=== PATIENT | female | born 1940 | race African-American/Black ===

== ENCOUNTER → 2016-09-24 | Outpatient (CLI) | payer MEDICARE ==
[2016-07-17 15:09] VITALS: BP 163/67
[~2016-09-24] MED LIST: AMLO10TA4 PO; ANAS1TAB3 PO; ASPI-482 PO; ATOR40TA59 PO; ATORVASTATIN CA80 MG PO; BUTA1CAP31 PO; CHLO1CAP PO; CLIN300C86 PO; DOCU100C5 PO; INSU100I13 SQ; INSU100V10 SQ; INSU100V31 SQ; INSU100V8 SQ; LISI1TAB7 PO; METO25TA2 PO; METO25TA4 PO; MULT-658 PO; NITR0.4T SL; NPH,100V4 SQ; POLY17PO5 PO; POTA20TA82 PO; PROAIR HFA8.5 GM IH; RANI150T2 PO; SENN1TAB30 PO; SULF1TAB24 PO; [UNRECOGNIZED DRUG - CODE] PO
--- NOTE | 2016-09-24 17:01 | RAD ---
APPROVED REPORT Patient Location: OUT-PATIENT Indications PAD VELOCITY AND DOPPLER WAVEFORM ANALYSIS RIGHT cm/secWaveformSeverity LEFT c m/secWaveformSeverity Ext Iliac Art. 174.0BiphasicExt Iliac Art. 160.0Biphasic dCFA 189.0BiphasicdCFA 123.0Biphasic Prof Fem Art. 190.0BiphasicProf Fem Art. 126.0 Fem Art Prox. 122.0BiphasicFem Art Prox. 138.0Biphasic Fem Art Mid. 89.0BiphasicFem Art Mid. 89.0Biphasic Fem Art Dist. 85.0BiphasicFem Art Dist. 86.0Biphasic Pop Art(AK) 193.0BiphasicPop Art(AK) 114.0Biphasic Pop Art(BK) 84.0BiphasicPop Art(BK) SENIOR TECHNICAL BUSINESS ANALYST Prox. 70.0MonophasicPTA Prox. 77.0Biphasic SENIOR TECHNICAL BUSINESS ANALYST Dist. 46.0MonophasicPTA Dist. 68.0Biphasic Per Art Mid. 57.0MonophasicPer Art Mid. 54.0Biphasic JN Prox. 24.0MonophasicATA Prox. 53.0Biphasic Image Findings Espinoza scale images of the right lower extremity arterial system reveal moderate diffuse atheroscleroti c plaque. There is a greater than 50% stenosis involving the distal popliteal vessel. Below the knee on the right side in the anterior tibial appears to be occluded in its distal segment with diminished flows. There is patency noted of the peroneal and posterior tibial vessels. On the left side there is mild atherosclerotic plaquing. No significant elevated velocities are noted . Critical Notification Critical Value: No <Conclusion> Suspicious for recurrent high-grade disease in the popliteal segment. Suspicious for occlusion of the distal right anterior tibial artery.
== END | disposition home or self-care (01) ==
LOC: US 13:31
PROVIDERS: ATTEND Internal Medicine Cardiovascular Disease
DX: I70.203 Unspecified atherosclerosis of native arteries of extremities, bilateral legs (principal)
CPT/HCPCS: 93925

== ENCOUNTER 2016-12-11 07:36 | Outpatient (CLI) | payer MEDICARE ==
[~2016-12-11] VITALS: Ht 162.6 cm; Wt 69.9 kg
[2016-12-11] VITALS (7 sets, daily range): BP systolic 105–142; BP diastolic 53–82
[~2016-12-11 07:36] MED LIST changes: +CLIN300C8 PO; -CLIN300C86 PO; +DOCU100C28 PO; -DOCU100C5 PO; -INSU100V10 SQ; +INSU100V11 SQ; -NPH,100V4 SQ; +NPH,100V5 SQ; +POLY17PO29 PO; -POLY17PO5 PO
[2016-12-11] MEDS ORDERED: IV NORMAL SALINE 1000ML BAG 1,000 ML IV SCH (07:45)
[2016-12-11] MEDS ORDERED: VITA1CAP5 PO (08:05)
[2016-12-11 08:22] LABS: HEMATOCRIT 45.1 % (36.0-47.0); HEMOGLOBIN 15.1 g/dL (12.0-15.5); RED BLOOD COUNT 5.02 x10^6/uL (3.50-5.40); RED CELL DISTRIBUTION WIDTH 14.1 % (11.5-14.5); WHITE BLOOD COUNT 10.4 x10^3/uL (4.0-11.0)
[2016-12-11 08:25] LABS: CALCIUM 10.1 mg/dL (8.5-10.1); CREATININE 0.9 mg/dL (0.6-1.0); GFR 74.1; POTASSIUM 4.1 mmol/L (3.5-5.1)
[2016-12-11 08:32] LABS: PROTHROMBIN TIME PATIENT 12.7 SEC (11.7-14.0)
[2016-12-11] MEDS ORDERED: LIDOCAINE 2% 20 ML VIAL. ONE (08:52)
[2016-12-11] MEDS ORDERED: IODIXANOL 320 MG/ML 100 ML VIAL. ONE (08:53)
[2016-12-11] MEDS ORDERED: fentaNYL PF VIAL 250 MCG/5 ML VIAL ONE (09:13)
[2016-12-11] MEDS ORDERED: MIDAZOLAM HCL/PF 5 MG/5 ML VIAL. ONE (09:13)
[2016-12-11] MEDS ORDERED: HEPARIN for IV BOLUS 10,000 UNIT/10 ML VIAL. ONE (09:13)
[2016-12-11] MEDS ORDERED: LIDOCAINE 2% 20 ML VIAL. IJ ONE (09:30)
[2016-12-11] MEDS ORDERED: IODIXANOL 320 MG/ML 100 ML VIAL. IART ONE (09:30)
[2016-12-11] MEDS ORDERED: fentaNYL PF VIAL 250 MCG/5 ML VIAL IV ONE (09:30)
[2016-12-11] MEDS ORDERED: CONTRAST GIVEN MC PRN (09:30)
[2016-12-11] MEDS ORDERED: MIDAZOLAM HCL/PF 5 MG/5 ML VIAL. IV ONE (09:30)
--- NOTE | 2016-12-11 09:58 | PDOC ---
MODERATE SEDATION ASSESSMENT RISKS/ALTERNATIVES Risks/Alternatives Risks and alternatives of this type of sedation and procedure discussed with: RISK/ALTERNATIVES: Patient H & P ON CHART H & P H & P on chart and reviewed for co-morbid conditions and appropriate labs. H&P ON CHART: Yes STATUS PREG STATUS ASSESSED: N/A MEDS/ALLERGIES REVIEWED Meds/Allergies Reviewed Medications and Allergies including time and route of recently administered narcotics and sedatives. MEDS/ALLERGIES REVIEWED: Yes ASA RATING ASA RATING: II AIRWAY ASSESSMENT Airway Assessment Airway patency, oral function limitations, presence of caps, crowns, dentures, partials, and ability to extend neck assessed. AIRWAY ASSESSMENT: Yes MALLAMPATI SCORE MALLAMPATI SCORE: II PRE-SEDATION ASSESSMENT PRE-SEDATION ASSESSMENT: Yes TAYLOR BROWN MD December 11, 2016 09:58
[2016-12-11] MEDS ORDERED: ACETAMINOPHEN 325 MG TABLET. PO PRN (10:00)
--- NOTE | 2016-12-11 10:21 | CARD ---
APPROVED REPORT Patient StatusOUT-PATIENT [facility] [employer] Supervisor: Sudeep Bhatt RT (R) Procedure(s) performed: Aortogram with bilateral lower extremity runoff INDICATION FOR PROCEDURE The indication(s) include : Peripheral vascular disease with claudication. PROCEDURE NARRATIVE After explaining the risks, benefits and alternative options, informed consent for the patient from oscar mota. Patient was brought to the cardiac Health Care Aide and her left groin was prepped and draped in the usual fashion. 20 mL of 2% lidocaine was infiltrated into the skin and subcutaneous tissues for local anesthesia. Arterial access was obtained in the left common femoral artery and a 5 [place] sheath was inserted. 5 [place] pigtail catheter was used to perform aortogram with bilateral lower extremity run off. The aortic nina was crossed using a 5 [place] crossover catheter and the tip position in the pr oximal portion of the right superficial femoral artery, selective right lower ejection and angiograph y was performed. Patient tolerated the procedure well. Hemostasis was achieved using Mynx closure dev ice. The following findings were noted. FINDINGS 1. No significant stenosis involving the distal descending aorta, bilateral common and external rj c arteries. 2. No significant stenosis involving bilateral common femoral and superficial femoral arteries. 3. 40% eccentric calcified lesion involving the proximal portion of the right popliteal artery. No s ignificant stenosis involving the left popliteal artery. 4. [id number], there is good two vessel runoff bilaterally. The left posterior tibial artery juan daniel wed severe diffuse disease in the mid to distal segment. The right peroneal artery showed moderate di ffuse disease. The right anterior tibial artery showed 60-70% proximal segment stenosis. Conclusion No significant major peripheral vascular stenosis with two vessel runoff below the knee bilaterally Recommendations Medical management and regular exercise regimen.
[2016-12-11] MEDS ORDERED: IV 1/2 NORMAL SALINE 1,000 ML IV SCH (10:30)
== END 2016-12-11 12:30 | disposition home or self-care (01) ==
LOC: CCL 07:36
PROVIDERS: ATTEND Internal Medicine Cardiovascular Disease
DX: I70.209 Unspecified atherosclerosis of native arteries of extremities, unspecified extremity (principal); Z79.01 Long term (current) use of anticoagulants; E78.00 Pure hypercholesterolemia, unspecified; I10 Essential (primary) hypertension; K21.9 Gastro-esophageal reflux disease without esophagitis; E11.9 Type 2 diabetes mellitus without complications; F41.9 Anxiety disorder, unspecified; M19.90 Unspecified osteoarthritis, unspecified site; Z90.49 Acquired absence of other specified parts of digestive tract; Z90.710 Acquired absence of both cervix and uterus; Z85.3 Personal history of malignant neoplasm of breast; Z88.0 Allergy status to penicillin; Z88.2 Allergy status to sulfonamides; Z88.8 Allergy status to other drugs, medicaments and biological substances
CPT/HCPCS: 36247; 36415; 75630; 80048; 85027; 85610; 85730; C1769; C1771; C1892; G0269; J2250; J3010; J7030; Q9967

== ENCOUNTER 2017-02-11 02:54 | Inpatient (IN) | payer MEDICARE ==
[~2017-02-11] VITALS: Ht 160 cm; Wt 73.2 kg
[~2017-02-11 02:54] MED LIST changes: +VITA1CAP5 PO
[2017-02-11] MEDS ORDERED: IV NORMAL SALINE 500ML BAG 500 ML IV ONE (03:15)
[2017-02-11 03:19] LABS: BASO % 0 % (0-3); EOS % 1 % (0-3); HEMATOCRIT 47.7 % (36.0-47.0); LYMPH # 2.5 x10^3/uL (1.0-4.8); LYMPH % 9 % (24-48); MEAN CORPUSCULAR HEMOGLOBIN 30 pg (25-35); MEAN CORPUSCULAR HGB CONC 34 g/dL (31-37); MEAN CORPUSCULAR VOLUME 89 fL (79-100); MONO % 4 % (0-9); NEUT % 86 % (31-73); PLATELET COUNT 286 x10^3/uL (140-400); RED BLOOD COUNT 5.34 x10^6/uL (3.50-5.40); WHITE BLOOD COUNT 26.4 x10^3/uL (4.0-11.0)
[2017-02-11] MEDS ORDERED: ONDANSETRON PF 4 MG/2 ML VIAL. IV ONE (03:30)
[2017-02-11] MEDS ORDERED: MORPHINE SULFATE 4 MG/ML DISP.SYRIN. IV ONE (04:00)
--- NOTE | 2017-02-11 04:14 | PHYS DOC ---
Past Medical History Past Medical History: CAD, Cancer, Diabetes-Type II, High Cholesterol, Hypertension, Other Additional Past Medical Histor: breast cancer Past Surgical History: Cholecystectomy, Coronary Bypass Surgery, Hysterectomy, Oophorectomy, Other Additional Past Surgical Histo: hemorrhoidectomy, right mastectomy,CARPAL TUNNEL RIGHT Alcohol Use: Rarely Drug Use: None Adult General Chief Complaint Chief Complaint: NAUSEA/VOMITING/DIARRHA HPI HPI Patient is a 77 year old female who presents with complaints of nausea, vomiting, abdominal distention, diarrhea. Diarrhea sling for 1 days since she took some laxatives due to constipation for 3 days. Been having abdominal distention for a few days and has tenderness throughout her belly, she has never had this symptoms before. Review of Systems Review of Systems Constitutional: has chills HENT: Denies nasal congestion or sore throat [] Respiratory: Denies cough or shortness of breath [] Cardiovascular: No aspirin GI: yes abdominal pain, nausea, vomiting, diarrhea. No bloody stools or diarrhea [] Musculoskeletal: Denies back pain or joint pain [] Integument: Denies rash or skin lesions [] Neurologic: Denies headache, focal weakness or sensory changes [] : Denies dysuria Current Medications Current Medications Current Medications Medications (Trade) Dose Ordered Sig/Shakeel Start Time Stop Time Status Last Admin Dose Admin Diphenhydramine HCl (Benadryl) 25 mg 1X ONCE 02/11/17 05:00 02/11/17 05:01 Cancel Famotidine (Pepcid) 20 mg 1X ONCE 02/11/17 05:00 02/11/17 05:01 Cancel Hydrochlorothiazide (Microzide) 25 mg 1X ONCE 02/11/17 04:30 02/11/17 04:31 UNV Info (Do NOT chart on this entry -- for MONITORING) 1 each PRN DAILY PRN 02/11/17 05:00 02/13/17 04:59 Iohexol (Omnipaque 300 Mg/ml) 75 ml 1X ONCE 02/11/17 05:00 02/11/17 05:01 DC Lisinopril (Prinivil) 20 mg 1X ONCE 02/11/17 04:30 02/11/17 04:31 UNV Methylprednisolone Sodium Succinate (SOLU-Medrol 125MG VIAL) 125 mg 1X ONCE 02/11/17 05:00 02/11/17 05:01 Cancel Metoprolol Tartrate (Lopressor) 25 mg 1X ONCE 02/11/17 04:30 02/11/17 04:31 UNV Morphine Sulfate 4 mg 1X ONCE 02/11/17 04:00 02/11/17 04:01 DC 02/11/17 04:08 4 MG Ondansetron HCl (Zofran) 4 mg 1X ONCE 02/11/17 03:30 02/11/17 03:31 DC 02/11/17 03:33 4 MG Sodium Chloride 1,000 ml @ 1,000 mls/hr 1X ONCE 02/11/17 05:00 02/11/17 05:59 Cancel Allergies Allergies Allergies Coded Allergies Type Severity Reaction Last Updated Verified Penicillins Allergy Intermediate hives 07/14/16 Yes Sulfa (Sulfonamide Antibiotics) Allergy Intermediate 07/14/16 Yes celecoxib Allergy Intermediate "makes me crazy" 07/14/16 Yes chocolate flavor Allergy Unknown 07/16/16 Yes Uncoded Allergies Type Severity Reaction Last Updated Verified crest Allergy Unknown 07/14/16 Physical Exam Physical Exam Constitutional: Well developed, well nourished, mild distress, non-toxic appearance. [] HENT: Normocephalic, atraumatic, dry oropharynx no oral exudates, nose normal. [ ] Eyes: EOMI, conjunctiva normal, no discharge. [] Neck: Normal range of motion, no tenderness, supple, no stridor. No LAD, no meningeal signs Cardiovascular:Heart rate regular rhythm, no murmur, normal perfusion, no vascular insufficiency Lungs & Thorax: Bilateral breath sounds with decreased sounds at the bases, no tachypnea Abdomen: Bowel sounds decreased, soft, diffuse tenderness with voluntary guarding, no masses, no pulsatile masses. [] Skin: Warm, dry, no erythema, no rash. [] Back: No tenderness, no CVA tenderness. [] Extremities: No tenderness, no cyanosis, no clubbing, ROM intact, no edema. The signs of DVT Neurologic: Alert and oriented X 3, normal motor function, no focal deficits noted. [] Psychologic: Affect normal, judgement normal, mood normal. [] Current Patient Data Vital Signs Vital Signs Date Time Temp Pulse Resp B/P (MAP) Pulse Ox O2 Delivery O2 Flow Rate FiO2 02/11/17 04:00 90 18 142/68 (92) 97 Room Air 02/11/17 03:00 98.3 98.3 Lab Values Laboratory Tests Test 02/11/17 02:10 02/11/17 04:10 White Blood Count 26.4 x10^3/uL (4.0-11.0) H Red Blood Count 5.34 x10^6/uL (3.50-5.40) Hemoglobin 16.0 g/dL (12.0-15.5) H Hematocrit 47.7 % (36.0-47.0) H Mean Corpuscular Volume 89 fL (79-100) Mean Corpuscular Hemoglobin 30 pg (25-35) Mean Corpuscular Hemoglobin Concent 34 g/dL (31-37) Red Cell Distribution Width 14.0 % (11.5-14.5) Platelet Count 286 x10^3/uL (140-400) Neutrophils (%) (Auto) 86 % (31-73) H Lymphocytes (%) (Auto) 9 % (24-48) L Monocytes (%) (Auto) 4 % (0-9) Eosinophils (%) (Auto) 1 % (0-3) Basophils (%) (Auto) 0 % (0-3) Neutrophils # (Auto) 22.7 x10^3uL (1.8-7.7) H Lymphocytes # (Auto) 2.5 x10^3/uL (1.0-4.8) Monocytes # (Auto) 1.0 x10^3/uL (0.0-1.1) Eosinophils # (Auto) 0.1 x10^3/uL (0.0-0.7) Basophils # (Auto) 0.0 x10^3/uL (0.0-0.2) Platelet Estimate Pending Lactic Acid Level 2.0 mmol/L (0.4-2.0) Sodium Level 139 mmol/L (136-145) Potassium Level 3.5 mmol/L (3.5-5.1) Chloride Level 102 mmol/L (98-107) Carbon Dioxide Level 26 mmol/L (21-32) Anion Gap 11 (6-14) Blood Urea Nitrogen 16 mg/dL (7-20) Creatinine 1.2 mg/dL (0.6-1.0) H Estimated GFR (Cockcroft-Gault) 53.0 BUN/Creatinine Ratio 13 (6-20) Glucose Level 246 mg/dL (70-99) H Calcium Level 10.9 mg/dL (8.5-10.1) H Total Bilirubin 0.7 mg/dL (0.2-1.0) Aspartate Amino Transferase (AST) 26 U/L (15-37) Alanine Aminotransferase (ALT) 33 U/L (14-59) Alkaline Phosphatase 132 U/L (46-116) H Total Protein 8.4 g/dL (6.4-8.2) H Albumin 4.1 g/dL (3.4-5.0) Albumin/Globulin Ratio 1.0 (1.0-1.7) Laboratory Tests 02/11/17 02:10 Laboratory Tests 02/11/17 04:10 EKG EKG [] Radiology/Procedures Radiology/Procedures [] Course & Med Decision Making Course & Med Decision Making Pertinent Labs and Imaging studies reviewed. (See chart for details) 0601 pt feels much improved. Informed of CT results. [] Dragon Disclaimer Dragon Disclaimer This electronic medical record was generated, in whole or in part, using a voice recognition dictation system. Departure Departure Impression: Primary Impression: SBO (small bowel obstruction) Disposition: ADMITTED INPATIENT Admitting Physician: Nano Castillo Condition: STABLE Referrals: NANO CASTILLO MD (PCP) Carina HENDRIX MD Feb 11, 2017 04:14
[2017-02-11] MEDS ORDERED: hydroCHLOROthiazide 12.5 MG CAPSULE PO ONE (04:30)
[2017-02-11] MEDS ORDERED: METOPROLOL TART IMMED RELEASE 25 MG TABLET. PO ONE (04:30)
[2017-02-11] MEDS ORDERED: LISINOPRIL 10 MG TABLET PO ONE (04:30)
[2017-02-11 04:38] LABS: CALCIUM 10.9 mg/dL (8.5-10.1); CREATININE 1.2 mg/dL (0.6-1.0); POTASSIUM 3.5 mmol/L (3.5-5.1)
[2017-02-11 04:44] LABS: ALBUMIN 4.1 g/dL (3.4-5.0); TOTAL BILIRUBIN 0.7 mg/dL (0.2-1.0); TOTAL PROTEIN 8.4 g/dL (6.4-8.2)
[2017-02-11] MEDS ORDERED: IV NORMAL SALINE 1000ML BAG 1,000 ML IV ONE ×2 (04:45→05:00)
[2017-02-11] MEDS ORDERED: methylPREDNISolone SOD SUCC PF 125 MG/2 ML VIAL. IV ONE (05:00)
[2017-02-11] MEDS ORDERED: FAMOTIDINE 20 MG/2 ML VIAL IVP ONE ×2 (05:00→15:30)
[2017-02-11] MEDS ORDERED: diphenhydrAMINE 50 MG/ML VIAL IVP ONE (05:00)
[2017-02-11] MEDS ORDERED: IOHEXOL 300 MG/ML 75 ML VIAL IV ONE (05:00)
[2017-02-11] MEDS ORDERED: CONTRAST GIVEN MC PRN (05:00)
--- NOTE | 2017-02-11 05:33 | RAD ---
CT abdomen and pelvis without contrast HISTORY: Abdominal pain and distention, vomiting. TECHNIQUE: Helical CT imaging of the abdomen and pelvis acquired. No contrast was given. Abdomen findings: Extensive coronary calcified plaque. Lung bases unremarkable. Lumbar disc disease and facet osteoarthritis, L5 grade 2 anterolisthesis with severe spinal canal and neural foraminal stenosis at L5-S1. Cholecystectomy. Extensive arterial vascular calcifications. No nephroureterolithiasis or hydronephrosis. Liver, spleen, adrenals, pancreas unremarkable. There is a 3 mm thin slip of hypodense fluid along the liver deep to the diaphragm. Left-sided IVC. Extensive mesenteric artery calcified plaque. Small bowel obstruction with fluid distention and air-fluid levels throughout majority of small bowel with transition point at the distal ileum with clumping of bowel loops within the pelvis could be due to either an adhesion of these loops or stricture from distal ileitis. The appendix is negative. Pelvis findings: Hysterectomy. Bladder, rectum and bones are unremarkable. Clumping of small bowel loops at the pelvis. Trace dependent pelvic fluid. IMPRESSION: 1. Small bowel obstruction with transition point at the distal ileum where there are clumped small bowel loops within the pelvis, this could be due to an adhesion tethering these bowel loops. Distal ileum stricture from enteritis there is a secondary consideration. 2. The appendix is negative. 3. Extensive arterial vascular calcifications, the morphology of which can be observed with chronic renal disease or hyperparathyroidism. Exposure: One or more of the following individualized dose reduction techniques were utilized for this examination: 1. Automated exposure control 2. Adjustment of the mA and/or kV according to patient size 3. Use of iterative reconstruction technique Electronically signed by: Caleb Cochran MD (02/11/2017 5:30 AM) [id number]
[2017-02-11] MEDS ORDERED: ONDANSETRON PF 4 MG/2 ML VIAL. IV PRN (06:15)
[2017-02-11] MEDS ORDERED: MORPHINE SULFATE 4 MG/ML DISP.SYRIN. IV PRN (06:15)
[2017-02-11 07:00] VITALS: BP 151/77
[2017-02-11] MEDS ORDERED: GARL10002 PO (07:05)
[2017-02-11] MEDS ORDERED: OMEG1CAP6 PO (07:05)
[2017-02-11 07:07] LABS: % EOS 1 % (0-5)
[2017-02-11 07:08] LABS: PLT ESTIMATE ADEQUATE (ADEQUATE)
--- NOTE | 2017-02-11 07:18 | RAD ---
Portable chest, 02/11/2017: History: Pneumonia Comparison is made to a study from 07/14/2016. There has been a previous median sternotomy. The heart size and pulmonary vascularity are normal. There is calcific plaquing of aorta. The lungs are clear. There is no evidence of pleural fluid. IMPRESSION: No acute cardiopulmonary abnormality is detected.
[2017-02-11] MEDS ORDERED: hydrALAZINE 20 MG/ML VIAL. IVP PRN (08:00)
--- NOTE | 2017-02-11 08:10 | PDOC1 ---
History and Physical Date of Admission Date of Admission DATE: 02/11/17 Identification/Chief Complaint Chief Complaint Nausea, vomiting, abdominal pain Problems: Source Source: Patient History of Present Illness History of Present Illness Pt states that she had dinner last night including BBQ ribs, turnip greens, corn on the cob, 2T of icecream, small piece of chocolate cake and a diet 7up. Woke up around 11pm and felt "funny". Went to the restroom and had both large BM and vomited. Called her daughter who then called 911. Pt vomited again. States that symptoms were sudden onset, but has noticed increased abdominal distention and constipation since the beginning of January. Having some lower abdominal pain currently. Past Medical History Cardiovascular: CAD, HTN, Hyperlipidemia, Aortic stenosis, Other Pulmonary: No pertinent hx CENTRAL NERVOUS SYSTEM: Other GI: GERD Heme/Onc: No pertinent hx Hepatobiliary: No pertinent hx Psych: No pertinent hx Musculoskeletal: Osteoarthritis Rheumatologic: No pertinent hx Infectious disease: No pertinent hx ENT: Allergic Rhinitis Renal/: No pertinent hx Endocrine: Diabetes Dermatology: No pertinent hx Past Surgical History Past Surgical History: Cholecystectomy, CABG, Mastectomy, Hysterectomy Family History Family History: Coronary Artery Disease Social History Smoke: Quit ALCOHOL: rare Drugs: None Current Problem List Problem List Problems Medical Problems: (1) SBO (small bowel obstruction) Status: Acute Problems: Current Medications Current Medications Current Medications Sodium Chloride 500 ml @ 500 mls/hr 1X ONCE IV Last administered on 03:33; Start 02/11/17 at 03:15; Stop 02/11/17 at 04:14; Status DC Ondansetron HCl (Zofran) 4 mg 1X ONCE IV Last administered on 02/11/17 03:33 ; Start 02/11/17 at 03:30; Stop 02/11/17 at 03:31; Status DC Morphine Sulfate 4 mg 1X ONCE IV Last administered on 02/11/17 04:08; Start 02/11/17 at 04:00; Stop 02/11/17 at 04:01; Status DC Iohexol (Omnipaque 300 Mg/ml) 75 ml 1X ONCE IV ; Start 02/11/17 at 05:00; Stop 02/11/17 at 05:01; Status DC Lisinopril (Prinivil) 20 mg 1X ONCE PO ; Start 02/11/17 at 04:30; Stop at 04:31; Status UNV Hydrochlorothiazide (Microzide) 25 mg 1X ONCE PO ; Start 02/11/17 at 04:30; Stop 02/11/17 at 04:31; Status UNV Metoprolol Tartrate (Lopressor) 25 mg 1X ONCE PO ; Start 02/11/17 at 04:30; Stop 02/11/17 at 04:31; Status UNV Sodium Chloride 1,000 ml @ 1,000 mls/hr 1X ONCE IV ; Start 02/11/17 at 04:45; Stop 02/11/17 at 05:44; Status DC Famotidine (Pepcid) 20 mg 1X ONCE IVP ; Start 02/11/17 at 05:00; Stop 02/11/17 at 05:01; Status Cancel Diphenhydramine HCl (Benadryl) 25 mg 1X ONCE IVP ; Start 02/11/17 at 05:00; Stop 02/11/17 at 05:01; Status Cancel Methylprednisolone Sodium Succinate (SOLU-Medrol 125MG VIAL) 125 mg 1X ONCE IV ; Start 02/11/17 at 05:00; Stop 02/11/17 at 05:01; Status Cancel Sodium Chloride 1,000 ml @ 1,000 mls/hr 1X ONCE IV ; Start 02/11/17 at 05:00; Stop 02/11/17 at 05:59; Status Cancel Info (Do NOT chart on this entry -- for MONITORING) 1 each PRN DAILY PRN MC SEE COMMENTS; Start 02/11/17 at 05:00; Stop 02/13/17 at 04:59 Ondansetron HCl (Zofran) 4 mg PRN Q8HRS PRN IV NAUSEA/VOMITING; Start 02/11/17 at 06:15; Stop 02/12/17 at 06:14 Morphine Sulfate 4 mg PRN Q2HR PRN IV PAIN; Start 02/11/17 at 06:15; Stop at 06:14 Active Scripts Active Atorvastatin Calcium 40 Mg Tablet 40 Mg PO QHS 30 Days Reported Fish Oil 1,000 Mg Capsule ([place]-3 Fatty Acids/Fish Oil) 1 Each Capsule 1 Each PO DAILY Garlic 1,000 Mg Capsule 1,000 Mg PO DAILY B Complex With Vitamin C (Vitamin B Complex & Vit C No.3) 1 Each Capsule 1 Each PO DAILY Lantus Solostar (Insulin Glargine,Hum.rec.anlog) 100 Unit/1 Ml Insuln.pen 30 Unit SQ HS Novolin R (Insulin Regular, Human) 100 Unit/1 Ml Vial 12-15 Unit SQ TIDWMEALS Toprol Xl (Metoprolol Succinate) 25 Mg Tab.er.24h 50 Mg PO HS Aspir 81 (Aspirin) 81 Mg Tablet.dr 81 Mg PO DAILYAC Norvasc (Amlodipine Besylate) 10 Mg Tablet 10 Mg PO DAILY Potassium Chloride 20 Meq Tablet.er 20 Meq PO DAILYAC Ranitidine Hcl 150 Mg Tablet 150 Mg PO BID Lisinopril-Hctz 20-25 Mg Tab (Lisinopril/Hydrochlorothiazide) 1 Each Tablet 1 Tab PO DAILY Centrum Silver Tablet (Multivits-Min/Fa/Lycopene/Lut) 1 Each Tablet 1 Each PO DAILY LAST DOSE: 12/07/15 AM NEXT DOSE: 12/08/15 AM Allergies Allergies: Coded Allergies: Penicillins (Verified Allergy, Intermediate, hives, 07/14/16) Sulfa (Sulfonamide Antibiotics) (Verified Allergy, Intermediate, 07/14/16) celecoxib (Verified Allergy, Intermediate, "makes me crazy", 07/14/16) chocolate flavor (Verified Allergy, Unknown, 07/16/16) Uncoded Allergies: crest (Allergy, Unknown, 07/14/16) ROS General: YES: Chills, No: Night Sweats PSYCHOLOGICAL ROS: No: Anxiety, Depression Eyes: No Decreased vision, No Eye Pain HEENT: No: Nasal congestion, Sore Throat ALLERGY AND IMMUNOLOGY: No: Hives, Post Nasal Drip Hematological and Lymphatic: No: Bleeding Problems, Blood Clots Respiratory: No: Cough, Shortness of breath Cardiovascular: No Chest Pain, No Palpitations, No Edema Gastrointestinal: Yes Nausea, Yes Vomiting, Yes Abdominal Pain, No Diarrhea, No Constipation Genitourinary: No Dysuria, No Urgency Musculoskeletal: No Joint Pain, No Muscle Pain Neurological: No Impaired Coord/balance, No Numbness/Tingling Skin: No Rash, No Skin Lesion Changes Physical Exam General: Alert, Oriented X3, Cooperative, No acute distress HEENT: Atraumatic, PERRLA, EOMI, Mucous membr. moist/pink Lungs: Clear to auscultation, Normal air movement Heart: RRR, other (systolic ejection murmur heard best PIOTR border) Abdomen: Other (distended, decreased bowel sounds throughout except for some high pitched sounds LLQ, minimal tenderness suprapubic) Extremities: No clubbing, No cyanosis, No edema Skin: No rashes, No breakdown, No significant lesion Neuro: Normal tone, Sensation intact, Cranial nerves 3-12 NL Psych/Mental Status: Mental status NL, Mood NL Vitals Vitals Vital Signs Date Time Temp Pulse Resp B/P (MAP) Pulse Ox O2 Delivery O2 Flow Rate FiO2 02/11/17 06:00 88 18 150/64 (92) 96 Room Air 02/11/17 03:00 98.3 98.3 Labs Labs Laboratory Tests Test 02/11/17 02:10 02/11/17 04:10 White Blood Count 26.4 x10^3/uL (4.0-11.0) Red Blood Count 5.34 x10^6/uL (3.50-5.40) Hemoglobin 16.0 g/dL (12.0-15.5) Hematocrit 47.7 % (36.0-47.0) Mean Corpuscular Volume 89 fL (79-100) Mean Corpuscular Hemoglobin 30 pg (25-35) Mean Corpuscular Hemoglobin Concent 34 g/dL (31-37) Red Cell Distribution Width 14.0 % (11.5-14.5) Platelet Count 286 x10^3/uL (140-400) Neutrophils (%) (Auto) 86 % (31-73) Lymphocytes (%) (Auto) 9 % (24-48) Monocytes (%) (Auto) 4 % (0-9) Eosinophils (%) (Auto) 1 % (0-3) Basophils (%) (Auto) 0 % (0-3) Neutrophils # (Auto) 22.7 x10^3uL (1.8-7.7) Lymphocytes # (Auto) 2.5 x10^3/uL (1.0-4.8) Monocytes # (Auto) 1.0 x10^3/uL (0.0-1.1) Eosinophils # (Auto) 0.1 x10^3/uL (0.0-0.7) Basophils # (Auto) 0.0 x10^3/uL (0.0-0.2) Segmented Neutrophils % 87 % (35-66) Lymphocytes % 11 % (24-48) Monocytes % 1 % (0-10) Eosinophils % 1 % (0-5) Platelet Estimate Adequate (ADEQUATE) Lactic Acid Level 2.0 mmol/L (0.4-2.0) Sodium Level 139 mmol/L (136-145) Potassium Level 3.5 mmol/L (3.5-5.1) Chloride Level 102 mmol/L (98-107) Carbon Dioxide Level 26 mmol/L (21-32) Anion Gap 11 (6-14) Blood Urea Nitrogen 16 mg/dL (7-20) Creatinine 1.2 mg/dL (0.6-1.0) Estimated GFR (Cockcroft-Gault) 53.0 BUN/Creatinine Ratio 13 (6-20) Glucose Level 246 mg/dL (70-99) Calcium Level 10.9 mg/dL (8.5-10.1) Total Bilirubin 0.7 mg/dL (0.2-1.0) Aspartate Amino Transf (AST/SGOT) 26 U/L (15-37) Alanine Aminotransferase (ALT/SGPT) 33 U/L (14-59) Alkaline Phosphatase 132 U/L (46-116) Total Protein 8.4 g/dL (6.4-8.2) Albumin 4.1 g/dL (3.4-5.0) Albumin/Globulin Ratio 1.0 (1.0-1.7) Laboratory Tests Test 02/11/17 02:10 02/11/17 04:10 White Blood Count 26.4 x10^3/uL (4.0-11.0) Red Blood Count 5.34 x10^6/uL (3.50-5.40) Hemoglobin 16.0 g/dL (12.0-15.5) Hematocrit 47.7 % (36.0-47.0) Mean Corpuscular Volume 89 fL (79-100) Mean Corpuscular Hemoglobin 30 pg (25-35) Mean Corpuscular Hemoglobin Concent 34 g/dL (31-37) Red Cell Distribution Width 14.0 % (11.5-14.5) Platelet Count 286 x10^3/uL (140-400) Neutrophils (%) (Auto) 86 % (31-73) Lymphocytes (%) (Auto) 9 % (24-48) Monocytes (%) (Auto) 4 % (0-9) Eosinophils (%) (Auto) 1 % (0-3) Basophils (%) (Auto) 0 % (0-3) Neutrophils # (Auto) 22.7 x10^3uL (1.8-7.7) Lymphocytes # (Auto) 2.5 x10^3/uL (1.0-4.8) Monocytes # (Auto) 1.0 x10^3/uL (0.0-1.1) Eosinophils # (Auto) 0.1 x10^3/uL (0.0-0.7) Basophils # (Auto) 0.0 x10^3/uL (0.0-0.2) Segmented Neutrophils % 87 % (35-66) Lymphocytes % 11 % (24-48) Monocytes % 1 % (0-10) Eosinophils % 1 % (0-5) Platelet Estimate Adequate (ADEQUATE) Lactic Acid Level 2.0 mmol/L (0.4-2.0) Sodium Level 139 mmol/L (136-145) Potassium Level 3.5 mmol/L (3.5-5.1) Chloride Level 102 mmol/L (98-107) Carbon Dioxide Level 26 mmol/L (21-32) Anion Gap 11 (6-14) Blood Urea Nitrogen 16 mg/dL (7-20) Creatinine 1.2 mg/dL (0.6-1.0) Estimated GFR (Cockcroft-Gault) 53.0 BUN/Creatinine Ratio 13 (6-20) Glucose Level 246 mg/dL (70-99) Calcium Level 10.9 mg/dL (8.5-10.1) Total Bilirubin 0.7 mg/dL (0.2-1.0) Aspartate Amino Transf (AST/SGOT) 26 U/L (15-37) Alanine Aminotransferase (ALT/SGPT) 33 U/L (14-59) Alkaline Phosphatase 132 U/L (46-116) Total Protein 8.4 g/dL (6.4-8.2) Albumin 4.1 g/dL (3.4-5.0) Albumin/Globulin Ratio 1.0 (1.0-1.7) VTE Prophylaxis Ordered VTE Prophylaxis Devices: Yes VTE Pharmacological Prophylaxi: Yes Assessment/Plan Assessment/Plan Pt is a 77yo AAF admitted for SBO 1)SBO- possibly 2/2 abdominal adhesions. Pt is currently NPO with IVF hydration 2)Leukocytosis- possibly reactive and also 2/2 dehydration. Pt has no other signs or symptoms of infection, CTM 3)LORE- likely 2/2 dehydration. CTM 4)DM2- uncontrolled. HbA1C 07/31 was 8.6. Pt normally takes Lantus 45-50 units SQ QHS, will decrease to 25units while NPO and have SSI available. 5)HTN- pt normally takes HCTZ/Lisinopril 25/20mg, Norvasc 10mg and Metoprolol ER 50mg. Will start IV Enalaprilat, IV Metoprolol and have IV Hydralazine available if needed 6)HLD- will hold pt's Atorvastatin 40mg for now 7)Hx of Breast Cancer 8)GERD- will do IV Famotidine 9)Hx of CAD SABINE ALLISON MD Feb 11, 2017 08:10
[2017-02-11] MEDS ORDERED: DEXTROSE 50% 25 GM / 50ML DISP.SYRIN. IV PRN (08:15)
--- NOTE | 2017-02-11 08:42 | PDOC ---
PROGRESS NOTES Subjective Subjective Consult received Pt is known to Dr. Florian Alvarenga, and she requests his consultation. Will ask Dr. Alvarenga to evaluate Thanks! Objective Objective Vital Signs Date Time Temp Pulse Resp B/P (MAP) Pulse Ox O2 Delivery O2 Flow Rate FiO2 02/11/17 07:30 Room Air 02/11/17 07:00 98.1 88 18 151/77 (101) 94 98.1 Intake and Output 02/11/17 07:00 Intake Total 500 ml Balance 500 ml Intake IV Total 500 ml Assessment Assessment Problems Medical Problems: (1) SBO (small bowel obstruction) Status: Acute Comment Review of Relevant I have reviewed the following items moriah (where applicable) has been applied. Labs Laboratory Tests Test 02/11/17 02:10 02/11/17 04:10 02/11/17 07:24 White Blood Count 26.4 x10^3/uL (4.0-11.0) Red Blood Count 5.34 x10^6/uL (3.50-5.40) Hemoglobin 16.0 g/dL (12.0-15.5) Hematocrit 47.7 % (36.0-47.0) Mean Corpuscular Volume 89 fL (79-100) Mean Corpuscular Hemoglobin 30 pg (25-35) Mean Corpuscular Hemoglobin Concent 34 g/dL (31-37) Red Cell Distribution Width 14.0 % (11.5-14.5) Platelet Count 286 x10^3/uL (140-400) Neutrophils (%) (Auto) 86 % (31-73) Lymphocytes (%) (Auto) 9 % (24-48) Monocytes (%) (Auto) 4 % (0-9) Eosinophils (%) (Auto) 1 % (0-3) Basophils (%) (Auto) 0 % (0-3) Neutrophils # (Auto) 22.7 x10^3uL (1.8-7.7) Lymphocytes # (Auto) 2.5 x10^3/uL (1.0-4.8) Monocytes # (Auto) 1.0 x10^3/uL (0.0-1.1) Eosinophils # (Auto) 0.1 x10^3/uL (0.0-0.7) Basophils # (Auto) 0.0 x10^3/uL (0.0-0.2) Segmented Neutrophils % 87 % (35-66) Lymphocytes % 11 % (24-48) Monocytes % 1 % (0-10) Eosinophils % 1 % (0-5) Platelet Estimate Adequate (ADEQUATE) Lactic Acid Level 2.0 mmol/L (0.4-2.0) Sodium Level 139 mmol/L (136-145) Potassium Level 3.5 mmol/L (3.5-5.1) Chloride Level 102 mmol/L (98-107) Carbon Dioxide Level 26 mmol/L (21-32) Anion Gap 11 (6-14) Blood Urea Nitrogen 16 mg/dL (7-20) Creatinine 1.2 mg/dL (0.6-1.0) Estimated GFR (Cockcroft-Gault) 53.0 BUN/Creatinine Ratio 13 (6-20) Glucose Level 246 mg/dL (70-99) Calcium Level 10.9 mg/dL (8.5-10.1) Total Bilirubin 0.7 mg/dL (0.2-1.0) Aspartate Amino Transf (AST/SGOT) 26 U/L (15-37) Alanine Aminotransferase (ALT/SGPT) 33 U/L (14-59) Alkaline Phosphatase 132 U/L (46-116) Total Protein 8.4 g/dL (6.4-8.2) Albumin 4.1 g/dL (3.4-5.0) Albumin/Globulin Ratio 1.0 (1.0-1.7) Glucose (Fingerstick) 263 mg/dL (70-99) Laboratory Tests Test 02/11/17 02:10 02/11/17 04:10 02/11/17 07:24 White Blood Count 26.4 x10^3/uL (4.0-11.0) Red Blood Count 5.34 x10^6/uL (3.50-5.40) Hemoglobin 16.0 g/dL (12.0-15.5) Hematocrit 47.7 % (36.0-47.0) Mean Corpuscular Volume 89 fL (79-100) Mean Corpuscular Hemoglobin 30 pg (25-35) Mean Corpuscular Hemoglobin Concent 34 g/dL (31-37) Red Cell Distribution Width 14.0 % (11.5-14.5) Platelet Count 286 x10^3/uL (140-400) Neutrophils (%) (Auto) 86 % (31-73) Lymphocytes (%) (Auto) 9 % (24-48) Monocytes (%) (Auto) 4 % (0-9) Eosinophils (%) (Auto) 1 % (0-3) Basophils (%) (Auto) 0 % (0-3) Neutrophils # (Auto) 22.7 x10^3uL (1.8-7.7) Lymphocytes # (Auto) 2.5 x10^3/uL (1.0-4.8) Monocytes # (Auto) 1.0 x10^3/uL (0.0-1.1) Eosinophils # (Auto) 0.1 x10^3/uL (0.0-0.7) Basophils # (Auto) 0.0 x10^3/uL (0.0-0.2) Segmented Neutrophils % 87 % (35-66) Lymphocytes % 11 % (24-48) Monocytes % 1 % (0-10) Eosinophils % 1 % (0-5) Platelet Estimate Adequate (ADEQUATE) Lactic Acid Level 2.0 mmol/L (0.4-2.0) Sodium Level 139 mmol/L (136-145) Potassium Level 3.5 mmol/L (3.5-5.1) Chloride Level 102 mmol/L (98-107) Carbon Dioxide Level 26 mmol/L (21-32) Anion Gap 11 (6-14) Blood Urea Nitrogen 16 mg/dL (7-20) Creatinine 1.2 mg/dL (0.6-1.0) Estimated GFR (Cockcroft-Gault) 53.0 BUN/Creatinine Ratio 13 (6-20) Glucose Level 246 mg/dL (70-99) Calcium Level 10.9 mg/dL (8.5-10.1) Total Bilirubin 0.7 mg/dL (0.2-1.0) Aspartate Amino Transf (AST/SGOT) 26 U/L (15-37) Alanine Aminotransferase (ALT/SGPT) 33 U/L (14-59) Alkaline Phosphatase 132 U/L (46-116) Total Protein 8.4 g/dL (6.4-8.2) Albumin 4.1 g/dL (3.4-5.0) Albumin/Globulin Ratio 1.0 (1.0-1.7) Glucose (Fingerstick) 263 mg/dL (70-99) Medications Current Medications Sodium Chloride 500 ml @ 500 mls/hr 1X ONCE IV Last administered on 03:33; Start 02/11/17 at 03:15; Stop 02/11/17 at 04:14; Status DC Ondansetron HCl (Zofran) 4 mg 1X ONCE IV Last administered on 02/11/17 03:33 ; Start 02/11/17 at 03:30; Stop 02/11/17 at 03:31; Status DC Morphine Sulfate 4 mg 1X ONCE IV Last administered on 02/11/17 04:08; Start 02/11/17 at 04:00; Stop 02/11/17 at 04:01; Status DC Iohexol (Omnipaque 300 Mg/ml) 75 ml 1X ONCE IV ; Start 02/11/17 at 05:00; Stop 02/11/17 at 05:01; Status DC Lisinopril (Prinivil) 20 mg 1X ONCE PO ; Start 02/11/17 at 04:30; Stop at 04:31; Status UNV Hydrochlorothiazide (Microzide) 25 mg 1X ONCE PO ; Start 02/11/17 at 04:30; Stop 02/11/17 at 04:31; Status UNV Metoprolol Tartrate (Lopressor) 25 mg 1X ONCE PO ; Start 02/11/17 at 04:30; Stop 02/11/17 at 04:31; Status UNV Sodium Chloride 1,000 ml @ 1,000 mls/hr 1X ONCE IV ; Start 02/11/17 at 04:45; Stop 02/11/17 at 05:44; Status DC Famotidine (Pepcid) 20 mg 1X ONCE IVP ; Start 02/11/17 at 05:00; Stop 02/11/17 at 05:01; Status Cancel Diphenhydramine HCl (Benadryl) 25 mg 1X ONCE IVP ; Start 02/11/17 at 05:00; Stop 02/11/17 at 05:01; Status Cancel Methylprednisolone Sodium Succinate (SOLU-Medrol 125MG VIAL) 125 mg 1X ONCE IV ; Start 02/11/17 at 05:00; Stop 02/11/17 at 05:01; Status Cancel Sodium Chloride 1,000 ml @ 1,000 mls/hr 1X ONCE IV ; Start 02/11/17 at 05:00; Stop 02/11/17 at 05:59; Status Cancel Info (Do NOT chart on this entry -- for MONITORING) 1 each PRN DAILY PRN MC SEE COMMENTS; Start 02/11/17 at 05:00; Stop 02/13/17 at 04:59 Ondansetron HCl (Zofran) 4 mg PRN Q8HRS PRN IV NAUSEA/VOMITING; Start 02/11/17 at 06:15; Stop 02/12/17 at 06:14 Morphine Sulfate 4 mg PRN Q2HR PRN IV PAIN; Start 02/11/17 at 06:15; Stop at 06:14 Enoxaparin Sodium (Lovenox 40mg Syringe) 40 mg Q24H SQ ; Start 02/11/17 at 09:00 Enalaprilat (Vasotec) 2.5 mg Q6HRS IV ; Start 02/11/17 at 08:30 Metoprolol Tartrate (Lopressor) 5 mg Q6HRS IVP ; Start 02/11/17 at 08:30 Hydralazine HCl (Apresoline) 10 mg PRN Q4HRS PRN IVP ELEVATED BP, SEE COMMENTS ; Start 02/11/17 at 08:00 Famotidine (Pepcid) 20 mg QHS IVP ; Start 02/11/17 at 21:00 Insulin Detemir (Levemir) 25 units QHS SQ ; Start 02/11/17 at 21:00 Insulin Aspart (NovoLOG) 0-7 UNITS TIDWMEALS SQ ; Start 02/11/17 at 08:30 Dextrose (Dextrose 50%-Water Syringe) 12.5 gm PRN Q15MIN PRN IV SEE COMMENTS; Start 02/11/17 at 08:15 Potassium Chloride 30 meq/ Sodium Chloride 1,015 ml @ 75 mls/hr [id number] IV ; Start 02/11/17 at 09:00 Ondansetron HCl (Zofran) 4 mg PRN Q6HRS PRN IV NAUSEA/VOMITING; Start 02/11/17 at 08:15 Active Scripts Active Atorvastatin Calcium 40 Mg Tablet 40 Mg PO QHS 30 Days Reported Fish Oil 1,000 Mg Capsule ([place]-3 Fatty Acids/Fish Oil) 1 Each Capsule 1 Each PO DAILY Garlic 1,000 Mg Capsule 1,000 Mg PO DAILY B Complex With Vitamin C (Vitamin B Complex & Vit C No.3) 1 Each Capsule 1 Each PO DAILY Lantus Solostar (Insulin Glargine,Hum.rec.anlog) 100 Unit/1 Ml Insuln.pen 30 Unit SQ HS Novolin R (Insulin Regular, Human) 100 Unit/1 Ml Vial 12-15 Unit SQ TIDWMEALS Toprol Xl (Metoprolol Succinate) 25 Mg Tab.er.24h 50 Mg PO HS Aspir 81 (Aspirin) 81 Mg Tablet.dr 81 Mg PO DAILYAC Norvasc (Amlodipine Besylate) 10 Mg Tablet 10 Mg PO DAILY Potassium Chloride 20 Meq Tablet.er 20 Meq PO DAILYAC Ranitidine Hcl 150 Mg Tablet 150 Mg PO BID Lisinopril-Hctz 20-25 Mg Tab (Lisinopril/Hydrochlorothiazide) 1 Each Tablet 1 Tab PO DAILY Centrum Silver Tablet (Multivits-Min/Fa/Lycopene/Lut) 1 Each Tablet 1 Each PO DAILY LAST DOSE: 12/07/15 AM NEXT DOSE: 12/08/15 AM Vitals/I & O Vital Sign - Last 24 Hours 02/11/17 02/11/17 02/11/17 02/11/17 03:00 03:00 03:30 04:00 Temp 98.3 98.3 Pulse 94 98 86 90 Resp 16 20 18 18 B/P (MAP) 120/58 (78) 120/58 (78) 132/67 (88) 142/68 (92) Pulse Ox 96 96 97 97 O2 Delivery Room Air Room Air Room Air Room Air 02/11/17 02/11/17 02/11/17 02/11/17 05:30 06:00 07:00 07:30 Temp 98.1 98.1 Pulse 89 88 88 Resp 18 18 18 B/P (MAP) 140/62 (88) 150/64 (92) 151/77 (101) Pulse Ox 96 96 94 O2 Delivery Room Air Room Air Room Air Room Air Intake and Output 02/10/17 02/10/17 02/11/17 15:00 23:00 07:00 Intake Total 500 ml Balance 500 ml GUSTABO MURRY MD Feb 11, 2017 08:42
[2017-02-11] MEDS ORDERED: POTASSIUM CHLORIDE 30 MEQ in IV 1/2 NORMAL SALINE 1,000 ML IV SCH (09:00)
[2017-02-11] MEDS: ENALAPRILAT 2.5 MG/2 ML VIAL. IV SCH ×4 (09:01→23:46)
[2017-02-11] MEDS: METOPROLOL TARTRATE 5 MG/5 ML VIAL. IVP SCH ×4 (09:01→23:46)
[2017-02-11] MEDS: ENOXAPARIN 40 MG/0.4 ML SYRINGE. SQ SCH (09:02)
[2017-02-11] MEDS: INSULIN ASPART 300 UNITS/3 ML INSULN.PEN SQ SCH ×3 (09:12→16:15)
[2017-02-11] MEDS ORDERED: POTASSIUM CHLORIDE 20 MEQ in IV 1/2 NORMAL SALINE 1,000 ML IV SCH (10:38)
--- NOTE | 2017-02-11 10:50 | PDOC ---
SURGICAL PROGRESS NOTE Subjective Patient with history as noted without abd pain but with N&V. Now no nausea and CT showed no real bowel obstruction. Abd wiould pain or tenderness and is " less distended"/ per the patient. Wants to eat. Will keep NPO and repeat labs including acute abd series in am. Clinically doing well without discomfort. Consult dictated. Vital Signs Vital Signs Date Time Temp Pulse Resp B/P (MAP) Pulse Ox O2 Delivery O2 Flow Rate FiO2 02/11/17 09:01 88 151/77 02/11/17 07:30 Room Air 02/11/17 07:00 98.1 18 94 98.1 I&O Intake and Output 02/11/17 07:00 Intake Total 500 ml Balance 500 ml Intake IV Total 500 ml Labs Laboratory Tests Test 02/11/17 02:10 02/11/17 04:10 02/11/17 07:24 02/11/17 08:00 White Blood Count 26.4 x10^3/uL (4.0-11.0) Red Blood Count 5.34 x10^6/uL (3.50-5.40) Hemoglobin 16.0 g/dL (12.0-15.5) Hematocrit 47.7 % (36.0-47.0) Mean Corpuscular Volume 89 fL (79-100) Mean Corpuscular Hemoglobin 30 pg (25-35) Mean Corpuscular Hemoglobin Concent 34 g/dL (31-37) Red Cell Distribution Width 14.0 % (11.5-14.5) Platelet Count 286 x10^3/uL (140-400) Neutrophils (%) (Auto) 86 % (31-73) Lymphocytes (%) (Auto) 9 % (24-48) Monocytes (%) (Auto) 4 % (0-9) Eosinophils (%) (Auto) 1 % (0-3) Basophils (%) (Auto) 0 % (0-3) Neutrophils # (Auto) 22.7 x10^3uL (1.8-7.7) Lymphocytes # (Auto) 2.5 x10^3/uL (1.0-4.8) Monocytes # (Auto) 1.0 x10^3/uL (0.0-1.1) Eosinophils # (Auto) 0.1 x10^3/uL (0.0-0.7) Basophils # (Auto) 0.0 x10^3/uL (0.0-0.2) Segmented Neutrophils % 87 % (35-66) Lymphocytes % 11 % (24-48) Monocytes % 1 % (0-10) Eosinophils % 1 % (0-5) Platelet Estimate Adequate (ADEQUATE) Lactic Acid Level 2.0 mmol/L (0.4-2.0) 1.5 mmol/L (0.4-2.0) Sodium Level 139 mmol/L (136-145) Potassium Level 3.5 mmol/L (3.5-5.1) Chloride Level 102 mmol/L (98-107) Carbon Dioxide Level 26 mmol/L (21-32) Anion Gap 11 (6-14) Blood Urea Nitrogen 16 mg/dL (7-20) Creatinine 1.2 mg/dL (0.6-1.0) Estimated GFR (Cockcroft-Gault) 53.0 BUN/Creatinine Ratio 13 (6-20) Glucose Level 246 mg/dL (70-99) Calcium Level 10.9 mg/dL (8.5-10.1) Total Bilirubin 0.7 mg/dL (0.2-1.0) Aspartate Amino Transf (AST/SGOT) 26 U/L (15-37) Alanine Aminotransferase (ALT/SGPT) 33 U/L (14-59) Alkaline Phosphatase 132 U/L (46-116) Total Protein 8.4 g/dL (6.4-8.2) Albumin 4.1 g/dL (3.4-5.0) Albumin/Globulin Ratio 1.0 (1.0-1.7) Glucose (Fingerstick) 263 mg/dL (70-99) Laboratory Tests Test 02/11/17 02:10 02/11/17 04:10 02/11/17 07:24 02/11/17 08:00 White Blood Count 26.4 x10^3/uL (4.0-11.0) Red Blood Count 5.34 x10^6/uL (3.50-5.40) Hemoglobin 16.0 g/dL (12.0-15.5) Hematocrit 47.7 % (36.0-47.0) Mean Corpuscular Volume 89 fL (79-100) Mean Corpuscular Hemoglobin 30 pg (25-35) Mean Corpuscular Hemoglobin Concent 34 g/dL (31-37) Red Cell Distribution Width 14.0 % (11.5-14.5) Platelet Count 286 x10^3/uL (140-400) Neutrophils (%) (Auto) 86 % (31-73) Lymphocytes (%) (Auto) 9 % (24-48) Monocytes (%) (Auto) 4 % (0-9) Eosinophils (%) (Auto) 1 % (0-3) Basophils (%) (Auto) 0 % (0-3) Neutrophils # (Auto) 22.7 x10^3uL (1.8-7.7) Lymphocytes # (Auto) 2.5 x10^3/uL (1.0-4.8) Monocytes # (Auto) 1.0 x10^3/uL (0.0-1.1) Eosinophils # (Auto) 0.1 x10^3/uL (0.0-0.7) Basophils # (Auto) 0.0 x10^3/uL (0.0-0.2) Segmented Neutrophils % 87 % (35-66) Lymphocytes % 11 % (24-48) Monocytes % 1 % (0-10) Eosinophils % 1 % (0-5) Platelet Estimate Adequate (ADEQUATE) Lactic Acid Level 2.0 mmol/L (0.4-2.0) 1.5 mmol/L (0.4-2.0) Sodium Level 139 mmol/L (136-145) Potassium Level 3.5 mmol/L (3.5-5.1) Chloride Level 102 mmol/L (98-107) Carbon Dioxide Level 26 mmol/L (21-32) Anion Gap 11 (6-14) Blood Urea Nitrogen 16 mg/dL (7-20) Creatinine 1.2 mg/dL (0.6-1.0) Estimated GFR (Cockcroft-Gault) 53.0 BUN/Creatinine Ratio 13 (6-20) Glucose Level 246 mg/dL (70-99) Calcium Level 10.9 mg/dL (8.5-10.1) Total Bilirubin 0.7 mg/dL (0.2-1.0) Aspartate Amino Transf (AST/SGOT) 26 U/L (15-37) Alanine Aminotransferase (ALT/SGPT) 33 U/L (14-59) Alkaline Phosphatase 132 U/L (46-116) Total Protein 8.4 g/dL (6.4-8.2) Albumin 4.1 g/dL (3.4-5.0) Albumin/Globulin Ratio 1.0 (1.0-1.7) Glucose (Fingerstick) 263 mg/dL (70-99) Problem List Problems Medical Problems: (1) SBO (small bowel obstruction) Status: Acute Problems: VIVIAN SAPP MD Feb 11, 2017 10:50
[2017-02-11 11:00] VITALS: BP 119/59
[2017-02-11] MEDS: POTASSIUM CL 20MEQ-0.45% NACL 1,000 ML IV SCH ×2 (11:00→17:55)
[2017-02-11 15:00] VITALS: BP 106/56
[2017-02-11 16:32] LABS: BILIRUBIN,URINE SMALL (NEG); GLUCOSE,URINE 250 mg/dL (NEG); NITRITE,URINE NEGATIVE (NEG); PH,URINE 5.5; PROTEIN,URINE NEGATIVE (NEG-TRACE)
[2017-02-11 16:38] LABS: BACTERIA,URINE FEW /HPF (0-FEW); RBC,URINE 0 /HPF (0-2); SQUAMOUS EPITHELIAL CELL,UR MANY /LPF
[2017-02-11 19:43] VITALS: BP 119/51
[2017-02-11] MEDS: INSULIN DETEMIR 300 UNITS/3 ML INSULN.PEN. SQ SCH (21:00)
[2017-02-11] MEDS: FAMOTIDINE 20 MG/2 ML VIAL IVP SCH (21:17)
[2017-02-11 23:03] VITALS: BP 112/52
--- NOTE | 2017-02-11 23:19 | CONS ---
DATE OF CONSULTATION: 02/11/2017 HISTORY OF PRESENT ILLNESS: The patient is known to me as she has had a right modified radical mastectomy about 7 or 8 years ago and has had about 2 years ago three bypass coronary artery surgery. She is doing well and at this point, she had a sudden onset of abdominal cramps with nausea and vomiting and came to the hospital. The CT has reviewed this morning showed no evidence of bowel obstruction and there is air in the colon. She has had flatus and also was having bowel movements yesterday also. The patient has not had flatus since she has been here. At present, she has no pain and abdomen is soft, is not distended and she states is much less distended than it was. She has not had any difficulties at this point. She wants to eat. The white count was 26,000, will repeat that and also the creatinine was 1.2. Despite pathology or physical finding, we will await, keep her n.p.o., repeat the acute abdominal series in the morning and if she has flatus and is doing well, may start clear liquids. If she is not doing well, we may then repeat the CT scan. She may have had a transient problem with some type of gastroenteritis, but we will see at this point, she does not have a surgical abdomen and will defer surgery at this point. We will follow and I do thank referring physician for allowing me to see this very pleasant patient. IMPRESSION: 1. Ileus, mild. 2. Possible partial small-bowel obstruction. 3. Status post modified radical mastectomy. 4. Status post coronary artery bypass surgery. VIVIAN SAPP MD DR: JHOANA/letitia JOB#: [id number] / [id number]
[2017-02-12] VITALS (7 sets, daily range): BP systolic 121–137; BP diastolic 47–62
--- NOTE | 2017-02-12 01:26 | ACF ---
Admission Forms Criteria INTESTINAL OBSTRUCTION Clinical Indications for Admission to Inpatient Care (Place 'X' for any and all applicable criteria): Admission is indicated for ANY ONE of the following (1)(2)(3)(4)(5): [X]I. Partial bowel obstruction [ ]II. Complete bowel obstruction Extended stay beyond goal length of stay may be needed for(1)(4)(12(: [ ]a) Identified etiology (eg, hernia, volvulus, cancer with obstruction) requiring intervention [ ]b) Gallstone ileus [ ]c) Surgical intervention [ ]d) Acute comorbid illness (eg, electrolyte imbalance, hypovolemia, renal failure) The original [employer] content created by [employer] has been revised. The portions of the content which have been revised are identified through the use of italic text or in bold, and [facility] has neither reviewed nor approved the modified material. All other unmodified content is copyright [employer]. Please see references footnoted in the original [employer] edition 2016 Admission Criteria Met?: Yes JACKSON BALLARD Feb 12, 2017 01:26
[2017-02-12] MEDS: ONDANSETRON PF 4 MG/2 ML VIAL. IV PRN ×2 (03:42→14:26)
[2017-02-12] MEDS: POTASSIUM CL 20MEQ-0.45% NACL 1,000 ML IV SCH ×2 (03:50→17:00)
[2017-02-12] MEDS: ENALAPRILAT 2.5 MG/2 ML VIAL. IV SCH ×3 (06:10→18:31)
[2017-02-12] MEDS: METOPROLOL TARTRATE 5 MG/5 ML VIAL. IVP SCH ×3 (06:11→18:30)
[2017-02-12] MEDS: INSULIN ASPART 300 UNITS/3 ML INSULN.PEN SQ SCH ×3 (08:00→17:00)
--- NOTE | 2017-02-12 08:12 | PDOC ---
SUBJECTIVE Subjective Pt having diarrhea this morning and lower abdominal pain. Denies any current nausea or vomiting. Waiting to get labs later this morning as she was unhappy with the 1st person who came to draw her labs. OBJECTIVE Vital Signs Vital Signs Date Time Temp Pulse Resp B/P (MAP) Pulse Ox O2 Delivery O2 Flow Rate FiO2 02/12/17 06:11 89 132/59 02/12/17 06:10 89 132/59 02/12/17 03:52 98.3 89 18 132/59 (83) 97 Room Air 98.3 02/11/17 23:46 87 112/52 02/11/17 23:46 87 112/52 02/11/17 23:03 97.9 87 18 112/52 (72) 95 Room Air 97.9 02/11/17 19:50 Room Air 02/11/17 19:43 98.1 81 18 119/51 (73) 95 Room Air 98.1 02/11/17 15:00 98.5 76 18 106/56 (73) 94 Room Air 98.5 02/11/17 13:01 83 119/59 02/11/17 12:55 83 119/59 02/11/17 11:00 98.1 83 18 119/59 (79) 94 Room Air 98.1 02/11/17 09:01 88 151/77 02/11/17 09:01 88 151/77 I & O Intake and Output 02/12/17 07:00 Intake Total 1700 ml Output Total 200 ml Balance 1500 ml Intake IV Total 1700 ml Output Urine Total 200 ml # Bowel Movements 3 PHYSICAL EXAM Physical Exam General: Alert, Oriented X3, Cooperative, No acute distress HEENT: Atraumatic, PERRLA, EOMI, Mucous membr. moist/pink Lungs: Clear to auscultation, Normal air movement Heart: RRR, other (systolic ejection murmur heard best PIOTR border) Abdomen: Other (distended, decreased bowel sounds throughout except for some high pitched sounds LLQ, minimal tenderness suprapubic) Extremities: No clubbing, No cyanosis, No edema Skin: No rashes, No breakdown, No significant lesion Neuro: Normal tone, Sensation intact, Cranial nerves 3-12 NL Psych/Mental Status: Mental status NL, Mood NL ASSESSMENT/PLAN Assessment/Plan Pt is a 77yo AAF admitted for SBO 1)SBO- possibly 2/2 abdominal adhesions. Pt is currently NPO with IVF hydration. Surgery following; repeat imaging pending this morning. 2)Leukocytosis- possibly reactive and also 2/2 dehydration. Pt has no other signs or symptoms of infection, repeat labs pending 3)LORE- likely 2/2 dehydration. Repeat labs pending 4)DM2- uncontrolled. HbA1C 07/31 was 8.6, repeat this admission was 7.5. Pt normally takes Lantus 45-50 units SQ QHS, will decrease to 25units while NPO and have SSI available. 5)HTN- pt normally takes HCTZ/Lisinopril 25/20mg, Norvasc 10mg and Metoprolol ER 50mg. Will start IV Enalaprilat, IV Metoprolol and have IV Hydralazine available if needed 6)HLD- will hold pt's Atorvastatin 40mg for now 7)Hx of Breast Cancer 8)GERD- will do IV Famotidine 9)Hx of CAD Problems: COMMENT Lab Laboratory Tests Test 02/11/17 11:00 02/11/17 16:03 02/11/17 16:20 02/11/17 20:44 Glucose (Fingerstick) 204 mg/dL (70-99) 146 mg/dL (70-99) 130 mg/dL (70-99) Urine Collection Type Unknown Urine Color Radha Urine Clarity Cloudy Urine pH 5.5 Urine Specific [place] 1.025 Urine Protein Negative mg/dL (NEG-TRACE) Urine Glucose (UA) 250 mg/dL (NEG) Urine Ketones (Stick) Trace mg/dL (NEG) Urine Blood Negative (NEG) Urine Nitrite Negative (NEG) Urine Bilirubin Small (NEG) Urine Urobilinogen Dipstick 1.0 mg/dL (0.2 mg/dL) Urine Leukocyte Esterase Small (NEG) Urine RBC 0 /HPF (0-2) Urine WBC 5-10 /HPF (0-4) Urine Squamous Epithelial Cells Many /LPF Urine Bacteria Few /HPF (0-FEW) Urine Hyaline Casts Many /HPF Urine Mucus Marked /LPF SABINE ALLISON MD Feb 12, 2017 08:12
[2017-02-12] MEDS: ENOXAPARIN 40 MG/0.4 ML SYRINGE. SQ SCH ×2 (09:00→11:31)
[2017-02-12 10:05] LABS: BASO # 0.1 x10^3/uL (0.0-0.2); BASO % 0 % (0-3); EOS % 3 % (0-3); HEMATOCRIT 42.1 % (36.0-47.0); HEMOGLOBIN 14.2 g/dL (12.0-15.5); LYMPH # 2.3 x10^3/uL (1.0-4.8); LYMPH % 18 % (24-48); MEAN CORPUSCULAR HEMOGLOBIN 30 pg (25-35); MEAN CORPUSCULAR HGB CONC 34 g/dL (31-37); MEAN CORPUSCULAR VOLUME 89 fL (79-100); MONO % 6 % (0-9); NEUT % 72 % (31-73); PLATELET COUNT 239 x10^3/uL (140-400); RED BLOOD COUNT 4.71 x10^6/uL (3.50-5.40); RED CELL DISTRIBUTION WIDTH 14.2 % (11.5-14.5); WHITE BLOOD COUNT 12.7 x10^3/uL (4.0-11.0)
[2017-02-12 10:15] LABS: CALCIUM 8.5 mg/dL (8.5-10.1); GFR 65.4; POTASSIUM 4.9 mmol/L (3.5-5.1)
--- NOTE | 2017-02-12 10:26 | PDOC ---
SURGICAL PROGRESS NOTE Subjective dfoing well with flatus and no abd pain. Remain hungry and will start clear liquids and advance as tolerated. Repeat wbc not back yet. Abd neg on physical examination. Surgically likely home 02/13/2017 if she tolerates po and medical team agrees. Vital Signs Vital Signs Date Time Temp Pulse Resp B/P (MAP) Pulse Ox O2 Delivery O2 Flow Rate FiO2 02/12/17 07:00 97.9 86 18 121/53 (75) 95 Room Air 97.9 I&O Intake and Output 02/12/17 07:00 Intake Total 1700 ml Output Total 200 ml Balance 1500 ml Intake IV Total 1700 ml Output Urine Total 200 ml # Bowel Movements 3 Labs Laboratory Tests Test 02/11/17 02:10 02/11/17 04:10 02/11/17 07:24 02/11/17 08:00 White Blood Count 26.4 x10^3/uL (4.0-11.0) Red Blood Count 5.34 x10^6/uL (3.50-5.40) Hemoglobin 16.0 g/dL (12.0-15.5) Hematocrit 47.7 % (36.0-47.0) Mean Corpuscular Volume 89 fL (79-100) Mean Corpuscular Hemoglobin 30 pg (25-35) Mean Corpuscular Hemoglobin Concent 34 g/dL (31-37) Red Cell Distribution Width 14.0 % (11.5-14.5) Platelet Count 286 x10^3/uL (140-400) Neutrophils (%) (Auto) 86 % (31-73) Lymphocytes (%) (Auto) 9 % (24-48) Monocytes (%) (Auto) 4 % (0-9) Eosinophils (%) (Auto) 1 % (0-3) Basophils (%) (Auto) 0 % (0-3) Neutrophils # (Auto) 22.7 x10^3uL (1.8-7.7) Lymphocytes # (Auto) 2.5 x10^3/uL (1.0-4.8) Monocytes # (Auto) 1.0 x10^3/uL (0.0-1.1) Eosinophils # (Auto) 0.1 x10^3/uL (0.0-0.7) Basophils # (Auto) 0.0 x10^3/uL (0.0-0.2) Segmented Neutrophils % 87 % (35-66) Lymphocytes % 11 % (24-48) Monocytes % 1 % (0-10) Eosinophils % 1 % (0-5) Platelet Estimate Adequate (ADEQUATE) Hemoglobin A1c 7.5 % (4.8-5.6) Lactic Acid Level 2.0 mmol/L (0.4-2.0) 1.5 mmol/L (0.4-2.0) Sodium Level 139 mmol/L (136-145) Potassium Level 3.5 mmol/L (3.5-5.1) Chloride Level 102 mmol/L (98-107) Carbon Dioxide Level 26 mmol/L (21-32) Anion Gap 11 (6-14) Blood Urea Nitrogen 16 mg/dL (7-20) Creatinine 1.2 mg/dL (0.6-1.0) Estimated GFR (Cockcroft-Gault) 53.0 BUN/Creatinine Ratio 13 (6-20) Glucose Level 246 mg/dL (70-99) Calcium Level 10.9 mg/dL (8.5-10.1) Total Bilirubin 0.7 mg/dL (0.2-1.0) Aspartate Amino Transf (AST/SGOT) 26 U/L (15-37) Alanine Aminotransferase (ALT/SGPT) 33 U/L (14-59) Alkaline Phosphatase 132 U/L (46-116) Total Protein 8.4 g/dL (6.4-8.2) Albumin 4.1 g/dL (3.4-5.0) Albumin/Globulin Ratio 1.0 (1.0-1.7) Glucose (Fingerstick) 263 mg/dL (70-99) Test 02/11/17 11:00 02/11/17 16:03 02/11/17 16:20 02/11/17 20:44 Glucose (Fingerstick) 204 mg/dL (70-99) 146 mg/dL (70-99) 130 mg/dL (70-99) Urine Collection Type Unknown Urine Color Radha Urine Clarity Cloudy Urine pH 5.5 Urine Specific [place] 1.025 Urine Protein Negative mg/dL (NEG-TRACE) Urine Glucose (UA) 250 mg/dL (NEG) Urine Ketones (Stick) Trace mg/dL (NEG) Urine Blood Negative (NEG) Urine Nitrite Negative (NEG) Urine Bilirubin Small (NEG) Urine Urobilinogen Dipstick 1.0 mg/dL (0.2 mg/dL) Urine Leukocyte Esterase Small (NEG) Urine RBC 0 /HPF (0-2) Urine WBC 5-10 /HPF (0-4) Urine Squamous Epithelial Cells Many /LPF Urine Bacteria Few /HPF (0-FEW) Urine Hyaline Casts Many /HPF Urine Mucus Marked /LPF Test 02/12/17 09:45 White Blood Count 12.7 x10^3/uL (4.0-11.0) Red Blood Count 4.71 x10^6/uL (3.50-5.40) Hemoglobin 14.2 g/dL (12.0-15.5) Hematocrit 42.1 % (36.0-47.0) Mean Corpuscular Volume 89 fL (79-100) Mean Corpuscular Hemoglobin 30 pg (25-35) Mean Corpuscular Hemoglobin Concent 34 g/dL (31-37) Red Cell Distribution Width 14.2 % (11.5-14.5) Platelet Count 239 x10^3/uL (140-400) Neutrophils (%) (Auto) 72 % (31-73) Lymphocytes (%) (Auto) 18 % (24-48) Monocytes (%) (Auto) 6 % (0-9) Eosinophils (%) (Auto) 3 % (0-3) Basophils (%) (Auto) 0 % (0-3) Neutrophils # (Auto) 9.2 x10^3uL (1.8-7.7) Lymphocytes # (Auto) 2.3 x10^3/uL (1.0-4.8) Monocytes # (Auto) 0.7 x10^3/uL (0.0-1.1) Eosinophils # (Auto) 0.4 x10^3/uL (0.0-0.7) Basophils # (Auto) 0.1 x10^3/uL (0.0-0.2) Sodium Level 140 mmol/L (136-145) Potassium Level 4.9 mmol/L (3.5-5.1) Chloride Level 107 mmol/L (98-107) Carbon Dioxide Level 24 mmol/L (21-32) Anion Gap 9 (6-14) Blood Urea Nitrogen 17 mg/dL (7-20) Creatinine 1.0 mg/dL (0.6-1.0) Estimated GFR (Cockcroft-Gault) 65.4 Glucose Level 199 mg/dL (70-99) Calcium Level 8.5 mg/dL (8.5-10.1) Laboratory Tests Test 02/11/17 11:00 02/11/17 16:03 02/11/17 16:20 02/11/17 20:44 Glucose (Fingerstick) 204 mg/dL (70-99) 146 mg/dL (70-99) 130 mg/dL (70-99) Urine Collection Type Unknown Urine Color Radha Urine Clarity Cloudy Urine pH 5.5 Urine Specific [place] 1.025 Urine Protein Negative mg/dL (NEG-TRACE) Urine Glucose (UA) 250 mg/dL (NEG) Urine Ketones (Stick) Trace mg/dL (NEG) Urine Blood Negative (NEG) Urine Nitrite Negative (NEG) Urine Bilirubin Small (NEG) Urine Urobilinogen Dipstick 1.0 mg/dL (0.2 mg/dL) Urine Leukocyte Esterase Small (NEG) Urine RBC 0 /HPF (0-2) Urine WBC 5-10 /HPF (0-4) Urine Squamous Epithelial Cells Many /LPF Urine Bacteria Few /HPF (0-FEW) Urine Hyaline Casts Many /HPF Urine Mucus Marked /LPF Test 02/12/17 09:45 White Blood Count 12.7 x10^3/uL (4.0-11.0) Red Blood Count 4.71 x10^6/uL (3.50-5.40) Hemoglobin 14.2 g/dL (12.0-15.5) Hematocrit 42.1 % (36.0-47.0) Mean Corpuscular Volume 89 fL (79-100) Mean Corpuscular Hemoglobin 30 pg (25-35) Mean Corpuscular Hemoglobin Concent 34 g/dL (31-37) Red Cell Distribution Width 14.2 % (11.5-14.5) Platelet Count 239 x10^3/uL (140-400) Neutrophils (%) (Auto) 72 % (31-73) Lymphocytes (%) (Auto) 18 % (24-48) Monocytes (%) (Auto) 6 % (0-9) Eosinophils (%) (Auto) 3 % (0-3) Basophils (%) (Auto) 0 % (0-3) Neutrophils # (Auto) 9.2 x10^3uL (1.8-7.7) Lymphocytes # (Auto) 2.3 x10^3/uL (1.0-4.8) Monocytes # (Auto) 0.7 x10^3/uL (0.0-1.1) Eosinophils # (Auto) 0.4 x10^3/uL (0.0-0.7) Basophils # (Auto) 0.1 x10^3/uL (0.0-0.2) Sodium Level 140 mmol/L (136-145) Potassium Level 4.9 mmol/L (3.5-5.1) Chloride Level 107 mmol/L (98-107) Carbon Dioxide Level 24 mmol/L (21-32) Anion Gap 9 (6-14) Blood Urea Nitrogen 17 mg/dL (7-20) Creatinine 1.0 mg/dL (0.6-1.0) Estimated GFR (Cockcroft-Gault) 65.4 Glucose Level 199 mg/dL (70-99) Calcium Level 8.5 mg/dL (8.5-10.1) Problem List Problems Medical Problems: (1) SBO (small bowel obstruction) Status: Acute Problems: VIVIAN SAPP MD Feb 12, 2017 10:26
--- NOTE | 2017-02-12 10:53 | RAD ---
Single view chest and upright and supine views of the abdomen 02/12/2017 Clinical indication: Bowel obstruction. Comparison: CT abdomen and pelvis 02/11/2017. Findings: Chest: Prior median sternotomy and CABG. Cardiac and mediastinal silhouettes are within normal limits. No pleural effusion, pneumothorax or focal consolidation. Abdomen: Right upper quadrant cholecystectomy clips. Improvement in gaseous distended loops of small bowel in the central mid abdomen. There is gas noted in the rectum. No pneumoperitoneum or portal venous gas. Impression: Chest: No acute cardiopulmonary abnormality. Abdomen: Improvement in gaseous distended loops of small bowel with no radiographic evidence of bowel structure.
[2017-02-12] MEDS: CALCIUM CARBONATE 500 MG TAB.CHEW PO PRN (18:31)
[2017-02-12] MEDS: FAMOTIDINE 20 MG/2 ML VIAL IVP SCH (21:04)
[2017-02-12] MEDS: INSULIN DETEMIR 300 UNITS/3 ML INSULN.PEN. SQ SCH (21:19)
[2017-02-13] VITALS (7 sets, daily range): BP systolic 125–156; BP diastolic 54–88
[2017-02-13] MEDS: ENALAPRILAT 2.5 MG/2 ML VIAL. IV SCH ×2 (06:00)
[2017-02-13] MEDS: METOPROLOL TARTRATE 5 MG/5 ML VIAL. IVP SCH ×2 (06:00)
[2017-02-13] MEDS: POTASSIUM CL 20MEQ-0.45% NACL 1,000 ML IV SCH (06:00)
[2017-02-13 07:34] LABS: BASO # 0.1 x10^3/uL (0.0-0.2); BASO % 1 % (0-3); EOS % 4 % (0-3); HEMATOCRIT 42.5 % (36.0-47.0); HEMOGLOBIN 14.1 g/dL (12.0-15.5); LYMPH # 1.9 x10^3/uL (1.0-4.8); LYMPH % 20 % (24-48); MEAN CORPUSCULAR HEMOGLOBIN 30 pg (25-35); MEAN CORPUSCULAR HGB CONC 33 g/dL (31-37); MEAN CORPUSCULAR VOLUME 90 fL (79-100); MONO % 6 % (0-9); NEUT % 70 % (31-73); PLATELET COUNT 227 x10^3/uL (140-400); RED BLOOD COUNT 4.71 x10^6/uL (3.50-5.40); RED CELL DISTRIBUTION WIDTH 13.8 % (11.5-14.5); WHITE BLOOD COUNT 9.9 x10^3/uL (4.0-11.0)
[2017-02-13 07:54] LABS: ALBUMIN 3.4 g/dL (3.4-5.0); ALBUMIN/GLOBULIN RATIO 0.9 (1.0-1.7); CALCIUM 8.9 mg/dL (8.5-10.1); CREATININE 0.8 mg/dL (0.6-1.0); GFR 84.6; POTASSIUM 3.9 mmol/L (3.5-5.1); TOTAL BILIRUBIN 0.7 mg/dL (0.2-1.0); TOTAL PROTEIN 7.1 g/dL (6.4-8.2)
[2017-02-13] MEDS ORDERED: LOPERAMIDE 2 MG CAPSULE PO PRN (08:00)
[2017-02-13] MEDS: INSULIN ASPART 300 UNITS/3 ML INSULN.PEN SQ SCH ×3 (08:00→17:09)
--- NOTE | 2017-02-13 08:00 | PDOC ---
SUBJECTIVE Subjective Pt feeling better. Still having diarrhea. No vomiting. Does not feel that she is quite ready to go home. Discussed increasing diet throughout the day and hoping to discharge tomorrow morning OBJECTIVE Vital Signs Vital Signs Date Time Temp Pulse Resp B/P (MAP) Pulse Ox O2 Delivery O2 Flow Rate FiO2 02/13/17 06:37 90 18 130/61 (84) Room Air 02/13/17 03:00 97.5 103 22 148/88 (108) 98 Room Air 97.5 02/12/17 22:47 97.9 89 21 126/47 (73) 95 Room Air 97.9 02/12/17 20:20 Room Air 02/12/17 19:00 98.1 87 20 127/59 (81) 97 Room Air 98.1 02/12/17 18:31 84 133/61 02/12/17 18:30 84 133/61 02/12/17 18:18 84 18 133/61 (85) Room Air 02/12/17 15:00 98.1 77 20 133/59 (83) 96 Room Air 98.1 02/12/17 11:18 82 137/62 02/12/17 11:18 82 137/62 02/12/17 11:00 98.6 80 18 137/62 (87) 95 Room Air 98.6 02/12/17 08:15 Room Air I & O Intake and Output 02/13/17 07:00 Intake Total 1040 ml Balance 1040 ml Intake Oral 1040 ml # Voids 2 # Bowel Movements 6 PHYSICAL EXAM Physical Exam General: Alert, Oriented X3, Cooperative, No acute distress HEENT: Atraumatic, PERRLA, EOMI, Mucous membr. moist/pink Lungs: Clear to auscultation, Normal air movement Heart: RRR, other (systolic ejection murmur heard best PIOTR border) Abdomen: Other (distended, decreased bowel sounds throughout except for some high pitched sounds LLQ, minimal tenderness suprapubic) Extremities: No clubbing, No cyanosis, No edema Skin: No rashes, No breakdown, No significant lesion Neuro: Normal tone, Sensation intact, Cranial nerves 3-12 NL Psych/Mental Status: Mental status NL, Mood NL ASSESSMENT/PLAN Assessment/Plan Pt is a 77yo AAF admitted for SBO 1)SBO- possibly 2/2 abdominal adhesions. Resolved. Pt's symptoms may have also been related to gastroenteritis. Still having diarrhea but no more vomiting. Will D/C IVF hydration. Surgery has been following 2)Leukocytosis- possibly reactive and also 2/2 dehydration. Pt has no other signs or symptoms of infection, resolved. 3)LORE- likely 2/2 dehydration, resolved 4)DM2- uncontrolled. HbA1C 07/31 was 8.6, repeat this admission was 7.5. Pt normally takes Lantus 45-50 units SQ QHS, will decrease to 25units and have SSI available. 5)HTN- pt has been getting IV medications. Will D/C and restart pt's Metoprolol ER 50mg and Norvasc 10mg. Will continue to hold HCTZ/Lisinopril 25/ 20mg 6)HLD- will restart pt's Atorvastatin 40mg for now 7)Hx of Breast Cancer 8)GERD- was getting IV Famotidine, will transition to po today 9)Hx of CAD Problems: COMMENT Lab Laboratory Tests Test 02/12/17 09:45 02/12/17 11:13 02/12/17 16:44 02/12/17 20:54 White Blood Count 12.7 x10^3/uL (4.0-11.0) Red Blood Count 4.71 x10^6/uL (3.50-5.40) Hemoglobin 14.2 g/dL (12.0-15.5) Hematocrit 42.1 % (36.0-47.0) Mean Corpuscular Volume 89 fL (79-100) Mean Corpuscular Hemoglobin 30 pg (25-35) Mean Corpuscular Hemoglobin Concent 34 g/dL (31-37) Red Cell Distribution Width 14.2 % (11.5-14.5) Platelet Count 239 x10^3/uL (140-400) Neutrophils (%) (Auto) 72 % (31-73) Lymphocytes (%) (Auto) 18 % (24-48) Monocytes (%) (Auto) 6 % (0-9) Eosinophils (%) (Auto) 3 % (0-3) Basophils (%) (Auto) 0 % (0-3) Neutrophils # (Auto) 9.2 x10^3uL (1.8-7.7) Lymphocytes # (Auto) 2.3 x10^3/uL (1.0-4.8) Monocytes # (Auto) 0.7 x10^3/uL (0.0-1.1) Eosinophils # (Auto) 0.4 x10^3/uL (0.0-0.7) Basophils # (Auto) 0.1 x10^3/uL (0.0-0.2) Sodium Level 140 mmol/L (136-145) Potassium Level 4.9 mmol/L (3.5-5.1) Chloride Level 107 mmol/L (98-107) Carbon Dioxide Level 24 mmol/L (21-32) Anion Gap 9 (6-14) Blood Urea Nitrogen 17 mg/dL (7-20) Creatinine 1.0 mg/dL (0.6-1.0) Estimated GFR (Cockcroft-Gault) 65.4 Glucose Level 199 mg/dL (70-99) Lactic Acid Level 2.0 mmol/L (0.4-2.0) Calcium Level 8.5 mg/dL (8.5-10.1) Glucose (Fingerstick) 183 mg/dL (70-99) 132 mg/dL (70-99) 155 mg/dL (70-99) Test 02/13/17 07:19 02/13/17 07:38 White Blood Count 9.9 x10^3/uL (4.0-11.0) Red Blood Count 4.71 x10^6/uL (3.50-5.40) Hemoglobin 14.1 g/dL (12.0-15.5) Hematocrit 42.5 % (36.0-47.0) Mean Corpuscular Volume 90 fL (79-100) Mean Corpuscular Hemoglobin 30 pg (25-35) Mean Corpuscular Hemoglobin Concent 33 g/dL (31-37) Red Cell Distribution Width 13.8 % (11.5-14.5) Platelet Count 227 x10^3/uL (140-400) Neutrophils (%) (Auto) 70 % (31-73) Lymphocytes (%) (Auto) 20 % (24-48) Monocytes (%) (Auto) 6 % (0-9) Eosinophils (%) (Auto) 4 % (0-3) Basophils (%) (Auto) 1 % (0-3) Neutrophils # (Auto) 6.9 x10^3uL (1.8-7.7) Lymphocytes # (Auto) 1.9 x10^3/uL (1.0-4.8) Monocytes # (Auto) 0.6 x10^3/uL (0.0-1.1) Eosinophils # (Auto) 0.4 x10^3/uL (0.0-0.7) Basophils # (Auto) 0.1 x10^3/uL (0.0-0.2) Sodium Level 141 mmol/L (136-145) Potassium Level 3.9 mmol/L (3.5-5.1) Chloride Level 106 mmol/L (98-107) Carbon Dioxide Level 22 mmol/L (21-32) Anion Gap 13 (6-14) Blood Urea Nitrogen 7 mg/dL (7-20) Creatinine 0.8 mg/dL (0.6-1.0) Estimated GFR (Cockcroft-Gault) 84.6 BUN/Creatinine Ratio 9 (6-20) Glucose Level 123 mg/dL (70-99) Calcium Level 8.9 mg/dL (8.5-10.1) Total Bilirubin 0.7 mg/dL (0.2-1.0) Aspartate Amino Transf (AST/SGOT) 21 U/L (15-37) Alanine Aminotransferase (ALT/SGPT) 26 U/L (14-59) Alkaline Phosphatase 95 U/L (46-116) Total Protein 7.1 g/dL (6.4-8.2) Albumin 3.4 g/dL (3.4-5.0) Albumin/Globulin Ratio 0.9 (1.0-1.7) Glucose (Fingerstick) 137 mg/dL (70-99) SABINE ALLISON MD Feb 13, 2017 08:00
[2017-02-13] MEDS: FAMOTIDINE 20 MG TABLET. PO SCH ×2 (09:01→21:28)
[2017-02-13] MEDS: CALCIUM CARBONATE 500 MG TAB.CHEW PO PRN ×2 (09:01→14:58)
[2017-02-13] MEDS: amLODIPine BESYLATE 10 MG TABLET PO SCH (09:02)
[2017-02-13] MEDS: ASPIRIN ENTERIC COATED 81 MG TABLET.DR. PO SCH (09:02)
--- NOTE | 2017-02-13 09:55 | PDOC ---
SURGICAL PROGRESS NOTE Subjective Patient doing well, but states she feels extremely tired. Abdomen is soft, no rigidity, guarding, or rebound tenderness. Patient has flatus. She states her last BM was some what loose.. She states her main complaint is that she is so tired and does not feel like she is capable of caring for herself at home. Exam revealed skin tenting on dorsal aspect of hands and may be dehydrated. Patient was not wearing SCDs ordered 02/12/17. Surgically doing well and does not have surgical abdomen. May well have gastroenteritis from causes unknwon Will follow. Vital Signs Vital Signs Date Time Temp Pulse Resp B/P (MAP) Pulse Ox O2 Delivery O2 Flow Rate FiO2 02/13/17 09:02 100 156/72 02/13/17 07:20 98.1 18 97 Room Air 98.1 I&O Intake and Output 02/13/17 07:00 Intake Total 1040 ml Balance 1040 ml Intake Oral 1040 ml # Voids 2 # Bowel Movements 6 Labs Laboratory Tests Test 02/11/17 11:00 02/11/17 16:03 02/11/17 16:20 02/11/17 20:44 Glucose (Fingerstick) 204 mg/dL (70-99) 146 mg/dL (70-99) 130 mg/dL (70-99) Urine Collection Type Unknown Urine Color Radha Urine Clarity Cloudy Urine pH 5.5 Urine Specific [place] 1.025 Urine Protein Negative mg/dL (NEG-TRACE) Urine Glucose (UA) 250 mg/dL (NEG) Urine Ketones (Stick) Trace mg/dL (NEG) Urine Blood Negative (NEG) Urine Nitrite Negative (NEG) Urine Bilirubin Small (NEG) Urine Urobilinogen Dipstick 1.0 mg/dL (0.2 mg/dL) Urine Leukocyte Esterase Small (NEG) Urine RBC 0 /HPF (0-2) Urine WBC 5-10 /HPF (0-4) Urine Squamous Epithelial Cells Many /LPF Urine Bacteria Few /HPF (0-FEW) Urine Hyaline Casts Many /HPF Urine Mucus Marked /LPF Test 02/12/17 07:37 02/12/17 09:45 02/12/17 11:13 02/12/17 16:44 Glucose (Fingerstick) 198 mg/dL (70-99) 183 mg/dL (70-99) 132 mg/dL (70-99) White Blood Count 12.7 x10^3/uL (4.0-11.0) Red Blood Count 4.71 x10^6/uL (3.50-5.40) Hemoglobin 14.2 g/dL (12.0-15.5) Hematocrit 42.1 % (36.0-47.0) Mean Corpuscular Volume 89 fL (79-100) Mean Corpuscular Hemoglobin 30 pg (25-35) Mean Corpuscular Hemoglobin Concent 34 g/dL (31-37) Red Cell Distribution Width 14.2 % (11.5-14.5) Platelet Count 239 x10^3/uL (140-400) Neutrophils (%) (Auto) 72 % (31-73) Lymphocytes (%) (Auto) 18 % (24-48) Monocytes (%) (Auto) 6 % (0-9) Eosinophils (%) (Auto) 3 % (0-3) Basophils (%) (Auto) 0 % (0-3) Neutrophils # (Auto) 9.2 x10^3uL (1.8-7.7) Lymphocytes # (Auto) 2.3 x10^3/uL (1.0-4.8) Monocytes # (Auto) 0.7 x10^3/uL (0.0-1.1) Eosinophils # (Auto) 0.4 x10^3/uL (0.0-0.7) Basophils # (Auto) 0.1 x10^3/uL (0.0-0.2) Sodium Level 140 mmol/L (136-145) Potassium Level 4.9 mmol/L (3.5-5.1) Chloride Level 107 mmol/L (98-107) Carbon Dioxide Level 24 mmol/L (21-32) Anion Gap 9 (6-14) Blood Urea Nitrogen 17 mg/dL (7-20) Creatinine 1.0 mg/dL (0.6-1.0) Estimated GFR (Cockcroft-Gault) 65.4 Glucose Level 199 mg/dL (70-99) Lactic Acid Level 2.0 mmol/L (0.4-2.0) Calcium Level 8.5 mg/dL (8.5-10.1) Test 02/12/17 20:54 02/13/17 07:19 02/13/17 07:38 Glucose (Fingerstick) 155 mg/dL (70-99) 137 mg/dL (70-99) White Blood Count 9.9 x10^3/uL (4.0-11.0) Red Blood Count 4.71 x10^6/uL (3.50-5.40) Hemoglobin 14.1 g/dL (12.0-15.5) Hematocrit 42.5 % (36.0-47.0) Mean Corpuscular Volume 90 fL (79-100) Mean Corpuscular Hemoglobin 30 pg (25-35) Mean Corpuscular Hemoglobin Concent 33 g/dL (31-37) Red Cell Distribution Width 13.8 % (11.5-14.5) Platelet Count 227 x10^3/uL (140-400) Neutrophils (%) (Auto) 70 % (31-73) Lymphocytes (%) (Auto) 20 % (24-48) Monocytes (%) (Auto) 6 % (0-9) Eosinophils (%) (Auto) 4 % (0-3) Basophils (%) (Auto) 1 % (0-3) Neutrophils # (Auto) 6.9 x10^3uL (1.8-7.7) Lymphocytes # (Auto) 1.9 x10^3/uL (1.0-4.8) Monocytes # (Auto) 0.6 x10^3/uL (0.0-1.1) Eosinophils # (Auto) 0.4 x10^3/uL (0.0-0.7) Basophils # (Auto) 0.1 x10^3/uL (0.0-0.2) Sodium Level 141 mmol/L (136-145) Potassium Level 3.9 mmol/L (3.5-5.1) Chloride Level 106 mmol/L (98-107) Carbon Dioxide Level 22 mmol/L (21-32) Anion Gap 13 (6-14) Blood Urea Nitrogen 7 mg/dL (7-20) Creatinine 0.8 mg/dL (0.6-1.0) Estimated GFR (Cockcroft-Gault) 84.6 BUN/Creatinine Ratio 9 (6-20) Glucose Level 123 mg/dL (70-99) Calcium Level 8.9 mg/dL (8.5-10.1) Total Bilirubin 0.7 mg/dL (0.2-1.0) Aspartate Amino Transf (AST/SGOT) 21 U/L (15-37) Alanine Aminotransferase (ALT/SGPT) 26 U/L (14-59) Alkaline Phosphatase 95 U/L (46-116) Total Protein 7.1 g/dL (6.4-8.2) Albumin 3.4 g/dL (3.4-5.0) Albumin/Globulin Ratio 0.9 (1.0-1.7) Laboratory Tests Test 02/12/17 11:13 02/12/17 16:44 02/12/17 20:54 02/13/17 07:19 Glucose (Fingerstick) 183 mg/dL (70-99) 132 mg/dL (70-99) 155 mg/dL (70-99) White Blood Count 9.9 x10^3/uL (4.0-11.0) Red Blood Count 4.71 x10^6/uL (3.50-5.40) Hemoglobin 14.1 g/dL (12.0-15.5) Hematocrit 42.5 % (36.0-47.0) Mean Corpuscular Volume 90 fL (79-100) Mean Corpuscular Hemoglobin 30 pg (25-35) Mean Corpuscular Hemoglobin Concent 33 g/dL (31-37) Red Cell Distribution Width 13.8 % (11.5-14.5) Platelet Count 227 x10^3/uL (140-400) Neutrophils (%) (Auto) 70 % (31-73) Lymphocytes (%) (Auto) 20 % (24-48) Monocytes (%) (Auto) 6 % (0-9) Eosinophils (%) (Auto) 4 % (0-3) Basophils (%) (Auto) 1 % (0-3) Neutrophils # (Auto) 6.9 x10^3uL (1.8-7.7) Lymphocytes # (Auto) 1.9 x10^3/uL (1.0-4.8) Monocytes # (Auto) 0.6 x10^3/uL (0.0-1.1) Eosinophils # (Auto) 0.4 x10^3/uL (0.0-0.7) Basophils # (Auto) 0.1 x10^3/uL (0.0-0.2) Sodium Level 141 mmol/L (136-145) Potassium Level 3.9 mmol/L (3.5-5.1) Chloride Level 106 mmol/L (98-107) Carbon Dioxide Level 22 mmol/L (21-32) Anion Gap 13 (6-14) Blood Urea Nitrogen 7 mg/dL (7-20) Creatinine 0.8 mg/dL (0.6-1.0) Estimated GFR (Cockcroft-Gault) 84.6 BUN/Creatinine Ratio 9 (6-20) Glucose Level 123 mg/dL (70-99) Calcium Level 8.9 mg/dL (8.5-10.1) Total Bilirubin 0.7 mg/dL (0.2-1.0) Aspartate Amino Transf (AST/SGOT) 21 U/L (15-37) Alanine Aminotransferase (ALT/SGPT) 26 U/L (14-59) Alkaline Phosphatase 95 U/L (46-116) Total Protein 7.1 g/dL (6.4-8.2) Albumin 3.4 g/dL (3.4-5.0) Albumin/Globulin Ratio 0.9 (1.0-1.7) Test 02/13/17 07:38 Glucose (Fingerstick) 137 mg/dL (70-99) Problem List Problems Medical Problems: (1) SBO (small bowel obstruction) Status: Acute Problems: VIVIAN SAPP MD Feb 13, 2017 09:55
[2017-02-13] MEDS: ENOXAPARIN 40 MG/0.4 ML SYRINGE. SQ SCH (12:55)
--- NOTE | 2017-02-13 15:54 | EKG ---
[facility] [address] [place] [address] Test Date: 2017-02-13 Test Time: 15:02:51 Pat Name: PAVAN SHARP Department: Room: 432 1 Gender: F Circular [employer] Stone: JUAN JOSE : 1940 Requested By: ROSEMARY LENZ Order Number: [id number] Reading MD: Keon Gilbert Measurements Intervals [place] Rate: 125 P: 27 NC: 106 QRS: -27 QRSD: 84 T: 60 QT: 304 QTc: 441 Interpretive Statements SINUS TACHYCARDIA LEFT ATRIAL ABNORMALITY LEFTWARD AXIS S1,S2,S3 PATTERN QRS(T) CONTOUR ABNORMALITY CONSIDER ANTEROLATERAL MYOCARDIAL DAMAGE ABNORMAL ECG RI6.01 Compared to ECG 07/14/2016 14:11:36 Atrial abnormality now present Left-axis deviation now present Right bundle-branch block no longer present Electronically Signed On 02-14-2017 15:49:04 CDT by Keon Gilbert
[2017-02-13] MEDS ORDERED: ZOLPIDEM 5 MG TABLET. PO PRN (16:00)
[2017-02-13] MEDS ORDERED: ATORVASTATIN CALCIUM 40 MG TABLET. PO SCH (21:00)
[2017-02-13] MEDS ORDERED: METOPROLOL SUCC 24HR ER 25 MG TAB.ER.24H. PO SCH (21:00)
[2017-02-13] MEDS: INSULIN DETEMIR 300 UNITS/3 ML INSULN.PEN. SQ SCH (21:36)
[2017-02-14 03:00] VITALS: BP 124/65
[2017-02-14 04:36] LABS: BASO % 1 % (0-3); EOS % 3 % (0-3); HEMATOCRIT 41.6 % (36.0-47.0); HEMOGLOBIN 14.1 g/dL (12.0-15.5); LYMPH % 22 % (24-48); MEAN CORPUSCULAR HEMOGLOBIN 30 pg (25-35); MEAN CORPUSCULAR HGB CONC 34 g/dL (31-37); MEAN CORPUSCULAR VOLUME 90 fL (79-100); MONO % 8 % (0-9); NEUT % 67 % (31-73); PLATELET COUNT 239 x10^3/uL (140-400); RED BLOOD COUNT 4.65 x10^6/uL (3.50-5.40)
[2017-02-14 04:52] LABS: CALCIUM 8.9 mg/dL (8.5-10.1); CREATININE 0.8 mg/dL (0.6-1.0); GFR 84.6; POTASSIUM 3.8 mmol/L (3.5-5.1)
[2017-02-14 07:00] VITALS: BP 126/60
[2017-02-14] MEDS ORDERED: INSU100I13 SQ (08:02)
--- NOTE | 2017-02-14 08:11 | PDOC3 ---
Discharge Summary* Date of Admission: Feb 11, 2017 Date of Discharge: Feb 14, 2017 Admitting Diagnosis Problems Medical Problems: (1) SBO (small bowel obstruction) Status: Acute Problems: Final Diagnosis SBO- possibly 2/2 abdominal adhesions, Diarrhea likely to previous and possible gastroenteritis- improving, Leukocytosis- likely reactive, no source of infection found and resolved prior to discharge, LORE- 2/2 dehydration, resolved , DM2 uncontrolled, HTN, HLD, Hx Breast Cancer, GERD, Hx of CAD CONSULTS Surgery Procedures CXR- WNL CT Abdomen- SBO transition point at distal ileum where there are clumped small bowel loops within the pelvis, this could be due to adhesion tethering. Distal ileum stricture from enteritis is a secondary consideration. Extensive arterial vascular calcifications AXR- improvement in gaseous distended loops of small bowel without evidence of obstruction Brief Hospital Course DISCHARGE PHYSICAL EXAM General: Alert, Oriented X3, Cooperative, No acute distress HEENT: Atraumatic, PERRLA, EOMI, Mucous membr. moist/pink Lungs: Clear to auscultation, Normal air movement Heart: RRR, other (systolic ejection murmur heard best PIOTR border) Abdomen: soft, non distended, NTTP Extremities: No clubbing, No cyanosis, No edema Skin: No rashes, No breakdown, No significant lesion Neuro: Normal tone, Sensation intact, Cranial nerves 3-12 NL Psych/Mental Status: Mental status NL, Mood NL Pt is a 77yo AAF admitted for SBO 1)SBO- possibly 2/2 abdominal adhesions. Resolved. Pt's symptoms may have also been related to gastroenteritis. Was having diarrhea which has improved prior to discharge. Cdiff testing negative. Surgery was following 2)Leukocytosis- possibly reactive and also 2/2 dehydration. Pt has no other signs or symptoms of infection, resolved. 3)LORE- likely 2/2 dehydration, resolved 4)DM2- uncontrolled. HbA1C 07/31 was 8.6, repeat this admission was 7.5. Pt normally takes Lantus 45-50 units SQ QHS. Decreased to 25units with SSI during hospitalization but will resume normal doses on discharge 5)HTN- pt was getting IV medications and then transitioned to Metoprolol ER 50mg and Norvasc 10mg. Will continue to hold HCTZ/Lisinopril 25/20mg until pt follows up with her PCP 6)HLD- will D/C pt on her Atorvastatin 40mg 7)Hx of Breast Cancer 8)GERD- will D/C on home medication of Ranitidine 9)Hx of CAD Disposition/Orders: D/C to Home CONDITION AT DISCHARGE: Improved, Stable Diet: 2 gr sodium, Consistent Carbohydrate Scheduled Amlodipine Besylate (Norvasc), 10 MG PO DAILY, (Reported) Aspirin (Aspir 81), 81 MG PO DAILYAC, (Reported) Atorvastatin Calcium (Atorvastatin Calcium), 40 MG PO QHS Garlic (Garlic), 1,000 MG PO DAILY, (Reported) Insulin Glargine,Hum.rec.anlog (Lantus Solostar), 30 UNIT SQ HS, (Reported) Insulin Regular, Human (Novolin R), 12-15 UNIT SQ TIDWMEALS, (Reported) Lisinopril/Hydrochlorothiazide (Lisinopril-Hctz 20-25 Mg Tab), 1 TAB PO DAILY, ( Reported) Metoprolol Succinate (Toprol Xl), 50 MG PO HS, (Reported) Multivits-Min/Fa/Lycopene/Lut (Centrum Silver Tablet), 1 EACH PO DAILY, ( Reported) [place]-3 Fatty Acids/Fish Oil (Fish Oil 1,000 Mg Capsule), 1 EACH PO DAILY, ( Reported) Potassium Chloride (Potassium Chloride), 20 MEQ PO DAILYAC, (Reported) Ranitidine Hcl (Ranitidine Hcl), 150 MG PO BID, (Reported) Vitamin B Complex & Vit C No.3 (B Complex With Vitamin C), 1 EACH PO DAILY, ( Reported) PCP Keep f/u apt with Dr. Castillo on the 8th Time Spent Total time spent with patient [] minutes for coordination of care, counseling, and education. SABINE ALLISON MD Feb 14, 2017 08:11
--- NOTE | 2017-02-14 08:39 | PDOC ---
SURGICAL PROGRESS NOTE Subjective Patient doing well. Surgically, abdominal exam negative. Patient had bowel movements and is able to eat. Patient states she is ready to go home today. Ok from my standpoint for her to be discharged. Will follow in office in 2-3 weeks .Labs OK and Bun snd creatinine normal. Vital Signs Vital Signs Date Time Temp Pulse Resp B/P (MAP) Pulse Ox O2 Delivery O2 Flow Rate FiO2 02/14/17 07:00 98.1 78 18 126/60 (82) 96 Room Air 98.1 Labs Laboratory Tests Test 02/12/17 09:45 02/12/17 11:13 02/12/17 16:44 02/12/17 20:45 White Blood Count 12.7 x10^3/uL (4.0-11.0) Red Blood Count 4.71 x10^6/uL (3.50-5.40) Hemoglobin 14.2 g/dL (12.0-15.5) Hematocrit 42.1 % (36.0-47.0) Mean Corpuscular Volume 89 fL (79-100) Mean Corpuscular Hemoglobin 30 pg (25-35) Mean Corpuscular Hemoglobin Concent 34 g/dL (31-37) Red Cell Distribution Width 14.2 % (11.5-14.5) Platelet Count 239 x10^3/uL (140-400) Neutrophils (%) (Auto) 72 % (31-73) Lymphocytes (%) (Auto) 18 % (24-48) Monocytes (%) (Auto) 6 % (0-9) Eosinophils (%) (Auto) 3 % (0-3) Basophils (%) (Auto) 0 % (0-3) Neutrophils # (Auto) 9.2 x10^3uL (1.8-7.7) Lymphocytes # (Auto) 2.3 x10^3/uL (1.0-4.8) Monocytes # (Auto) 0.7 x10^3/uL (0.0-1.1) Eosinophils # (Auto) 0.4 x10^3/uL (0.0-0.7) Basophils # (Auto) 0.1 x10^3/uL (0.0-0.2) Sodium Level 140 mmol/L (136-145) Potassium Level 4.9 mmol/L (3.5-5.1) Chloride Level 107 mmol/L (98-107) Carbon Dioxide Level 24 mmol/L (21-32) Anion Gap 9 (6-14) Blood Urea Nitrogen 17 mg/dL (7-20) Creatinine 1.0 mg/dL (0.6-1.0) Estimated GFR (Cockcroft-Gault) 65.4 Glucose Level 199 mg/dL (70-99) Lactic Acid Level 2.0 mmol/L (0.4-2.0) Calcium Level 8.5 mg/dL (8.5-10.1) Glucose (Fingerstick) 183 mg/dL (70-99) 132 mg/dL (70-99) Clostridium difficile Toxin (PCR) Negative (Negative) Test 02/12/17 20:54 02/13/17 07:19 02/13/17 07:38 02/13/17 11:22 Glucose (Fingerstick) 155 mg/dL (70-99) 137 mg/dL (70-99) 221 mg/dL (70-99) White Blood Count 9.9 x10^3/uL (4.0-11.0) Red Blood Count 4.71 x10^6/uL (3.50-5.40) Hemoglobin 14.1 g/dL (12.0-15.5) Hematocrit 42.5 % (36.0-47.0) Mean Corpuscular Volume 90 fL (79-100) Mean Corpuscular Hemoglobin 30 pg (25-35) Mean Corpuscular Hemoglobin Concent 33 g/dL (31-37) Red Cell Distribution Width 13.8 % (11.5-14.5) Platelet Count 227 x10^3/uL (140-400) Neutrophils (%) (Auto) 70 % (31-73) Lymphocytes (%) (Auto) 20 % (24-48) Monocytes (%) (Auto) 6 % (0-9) Eosinophils (%) (Auto) 4 % (0-3) Basophils (%) (Auto) 1 % (0-3) Neutrophils # (Auto) 6.9 x10^3uL (1.8-7.7) Lymphocytes # (Auto) 1.9 x10^3/uL (1.0-4.8) Monocytes # (Auto) 0.6 x10^3/uL (0.0-1.1) Eosinophils # (Auto) 0.4 x10^3/uL (0.0-0.7) Basophils # (Auto) 0.1 x10^3/uL (0.0-0.2) Sodium Level 141 mmol/L (136-145) Potassium Level 3.9 mmol/L (3.5-5.1) Chloride Level 106 mmol/L (98-107) Carbon Dioxide Level 22 mmol/L (21-32) Anion Gap 13 (6-14) Blood Urea Nitrogen 7 mg/dL (7-20) Creatinine 0.8 mg/dL (0.6-1.0) Estimated GFR (Cockcroft-Gault) 84.6 BUN/Creatinine Ratio 9 (6-20) Glucose Level 123 mg/dL (70-99) Calcium Level 8.9 mg/dL (8.5-10.1) Total Bilirubin 0.7 mg/dL (0.2-1.0) Aspartate Amino Transf (AST/SGOT) 21 U/L (15-37) Alanine Aminotransferase (ALT/SGPT) 26 U/L (14-59) Alkaline Phosphatase 95 U/L (46-116) Troponin I Quantitative < 0.017 ng/mL (0.000-0.055) Total Protein 7.1 g/dL (6.4-8.2) Albumin 3.4 g/dL (3.4-5.0) Albumin/Globulin Ratio 0.9 (1.0-1.7) Test 02/13/17 14:51 02/13/17 17:03 02/13/17 20:17 02/14/17 03:25 Glucose (Fingerstick) 183 mg/dL (70-99) 238 mg/dL (70-99) 284 mg/dL (70-99) White Blood Count 9.0 x10^3/uL (4.0-11.0) Red Blood Count 4.65 x10^6/uL (3.50-5.40) Hemoglobin 14.1 g/dL (12.0-15.5) Hematocrit 41.6 % (36.0-47.0) Mean Corpuscular Volume 90 fL (79-100) Mean Corpuscular Hemoglobin 30 pg (25-35) Mean Corpuscular Hemoglobin Concent 34 g/dL (31-37) Red Cell Distribution Width 14.0 % (11.5-14.5) Platelet Count 239 x10^3/uL (140-400) Neutrophils (%) (Auto) 67 % (31-73) Lymphocytes (%) (Auto) 22 % (24-48) Monocytes (%) (Auto) 8 % (0-9) Eosinophils (%) (Auto) 3 % (0-3) Basophils (%) (Auto) 1 % (0-3) Neutrophils # (Auto) 6.0 x10^3uL (1.8-7.7) Lymphocytes # (Auto) 2.0 x10^3/uL (1.0-4.8) Monocytes # (Auto) 0.7 x10^3/uL (0.0-1.1) Eosinophils # (Auto) 0.3 x10^3/uL (0.0-0.7) Basophils # (Auto) 0.0 x10^3/uL (0.0-0.2) Sodium Level 140 mmol/L (136-145) Potassium Level 3.8 mmol/L (3.5-5.1) Chloride Level 105 mmol/L (98-107) Carbon Dioxide Level 25 mmol/L (21-32) Anion Gap 10 (6-14) Blood Urea Nitrogen 8 mg/dL (7-20) Creatinine 0.8 mg/dL (0.6-1.0) Estimated GFR (Cockcroft-Gault) 84.6 Glucose Level 238 mg/dL (70-99) Calcium Level 8.9 mg/dL (8.5-10.1) Test 02/14/17 07:19 Glucose (Fingerstick) 215 mg/dL (70-99) Laboratory Tests Test 02/13/17 11:22 02/13/17 14:51 02/13/17 17:03 02/13/17 20:17 Glucose (Fingerstick) 221 mg/dL (70-99) 183 mg/dL (70-99) 238 mg/dL (70-99) 284 mg/dL (70-99) Test 02/14/17 03:25 02/14/17 07:19 White Blood Count 9.0 x10^3/uL (4.0-11.0) Red Blood Count 4.65 x10^6/uL (3.50-5.40) Hemoglobin 14.1 g/dL (12.0-15.5) Hematocrit 41.6 % (36.0-47.0) Mean Corpuscular Volume 90 fL (79-100) Mean Corpuscular Hemoglobin 30 pg (25-35) Mean Corpuscular Hemoglobin Concent 34 g/dL (31-37) Red Cell Distribution Width 14.0 % (11.5-14.5) Platelet Count 239 x10^3/uL (140-400) Neutrophils (%) (Auto) 67 % (31-73) Lymphocytes (%) (Auto) 22 % (24-48) Monocytes (%) (Auto) 8 % (0-9) Eosinophils (%) (Auto) 3 % (0-3) Basophils (%) (Auto) 1 % (0-3) Neutrophils # (Auto) 6.0 x10^3uL (1.8-7.7) Lymphocytes # (Auto) 2.0 x10^3/uL (1.0-4.8) Monocytes # (Auto) 0.7 x10^3/uL (0.0-1.1) Eosinophils # (Auto) 0.3 x10^3/uL (0.0-0.7) Basophils # (Auto) 0.0 x10^3/uL (0.0-0.2) Sodium Level 140 mmol/L (136-145) Potassium Level 3.8 mmol/L (3.5-5.1) Chloride Level 105 mmol/L (98-107) Carbon Dioxide Level 25 mmol/L (21-32) Anion Gap 10 (6-14) Blood Urea Nitrogen 8 mg/dL (7-20) Creatinine 0.8 mg/dL (0.6-1.0) Estimated GFR (Cockcroft-Gault) 84.6 Glucose Level 238 mg/dL (70-99) Calcium Level 8.9 mg/dL (8.5-10.1) Glucose (Fingerstick) 215 mg/dL (70-99) Problem List Problems Medical Problems: (1) SBO (small bowel obstruction) Status: Acute Problems: VIVIAN SAPP MD Feb 14, 2017 08:39
[2017-02-14] MEDS: ENOXAPARIN 40 MG/0.4 ML SYRINGE. SQ SCH (08:42)
[2017-02-14] MEDS: FAMOTIDINE 20 MG TABLET. PO SCH (08:42)
[2017-02-14] MEDS: amLODIPine BESYLATE 10 MG TABLET PO SCH (08:42)
[2017-02-14] MEDS: ASPIRIN ENTERIC COATED 81 MG TABLET.DR. PO SCH (08:43)
[2017-02-14] MEDS: INSULIN ASPART 300 UNITS/3 ML INSULN.PEN SQ SCH ×2 (08:48→12:26)
[2017-02-14 11:00] VITALS: BP 131/70
== END 2017-02-14 12:30 | disposition home or self-care (01) | DRG 394 ==
LOC: ER 02:54 → 4 NORTH 06:00
PROVIDERS: ADMIT Family Medicine; ATTEND Family Medicine
DX: K66.0 Peritoneal adhesions (postprocedural) (postinfection) (principal); N17.9 Acute kidney failure, unspecified; K56.69 Other intestinal obstruction; K56.7 Ileus, unspecified; E78.5 Hyperlipidemia, unspecified; I10 Essential (primary) hypertension; E86.0 Dehydration; K52.9 Noninfective gastroenteritis and colitis, unspecified; E11.9 Type 2 diabetes mellitus without complications; I35.0 Nonrheumatic aortic (valve) stenosis; K21.9 Gastro-esophageal reflux disease without esophagitis; I25.10 Atherosclerotic heart disease of native coronary artery without angina pectoris; E78.00 Pure hypercholesterolemia, unspecified; Z95.1 Presence of aortocoronary bypass graft; Z85.3 Personal history of malignant neoplasm of breast; Z82.49 Family history of ischemic heart disease and other diseases of the circulatory system; Z90.710 Acquired absence of both cervix and uterus; Z90.721 Acquired absence of ovaries, unilateral; Z90.11 Acquired absence of right breast and nipple; Z88.8 Allergy status to other drugs, medicaments and biological substances; Z88.2 Allergy status to sulfonamides; Z88.0 Allergy status to penicillin; Z91.018 Allergy to other foods; Z91.048 Other nonmedicinal substance allergy status
CPT/HCPCS: 36415; 71010; 74022; 74176; 80048; 80053; 81001; 82962; 83036; 83605; 84484; 85007; 85027; 87040; 87086; 87324; 93005; 96361; 96374; 96375; J1650; J1815; J2270; J2405; J3490; J7040; S0028; 99285-25

== ENCOUNTER → 2017-06-26 | Outpatient (CLI) | payer MEDICARE ==
[~2017-06-26] MED LIST changes: +GARL10002 PO; +OMEG1CAP6 PO
--- NOTE | 2017-06-26 14:17 | RAD ---
DATE: June 26, 2017 EXAM: DIGITAL SCREEN LT W/CAD HISTORY: Right breast cancer. Routine screening left breast. COMPARISON: Studies back to May 12, 2014. TECHNIQUE: CC and MLO view of the left breast are provided. There is a repeat left MLO view. There is a repeat left CC view. This study was interpreted with the benefit of Computerized Aided Detection (CAD). FINDINGS: The breast parenchyma is heterogeneously dense, category C, which may obscure small masses. There is no worrisome mass or area of architectural distortion. Stable lymph node in the outer left breast is noted. There are vascular and other benign-appearing calcifications. IMPRESSION: Benign findings. BI-RADS CATEGORY: 2 BENIGN FINDING RECOMMENDED FOLLOW-UP: 12M 12 MONTH FOLLOW-UP PQRS compliance statement: Patient information was entered into a reminder system with a target due date for the next mammogram. Mammography is a sensitive method for finding small breast cancers, but it does not detect them all and is not a substitute for careful clinical examination. A negative mammogram does not negate a clinically suspicious finding and should not result in delay in biopsying a clinically suspicious abnormality. "Our facility is accredited by the [employer] Mammography Program."
== END | disposition home or self-care (01) ==
LOC: MAMMO 13:23
PROVIDERS: ATTEND Family Medicine
DX: Z12.31 Encounter for screening mammogram for malignant neoplasm of breast (principal); Z85.3 Personal history of malignant neoplasm of breast
CPT/HCPCS: G0202; 77067

== ENCOUNTER → 2017-07-10 | Day surgery (SDC) | payer MEDICARE ==
[~2017-07-10] MED LIST changes: -AMLO10TA4 PO; -ANAS1TAB3 PO; -ASPI-482 PO; -ATOR40TA59 PO; -ATORVASTATIN CA80 MG PO; -BUTA1CAP31 PO; -CHLO1CAP PO; -CLIN300C8 PO; -DOCU100C28 PO; -GARL10002 PO; +HYDROmorphone 2 MG/ML VIAL IV; -INSU100I13 SQ; -INSU100V11 SQ; -INSU100V31 SQ; -INSU100V8 SQ; +LIDOCAINE 1% PF 2 ML VIAL. ID; +LIDOCAINE 2% PF Vial for OR 5 ML VIAL.; -LISI1TAB7 PO; -METO25TA2 PO; -METO25TA4 PO; +MORPHINE SULFATE 2 MG/ML DISP.SYRIN. IV; -MULT-658 PO; -NITR0.4T SL; -NPH,100V5 SQ; -OMEG1CAP6 PO; +ONDANSETRON PF 4 MG/2 ML VIAL. IV; -POLY17PO29 PO; -POTA20TA82 PO; -PROAIR HFA8.5 GM IH; +PROCHLORPERAZINE 10 MG/2 ML VIAL. IV; +PROPOFOL 20 ML IV; -RANI150T2 PO; -SENN1TAB30 PO; -SULF1TAB24 PO; -VITA1CAP5 PO; -[UNRECOGNIZED DRUG - CODE] PO; +fentaNYL PF VIAL 100 MCG/2 ML VIAL IV
[2017-07-10 06:47] LABS: POC GLUCOSE 236 mg/dL (70-99)
[2017-07-10] MEDS: IV RINGERS,LACTATED 1000ML 1,000 ML IV (06:47)
== END | disposition home or self-care (01) ==
LOC: ENDOS 06:02
DX: K29.50 Unspecified chronic gastritis without bleeding (principal); I10 Essential (primary) hypertension; E11.9 Type 2 diabetes mellitus without complications; E78.00 Pure hypercholesterolemia, unspecified; Z85.3 Personal history of malignant neoplasm of breast; M19.90 Unspecified osteoarthritis, unspecified site; Z83.3 Family history of diabetes mellitus; Z82.49 Family history of ischemic heart disease and other diseases of the circulatory system; Z72.89 Other problems related to lifestyle; Z90.11 Acquired absence of right breast and nipple; Z79.82 Long term (current) use of aspirin; Z79.4 Long term (current) use of insulin; Z98.41 Cataract extraction status, right eye; Z98.42 Cataract extraction status, left eye; Z90.49 Acquired absence of other specified parts of digestive tract; Z90.710 Acquired absence of both cervix and uterus; Z88.0 Allergy status to penicillin; Z88.2 Allergy status to sulfonamides; Z88.8 Allergy status to other drugs, medicaments and biological substances
CPT/HCPCS: 43235; 82962; J2704

== ENCOUNTER → 2017-07-31 | Outpatient (CLI) | payer MEDICARE | END | disposition home or self-care (01) | LOC: ECHO 08:58 | DX: I25.10 Atherosclerotic heart disease of native coronary artery without angina pectoris (principal); I35.0 Nonrheumatic aortic (valve) stenosis | CPT/HCPCS: 93306 ==

== ENCOUNTER → 2018-03-20 | Outpatient (CLI) | payer MEDICARE ==
[2018-01-22 09:46] VITALS: BP 131/62
[~2018-03-20] MED LIST changes: +AMLO10TA4 PO; +ANAS1TAB47 PO; +ASPI-482 PO; +ATOR40TA59 PO; +ATORVASTATIN CA80 MG PO; +BUTA1CAP31 PO; +CHLO1CAP PO; +CLIN300C8 PO; +DOCU100C28 PO; +GARL10002 PO; -HYDROmorphone 2 MG/ML VIAL IV; +IBUP-985 PO; +INSU100I13 SQ; +INSU100V SQ; +INSU100V11 SQ; +INSU100V31 SQ; +INSU100V8 SQ; -LIDOCAINE 1% PF 2 ML VIAL. ID; -LIDOCAINE 2% PF Vial for OR 5 ML VIAL.; +LISI1TAB7 PO; +METO25TA2 PO; +METO25TA4 PO; -MORPHINE SULFATE 2 MG/ML DISP.SYRIN. IV; +MULT-658 PO; +NITR0.4T SL; +NPH,100V5 SQ; +OMEG1CAP6 PO; -ONDANSETRON PF 4 MG/2 ML VIAL. IV; +POLY17PO29 PO; +POTA20TA4 PO; +POTA20TA82 PO; +PROAIR HFA8.5 GM IH; -PROCHLORPERAZINE 10 MG/2 ML VIAL. IV; -PROPOFOL 20 ML IV; +RANI150T2 PO; +REGADENOSON 0.4 MG/5 ML DISP.SYRIN. IV ONE; +SENN1TAB30 PO; +SULF1TAB24 PO; +VITA1CAP5 PO; +[UNRECOGNIZED DRUG - CODE] PO; -fentaNYL PF VIAL 100 MCG/2 ML VIAL IV
--- NOTE | 2018-03-20 12:32 | RAD ---
MR#: [id number] Date of Study: 03/20/2018 Ordering Physician: TAYLOR BROWN, Referring Physician: ALISON CORNEJO Tech: MATT Jones APPROVED REPORT Test Type: Pharmacological Stress Nurse/Tech: María Kohler RN Test Indications: Chest Pain and CAD Cardiac History: Family history,CABG 2 yrs. ago, Hypertension, Diabetes Medications: See Electronic Medical Record Medical History: See Electronic Medical Record Resting ECG: SR Resting Heart Rate: 76 bpm Resting Blood Pressure: 142/72mmHg Pretest Chest Pain: No chest pain Nurse/Tech Notes S1,S2 and lungs slightly diminished in the bases. Consent: The procedure was explained to the patient in lay terms. Informed consent was witnessed. Brian eout was entered into [employer]. History and Stress Test performed by MATT Jones Pharm. Details Pharmacologic stress testing was performed using 0.4mg per 5ml of regadenoson given intravenously ove r 7-10 seconds. Stress Symptoms Pain over her left breast/chest area,Dyspnea POST EXERCISE Reason for Termination: Infusion complete Target HR: No Max HR: 111 bpm Max Blood Pressure: 151/59mmHg Blood Pressure response to exercise: Normal blood pressure response during stress. Heart Rate response to exercise: WNL Chest Pain: Yes. see above note. Arrhythmia: No. INTERPRETATION Stress EKG Conclusion: The resting EKG shows a sinus rhythm and nonspecific ST-T wave changes. The stress EKG shows flat ST segment depression in the inferior and lateral leads that is suggestive but not diagnostic of ischemia. EKG changes with exertion that are suggestive but not diagnostic of ischemia. Imaging Protocol IMAGE PROTOCOL: Rest Tc-99m/stress Tc-99m 1 day Rest: Stress: Viability: Radiopharm.Tc99m [id number] Sestamibi Dose11.6mCi 32mCi Duration 15min. 13min. Img Date 03/20/2018 03/20/2018 Inj-Img [id number]. 90min. Rest Admin Site:IV - Left HandAdministrator:MATT Jones Stress Admin Site: IV - Left HandAdministrator: [place] Peña, ARRT (R)(N) STRESS DATA End Diast. Vol.39.0mlLVEDV index BSA22.0ml End Syst. Vol.11.0mlLVESV index BSA6.0ml Myocardial Mass74.0gEject. Ydiuosmj68.0% Stress Scores Regional WT1.00Summed WT8.00 Regional WM0.00Summed WM13.00 LV Perfusion The stress scans show a lateral wall defect. The rest scans show a smaller lateral wall defect. 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 Wall Motion Left ventricular systolic function is intact with ejection fraction of greater than 70%. LV Perf. Quant 17 Seg. SSS13.00 17 Seg. SRS7.00 17 Seg. SDS7.00 Stress Defect Extent (% LAD)0.60Rest Defect Extent (% LAD)0.00Rev. Defect Extent (% LAD)0.60 Stress Defect Extent (% LCX) 98.80Rest Defect Extent (% LCX)71.30Rev. Defect Extent (% LCX)63.80 Stress Defect Extent (% RCA)1.10Rest Defect Extent (% RCA)2.20Rev. Defect Extent (% RCA)0.00 Stress Defect Extent (% KYREE)25.00Rest Defect Extent (% KYREE)15.40Rev. Defect Extent (% KYREE)15.40 Conclusion 1. The stress EKG shows changes suggestive of ischemia. 2. 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 3. Left ventricular systolic function is normal with no regional wall motion abnormalities and an eje ction fraction of greater than 70%. 4. Moderate to moderately high risk Lexiscan nuclear stress test. Signed by : Mj Hart MD Electronically Approved : 03/20/2018 12:31:18
== END | disposition home or self-care (01) ==
LOC: NM 08:08
PROVIDERS: ATTEND Internal Medicine Cardiovascular Disease
DX: I25.10 Atherosclerotic heart disease of native coronary artery without angina pectoris (principal); E11.9 Type 2 diabetes mellitus without complications; E78.00 Pure hypercholesterolemia, unspecified; I11.0 Hypertensive heart disease with heart failure; I50.9 Heart failure, unspecified; K21.9 Gastro-esophageal reflux disease without esophagitis; Z90.49 Acquired absence of other specified parts of digestive tract; Z90.722 Acquired absence of ovaries, bilateral; Z90.710 Acquired absence of both cervix and uterus; Z85.3 Personal history of malignant neoplasm of breast; Z86.2 Personal history of diseases of the blood and blood-forming organs and certain disorders involving the immune mechanism; Z88.0 Allergy status to penicillin; Z88.1 Allergy status to other antibiotic agents; Z88.2 Allergy status to sulfonamides; Z88.8 Allergy status to other drugs, medicaments and biological substances; Z83.3 Family history of diabetes mellitus; Z82.49 Family history of ischemic heart disease and other diseases of the circulatory system
CPT/HCPCS: 78452; 93017; 96374; 96375; 96376; A9500; J2785

== ENCOUNTER 2018-04-11 06:20 | Outpatient (CLI) | payer MEDICARE ==
[~2018-04-11] VITALS: Ht 162.6 cm; Wt 68.9 kg
[2018-04-11] VITALS (13 sets, daily range): BP systolic 80–140; BP diastolic 41–78
[~2018-04-11 06:20] MED LIST changes: -REGADENOSON 0.4 MG/5 ML DISP.SYRIN. IV ONE
[2018-04-11] MEDS ORDERED: IODIXANOL 320 MG/ML 100 ML VIAL. ONE ×2 (07:26→09:12)
[2018-04-11] MEDS ORDERED: LIDOCAINE 1% PF 2 ML VIAL. ONE (07:26)
[2018-04-11 07:48] LABS: HEMATOCRIT 43.6 % (36.0-47.0); HEMOGLOBIN 15.2 g/dL (12.0-15.5); RED BLOOD COUNT 4.87 x10^6/uL (3.50-5.40); RED CELL DISTRIBUTION WIDTH 13.4 % (11.5-14.5); WHITE BLOOD COUNT 13.7 x10^3/uL (4.0-11.0)
[2018-04-11 08:02] LABS: PROTHROMBIN TIME PATIENT 12.3 SEC (11.7-14.0)
[2018-04-11] MEDS ORDERED: MIDAZOLAM HCL/PF 2 MG/2 ML VIAL. ONE ×3 (08:12→09:16)
[2018-04-11] MEDS ORDERED: fentaNYL PF VIAL 100 MCG/2 ML VIAL ONE ×3 (08:12→09:15)
[2018-04-11] MEDS ORDERED: HEPARIN for IV BOLUS 10,000 UNIT/10 ML VIAL. ONE (08:12)
[2018-04-11] MEDS ORDERED: NITROGLYCERIN 200 MCG/2 ML SYRINGE FOR CATH/VASC LAB. ONE (08:13)
[2018-04-11] MEDS ORDERED: VERAPAMIL 5 MG/2 ML VIAL. ONE (08:13)
[2018-04-11 08:34] LABS: CALCIUM 10.7 mg/dL (8.5-10.1); CREATININE 0.9 mg/dL (0.6-1.0); GFR 73.7; POTASSIUM 3.9 mmol/L (3.5-5.1)
[2018-04-11] MEDS ORDERED: fentaNYL PF VIAL 100 MCG/2 ML VIAL IV ONE (08:45)
[2018-04-11] MEDS ORDERED: VERAPAMIL 5 MG/2 ML VIAL. IART ONE (08:45)
[2018-04-11] MEDS ORDERED: IODIXANOL 320 MG/ML 100 ML VIAL. IART ONE (08:45)
[2018-04-11] MEDS ORDERED: HEPARIN for IV BOLUS 10,000 UNIT/10 ML VIAL. IART ONE (08:45)
[2018-04-11] MEDS ORDERED: LIDOCAINE 1% PF 2 ML VIAL. INJ ONE (08:45)
[2018-04-11] MEDS ORDERED: MIDAZOLAM HCL/PF 2 MG/2 ML VIAL. IV ONE (08:45)
[2018-04-11] MEDS ORDERED: NITROGLYCERIN 200 MCG/2 ML SYRINGE FOR CATH/VASC LAB. IART ONE (08:45)
[2018-04-11] MEDS ORDERED: LIDOCAINE 2%/EPI 1:100,000 20 ML VIAL. ONE (09:17)
--- NOTE | 2018-04-11 10:23 | CARD ---
MR#: [id number] Date of Study: 04/11/2018 Ordering Physician: TAYLOR RAWLS, Referring Physician: TAYLOR RAWLS Tech: RT Daryl (R) APPROVED REPORT Technologist: RT Daryl (R) Nurse: María Kohler RN Procedure(s) performed: Left heart catheterization, selective coronary angiography, selective angiogr aphy of the bypass grafts and left ventriculography Moderate sedatopm: 74 mins INDICATION The indication(s) include : Chest pain and positive stress test. PROCEDURE NARRATIVE After explaining the risks, benefits and alternative options, informed consent was obtained from nasrin ent. Patient was brought to the cardiac Industrial Safety Engineer and her left wrist was prepped and draped in the usu al fashion after confirming a positive modified Gianfranco's test. Arterial access was obtained in the lef t radial artery and 6 Irish sheath was inserted. 6 Irish JR4 catheter was used to perform selective angiography of the left internal mammary artery graft to the left anterior descending artery, [place] right coronary artery and saphenous vein graft to the diagonal branch. Attempts to engage left main coronary artery and the remaining saphenous vein grafts were unsuccessful due to severe radial artery spasm and hence a decision was made to switch access site the right groin. Her right groin was prepp ed and draped in the usual fashion, 10 mL of 2% lidocaine infiltrated into the skin and subcutaneous tissues for local anesthesia, arterial access obtained in the right common femoral artery and 6 Frenc h sheath was inserted. 6 Irish JL4 catheter was used to perform selective angiography of the left co ronary artery. 6 Irish multipurpose catheter was used to perform selective angiography of the saphen ous vein graft to the right coronary arteries. 6 Irish LCB catheter was used to perform angiography of the saphenous vein graft to the obtuse marginal branch. Finally, 6 Irish pigtail catheter was use d to perform left ventriculography and also arch aortogram. Patient tolerated the procedure well. Hem ostasis in the left wrist was achieved using TR band and right groin using mynx closure device. There were no immediate complications. The following findings were noted. FINDINGS 1. Hemodynamics: Left ventricular end-diastolic pressure 18 mmHg. No pullback gradient across the a ortic valve. 2. Left ventriculography: Normal left ventricle systolic function with ejection fraction estimated at 70-75%. No significant mitral regurgitation seen. 3. Coronary and bypass graft angiography: a. The left main coronary artery arose from the left sinus of Valsalva, gave rise to the left anterio r descending and left circumflex arteries and did not show any significant stenosis. b. The left anterior descending artery showed 90% in-stent restenosis in the midsegment. The second diagonal branch that was grafted showed chronic total occlusion the proximal segment. The very apical segment of the left anterior descending artery showed 90% stenosis. c. The left circumflex artery showed chronic total occlusion in the ostial and proximal segments. d. The right coronary artery showed 90% stenosis in the proximal segment, 90% stenosis in the mid se gment immediately followed by high percent chronic total occlusion. e. The left internal mammary artery graft to the left anterior descending artery was widely patent. However, this is a small to medium caliber vessel. f. The saphenous vein graft to the diagonal branch was widely patent. g. The saphenous vein graft to the obtuse marginal branch was chronically and totally occluded. This was confirmed on arch aortogram. h. The sequential saphenous vein graft to the posterior descending and posterolateral branches of ri ght coronary artery was widely patent. 4. Incidental finding of 70% stenosis involving the proximal segment of the right superficial femora l artery noted on the right CORPORATE PARALEGAL angiography prior to arteriotomy site closure. Conclusion 1. Severe [place] vessel coronary artery disease as described above with patent LOTT to LAD, patent S VG to RCA, patent SVG to diagonal and chronically occluded SVG to obtuse marginal branch. 2. Normal left ventricle systolic function with ejection fraction estimated at 70-75%. Recommendations Optimization of medical therapy Signed by : Taylor Rawls, Electronically Approved : 04/11/2018 10:22:00
[2018-04-11] MEDS ORDERED: IV 1/2 NORMAL SALINE 1,000 ML IV SCH (10:28)
--- NOTE | 2018-04-11 10:28 | PDOC ---
MODERATE SEDATION ASSESSMENT RISKS/ALTERNATIVES Risks/Alternatives Risks and alternatives of this type of sedation and procedure discussed with: RISK/ALTERNATIVES: Patient H & P ON CHART H & P H & P on chart and reviewed for co-morbid conditions and appropriate labs. H&P ON CHART: Yes STATUS PREG STATUS ASSESSED: N/A MEDS/ALLERGIES REVIEWED Meds/Allergies Reviewed Medications and Allergies including time and route of recently administered narcotics and sedatives. MEDS/ALLERGIES REVIEWED: Yes ASA RATING ASA RATING: II AIRWAY ASSESSMENT Airway Assessment Airway patency, oral function limitations, presence of caps, crowns, dentures, partials, and ability to extend neck assessed. AIRWAY ASSESSMENT: Yes MALLAMPATI SCORE MALLAMPATI SCORE: II PRE-SEDATION ASSESSMENT PRE-SEDATION ASSESSMENT: Yes TAYLOR BROWN MD Apr 11, 2018 10:28
== END 2018-04-11 14:25 | disposition home or self-care (01) ==
LOC: CCL 06:20
PROVIDERS: ATTEND Internal Medicine Cardiovascular Disease
DX: I25.110 Atherosclerotic heart disease of native coronary artery with unstable angina pectoris (principal); I25.82 Chronic total occlusion of coronary artery; I10 Essential (primary) hypertension; E78.5 Hyperlipidemia, unspecified; E11.9 Type 2 diabetes mellitus without complications; Z85.3 Personal history of malignant neoplasm of breast; Z98.62 Peripheral vascular angioplasty status; Z90.11 Acquired absence of right breast and nipple; Z90.49 Acquired absence of other specified parts of digestive tract; Z90.710 Acquired absence of both cervix and uterus; Z95.1 Presence of aortocoronary bypass graft; Z82.49 Family history of ischemic heart disease and other diseases of the circulatory system; Z79.01 Long term (current) use of anticoagulants; Z79.899 Other long term (current) drug therapy; Z79.4 Long term (current) use of insulin; Z88.0 Allergy status to penicillin; Z88.2 Allergy status to sulfonamides; Z88.8 Allergy status to other drugs, medicaments and biological substances; Z91.018 Allergy to other foods
CPT/HCPCS: 36415; 80048; 85027; 85610; 85730; 93459; 93567; 99152; 99153; C1769; C1892; J1644; J2250; J3010; J3490; Q9967; C1771; G0269

== ENCOUNTER 2018-05-16 10:36 | Inpatient (IN) | payer MEDICARE ==
[~2018-05-16] VITALS: Ht 157.5 cm; Wt 70.8 kg
[2018-05-16] MEDS ORDERED: IV NORMAL SALINE 1000ML BAG 1,000 ML IV ONE ×2 (11:15→14:30)
[2018-05-16] MEDS ORDERED: PROCHLORPERAZINE 10 MG/2 ML VIAL. IV ONE (11:15)
[2018-05-16] MEDS ORDERED: FAMOTIDINE 20 MG/2 ML VIAL IVP ONE (11:15)
[2018-05-16] MEDS ORDERED: CONTRAST GIVEN. MC PRN (11:30)
[2018-05-16] MEDS ORDERED: IOHEXOL 300 MG/ML 100ML VIAL. IV ONE (11:30)
[2018-05-16 11:34] LABS: CREATININE 1.1 mg/dL (0.6-1.0); GFR 58.4; POTASSIUM 3.6 mmol/L (3.5-5.1)
[2018-05-16 11:39] LABS: ALBUMIN 3.8 g/dL (3.4-5.0); TOTAL BILIRUBIN 0.7 mg/dL (0.2-1.0); TOTAL PROTEIN 7.7 g/dL (6.4-8.2)
[2018-05-16 11:47] LABS: C-REACTIVE PROTEIN 22.4 mg/L (0-3.3)
--- NOTE | 2018-05-16 12:12 | RAD ---
CT ABD PELV W/ IV CONTRST ONLY Indication: Nausea, vomiting and diarrhea. Cholecystectomy and hysterectomy. Exposure: One or more of the following individualized dose reduction techniques were utilized for this examination: 1. Automated exposure control 2. Adjustment of the mA and/or kV according to patient size 3. Use of iterative reconstruction technique. Comparison: February 11, 2017 Contrast: Intravenous contrast was given. No oral contrast per request. FINDINGS: Lower thorax: Coronary artery calcifications. Heart size is enlarged. Liver: Unremarkable Spleen: Unremarkable Pancreas: Unremarkable Adrenals: Unremarkable Kidneys: Hypodense lesion, right kidney, measures 13 mm diameter and 12 Hounsfield units, compatible with a cyst. Symmetric enhancement. Renal vascular calcifications are again identified. Urinary tracts: No hydronephrosis. There is a prominent left extrarenal pelvis. Gallbladder: Surgically absent Lymph nodes: No significant enlargement Vessels: Calcification of the aorta and the major aortic branches. No evidence of aneurysm. GI tract: Small hiatal hernia. Gastric wall thickening likely due to nondistention. No evidence of acute colitis. There is mild distention of small bowel loops with fluid and gas, and mild small bowel wall thickening. The transition point appears to be at the distal aspect of the ileum. The appendix is visualized and appears within normal limits. There is some density within the upper appendix, could represent small appendicoliths or contrast from a previous study. Reproductive organs:No evidence of mass. Urinary bladder: Unremarkable. Peritoneum: No evidence of pneumoperitoneum. No free fluid. Abdominal wall:Unremarkable Spine: Degenerative spondylosis, particularly at the lumbosacral junction, where there is mild spondylolisthesis, appears similar to prior study. Bones: No destructive process identified. IMPRESSION: Mild distention of small bowel, with small bowel wall thickening, through the distal ileum. Nonspecific, but considerations include obstruction or acute enteritis. Electronically signed by: Cb Alcazar MD (05/16/2018 12:09 PM) [id number]
[2018-05-16 12:16] LABS: BASO # 0.1 x10^3/uL (0.0-0.2); BASO % 0 % (0-3); EOS # 0.4 x10^3/uL (0.0-0.7); EOS % 3 % (0-3); HEMATOCRIT 42.8 % (36.0-47.0); HEMOGLOBIN 14.7 g/dL (12.0-15.5); LYMPH # 2.1 x10^3/uL (1.0-4.8); LYMPH % 14 % (24-48); MEAN CORPUSCULAR HEMOGLOBIN 30 pg (25-35); MEAN CORPUSCULAR HGB CONC 34 g/dL (31-37); MEAN CORPUSCULAR VOLUME 88 fL (79-100); MONO % 7 % (0-9); NEUT # 11.2 x10^3uL (1.8-7.7); NEUT % 76 % (31-73); PLATELET COUNT 282 x10^3/uL (140-400); RED BLOOD COUNT 4.87 x10^6/uL (3.50-5.40); RED CELL DISTRIBUTION WIDTH 13.3 % (11.5-14.5); WHITE BLOOD COUNT 14.8 x10^3/uL (4.0-11.0)
--- NOTE | 2018-05-16 12:20 | PHYS DOC ---
Past Medical History Past Medical History: CAD, Cancer, Diabetes-Type II, High Cholesterol, Hypertension, Other Additional Past Medical Histor: breast cancer Past Surgical History: Cholecystectomy, Coronary Bypass Surgery, Hysterectomy, Oophorectomy, Other Additional Past Surgical Histo: hemorrhoidectomy, right mastectomy,CARPAL TUNNEL RIGHT Alcohol Use: Rarely Drug Use: None Adult General Chief Complaint Chief Complaint: NAUSEA/VOMITING/DIARRHA HPI HPI Patient is a 78 year old female with history of obesity septic, hypertension high cholesterol CAD with triple bypass, who presents today complaining of nausea, vomiting and diarrhea that has been going on for 5 days. Patient states she was seen by the PCP on Saturday this week, she states she was given Zofran, patient states symptoms have not improved. She is also complaining of generalized abdominal pain. Review of Systems Review of Systems Constitutional: Denies fever or chills [] Eyes: Denies change in visual acuity, redness, or eye pain [] HENT: Denies nasal congestion or sore throat [] Respiratory: Denies cough or shortness of breath [] Cardiovascular: No additional information not addressed in HPI [] GI: Reports generalized abdominal pain with nausea and vomiting, denies bloody stools or diarrhea [] : Denies dysuria or hematuria [] Musculoskeletal: Denies back pain or joint pain [] Integument: Denies rash or skin lesions [] Neurologic: Denies headache, focal weakness or sensory changes [] All other systems were reviewed and found to be within normal limits, except as documented in this note. Current Medications Current Medications Current Medications Medications (Trade) Dose Ordered Sig/Shakeel Start Time Stop Time Status Last Admin Dose Admin Ciprofloxacin/ Dextrose 200 ml @ 200 mls/hr Q12H 05/16/18 14:00 05/17/18 13:55 200 MLS/HR Famotidine (Pepcid Vial) 20 mg 1X ONCE 05/16/18 11:15 05/16/18 11:16 DC 05/16/18 11:24 20 MG Info (CONTRAST GIVEN -- Rx MONITORING) 1 each PRN DAILY PRN 05/16/18 11:30 05/18/18 11:29 Iohexol (Omnipaque 300 Mg/ml) 75 ml 1X ONCE 05/16/18 11:30 05/16/18 11:31 DC 05/16/18 11:41 60 ML Metronidazole 100 ml @ 100 mls/hr Q8HRS 05/16/18 14:00 05/17/18 13:55 100 MLS/HR Prochlorperazine Edisylate (Compazine) 10 mg 1X ONCE 05/16/18 11:15 05/16/18 11:16 DC 05/16/18 11:24 10 MG Sodium Chloride 1,000 ml @ 1,000 mls/hr 1X ONCE 05/16/18 11:15 05/16/18 12:14 DC 05/16/18 11:15 1,000 MLS/HR Allergies Allergies Allergies Coded Allergies Type Severity Reaction Last Updated Verified Penicillins Allergy Intermediate hives 07/10/17 Yes Sulfa (Sulfonamide Antibiotics) Allergy Intermediate 07/10/17 Yes chocolate flavor Allergy Intermediate 07/10/17 Yes celecoxib Adverse Reaction Intermediate "makes me crazy" 07/10/17 Yes Physical Exam Physical Exam Constitutional: Well developed, well nourished, no acute distress, non-toxic appearance. [] HENT: Normocephalic, atraumatic, bilateral external ears normal, oropharynx moist, no oral exudates, nose normal. [] Eyes: PERRLA, EOMI, conjunctiva normal, no discharge. [] Neck: Normal range of motion, no tenderness, supple, no stridor. [] Cardiovascular:Heart rate regular rhythm, no murmur [] Lungs & Thorax: Bilateral breath sounds clear to auscultation [] Abdomen: Bowel sounds normal, soft, diffuse abdominal tenderness worse on the left lower quadrant, negative psoas sign, negative obturator sign, no masses, no pulsatile masses. [] Skin: Warm, dry, no erythema, no rash. [] Back: No tenderness, no CVA tenderness. [] Extremities: No tenderness, no cyanosis, no clubbing, ROM intact, no edema. [] Neurologic: Alert and oriented X 3, normal motor function, normal sensory function, no focal deficits noted. [] Psychologic: Affect normal, judgement normal, mood normal. [] Current Patient Data Vital Signs Vital Signs Date Time Temp Pulse Resp B/P (MAP) Pulse Ox O2 Delivery O2 Flow Rate FiO2 05/16/18 14:00 96 16 140/66 (90) 97 Room Air 05/16/18 10:57 99.2 99.2 Lab Values Laboratory Tests Test 05/16/18 10:50 05/16/18 12:17 White Blood Count 14.8 x10^3/uL (4.0-11.0) H Red Blood Count 4.87 x10^6/uL (3.50-5.40) Hemoglobin 14.7 g/dL (12.0-15.5) Hematocrit 42.8 % (36.0-47.0) Mean Corpuscular Volume 88 fL (79-100) Mean Corpuscular Hemoglobin 30 pg (25-35) Mean Corpuscular Hemoglobin Concent 34 g/dL (31-37) Red Cell Distribution Width 13.3 % (11.5-14.5) Platelet Count 282 x10^3/uL (140-400) Neutrophils (%) (Auto) 76 % (31-73) H Lymphocytes (%) (Auto) 14 % (24-48) L Monocytes (%) (Auto) 7 % (0-9) Eosinophils (%) (Auto) 3 % (0-3) Basophils (%) (Auto) 0 % (0-3) Neutrophils # (Auto) 11.2 x10^3uL (1.8-7.7) H Lymphocytes # (Auto) 2.1 x10^3/uL (1.0-4.8) Monocytes # (Auto) 1.0 x10^3/uL (0.0-1.1) Eosinophils # (Auto) 0.4 x10^3/uL (0.0-0.7) Basophils # (Auto) 0.1 x10^3/uL (0.0-0.2) Sodium Level 140 mmol/L (136-145) Potassium Level 3.6 mmol/L (3.5-5.1) Chloride Level 100 mmol/L (98-107) Carbon Dioxide Level 27 mmol/L (21-32) Anion Gap 13 (6-14) Blood Urea Nitrogen 25 mg/dL (7-20) H Creatinine 1.1 mg/dL (0.6-1.0) H Estimated GFR (Cockcroft-Gault) 58.4 BUN/Creatinine Ratio 23 (6-20) H Glucose Level 180 mg/dL (70-99) H Calcium Level 10.0 mg/dL (8.5-10.1) Total Bilirubin 0.7 mg/dL (0.2-1.0) Aspartate Amino Transferase (AST) 22 U/L (15-37) Alanine Aminotransferase (ALT) 22 U/L (14-59) Alkaline Phosphatase 96 U/L (46-116) C-Reactive Protein, Quantitative 22.4 mg/L (0-3.3) H Total Protein 7.7 g/dL (6.4-8.2) Albumin 3.8 g/dL (3.4-5.0) Albumin/Globulin Ratio 1.0 (1.0-1.7) Lipase 79 U/L (73-393) Urine Collection Type Unknown Urine Color Yellow Urine Clarity Clear Urine pH 6.5 Urine Specific [place] >=1.030 Urine Protein Negative mg/dL (NEG-TRACE) Urine Glucose (UA) Negative mg/dL (NEG) Urine Ketones (Stick) Negative mg/dL (NEG) Urine Blood Negative (NEG) Urine Nitrite Negative (NEG) Urine Bilirubin Negative (NEG) Urine Urobilinogen Dipstick 1.0 mg/dL (0.2 mg/dL) Urine Leukocyte Esterase Large (NEG) Urine RBC 1-2 /HPF (0-2) Urine WBC 20-40 /HPF (0-4) Urine Squamous Epithelial Cells Few /LPF Urine Bacteria Moderate /HPF (0-FEW) Laboratory Tests 05/16/18 10:50 Laboratory Tests 05/16/18 10:50 EKG EKG [] Radiology/Procedures Radiology/Procedures []PROCEDURE: CT ABD PELV W/ IV CONTRST ONLY CT ABD PELV W/ IV CONTRST ONLY Indication: Nausea, vomiting and diarrhea. Cholecystectomy and hysterectomy. Exposure: One or more of the following individualized dose reduction techniques were utilized for this examination: 1. Automated exposure control 2. Adjustment of the mA and/or kV according to patient size 3. Use of iterative reconstruction technique. Comparison: February 11, 2017 Contrast: Intravenous contrast was given. No oral contrast per request. FINDINGS: Lower thorax: Coronary artery calcifications. Heart size is enlarged. Liver: Unremarkable Spleen: Unremarkable Pancreas: Unremarkable Adrenals: Unremarkable Kidneys: Hypodense lesion, right kidney, measures 13 mm diameter and 12 Hounsfield units, compatible with a cyst. Symmetric enhancement. Renal vascular calcifications are again identified. Urinary tracts: No hydronephrosis. There is a prominent left extrarenal pelvis. Gallbladder: Surgically absent Lymph nodes: No significant enlargement Vessels: Calcification of the aorta and the major aortic branches. No evidence of aneurysm. GI tract: Small hiatal hernia. Gastric wall thickening likely due to nondistention. No evidence of acute colitis. There is mild distention of small bowel loops with fluid and gas, and mild small bowel wall thickening. The transition point appears to be at the distal aspect of the ileum. The appendix is visualized and appears within normal limits. There is some density within the upper appendix, could represent small appendicoliths or contrast from a previous study. Reproductive organs:No evidence of mass. Urinary bladder: Unremarkable. Peritoneum: No evidence of pneumoperitoneum. No free fluid. Abdominal wall:Unremarkable Spine: Degenerative spondylosis, particularly at the lumbosacral junction, where there is mild spondylolisthesis, appears similar to prior study. Bones: No destructive process identified. IMPRESSION: Mild distention of small bowel, with small bowel wall thickening, through the distal ileum. Nonspecific, but considerations include obstruction or acute enteritis. Electronically signed by: Cb Alcazar MD (05/16/2018 12:09 PM) [facility] DICTATED and SIGNED BY: CB ALCAZAR MD DATE: 05/16/18 1156 Course & Med Decision Making Course & Med Decision Making Pertinent Labs and Imaging studies reviewed. (See chart for details) This is a 78-year-old female patient presenting to the ED today with nausea vomiting diarrhea and abdominal pain for 5 days. CBC with a WBC of 14.8, CMP would not acute findings. Urine analysis is noted for large amount of leukocytes and bacteria. CT of the abdomen and pelvic was noted for Mild distention of small bowel, with small bowel wall thickening, through the distal ileum. Nonspecific, but considerations include obstruction or acute enteritis. Patient was started on IV fluids in the ED, Francisca and Migel Consulted with Dr. Cam, who accepted patient for admission. She stated she will do conservative management of patient's condition and we do not need to consult general surgery right now. Staff Physician Addendum: I was working in the ER during the course of this patient's visit. I was available for consultation as needed, but I was not directly involved in the care of this patient. Dragon Disclaimer Dragon Disclaimer This electronic medical record was generated, in whole or in part, using a voice recognition dictation system. Departure Departure Impression: Primary Impression: Nausea & vomiting Additional Impressions: Enteritis Small bowel obstruction UTI (urinary tract infection) Disposition: 09 ADMITTED INPATIENT Condition: STABLE Referrals: ROSEMARY LENZ MD (PCP) Problem Qualifiers Primary Impression: Nausea & vomiting Vomiting type: unspecified Vomiting Intractability: non-intractable Qualified Codes: R11.2 - Nausea with vomiting, unspecified Additional Impressions: UTI (urinary tract infection) Urinary tract infection type: site unspecified Hematuria presence: without hematuria Qualified Codes: N39.0 - Urinary tract infection, site not specified DAVI WASHBURN APRN May 16, 2018 12:20 TERRY BLANCA MD May 17, 2018 18:11
[2018-05-16 12:49] LABS: BILIRUBIN,URINE NEGATIVE (NEG); CLARITY,URINE CLEAR; COLOR,URINE YELLOW; NITRITE,URINE NEGATIVE (NEG); PH,URINE 6.5; PROTEIN,URINE NEGATIVE (NEG-TRACE)
[2018-05-16 12:57] LABS: SQUAMOUS EPITHELIAL CELL,UR FEW /LPF; WBC,URINE 20-40 /HPF (0-4)
[2018-05-16 12:58] LABS: BACTERIA,URINE MODERATE /HPF (0-FEW)
[2018-05-16] MEDS ORDERED: ONDANSETRON PF 4 MG/2 ML VIAL. IV PRN (14:30)
[2018-05-16] MEDS ORDERED: MORPHINE SULFATE 4 MG/ML VIAL. IV PRN (14:30)
[2018-05-16] MEDS: CIPROFLOXACIN 400MG PREMIX 200 ML IV SCH (14:51)
[2018-05-16] MEDS ORDERED: DEXTROSE 50% 25 GM / 50ML DISP.SYRIN. IV PRN (15:00)
[2018-05-16 15:30] VITALS: BP 129/74
[2018-05-16] MEDS: IV NORMAL SALINE 1000ML BAG 1,000 ML IV SCH (16:34)
[2018-05-16] MEDS: INSULIN LISPRO 300 UNITS/3 ML INSULN.PEN. SQ SCH (17:00)
--- NOTE | 2018-05-16 18:01 | PDOC ---
Provider Note Provider Note H&P dictated # [id number] Bhupendra ROSA MD May 16, 2018 18:01
[2018-05-16 19:00] VITALS: BP 115/56
--- NOTE | 2018-05-16 19:40 | HP ---
ADMIT DATE: 05/16/2018 ADMISSION DIAGNOSES: Partial small-bowel obstruction, probable urinary tract infection. HISTORY OF PRESENT ILLNESS: This is a 78-year-old -Citizen Of [place] female who sees Dr. Castillo in the office, but presented to the Emergency Room complaining of nausea, vomiting and diarrhea that has been going on for 5 days. She had previously seen Dr. Castillo in the office on Saturday, 3 days prior and was prescribed Zofran for nausea, but the other symptoms have since occurred. She has also developed some generalized abdominal pain. She has not had any fever or chills, but does feel weaker. PAST MEDICAL HISTORY: Significant for coronary artery disease, type 2 diabetes, hyperlipidemia, hypertension, breast cancer, carpal tunnel, hemorrhoids. PAST SURGICAL HISTORY: Include cholecystectomy, CABG, hysterectomy, oophorectomy, hemorrhoidectomy, right mastectomy and right carpal tunnel. FAMILY HISTORY: Cancer of the ovary and lung cancer. SOCIAL HISTORY: Lives independently. Rare alcohol use, no tobacco use. ALLERGIES: PENICILLIN, SULFA, CELECOXIB CHOCOLATE FLAVOR and ROSUVASTATIN. HOME MEDICATIONS: Include atorvastatin 40 mg at bedtime, metoprolol 50 mg daily extended release, Norvasc 10 mg daily, lisinopril HCT 20/25 one daily, ibuprofen 600 mg q.8 hours p.r.n. pain, potassium chloride 20 mEq daily, ranitidine 150 mg b.i.d., Lantus 35 units subQ daily, Humalog 10-20 units t.i.d. with meals, B complex with C daily, Centrum Silver daily, garlic 1000 mg daily. REVIEW OF SYSTEMS: HEENT: Positive for previous cataracts and extraction. She has some underlying retinopathy. CARDIAC: Positive for coronary artery disease, but no recent chest pain. PULMONARY: Negative for cough or lung symptoms. She does have sleep apnea, but no longer uses CPAP. GASTROINTESTINAL: As above. GENITOURINARY: She has had some suprapubic discomfort and frequency. MUSCULOSKELETAL: Positive for arthritis and history of carpal tunnel with release. PSYCHIATRIC: Positive for anxiety. ENDOCRINE: Positive for diabetes. PHYSICAL EXAMINATION: VITAL SIGNS: Temperature 99.2 orally with a pulse of 107, respiratory rate 15. Room air oximetry 97%. GENERAL: She is in no acute distress. She seems a little bit confused, but that is apparently her baseline. SKIN: Somewhat pale appearing. HEENT: Conjunctivae are clear. Mucous membranes are little bit dry. NECK: Supple. HEART: Borderline tachycardic, but regular. LUNGS: Clear to auscultation. ABDOMEN: Soft. There is some suprapubic area tenderness, particularly on the right. No peritoneal signs are present. Bowel sounds are present. No organomegaly is noted. EXTREMITIES: Without clubbing, cyanosis or edema. Skin turgor is normal. She is not showing any focal weakness . LABORATORY DATA: Her white count is elevated at 14.8, hemoglobin is 14.7, hematocrit is 42.8, platelets 282. She has a left shift. Chemistries: Creatinine is 1.1, BUN is 25, glucose is 180. C-reactive protein is elevated at 22. Albumin and liver enzymes are normal. Urinalysis shows large amount of leukocyte esterase, 20-40 wbc's, moderate bacteria with few squamous epithelial cells present. IMAGING STUDIES: CT abdomen and pelvis shows mild distention of small bowel with small bowel wall thickening through the distal ileum is nonspecific, but suggest a partial obstruction or enteritis. Her symptoms have been consistent with recent enteritis. There is a small hiatal hernia present. There is calcification of the aorta and major aortic branches without aneurysm. Adrenals are unremarkable. Kidneys show a hypodense lesion in the right kidney. Liver, spleen and pancreas are unremarkable. Heart size is enlarged. Coronary artery calcifications are present. Degenerative spondylosis is present, particularly in the lumbosacral junction. There is mild spondylolisthesis similar to previous. ASSESSMENT: 1. Abdominal pain. This appears to be secondary to partial small-bowel obstruction from gastroenteritis. 2. Probable cystitis. 3. Coronary artery disease, status post coronary artery bypass graft. 4. Hypertension. 5. Hyperlipidemia. 6. Gastroesophageal reflux disease with small hiatal hernia present. 7. Insulin-dependent diabetes. PLAN: She is admitted. We will continue her on bowel rest, IV hydration, monitor her bowel function with imaging, treat her with antibiotics, await urine culture and provide sliding scale insulin. W Dhaval ROSA MD DR: EVANGELIST/letitia JOB#: [id number] / [id number]
[2018-05-16 22:54] VITALS: BP 127/60
[2018-05-17] MEDS: IV NORMAL SALINE 1000ML BAG 1,000 ML IV SCH ×2 (00:05→11:00)
[2018-05-17] MEDS: CIPROFLOXACIN 400MG PREMIX 200 ML IV SCH ×2 (01:17→13:55)
[2018-05-17 03:08] VITALS: BP 120/59
[2018-05-17 06:35] LABS: BASO # 0.1 x10^3/uL (0.0-0.2); BASO % 1 % (0-3); EOS # 0.3 x10^3/uL (0.0-0.7); EOS % 3 % (0-3); HEMATOCRIT 37.8 % (36.0-47.0); HEMOGLOBIN 13.3 g/dL (12.0-15.5); LYMPH # 1.7 x10^3/uL (1.0-4.8); LYMPH % 16 % (24-48); MEAN CORPUSCULAR HEMOGLOBIN 31 pg (25-35); MEAN CORPUSCULAR HGB CONC 35 g/dL (31-37); MEAN CORPUSCULAR VOLUME 88 fL (79-100); MONO # 0.7 x10^3/uL (0.0-1.1); MONO % 7 % (0-9); NEUT # 7.8 x10^3uL (1.8-7.7); NEUT % 74 % (31-73); PLATELET COUNT 242 x10^3/uL (140-400); RED BLOOD COUNT 4.29 x10^6/uL (3.50-5.40); RED CELL DISTRIBUTION WIDTH 13.2 % (11.5-14.5); WHITE BLOOD COUNT 10.5 x10^3/uL (4.0-11.0)
[2018-05-17 06:55] LABS: ALBUMIN/GLOBULIN RATIO 0.8 (1.0-1.7); CALCIUM 8.7 mg/dL (8.5-10.1); CREATININE 0.8 mg/dL (0.6-1.0); GFR 84.4; POTASSIUM 3.4 mmol/L (3.5-5.1); TOTAL BILIRUBIN 0.5 mg/dL (0.2-1.0); TOTAL PROTEIN 6.6 g/dL (6.4-8.2)
[2018-05-17 07:00] VITALS: BP 139/64
[2018-05-17] MEDS: INSULIN LISPRO 300 UNITS/3 ML INSULN.PEN. SQ SCH ×3 (08:00→17:00)
--- NOTE | 2018-05-17 09:55 | RAD ---
Examination: Single frontal view the abdomen History status post follow-up small bowel obstruction COMPARISON: CT from 05/16/2018 FINDINGS: Cholecystectomy changes identified in the right upper quadrant. Air distended/mildly dilated small bowel loops identified in the right midabdomen . IMPRESSION: 1. Distended/mildly dilated small bowel loops identified in the right mid abdomen could be ileus or obstruction. Electronically signed by: Kishor De Los Santos MD (05/17/2018 9:52 AM) [facility]
[2018-05-17 11:00] VITALS: BP 128/59
[2018-05-17] MEDS ORDERED: LORazepam 0.5 MG TABLET PO PRN (13:15)
[2018-05-17] MEDS: AMINO AC 3%/ELECTROLYTE/GLYCER 1,000 ML IV SCH (13:54)
--- NOTE | 2018-05-17 14:20 | PDOC ---
PROGRESS NOTES Subjective Increased abdominal pain and bloating today despite having a BM. No diarrhea, not able to send stool for cx as it was solid and mixed with urine. She is upset about care and wants to eat and wonders why she is not on her insulin. Her blood sugars are controlled and her IV is infusing fluids well. When I answer her questions she just repeats them and when I talk louder she asks why I am yelling at her. She alternates between near crying spells and being belligerent Objective Afebrile General: emotional Heart: RRR Lungs: Clear, good respiratory effort Abd: more distended and more bloated than last anil Ext: no C/C/E WBC: now normal Hgb: stable K+: 3.4 Creat: normal Vital Signs Vital Signs Date Time Temp Pulse Resp B/P (MAP) Pulse Ox O2 Delivery O2 Flow Rate FiO2 05/17/18 11:00 98.6 86 16 128/59 (82) 94 Room Air 98.6 I & O Intake and Output 05/17/18 07:00 Intake Total 400 ml Output Total 250 ml Balance 150 ml Intake Oral 0 ml IV Total 400 ml Output Urine Total 250 ml # Voids 1 Assessment and Plan 1. Abdominal pain. This appears to be secondary to partial small-bowel obstruction which is still evident on f/u KUB. She is not vomiting but her distension is worse today. She did have a solid BM. Will consult GI and Gen Surgery as her picture is mixed, change IVF to ProcalAmine 2. Probable cystitis - awaiting culture. 3. Coronary artery disease, status post coronary artery bypass graft. 4. Hypertension - holding home meds, crrently controlled. 5. Hyperlipidemia. 6. Gastroesophageal reflux disease with small hiatal hernia present. 7. Insulin-dependent diabetes - continue SSI. 8. Anxiety/emotional lability - add prn IV Bhupendra Carrasquillo MD May 17, 2018 14:20
[2018-05-17 15:00] VITALS: BP 131/57
--- NOTE | 2018-05-17 17:59 | PDOC2 ---
CONSULT Date of Consult Date of Consult DATE: 05/17/18 TIME: 17:48 Reason for Consult Reason for Consult: possible SBO Referring Physician Referring Physician: Dr Ingram Identification/Chief Complaint Chief Complaint "bottom is sore" Source Source: Caregiver, Chart review, Patient History of Present Illness Reason for Visit: MS Mederos is a pleasant elderly female who was admitted with diagnosis of ileus vs pSBO. Seen a year ago with similar issues. Her daughter is at the bedside and is helpful filling in the story as Ms Mederos is not a good historian. Pt denies pain other than some irritation of her "bottom". Past Medical History Cardiovascular: CAD, HTN, Hyperlipidemia, Aortic stenosis, Other Pulmonary: No pertinent hx CENTRAL NERVOUS SYSTEM: Other GI: GERD Heme/Onc: No pertinent hx Hepatobiliary: No pertinent hx Psych: No pertinent hx Musculoskeletal: Osteoarthritis Rheumatologic: No pertinent hx Infectious disease: No pertinent hx Renal/: No pertinent hx Endocrine: Diabetes Past Surgical History Past Surgical History: Cholecystectomy, CABG, Mastectomy, Hysterectomy Family History Family History: Coronary Artery Disease Social History ALCOHOL: rare Drugs: None Lives: Alone Current Problem List Problem List Problems Medical Problems: (1) Enteritis Status: Acute (2) Small bowel obstruction Status: Acute (3) UTI (urinary tract infection) Status: Acute Current Medications Current Medications Current Medications Prochlorperazine Edisylate (Compazine) 10 mg 1X ONCE IV Last administered on 05/16/18at 11:24; Start 05/16/18 at 11:15; Stop 05/16/18 at 11:16; Status DC Sodium Chloride 1,000 ml @ 1,000 mls/hr 1X ONCE IV Last administered on at 11:15; Start 05/16/18 at 11:15; Stop 05/16/18 at 12:14; Status DC Famotidine (Pepcid Vial) 20 mg 1X ONCE IVP Last administered on 05/16/18at 11: 24; Start 05/16/18 at 11:15; Stop 05/16/18 at 11:16; Status DC Iohexol (Omnipaque 300 Mg/ml) 75 ml 1X ONCE IV Last administered on 05/16/18at 11:41; Start 05/16/18 at 11:30; Stop 05/16/18 at 11:31; Status DC Info (CONTRAST GIVEN -- Rx MONITORING) 1 each PRN DAILY PRN MC SEE COMMENTS; Start 05/16/18 at 11:30; Stop 05/18/18 at 11:29 Ciprofloxacin/ Dextrose 200 ml @ 200 mls/hr Q12H IV Last administered on at 13:55; Start 05/16/18 at 14:00 Metronidazole 100 ml @ 100 mls/hr Q8HRS IV Last administered on 05/17/18at 13: 55; Start 05/16/18 at 14:00 Ondansetron HCl (Zofran) 4 mg PRN Q8HRS PRN IV NAUSEA/VOMITING; Start 05/16/18 at 14:30; Stop 05/17/18 at 14:29; Status DC Morphine Sulfate (Morphine Sulfate) 4 mg PRN Q2HR PRN IV PAIN; Start 05/16/18 at 14:30; Stop 05/17/18 at 14:29; Status DC Sodium Chloride 1,000 ml @ 100 mls/hr 1X ONCE IV ; Start 05/16/18 at 14:30; Stop 05/17/18 at 00:29; Status DC Sodium Chloride 1,000 ml @ 100 mls/hr Q10H IV Last administered on 05/17/18at 11:00; Start 05/16/18 at 15:00; Stop 05/17/18 at 13:13; Status DC Insulin Human Lispro (HumaLOG) 0-9 UNITS TIDWMEALS SQ ; Start 05/16/18 at 17:00 Dextrose (Dextrose 50%-Water Syringe) 12.5 gm PRN Q15MIN PRN IV SEE COMMENTS; Start 05/16/18 at 15:00 Lorazepam (Ativan) 0.5 mg PRN Q6HRS PRN PO ANXIETY / AGITATION; Start 05/17/18 at 13:15; Status Cancel Amino Acids/ Glycerin/ Electrolytes 1,000 ml @ 80 mls/hr [id number] IV Last administered on 05/17/18at 13:54; Start 05/17/18 at 13:15 Lorazepam (Ativan) 0.5 mg PRN Q6HRS PRN IV ANXIETY / AGITATION; Start 05/17/18 at 13:30 Active Scripts Active Lantus Solostar (Insulin Glargine,Hum.rec.anlog) 100 Unit/1 Ml Insuln.pen 35 Unit SQ QHS 30 Days Atorvastatin Calcium 40 Mg Tablet 40 Mg PO QHS 30 Days Reported Humalog (Insulin Lispro) 100 Unit/1 Ml Vial 10-20 Units SQ TIDAC Klor-Con M20 (Potassium Chloride) 20 Meq Tab.er.prt 1 Tab PO DAILY Ibuprofen 600 Mg Tablet 1 Tab PO PRN Q8HRS PRN Lisinopril-Hctz 20-25 Mg Tab (Lisinopril/Hydrochlorothiazide) 1 Each Tablet 1 Tab PO DAILY Garlic 1,000 Mg Capsule 1,000 Mg PO DAILY B Complex With Vitamin C (Vitamin B Complex & Vit C No.3) 1 Each Capsule 1 Each PO DAILY Toprol Xl (Metoprolol Succinate) 25 Mg Tab.er.24h 50 Mg PO DAILY Norvasc (Amlodipine Besylate) 10 Mg Tablet 10 Mg PO DAILY Ranitidine Hcl 150 Mg Tablet 150 Mg PO BID Centrum Silver Tablet (Multivits-Min/Fa/Lycopene/Lut) 1 Each Tablet 1 Each PO DAILY Allergies Allergies: Coded Allergies: Penicillins (Verified Allergy, Intermediate, hives, 07/10/17) Sulfa (Sulfonamide Antibiotics) (Verified Allergy, Intermediate, 07/10/17) chocolate flavor (Verified Allergy, Intermediate, 07/10/17) rosuvastatin (Verified Allergy, Intermediate, 05/17/18) celecoxib (Verified Adverse Reaction, Intermediate, "makes me crazy", ) ROS Review of System from daughter as patient is poor historian Physical Exam General: Alert, No acute distress Lungs: Normal air movement Heart: Regular rate Abdomen: Soft, No tenderness Extremities: No clubbing Psych/Mental Status: Other (pleasantly confused) Vitals VITALS Vital Signs Date Time Temp Pulse Resp B/P (MAP) Pulse Ox O2 Delivery O2 Flow Rate FiO2 05/17/18 15:00 98.4 90 18 131/57 (81) 93 Room Air 98.4 Labs Labs Laboratory Tests Test 05/16/18 10:50 05/16/18 12:17 05/16/18 15:57 05/16/18 20:56 White Blood Count 14.8 x10^3/uL (4.0-11.0) Red Blood Count 4.87 x10^6/uL (3.50-5.40) Hemoglobin 14.7 g/dL (12.0-15.5) Hematocrit 42.8 % (36.0-47.0) Mean Corpuscular Volume 88 fL (79-100) Mean Corpuscular Hemoglobin 30 pg (25-35) Mean Corpuscular Hemoglobin Concent 34 g/dL (31-37) Red Cell Distribution Width 13.3 % (11.5-14.5) Platelet Count 282 x10^3/uL (140-400) Neutrophils (%) (Auto) 76 % (31-73) Lymphocytes (%) (Auto) 14 % (24-48) Monocytes (%) (Auto) 7 % (0-9) Eosinophils (%) (Auto) 3 % (0-3) Basophils (%) (Auto) 0 % (0-3) Neutrophils # (Auto) 11.2 x10^3uL (1.8-7.7) Lymphocytes # (Auto) 2.1 x10^3/uL (1.0-4.8) Monocytes # (Auto) 1.0 x10^3/uL (0.0-1.1) Eosinophils # (Auto) 0.4 x10^3/uL (0.0-0.7) Basophils # (Auto) 0.1 x10^3/uL (0.0-0.2) Sodium Level 140 mmol/L (136-145) Potassium Level 3.6 mmol/L (3.5-5.1) Chloride Level 100 mmol/L (98-107) Carbon Dioxide Level 27 mmol/L (21-32) Anion Gap 13 (6-14) Blood Urea Nitrogen 25 mg/dL (7-20) Creatinine 1.1 mg/dL (0.6-1.0) Estimated GFR (Cockcroft-Gault) 58.4 BUN/Creatinine Ratio 23 (6-20) Glucose Level 180 mg/dL (70-99) Calcium Level 10.0 mg/dL (8.5-10.1) Total Bilirubin 0.7 mg/dL (0.2-1.0) Aspartate Amino Transf (AST/SGOT) 22 U/L (15-37) Alanine Aminotransferase (ALT/SGPT) 22 U/L (14-59) Alkaline Phosphatase 96 U/L (46-116) C-Reactive Protein, Quantitative 22.4 mg/L (0-3.3) Total Protein 7.7 g/dL (6.4-8.2) Albumin 3.8 g/dL (3.4-5.0) Albumin/Globulin Ratio 1.0 (1.0-1.7) Lipase 79 U/L (73-393) Urine Collection Type Unknown Urine Color Yellow Urine Clarity Clear Urine pH 6.5 Urine Specific [place] >=1.030 Urine Protein Negative mg/dL (NEG-TRACE) Urine Glucose (UA) Negative mg/dL (NEG) Urine Ketones (Stick) Negative mg/dL (NEG) Urine Blood Negative (NEG) Urine Nitrite Negative (NEG) Urine Bilirubin Negative (NEG) Urine Urobilinogen Dipstick 1.0 mg/dL (0.2 mg/dL) Urine Leukocyte Esterase Large (NEG) Urine RBC 1-2 /HPF (0-2) Urine WBC 20-40 /HPF (0-4) Urine Squamous Epithelial Cells Few /LPF Urine Bacteria Moderate /HPF (0-FEW) Glucose (Fingerstick) 159 mg/dL (70-99) 114 mg/dL (70-99) Test 05/17/18 06:00 05/17/18 07:24 05/17/18 10:55 05/17/18 16:28 White Blood Count 10.5 x10^3/uL (4.0-11.0) Red Blood Count 4.29 x10^6/uL (3.50-5.40) Hemoglobin 13.3 g/dL (12.0-15.5) Hematocrit 37.8 % (36.0-47.0) Mean Corpuscular Volume 88 fL (79-100) Mean Corpuscular Hemoglobin 31 pg (25-35) Mean Corpuscular Hemoglobin Concent 35 g/dL (31-37) Red Cell Distribution Width 13.2 % (11.5-14.5) Platelet Count 242 x10^3/uL (140-400) Neutrophils (%) (Auto) 74 % (31-73) Lymphocytes (%) (Auto) 16 % (24-48) Monocytes (%) (Auto) 7 % (0-9) Eosinophils (%) (Auto) 3 % (0-3) Basophils (%) (Auto) 1 % (0-3) Neutrophils # (Auto) 7.8 x10^3uL (1.8-7.7) Lymphocytes # (Auto) 1.7 x10^3/uL (1.0-4.8) Monocytes # (Auto) 0.7 x10^3/uL (0.0-1.1) Eosinophils # (Auto) 0.3 x10^3/uL (0.0-0.7) Basophils # (Auto) 0.1 x10^3/uL (0.0-0.2) Sodium Level 141 mmol/L (136-145) Potassium Level 3.4 mmol/L (3.5-5.1) Chloride Level 106 mmol/L (98-107) Carbon Dioxide Level 23 mmol/L (21-32) Anion Gap 12 (6-14) Blood Urea Nitrogen 13 mg/dL (7-20) Creatinine 0.8 mg/dL (0.6-1.0) Estimated GFR (Cockcroft-Gault) 84.4 BUN/Creatinine Ratio 16 (6-20) Glucose Level 168 mg/dL (70-99) Calcium Level 8.7 mg/dL (8.5-10.1) Total Bilirubin 0.5 mg/dL (0.2-1.0) Aspartate Amino Transf (AST/SGOT) 16 U/L (15-37) Alanine Aminotransferase (ALT/SGPT) 15 U/L (14-59) Alkaline Phosphatase 76 U/L (46-116) Total Protein 6.6 g/dL (6.4-8.2) Albumin 3.0 g/dL (3.4-5.0) Albumin/Globulin Ratio 0.8 (1.0-1.7) Glucose (Fingerstick) 159 mg/dL (70-99) 150 mg/dL (70-99) 175 mg/dL (70-99) Laboratory Tests Test 05/16/18 20:56 05/17/18 06:00 05/17/18 07:24 05/17/18 10:55 Glucose (Fingerstick) 114 mg/dL (70-99) 159 mg/dL (70-99) 150 mg/dL (70-99) White Blood Count 10.5 x10^3/uL (4.0-11.0) Red Blood Count 4.29 x10^6/uL (3.50-5.40) Hemoglobin 13.3 g/dL (12.0-15.5) Hematocrit 37.8 % (36.0-47.0) Mean Corpuscular Volume 88 fL (79-100) Mean Corpuscular Hemoglobin 31 pg (25-35) Mean Corpuscular Hemoglobin Concent 35 g/dL (31-37) Red Cell Distribution Width 13.2 % (11.5-14.5) Platelet Count 242 x10^3/uL (140-400) Neutrophils (%) (Auto) 74 % (31-73) Lymphocytes (%) (Auto) 16 % (24-48) Monocytes (%) (Auto) 7 % (0-9) Eosinophils (%) (Auto) 3 % (0-3) Basophils (%) (Auto) 1 % (0-3) Neutrophils # (Auto) 7.8 x10^3uL (1.8-7.7) Lymphocytes # (Auto) 1.7 x10^3/uL (1.0-4.8) Monocytes # (Auto) 0.7 x10^3/uL (0.0-1.1) Eosinophils # (Auto) 0.3 x10^3/uL (0.0-0.7) Basophils # (Auto) 0.1 x10^3/uL (0.0-0.2) Sodium Level 141 mmol/L (136-145) Potassium Level 3.4 mmol/L (3.5-5.1) Chloride Level 106 mmol/L (98-107) Carbon Dioxide Level 23 mmol/L (21-32) Anion Gap 12 (6-14) Blood Urea Nitrogen 13 mg/dL (7-20) Creatinine 0.8 mg/dL (0.6-1.0) Estimated GFR (Cockcroft-Gault) 84.4 BUN/Creatinine Ratio 16 (6-20) Glucose Level 168 mg/dL (70-99) Calcium Level 8.7 mg/dL (8.5-10.1) Total Bilirubin 0.5 mg/dL (0.2-1.0) Aspartate Amino Transf (AST/SGOT) 16 U/L (15-37) Alanine Aminotransferase (ALT/SGPT) 15 U/L (14-59) Alkaline Phosphatase 76 U/L (46-116) Total Protein 6.6 g/dL (6.4-8.2) Albumin 3.0 g/dL (3.4-5.0) Albumin/Globulin Ratio 0.8 (1.0-1.7) Test 05/17/18 16:28 Glucose (Fingerstick) 175 mg/dL (70-99) Images Images CT scan done on admission and plain films from this AM are reviewed Assessment/Plan Assessment/Plan ileus/pSBO benign exam start clears no acute surgical recs will follow Thanks for consult PEARL MARIEE MD May 17, 2018 17:59
[2018-05-17] MEDS: ONDANSETRON PF 4 MG/2 ML VIAL. IV PRN (18:06)
[2018-05-17 19:00] VITALS: BP 162/91
[2018-05-17 22:37] VITALS: BP 151/77
[2018-05-18] MEDS: CIPROFLOXACIN 400MG PREMIX 200 ML IV SCH ×2 (02:06→13:43)
[2018-05-18] MEDS: AMINO AC 3%/ELECTROLYTE/GLYCER 1,000 ML IV SCH ×2 (02:13→11:10)
[2018-05-18 03:12] VITALS: BP 136/74
[2018-05-18 07:00] VITALS: BP 138/77
[2018-05-18 07:33] LABS: BASO # 0.1 x10^3/uL (0.0-0.2); BASO % 1 % (0-3); EOS # 0.2 x10^3/uL (0.0-0.7); EOS % 2 % (0-3); HEMATOCRIT 40.6 % (36.0-47.0); HEMOGLOBIN 13.9 g/dL (12.0-15.5); LYMPH # 1.7 x10^3/uL (1.0-4.8); LYMPH % 16 % (24-48); MEAN CORPUSCULAR HEMOGLOBIN 30 pg (25-35); MEAN CORPUSCULAR HGB CONC 34 g/dL (31-37); MEAN CORPUSCULAR VOLUME 88 fL (79-100); MONO # 0.9 x10^3/uL (0.0-1.1); MONO % 8 % (0-9); NEUT # 7.9 x10^3uL (1.8-7.7); NEUT % 73 % (31-73); PLATELET COUNT 241 x10^3/uL (140-400); RED BLOOD COUNT 4.61 x10^6/uL (3.50-5.40); RED CELL DISTRIBUTION WIDTH 13.1 % (11.5-14.5); WHITE BLOOD COUNT 10.8 x10^3/uL (4.0-11.0)
[2018-05-18 07:46] LABS: ALBUMIN 3.3 g/dL (3.4-5.0); ALBUMIN/GLOBULIN RATIO 0.8 (1.0-1.7); CALCIUM 9.2 mg/dL (8.5-10.1); CREATININE 0.8 mg/dL (0.6-1.0); GFR 84.4; POTASSIUM 3.3 mmol/L (3.5-5.1); TOTAL BILIRUBIN 0.5 mg/dL (0.2-1.0); TOTAL PROTEIN 7.4 g/dL (6.4-8.2)
[2018-05-18] MEDS: INSULIN LISPRO 300 UNITS/3 ML INSULN.PEN. SQ SCH ×3 (08:08→17:20)
--- NOTE | 2018-05-18 09:01 | RAD ---
Supine abdomen. HISTORY: Small bowel obstruction Supine view the abdomen was compared with recent studies. There is mild small bowel distention with a mild improvement compared to recent studies. Patient's had a cholecystectomy. There is mild degenerative change in the lower lumbar spine. IMPRESSION: 1. Mild small bowel distention with a mild improvement. Electronically signed by: Peter Morales MD (05/18/2018 8:57 AM) [facility]
--- NOTE | 2018-05-18 10:38 | PDOC ---
SURGICAL PROGRESS NOTE Subjective up to bedside chair sister in room starting to "feel a little better" still no BM Vital Signs Vital Signs Date Time Temp Pulse Resp B/P (MAP) Pulse Ox O2 Delivery O2 Flow Rate FiO2 05/18/18 08:10 Room Air 05/18/18 07:00 98.2 100 16 138/77 (97) 96 98.2 I&O Intake and Output 05/18/18 07:00 Intake Total 2610 ml Output Total 550 ml Balance 2060 ml Intake Oral 60 ml IV Total 2550 ml Output Urine Total 550 ml # Voids 5 PATIENT HAS A VALERIO: No General: Alert, No acute distress Abdomen: Soft Labs Laboratory Tests Test 05/16/18 10:50 05/16/18 12:17 05/16/18 15:57 05/16/18 20:56 White Blood Count 14.8 x10^3/uL (4.0-11.0) Red Blood Count 4.87 x10^6/uL (3.50-5.40) Hemoglobin 14.7 g/dL (12.0-15.5) Hematocrit 42.8 % (36.0-47.0) Mean Corpuscular Volume 88 fL (79-100) Mean Corpuscular Hemoglobin 30 pg (25-35) Mean Corpuscular Hemoglobin Concent 34 g/dL (31-37) Red Cell Distribution Width 13.3 % (11.5-14.5) Platelet Count 282 x10^3/uL (140-400) Neutrophils (%) (Auto) 76 % (31-73) Lymphocytes (%) (Auto) 14 % (24-48) Monocytes (%) (Auto) 7 % (0-9) Eosinophils (%) (Auto) 3 % (0-3) Basophils (%) (Auto) 0 % (0-3) Neutrophils # (Auto) 11.2 x10^3uL (1.8-7.7) Lymphocytes # (Auto) 2.1 x10^3/uL (1.0-4.8) Monocytes # (Auto) 1.0 x10^3/uL (0.0-1.1) Eosinophils # (Auto) 0.4 x10^3/uL (0.0-0.7) Basophils # (Auto) 0.1 x10^3/uL (0.0-0.2) Sodium Level 140 mmol/L (136-145) Potassium Level 3.6 mmol/L (3.5-5.1) Chloride Level 100 mmol/L (98-107) Carbon Dioxide Level 27 mmol/L (21-32) Anion Gap 13 (6-14) Blood Urea Nitrogen 25 mg/dL (7-20) Creatinine 1.1 mg/dL (0.6-1.0) Estimated GFR (Cockcroft-Gault) 58.4 BUN/Creatinine Ratio 23 (6-20) Glucose Level 180 mg/dL (70-99) Calcium Level 10.0 mg/dL (8.5-10.1) Total Bilirubin 0.7 mg/dL (0.2-1.0) Aspartate Amino Transf (AST/SGOT) 22 U/L (15-37) Alanine Aminotransferase (ALT/SGPT) 22 U/L (14-59) Alkaline Phosphatase 96 U/L (46-116) C-Reactive Protein, Quantitative 22.4 mg/L (0-3.3) Total Protein 7.7 g/dL (6.4-8.2) Albumin 3.8 g/dL (3.4-5.0) Albumin/Globulin Ratio 1.0 (1.0-1.7) Lipase 79 U/L (73-393) Urine Collection Type Unknown Urine Color Yellow Urine Clarity Clear Urine pH 6.5 Urine Specific [place] >=1.030 Urine Protein Negative mg/dL (NEG-TRACE) Urine Glucose (UA) Negative mg/dL (NEG) Urine Ketones (Stick) Negative mg/dL (NEG) Urine Blood Negative (NEG) Urine Nitrite Negative (NEG) Urine Bilirubin Negative (NEG) Urine Urobilinogen Dipstick 1.0 mg/dL (0.2 mg/dL) Urine Leukocyte Esterase Large (NEG) Urine RBC 1-2 /HPF (0-2) Urine WBC 20-40 /HPF (0-4) Urine Squamous Epithelial Cells Few /LPF Urine Bacteria Moderate /HPF (0-FEW) Glucose (Fingerstick) 159 mg/dL (70-99) 114 mg/dL (70-99) Test 05/17/18 06:00 05/17/18 07:24 05/17/18 10:55 05/17/18 16:28 White Blood Count 10.5 x10^3/uL (4.0-11.0) Red Blood Count 4.29 x10^6/uL (3.50-5.40) Hemoglobin 13.3 g/dL (12.0-15.5) Hematocrit 37.8 % (36.0-47.0) Mean Corpuscular Volume 88 fL (79-100) Mean Corpuscular Hemoglobin 31 pg (25-35) Mean Corpuscular Hemoglobin Concent 35 g/dL (31-37) Red Cell Distribution Width 13.2 % (11.5-14.5) Platelet Count 242 x10^3/uL (140-400) Neutrophils (%) (Auto) 74 % (31-73) Lymphocytes (%) (Auto) 16 % (24-48) Monocytes (%) (Auto) 7 % (0-9) Eosinophils (%) (Auto) 3 % (0-3) Basophils (%) (Auto) 1 % (0-3) Neutrophils # (Auto) 7.8 x10^3uL (1.8-7.7) Lymphocytes # (Auto) 1.7 x10^3/uL (1.0-4.8) Monocytes # (Auto) 0.7 x10^3/uL (0.0-1.1) Eosinophils # (Auto) 0.3 x10^3/uL (0.0-0.7) Basophils # (Auto) 0.1 x10^3/uL (0.0-0.2) Sodium Level 141 mmol/L (136-145) Potassium Level 3.4 mmol/L (3.5-5.1) Chloride Level 106 mmol/L (98-107) Carbon Dioxide Level 23 mmol/L (21-32) Anion Gap 12 (6-14) Blood Urea Nitrogen 13 mg/dL (7-20) Creatinine 0.8 mg/dL (0.6-1.0) Estimated GFR (Cockcroft-Gault) 84.4 BUN/Creatinine Ratio 16 (6-20) Glucose Level 168 mg/dL (70-99) Calcium Level 8.7 mg/dL (8.5-10.1) Total Bilirubin 0.5 mg/dL (0.2-1.0) Aspartate Amino Transf (AST/SGOT) 16 U/L (15-37) Alanine Aminotransferase (ALT/SGPT) 15 U/L (14-59) Alkaline Phosphatase 76 U/L (46-116) Total Protein 6.6 g/dL (6.4-8.2) Albumin 3.0 g/dL (3.4-5.0) Albumin/Globulin Ratio 0.8 (1.0-1.7) Glucose (Fingerstick) 159 mg/dL (70-99) 150 mg/dL (70-99) 175 mg/dL (70-99) Test 05/17/18 20:52 05/18/18 07:25 05/18/18 07:54 Glucose (Fingerstick) 211 mg/dL (70-99) 236 mg/dL (70-99) White Blood Count 10.8 x10^3/uL (4.0-11.0) Red Blood Count 4.61 x10^6/uL (3.50-5.40) Hemoglobin 13.9 g/dL (12.0-15.5) Hematocrit 40.6 % (36.0-47.0) Mean Corpuscular Volume 88 fL (79-100) Mean Corpuscular Hemoglobin 30 pg (25-35) Mean Corpuscular Hemoglobin Concent 34 g/dL (31-37) Red Cell Distribution Width 13.1 % (11.5-14.5) Platelet Count 241 x10^3/uL (140-400) Neutrophils (%) (Auto) 73 % (31-73) Lymphocytes (%) (Auto) 16 % (24-48) Monocytes (%) (Auto) 8 % (0-9) Eosinophils (%) (Auto) 2 % (0-3) Basophils (%) (Auto) 1 % (0-3) Neutrophils # (Auto) 7.9 x10^3uL (1.8-7.7) Lymphocytes # (Auto) 1.7 x10^3/uL (1.0-4.8) Monocytes # (Auto) 0.9 x10^3/uL (0.0-1.1) Eosinophils # (Auto) 0.2 x10^3/uL (0.0-0.7) Basophils # (Auto) 0.1 x10^3/uL (0.0-0.2) Sodium Level 137 mmol/L (136-145) Potassium Level 3.3 mmol/L (3.5-5.1) Chloride Level 104 mmol/L (98-107) Carbon Dioxide Level 21 mmol/L (21-32) Anion Gap 12 (6-14) Blood Urea Nitrogen 7 mg/dL (7-20) Creatinine 0.8 mg/dL (0.6-1.0) Estimated GFR (Cockcroft-Gault) 84.4 BUN/Creatinine Ratio 9 (6-20) Glucose Level 228 mg/dL (70-99) Calcium Level 9.2 mg/dL (8.5-10.1) Total Bilirubin 0.5 mg/dL (0.2-1.0) Aspartate Amino Transf (AST/SGOT) 14 U/L (15-37) Alanine Aminotransferase (ALT/SGPT) 14 U/L (14-59) Alkaline Phosphatase 87 U/L (46-116) Total Protein 7.4 g/dL (6.4-8.2) Albumin 3.3 g/dL (3.4-5.0) Albumin/Globulin Ratio 0.8 (1.0-1.7) Laboratory Tests Test 05/17/18 10:55 05/17/18 16:28 05/17/18 20:52 05/18/18 07:25 Glucose (Fingerstick) 150 mg/dL (70-99) 175 mg/dL (70-99) 211 mg/dL (70-99) White Blood Count 10.8 x10^3/uL (4.0-11.0) Red Blood Count 4.61 x10^6/uL (3.50-5.40) Hemoglobin 13.9 g/dL (12.0-15.5) Hematocrit 40.6 % (36.0-47.0) Mean Corpuscular Volume 88 fL (79-100) Mean Corpuscular Hemoglobin 30 pg (25-35) Mean Corpuscular Hemoglobin Concent 34 g/dL (31-37) Red Cell Distribution Width 13.1 % (11.5-14.5) Platelet Count 241 x10^3/uL (140-400) Neutrophils (%) (Auto) 73 % (31-73) Lymphocytes (%) (Auto) 16 % (24-48) Monocytes (%) (Auto) 8 % (0-9) Eosinophils (%) (Auto) 2 % (0-3) Basophils (%) (Auto) 1 % (0-3) Neutrophils # (Auto) 7.9 x10^3uL (1.8-7.7) Lymphocytes # (Auto) 1.7 x10^3/uL (1.0-4.8) Monocytes # (Auto) 0.9 x10^3/uL (0.0-1.1) Eosinophils # (Auto) 0.2 x10^3/uL (0.0-0.7) Basophils # (Auto) 0.1 x10^3/uL (0.0-0.2) Sodium Level 137 mmol/L (136-145) Potassium Level 3.3 mmol/L (3.5-5.1) Chloride Level 104 mmol/L (98-107) Carbon Dioxide Level 21 mmol/L (21-32) Anion Gap 12 (6-14) Blood Urea Nitrogen 7 mg/dL (7-20) Creatinine 0.8 mg/dL (0.6-1.0) Estimated GFR (Cockcroft-Gault) 84.4 BUN/Creatinine Ratio 9 (6-20) Glucose Level 228 mg/dL (70-99) Calcium Level 9.2 mg/dL (8.5-10.1) Total Bilirubin 0.5 mg/dL (0.2-1.0) Aspartate Amino Transf (AST/SGOT) 14 U/L (15-37) Alanine Aminotransferase (ALT/SGPT) 14 U/L (14-59) Alkaline Phosphatase 87 U/L (46-116) Total Protein 7.4 g/dL (6.4-8.2) Albumin 3.3 g/dL (3.4-5.0) Albumin/Globulin Ratio 0.8 (1.0-1.7) Test 05/18/18 07:54 Glucose (Fingerstick) 236 mg/dL (70-99) Problem List Problems Medical Problems: (1) Enteritis Status: Acute (2) Small bowel obstruction Status: Acute (3) UTI (urinary tract infection) Status: Acute Assessment/Plan ileus, pSBO UTI fleet enema PEARL MARIEE MD May 18, 2018 10:38
[2018-05-18 11:00] VITALS: BP 145/76
[2018-05-18] MEDS: ONDANSETRON PF 4 MG/2 ML VIAL. IV PRN ×2 (11:08→17:21)
[2018-05-18] MEDS ORDERED: MINERAL OIL 133 ML ENEMA. PR ONE (11:30)
--- NOTE | 2018-05-18 13:22 | PDOC ---
PROGRESS NOTES Subjective She is feeling better and tolerating clear liquids, is apologetic for her outburst yesterday and blames it on not feeling well, her daughter is present which is helpful Objective Afebrile General: comfortable Heart: RRR Lungs: CTA Abd: mildly distended but bowel sounds active Ext: no edema KUB show some improvement Vital Signs Vital Signs Date Time Temp Pulse Resp B/P (MAP) Pulse Ox O2 Delivery O2 Flow Rate FiO2 05/18/18 11:00 98.2 104 18 145/76 (99) 93 Room Air 98.2 I & O Intake and Output 05/18/18 07:00 Intake Total 2610 ml Output Total 550 ml Balance 2060 ml Intake Oral 60 ml IV Total 2550 ml Output Urine Total 550 ml # Voids 5 Assessment and Plan 1. Abdominal pain, improved partial small-bowel obstruction vs ileus ( enteritis) which is still better on f/u KUB. She is tolerating clear liquids. She did have a suppository recently. GI and Gen Surgery following, continue ProcalAmine for now but discontinue if advances diet 2. Probable cystitis - awaiting culture, continue antibiotics. 3. Coronary artery disease, status post coronary artery bypass graft. 4. Hypertension - holding home meds, currently controlled. 5. Hyperlipidemia. 6. Gastroesophageal reflux disease with small hiatal hernia present. 7. Insulin-dependent diabetes - continue SSI. 8. Anxiety/emotional lability - add prn IV Ativan 9. hypokalemia - replace Bhupendra ROSA MD May 18, 2018 13:22
[2018-05-18] MEDS ORDERED: POTASSIUM CHLORIDE 20 MEQ TABLET.ER. PO ONE (14:00)
--- NOTE | 2018-05-18 14:06 | PDOC2 ---
CONSULT Date of Consult Date of Consult DATE: 05/18/18 TIME: 14:03 Reason for Consult Reason for Consult: Abd pain/partial SBO Past Medical History Cardiovascular: CAD, HTN, Hyperlipidemia, Aortic stenosis, Other Pulmonary: No pertinent hx CENTRAL NERVOUS SYSTEM: Other GI: GERD Heme/Onc: No pertinent hx Hepatobiliary: No pertinent hx Psych: No pertinent hx Musculoskeletal: Osteoarthritis Rheumatologic: No pertinent hx Infectious disease: No pertinent hx Renal/: No pertinent hx Endocrine: Diabetes Past Surgical History Past Surgical History: Cholecystectomy, CABG, Mastectomy, Hysterectomy Family History Family History: Coronary Artery Disease Social History ALCOHOL: rare Drugs: None Lives: Alone Current Problem List Problem List Problems Medical Problems: (1) Enteritis Status: Acute (2) Small bowel obstruction Status: Acute (3) UTI (urinary tract infection) Status: Acute Current Medications Current Medications Current Medications Prochlorperazine Edisylate (Compazine) 10 mg 1X ONCE IV Last administered on 05/16/18at 11:24; Start 05/16/18 at 11:15; Stop 05/16/18 at 11:16; Status DC Sodium Chloride 1,000 ml @ 1,000 mls/hr 1X ONCE IV Last administered on at 11:15; Start 05/16/18 at 11:15; Stop 05/16/18 at 12:14; Status DC Famotidine (Pepcid Vial) 20 mg 1X ONCE IVP Last administered on 05/16/18at 11: 24; Start 05/16/18 at 11:15; Stop 05/16/18 at 11:16; Status DC Iohexol (Omnipaque 300 Mg/ml) 75 ml 1X ONCE IV Last administered on 05/16/18at 11:41; Start 05/16/18 at 11:30; Stop 05/16/18 at 11:31; Status DC Info (CONTRAST GIVEN -- Rx MONITORING) 1 each PRN DAILY PRN MC SEE COMMENTS; Start 05/16/18 at 11:30; Stop 05/18/18 at 11:29; Status DC Ciprofloxacin/ Dextrose 200 ml @ 200 mls/hr Q12H IV Last administered on at 13:43; Start 05/16/18 at 14:00 Metronidazole 100 ml @ 100 mls/hr Q8HRS IV Last administered on 05/18/18at 12: 27; Start 05/16/18 at 14:00 Ondansetron HCl (Zofran) 4 mg PRN Q8HRS PRN IV NAUSEA/VOMITING; Start 05/16/18 at 14:30; Stop 05/17/18 at 14:29; Status DC Morphine Sulfate (Morphine Sulfate) 4 mg PRN Q2HR PRN IV PAIN; Start 05/16/18 at 14:30; Stop 05/17/18 at 14:29; Status DC Sodium Chloride 1,000 ml @ 100 mls/hr 1X ONCE IV ; Start 05/16/18 at 14:30; Stop 05/17/18 at 00:29; Status DC Sodium Chloride 1,000 ml @ 100 mls/hr Q10H IV Last administered on 05/17/18at 11:00; Start 05/16/18 at 15:00; Stop 05/17/18 at 13:13; Status DC Insulin Human Lispro (HumaLOG) 0-9 UNITS TIDWMEALS SQ Last administered on 05/18at 12:36; Start 05/16/18 at 17:00 Dextrose (Dextrose 50%-Water Syringe) 12.5 gm PRN Q15MIN PRN IV SEE COMMENTS; Start 05/16/18 at 15:00 Lorazepam (Ativan) 0.5 mg PRN Q6HRS PRN PO ANXIETY / AGITATION; Start 05/17/18 at 13:15; Status Cancel Amino Acids/ Glycerin/ Electrolytes 1,000 ml @ 80 mls/hr [id number] IV Last administered on 05/18/18at 11:10; Start 05/17/18 at 13:15 Lorazepam (Ativan) 0.5 mg PRN Q6HRS PRN IV ANXIETY / AGITATION Last administered on 05/17/18at 18:06; Start 05/17/18 at 13:30 Ondansetron HCl (Zofran) 4 mg PRN Q6HRS PRN IV NAUSEA/VOMITING Last administered on 05/18/18at 11:08; Start 05/17/18 at 18:00 Lactobacillus Rhamnosus (Culturelle) 1 cap BID PO ; Start 05/18/18 at 21:00 Mineral Oil (Fleet Mineral Oil) 133 ml 1X ONCE LA Last administered on at 11:08; Start 05/18/18 at 11:30; Stop 05/18/18 at 11:31; Status DC Potassium Chloride (Klor-Con) 40 meq 1X ONCE PO Last administered on at 13:43; Start 05/18/18 at 14:00; Stop 05/18/18 at 14:01; Status DC Active Scripts Active Lantus Solostar (Insulin Glargine,Hum.rec.anlog) 100 Unit/1 Ml Insuln.pen 35 Unit SQ QHS 30 Days Atorvastatin Calcium 40 Mg Tablet 40 Mg PO QHS 30 Days Reported Humalog (Insulin Lispro) 100 Unit/1 Ml Vial 10-20 Units SQ TIDAC Klor-Con M20 (Potassium Chloride) 20 Meq Tab.er.prt 1 Tab PO DAILY Ibuprofen 600 Mg Tablet 1 Tab PO PRN Q8HRS PRN Lisinopril-Hctz 20-25 Mg Tab (Lisinopril/Hydrochlorothiazide) 1 Each Tablet 1 Tab PO DAILY Garlic 1,000 Mg Capsule 1,000 Mg PO DAILY B Complex With Vitamin C (Vitamin B Complex & Vit C No.3) 1 Each Capsule 1 Each PO DAILY Toprol Xl (Metoprolol Succinate) 25 Mg Tab.er.24h 50 Mg PO DAILY Norvasc (Amlodipine Besylate) 10 Mg Tablet 10 Mg PO DAILY Ranitidine Hcl 150 Mg Tablet 150 Mg PO BID Centrum Silver Tablet (Multivits-Min/Fa/Lycopene/Lut) 1 Each Tablet 1 Each PO DAILY Allergies Allergies: Coded Allergies: Penicillins (Verified Allergy, Intermediate, hives, 07/10/17) Sulfa (Sulfonamide Antibiotics) (Verified Allergy, Intermediate, 07/10/17) chocolate flavor (Verified Allergy, Intermediate, 07/10/17) rosuvastatin (Verified Allergy, Intermediate, 05/17/18) celecoxib (Verified Adverse Reaction, Intermediate, "makes me crazy", ) Vitals VITALS Vital Signs Date Time Temp Pulse Resp B/P (MAP) Pulse Ox O2 Delivery O2 Flow Rate FiO2 05/18/18 11:00 98.2 104 18 145/76 (99) 93 Room Air 98.2 Labs Labs Laboratory Tests Test 05/16/18 15:57 05/16/18 20:56 05/17/18 06:00 05/17/18 07:24 Glucose (Fingerstick) 159 mg/dL (70-99) 114 mg/dL (70-99) 159 mg/dL (70-99) White Blood Count 10.5 x10^3/uL (4.0-11.0) Red Blood Count 4.29 x10^6/uL (3.50-5.40) Hemoglobin 13.3 g/dL (12.0-15.5) Hematocrit 37.8 % (36.0-47.0) Mean Corpuscular Volume 88 fL (79-100) Mean Corpuscular Hemoglobin 31 pg (25-35) Mean Corpuscular Hemoglobin Concent 35 g/dL (31-37) Red Cell Distribution Width 13.2 % (11.5-14.5) Platelet Count 242 x10^3/uL (140-400) Neutrophils (%) (Auto) 74 % (31-73) Lymphocytes (%) (Auto) 16 % (24-48) Monocytes (%) (Auto) 7 % (0-9) Eosinophils (%) (Auto) 3 % (0-3) Basophils (%) (Auto) 1 % (0-3) Neutrophils # (Auto) 7.8 x10^3uL (1.8-7.7) Lymphocytes # (Auto) 1.7 x10^3/uL (1.0-4.8) Monocytes # (Auto) 0.7 x10^3/uL (0.0-1.1) Eosinophils # (Auto) 0.3 x10^3/uL (0.0-0.7) Basophils # (Auto) 0.1 x10^3/uL (0.0-0.2) Sodium Level 141 mmol/L (136-145) Potassium Level 3.4 mmol/L (3.5-5.1) Chloride Level 106 mmol/L (98-107) Carbon Dioxide Level 23 mmol/L (21-32) Anion Gap 12 (6-14) Blood Urea Nitrogen 13 mg/dL (7-20) Creatinine 0.8 mg/dL (0.6-1.0) Estimated GFR (Cockcroft-Gault) 84.4 BUN/Creatinine Ratio 16 (6-20) Glucose Level 168 mg/dL (70-99) Calcium Level 8.7 mg/dL (8.5-10.1) Total Bilirubin 0.5 mg/dL (0.2-1.0) Aspartate Amino Transf (AST/SGOT) 16 U/L (15-37) Alanine Aminotransferase (ALT/SGPT) 15 U/L (14-59) Alkaline Phosphatase 76 U/L (46-116) Total Protein 6.6 g/dL (6.4-8.2) Albumin 3.0 g/dL (3.4-5.0) Albumin/Globulin Ratio 0.8 (1.0-1.7) Test 05/17/18 10:55 05/17/18 16:28 05/17/18 20:52 05/18/18 07:25 Glucose (Fingerstick) 150 mg/dL (70-99) 175 mg/dL (70-99) 211 mg/dL (70-99) White Blood Count 10.8 x10^3/uL (4.0-11.0) Red Blood Count 4.61 x10^6/uL (3.50-5.40) Hemoglobin 13.9 g/dL (12.0-15.5) Hematocrit 40.6 % (36.0-47.0) Mean Corpuscular Volume 88 fL (79-100) Mean Corpuscular Hemoglobin 30 pg (25-35) Mean Corpuscular Hemoglobin Concent 34 g/dL (31-37) Red Cell Distribution Width 13.1 % (11.5-14.5) Platelet Count 241 x10^3/uL (140-400) Neutrophils (%) (Auto) 73 % (31-73) Lymphocytes (%) (Auto) 16 % (24-48) Monocytes (%) (Auto) 8 % (0-9) Eosinophils (%) (Auto) 2 % (0-3) Basophils (%) (Auto) 1 % (0-3) Neutrophils # (Auto) 7.9 x10^3uL (1.8-7.7) Lymphocytes # (Auto) 1.7 x10^3/uL (1.0-4.8) Monocytes # (Auto) 0.9 x10^3/uL (0.0-1.1) Eosinophils # (Auto) 0.2 x10^3/uL (0.0-0.7) Basophils # (Auto) 0.1 x10^3/uL (0.0-0.2) Sodium Level 137 mmol/L (136-145) Potassium Level 3.3 mmol/L (3.5-5.1) Chloride Level 104 mmol/L (98-107) Carbon Dioxide Level 21 mmol/L (21-32) Anion Gap 12 (6-14) Blood Urea Nitrogen 7 mg/dL (7-20) Creatinine 0.8 mg/dL (0.6-1.0) Estimated GFR (Cockcroft-Gault) 84.4 BUN/Creatinine Ratio 9 (6-20) Glucose Level 228 mg/dL (70-99) Calcium Level 9.2 mg/dL (8.5-10.1) Total Bilirubin 0.5 mg/dL (0.2-1.0) Aspartate Amino Transf (AST/SGOT) 14 U/L (15-37) Alanine Aminotransferase (ALT/SGPT) 14 U/L (14-59) Alkaline Phosphatase 87 U/L (46-116) Total Protein 7.4 g/dL (6.4-8.2) Albumin 3.3 g/dL (3.4-5.0) Albumin/Globulin Ratio 0.8 (1.0-1.7) Test 05/18/18 07:54 05/18/18 11:00 Glucose (Fingerstick) 236 mg/dL (70-99) 256 mg/dL (70-99) Laboratory Tests Test 05/17/18 16:28 05/17/18 20:52 05/18/18 07:25 05/18/18 07:54 Glucose (Fingerstick) 175 mg/dL (70-99) 211 mg/dL (70-99) 236 mg/dL (70-99) White Blood Count 10.8 x10^3/uL (4.0-11.0) Red Blood Count 4.61 x10^6/uL (3.50-5.40) Hemoglobin 13.9 g/dL (12.0-15.5) Hematocrit 40.6 % (36.0-47.0) Mean Corpuscular Volume 88 fL (79-100) Mean Corpuscular Hemoglobin 30 pg (25-35) Mean Corpuscular Hemoglobin Concent 34 g/dL (31-37) Red Cell Distribution Width 13.1 % (11.5-14.5) Platelet Count 241 x10^3/uL (140-400) Neutrophils (%) (Auto) 73 % (31-73) Lymphocytes (%) (Auto) 16 % (24-48) Monocytes (%) (Auto) 8 % (0-9) Eosinophils (%) (Auto) 2 % (0-3) Basophils (%) (Auto) 1 % (0-3) Neutrophils # (Auto) 7.9 x10^3uL (1.8-7.7) Lymphocytes # (Auto) 1.7 x10^3/uL (1.0-4.8) Monocytes # (Auto) 0.9 x10^3/uL (0.0-1.1) Eosinophils # (Auto) 0.2 x10^3/uL (0.0-0.7) Basophils # (Auto) 0.1 x10^3/uL (0.0-0.2) Sodium Level 137 mmol/L (136-145) Potassium Level 3.3 mmol/L (3.5-5.1) Chloride Level 104 mmol/L (98-107) Carbon Dioxide Level 21 mmol/L (21-32) Anion Gap 12 (6-14) Blood Urea Nitrogen 7 mg/dL (7-20) Creatinine 0.8 mg/dL (0.6-1.0) Estimated GFR (Cockcroft-Gault) 84.4 BUN/Creatinine Ratio 9 (6-20) Glucose Level 228 mg/dL (70-99) Calcium Level 9.2 mg/dL (8.5-10.1) Total Bilirubin 0.5 mg/dL (0.2-1.0) Aspartate Amino Transf (AST/SGOT) 14 U/L (15-37) Alanine Aminotransferase (ALT/SGPT) 14 U/L (14-59) Alkaline Phosphatase 87 U/L (46-116) Total Protein 7.4 g/dL (6.4-8.2) Albumin 3.3 g/dL (3.4-5.0) Albumin/Globulin Ratio 0.8 (1.0-1.7) Test 05/18/18 11:00 Glucose (Fingerstick) 256 mg/dL (70-99) Assessment/Plan Assessment/Plan Abd pain- with partial SBO, adhesions lead differential. malignancy. IBD, internal hernia, diverticular stricture, and/or ischemic colitis in differential Plan serisl kubs trial of liquids sb series and/or colonoscopy if symptoms refractory to medical therapy Full note dictated SANTIAGO DELGADO MD May 18, 2018 14:06
[2018-05-18 15:00] VITALS: BP 149/72
[2018-05-18] MEDS ORDERED: ZOLPIDEM 5 MG TABLET. PO PRN (18:15)
[2018-05-18 19:00] VITALS: BP 144/74
[2018-05-18] MEDS: LACTOBACILLUS RHAMNOSUS GG 1 CAPSULE. PO SCH (21:15)
[2018-05-18 23:00] VITALS: BP 142/71
--- NOTE | 2018-05-18 23:28 | CONS ---
DATE OF CONSULTATION: 05/18/2018 REASON FOR CONSULTATION: Partial small-bowel obstruction. HISTORY OF PRESENT ILLNESS: A 78-year-old female with past medical history significant for organic heart disease, hypertension, hyperlipidemia, history of breast cancer, diabetes, carpal tunnel, status post cholecystectomy, CABG, hysterectomy, hemorrhoidectomy, right mastectomy, right carpal tunnel surgeries, admitted to [facility] with nausea, vomiting, and diarrhea. Subsequent evaluation including imaging studies has revealed partial obstruction. CT scan with distention of the small bowel to the distal ileum. The patient denies any senior living history of diarrhea. Denies any change in weight. Otherwise, been without additional complaints until the recent attack. PAST MEDICAL HISTORY: Organic heart disease, hypertension, hyperlipidemia, status post bypass surgery, breast cancer status post mastectomy, status post cholecystectomy and hysterectomy. FAMILY HISTORY: Significant for ovarian lung cancer. SOCIAL HISTORY: She is a social drinker, nonsmoker. ALLERGIES: PENICILLIN, SULFA, CELECOXIB. MEDICATIONS: Presently, include potassium, lorazepam, insulin, metronidazole, Cipro. REVIEW OF SYSTEMS: Per records. PHYSICAL EXAMINATION: GENERAL: A well-nourished, well-developed female, alert, cooperative, no acute distress. VITAL SIGNS: Temperature 98.2, pulse 104, respirations 18, blood pressure 145/76. HEENT: Normocephalic and atraumatic. Pupils and extraocular muscles are not tested. Sclerae anicteric. NECK: Supple. LUNGS: Clear. CARDIOVASCULAR: Reveals S1, S2 without S3, S4 or appreciable murmur. A well-healed midline sternal incision is noted. ABDOMEN: Reveals soft, distended abdomen with hypoactive bowel sounds. Multiple surgical incisions. EXTREMITIES: Reveals no cyanosis, clubbing or edema. LABORATORY STUDIES: CT scan reveals the thickened small bowel at the level of the ileum, but no obvious transition point. No free air. Hemoglobin 13.0, hematocrit 40.6, white count 10.8, platelet count is 241,000. Sodium 137, potassium 3.3, chloride 104, BUN 7, creatinine 0.8, glucose is 228, total bilirubin 0.5, AST of 14, ALT of 14, alkaline phosphatase is 87, total protein 7.4, albumin 3.3. IMPRESSION: Abdominal pain, partial small-bowel obstruction, most likely secondary to adhesions, malignancy, inflammatory bowel disease, diverticular disease less likely. Therefore, recommend medical therapy, fluids, antibiotics, serial KUBs. If there is no improvement in the small bowel series and/or possible colonoscopy would be pursued. SANTIAGO DELGADO MD DR: DON/letitia JOB#: [id number] / [id number]
[2018-05-19] MEDS: ONDANSETRON PF 4 MG/2 ML VIAL. IV PRN ×2 (00:58→08:29)
[2018-05-19] MEDS: CIPROFLOXACIN 400MG PREMIX 200 ML IV SCH ×2 (00:58→14:00)
[2018-05-19] MEDS: AMINO AC 3%/ELECTROLYTE/GLYCER 1,000 ML IV SCH ×2 (04:50→17:59)
[2018-05-19 05:46] LABS: BASO # 0.1 x10^3/uL (0.0-0.2); BASO % 0 % (0-3); EOS % 0 % (0-3); HEMOGLOBIN 13.8 g/dL (12.0-15.5); LYMPH # 1.3 x10^3/uL (1.0-4.8); LYMPH % 8 % (24-48); MEAN CORPUSCULAR HEMOGLOBIN 30 pg (25-35); MEAN CORPUSCULAR HGB CONC 34 g/dL (31-37); MEAN CORPUSCULAR VOLUME 88 fL (79-100); MONO # 0.9 x10^3/uL (0.0-1.1); MONO % 6 % (0-9); NEUT # 13.2 x10^3uL (1.8-7.7); NEUT % 86 % (31-73); PLATELET COUNT 249 x10^3/uL (140-400); RED BLOOD COUNT 4.68 x10^6/uL (3.50-5.40); RED CELL DISTRIBUTION WIDTH 12.8 % (11.5-14.5); WHITE BLOOD COUNT 15.4 x10^3/uL (4.0-11.0)
[2018-05-19 06:01] LABS: CALCIUM 9.2 mg/dL (8.5-10.1); CREATININE 0.8 mg/dL (0.6-1.0); GFR 84.4; POTASSIUM 3.6 mmol/L (3.5-5.1)
[2018-05-19 07:00] VITALS: BP 148/86
--- NOTE | 2018-05-19 07:58 | RAD ---
Single view abdomen dated 05/19/2018. Comparison made to 05/18/2018. CLINICAL INDICATION: Follow-up small bowel obstruction. Pain. FINDINGS: 2 supine images submitted. There are mildly dilated loops of small bowel that appears somewhat more prominent from prior exam. There is now gas present throughout the colon. No abnormal calcification. Clips in the right upper quadrant compatible prior cholecystectomy. No apparent pneumoperitoneum on this supine view. IMPRESSION: Mildly dilated loops of small bowel, somewhat increased from prior study. Electronically signed by: Cb Spears MD (05/19/2018 7:55 AM) [id number]
--- NOTE | 2018-05-19 08:19 | PDOC ---
PROGRESS NOTES Subjective Subjective Patient denies abdominal pain or nausea. Objective Objective Vital Signs Date Time Temp Pulse Resp B/P (MAP) Pulse Ox O2 Delivery O2 Flow Rate FiO2 05/19/18 03:00 Room Air 05/18/18 23:00 98.4 102 19 142/71 (94) 93 98.4 Intake and Output 05/19/18 07:00 Intake Total 580 ml Output Total 275 ml Balance 305 ml Intake Oral 480 ml IV Total 100 ml Output Urine Total 275 ml # Voids 9 Physical Exam Abdomen: Normal bowel sounds, Soft, No tenderness Heart: Regular rate Extremities: No edema General: Alert (oriented to person only), No acute distress Lungs: Clear to auscultation Assessment Assessment Problems Medical Problems: (1) Enteritis Status: Acute (2) Small bowel obstruction Status: Acute (3) UTI (urinary tract infection) Status: Acute Plan Plan of Care 1. Partial SBO/enteritis - exam and symptoms much improved. Tolerating clears, will try full liquids today. Continue PPN for now. On Cipro and Flagyl. 2. UTI - preliminary report positive. Continue Cipro for now and await final culture report. 3. DM2 - glucose elevated, resume Lantur (at lower dose than at home) and continue SS. 4. HTN - BP increasing, resume Amlodipine. 5. metabolic encephalopathy - patient not at baseline mental status. Did receive Ambien last night. Will d/c that and the IV Ativan, continue supportive care. Comment Review of Relevant I have reviewed the following items moriah (where applicable) has been applied. Labs Laboratory Tests Test 05/17/18 10:55 05/17/18 16:28 05/17/18 20:52 05/18/18 07:25 Glucose (Fingerstick) 150 mg/dL (70-99) 175 mg/dL (70-99) 211 mg/dL (70-99) White Blood Count 10.8 x10^3/uL (4.0-11.0) Red Blood Count 4.61 x10^6/uL (3.50-5.40) Hemoglobin 13.9 g/dL (12.0-15.5) Hematocrit 40.6 % (36.0-47.0) Mean Corpuscular Volume 88 fL (79-100) Mean Corpuscular Hemoglobin 30 pg (25-35) Mean Corpuscular Hemoglobin Concent 34 g/dL (31-37) Red Cell Distribution Width 13.1 % (11.5-14.5) Platelet Count 241 x10^3/uL (140-400) Neutrophils (%) (Auto) 73 % (31-73) Lymphocytes (%) (Auto) 16 % (24-48) Monocytes (%) (Auto) 8 % (0-9) Eosinophils (%) (Auto) 2 % (0-3) Basophils (%) (Auto) 1 % (0-3) Neutrophils # (Auto) 7.9 x10^3uL (1.8-7.7) Lymphocytes # (Auto) 1.7 x10^3/uL (1.0-4.8) Monocytes # (Auto) 0.9 x10^3/uL (0.0-1.1) Eosinophils # (Auto) 0.2 x10^3/uL (0.0-0.7) Basophils # (Auto) 0.1 x10^3/uL (0.0-0.2) Sodium Level 137 mmol/L (136-145) Potassium Level 3.3 mmol/L (3.5-5.1) Chloride Level 104 mmol/L (98-107) Carbon Dioxide Level 21 mmol/L (21-32) Anion Gap 12 (6-14) Blood Urea Nitrogen 7 mg/dL (7-20) Creatinine 0.8 mg/dL (0.6-1.0) Estimated GFR (Cockcroft-Gault) 84.4 BUN/Creatinine Ratio 9 (6-20) Glucose Level 228 mg/dL (70-99) Calcium Level 9.2 mg/dL (8.5-10.1) Total Bilirubin 0.5 mg/dL (0.2-1.0) Aspartate Amino Transf (AST/SGOT) 14 U/L (15-37) Alanine Aminotransferase (ALT/SGPT) 14 U/L (14-59) Alkaline Phosphatase 87 U/L (46-116) Total Protein 7.4 g/dL (6.4-8.2) Albumin 3.3 g/dL (3.4-5.0) Albumin/Globulin Ratio 0.8 (1.0-1.7) Test 05/18/18 07:54 11/4/18 11:00 05/18/18 16:37 05/18/18 20:13 Glucose (Fingerstick) 236 mg/dL (70-99) 256 mg/dL (70-99) 240 mg/dL (70-99) 216 mg/dL (70-99) Test 05/19/18 05:00 05/19/18 07:36 White Blood Count 15.4 x10^3/uL (4.0-11.0) Red Blood Count 4.68 x10^6/uL (3.50-5.40) Hemoglobin 13.8 g/dL (12.0-15.5) Hematocrit 41.0 % (36.0-47.0) Mean Corpuscular Volume 88 fL (79-100) Mean Corpuscular Hemoglobin 30 pg (25-35) Mean Corpuscular Hemoglobin Concent 34 g/dL (31-37) Red Cell Distribution Width 12.8 % (11.5-14.5) Platelet Count 249 x10^3/uL (140-400) Neutrophils (%) (Auto) 86 % (31-73) Lymphocytes (%) (Auto) 8 % (24-48) Monocytes (%) (Auto) 6 % (0-9) Eosinophils (%) (Auto) 0 % (0-3) Basophils (%) (Auto) 0 % (0-3) Neutrophils # (Auto) 13.2 x10^3uL (1.8-7.7) Lymphocytes # (Auto) 1.3 x10^3/uL (1.0-4.8) Monocytes # (Auto) 0.9 x10^3/uL (0.0-1.1) Eosinophils # (Auto) 0.0 x10^3/uL (0.0-0.7) Basophils # (Auto) 0.1 x10^3/uL (0.0-0.2) Sodium Level 137 mmol/L (136-145) Potassium Level 3.6 mmol/L (3.5-5.1) Chloride Level 103 mmol/L (98-107) Carbon Dioxide Level 21 mmol/L (21-32) Anion Gap 13 (6-14) Blood Urea Nitrogen 8 mg/dL (7-20) Creatinine 0.8 mg/dL (0.6-1.0) Estimated GFR (Cockcroft-Gault) 84.4 Glucose Level 295 mg/dL (70-99) Calcium Level 9.2 mg/dL (8.5-10.1) Glucose (Fingerstick) 288 mg/dL (70-99) Laboratory Tests Test 05/18/18 11:00 05/18/18 16:37 05/18/18 20:13 05/19/18 05:00 Glucose (Fingerstick) 256 mg/dL (70-99) 240 mg/dL (70-99) 216 mg/dL (70-99) White Blood Count 15.4 x10^3/uL (4.0-11.0) Red Blood Count 4.68 x10^6/uL (3.50-5.40) Hemoglobin 13.8 g/dL (12.0-15.5) Hematocrit 41.0 % (36.0-47.0) Mean Corpuscular Volume 88 fL (79-100) Mean Corpuscular Hemoglobin 30 pg (25-35) Mean Corpuscular Hemoglobin Concent 34 g/dL (31-37) Red Cell Distribution Width 12.8 % (11.5-14.5) Platelet Count 249 x10^3/uL (140-400) Neutrophils (%) (Auto) 86 % (31-73) Lymphocytes (%) (Auto) 8 % (24-48) Monocytes (%) (Auto) 6 % (0-9) Eosinophils (%) (Auto) 0 % (0-3) Basophils (%) (Auto) 0 % (0-3) Neutrophils # (Auto) 13.2 x10^3uL (1.8-7.7) Lymphocytes # (Auto) 1.3 x10^3/uL (1.0-4.8) Monocytes # (Auto) 0.9 x10^3/uL (0.0-1.1) Eosinophils # (Auto) 0.0 x10^3/uL (0.0-0.7) Basophils # (Auto) 0.1 x10^3/uL (0.0-0.2) Sodium Level 137 mmol/L (136-145) Potassium Level 3.6 mmol/L (3.5-5.1) Chloride Level 103 mmol/L (98-107) Carbon Dioxide Level 21 mmol/L (21-32) Anion Gap 13 (6-14) Blood Urea Nitrogen 8 mg/dL (7-20) Creatinine 0.8 mg/dL (0.6-1.0) Estimated GFR (Cockcroft-Gault) 84.4 Glucose Level 295 mg/dL (70-99) Calcium Level 9.2 mg/dL (8.5-10.1) Test 05/19/18 07:36 Glucose (Fingerstick) 288 mg/dL (70-99) Microbiology 05/16/18 Urine Culture - Preliminary, Resulted 05/16/18 Urine Culture Result 1 (KATIA) - Preliminary, Resulted Medications Current Medications Prochlorperazine Edisylate (Compazine) 10 mg 1X ONCE IV Last administered on 05/16/18at 11:24; Start 05/16/18 at 11:15; Stop 05/16/18 at 11:16; Status DC Sodium Chloride 1,000 ml @ 1,000 mls/hr 1X ONCE IV Last administered on at 11:15; Start 05/16/18 at 11:15; Stop 05/16/18 at 12:14; Status DC Famotidine (Pepcid Vial) 20 mg 1X ONCE IVP Last administered on 05/16/18at 11: 24; Start 05/16/18 at 11:15; Stop 05/16/18 at 11:16; Status DC Iohexol (Omnipaque 300 Mg/ml) 75 ml 1X ONCE IV Last administered on 05/16/18at 11:41; Start 05/16/18 at 11:30; Stop 05/16/18 at 11:31; Status DC Info (CONTRAST GIVEN -- Rx MONITORING) 1 each PRN DAILY PRN MC SEE COMMENTS; Start 05/16/18 at 11:30; Stop 05/18/18 at 11:29; Status DC Ciprofloxacin/ Dextrose 200 ml @ 200 mls/hr Q12H IV Last administered on at 00:58; Start 05/16/18 at 14:00 Metronidazole 100 ml @ 100 mls/hr Q8HRS IV Last administered on 05/19/18at 04: 50; Start 05/16/18 at 14:00 Ondansetron HCl (Zofran) 4 mg PRN Q8HRS PRN IV NAUSEA/VOMITING; Start 05/16/18 at 14:30; Stop 05/17/18 at 14:29; Status DC Morphine Sulfate (Morphine Sulfate) 4 mg PRN Q2HR PRN IV PAIN; Start 05/16/18 at 14:30; Stop 05/17/18 at 14:29; Status DC Sodium Chloride 1,000 ml @ 100 mls/hr 1X ONCE IV ; Start 05/16/18 at 14:30; Stop 05/17/18 at 00:29; Status DC Sodium Chloride 1,000 ml @ 100 mls/hr Q10H IV Last administered on 05/17/18at 11:00; Start 05/16/18 at 15:00; Stop 05/17/18 at 13:13; Status DC Insulin Human Lispro (HumaLOG) 0-9 UNITS TIDWMEALS SQ Last administered on 05/18 17:20; Start 05/16/18 at 17:00 Dextrose (Dextrose 50%-Water Syringe) 12.5 gm PRN Q15MIN PRN IV SEE COMMENTS; Start 05/16/18 at 15:00 Lorazepam (Ativan) 0.5 mg PRN Q6HRS PRN PO ANXIETY / AGITATION; Start 05/17/18 at 13:15; Status Cancel Amino Acids/ Glycerin/ Electrolytes 1,000 ml @ 80 mls/hr [id number] IV Last administered on 05/19/18 04:50; Start 05/17/18 at 13:15 Lorazepam (Ativan) 0.5 mg PRN Q6HRS PRN IV ANXIETY / AGITATION Last administered on 05/17/18 18:06; Start 05/17/18 at 13:30 Ondansetron HCl (Zofran) 4 mg PRN Q6HRS PRN IV NAUSEA/VOMITING Last administered on 05/19/18 00:58; Start 05/17/18 at 18:00 Lactobacillus Rhamnosus (Culturelle) 1 cap BID PO Last administered on 21:15; Start 05/18/18 at 21:00 Mineral Oil (Fleet Mineral Oil) 133 ml 1X ONCE OR Last administered on 11:08; Start 05/18/18 at 11:30; Stop 05/18/18 at 11:31; Status DC Potassium Chloride (Klor-Con) 40 meq 1X ONCE PO Last administered on 11/4/ 18at 13:43; Start 05/18/18 at 14:00; Stop 05/18/18 at 14:01; Status DC Zolpidem Tartrate (Ambien) 10 mg PRN QHS PRN PO INSOMNIA Last administered on 05/18/18at 21:16; Start 05/18/18 at 18:15 Active Scripts Active Lantus Solostar (Insulin Glargine,Hum.rec.anlog) 100 Unit/1 Ml Insuln.pen 35 Unit SQ QHS 30 Days Atorvastatin Calcium 40 Mg Tablet 40 Mg PO QHS 30 Days Reported Humalog (Insulin Lispro) 100 Unit/1 Ml Vial 10-20 Units SQ TIDAC Klor-Con M20 (Potassium Chloride) 20 Meq Tab.er.prt 1 Tab PO DAILY Ibuprofen 600 Mg Tablet 1 Tab PO PRN Q8HRS PRN Lisinopril-Hctz 20-25 Mg Tab (Lisinopril/Hydrochlorothiazide) 1 Each Tablet 1 Tab PO DAILY Garlic 1,000 Mg Capsule 1,000 Mg PO DAILY B Complex With Vitamin C (Vitamin B Complex & Vit C No.3) 1 Each Capsule 1 Each PO DAILY Toprol Xl (Metoprolol Succinate) 25 Mg Tab.er.24h 50 Mg PO DAILY Norvasc (Amlodipine Besylate) 10 Mg Tablet 10 Mg PO DAILY Ranitidine Hcl 150 Mg Tablet 150 Mg PO BID Centrum Silver Tablet (Multivits-Min/Fa/Lycopene/Lut) 1 Each Tablet 1 Each PO DAILY Vitals/I & O Vital Sign - Last 24 Hours 05/18/18 05/18/18 05/18/18 05/18/18 11:00 15:00 19:00 20:00 Temp 98.2 98.9 98.2 98.2 98.9 98.2 Pulse 104 106 103 Resp 18 16 20 B/P (MAP) 145/76 (99) 149/72 (97) 144/74 (97) Pulse Ox 93 93 94 O2 Delivery Room Air Room Air Room Air Room Air 05/18/18 05/19/18 23:00 03:00 Temp 98.4 98.4 Pulse 102 Resp 19 B/P (MAP) 142/71 (94) Pulse Ox 93 O2 Delivery Room Air Room Air Intake and Output 05/18/18 05/18/18 05/19/18 15:00 23:00 07:00 Intake Total 360 ml 220 ml Output Total 275 ml Balance 360 ml -55 ml ROSEMARY LENZ MD May 19, 2018 08:19
[2018-05-19] MEDS: LACTOBACILLUS RHAMNOSUS GG 1 CAPSULE. PO SCH ×2 (08:30→21:01)
[2018-05-19] MEDS: INSULIN LISPRO 300 UNITS/3 ML INSULN.PEN. SQ SCH ×3 (08:39→18:09)
--- NOTE | 2018-05-19 08:47 | PDOC ---
ERI PAGE [employer] SUPERINTENDENT 05/19/18 0847: SURGICAL PROGRESS NOTE Subjective hiccups are bad some flatus no emesis Vital Signs Vital Signs Date Time Temp Pulse Resp B/P (MAP) Pulse Ox O2 Delivery O2 Flow Rate FiO2 05/19/18 07:00 98.7 116 20 148/86 (106) 92 Room Air 98.7 I&O Intake and Output 05/19/18 07:00 Intake Total 580 ml Output Total 275 ml Balance 305 ml Intake Oral 480 ml IV Total 100 ml Output Urine Total 275 ml # Voids 9 General: Alert, Oriented X3, Cooperative, No acute distress Abdomen: Soft, Other (pain with hiccups) Labs Laboratory Tests Test 05/17/18 10:55 05/17/18 16:28 05/17/18 20:52 05/18/18 07:25 Glucose (Fingerstick) 150 mg/dL (70-99) 175 mg/dL (70-99) 211 mg/dL (70-99) White Blood Count 10.8 x10^3/uL (4.0-11.0) Red Blood Count 4.61 x10^6/uL (3.50-5.40) Hemoglobin 13.9 g/dL (12.0-15.5) Hematocrit 40.6 % (36.0-47.0) Mean Corpuscular Volume 88 fL (79-100) Mean Corpuscular Hemoglobin 30 pg (25-35) Mean Corpuscular Hemoglobin Concent 34 g/dL (31-37) Red Cell Distribution Width 13.1 % (11.5-14.5) Platelet Count 241 x10^3/uL (140-400) Neutrophils (%) (Auto) 73 % (31-73) Lymphocytes (%) (Auto) 16 % (24-48) Monocytes (%) (Auto) 8 % (0-9) Eosinophils (%) (Auto) 2 % (0-3) Basophils (%) (Auto) 1 % (0-3) Neutrophils # (Auto) 7.9 x10^3uL (1.8-7.7) Lymphocytes # (Auto) 1.7 x10^3/uL (1.0-4.8) Monocytes # (Auto) 0.9 x10^3/uL (0.0-1.1) Eosinophils # (Auto) 0.2 x10^3/uL (0.0-0.7) Basophils # (Auto) 0.1 x10^3/uL (0.0-0.2) Sodium Level 137 mmol/L (136-145) Potassium Level 3.3 mmol/L (3.5-5.1) Chloride Level 104 mmol/L (98-107) Carbon Dioxide Level 21 mmol/L (21-32) Anion Gap 12 (6-14) Blood Urea Nitrogen 7 mg/dL (7-20) Creatinine 0.8 mg/dL (0.6-1.0) Estimated GFR (Cockcroft-Gault) 84.4 BUN/Creatinine Ratio 9 (6-20) Glucose Level 228 mg/dL (70-99) Calcium Level 9.2 mg/dL (8.5-10.1) Total Bilirubin 0.5 mg/dL (0.2-1.0) Aspartate Amino Transf (AST/SGOT) 14 U/L (15-37) Alanine Aminotransferase (ALT/SGPT) 14 U/L (14-59) Alkaline Phosphatase 87 U/L (46-116) Total Protein 7.4 g/dL (6.4-8.2) Albumin 3.3 g/dL (3.4-5.0) Albumin/Globulin Ratio 0.8 (1.0-1.7) Test 05/18/18 07:54 05/18/18 11:00 05/18/18 16:37 05/18/18 20:13 Glucose (Fingerstick) 236 mg/dL (70-99) 256 mg/dL (70-99) 240 mg/dL (70-99) 216 mg/dL (70-99) Test 05/19/18 05:00 05/19/18 07:36 White Blood Count 15.4 x10^3/uL (4.0-11.0) Red Blood Count 4.68 x10^6/uL (3.50-5.40) Hemoglobin 13.8 g/dL (12.0-15.5) Hematocrit 41.0 % (36.0-47.0) Mean Corpuscular Volume 88 fL (79-100) Mean Corpuscular Hemoglobin 30 pg (25-35) Mean Corpuscular Hemoglobin Concent 34 g/dL (31-37) Red Cell Distribution Width 12.8 % (11.5-14.5) Platelet Count 249 x10^3/uL (140-400) Neutrophils (%) (Auto) 86 % (31-73) Lymphocytes (%) (Auto) 8 % (24-48) Monocytes (%) (Auto) 6 % (0-9) Eosinophils (%) (Auto) 0 % (0-3) Basophils (%) (Auto) 0 % (0-3) Neutrophils # (Auto) 13.2 x10^3uL (1.8-7.7) Lymphocytes # (Auto) 1.3 x10^3/uL (1.0-4.8) Monocytes # (Auto) 0.9 x10^3/uL (0.0-1.1) Eosinophils # (Auto) 0.0 x10^3/uL (0.0-0.7) Basophils # (Auto) 0.1 x10^3/uL (0.0-0.2) Sodium Level 137 mmol/L (136-145) Potassium Level 3.6 mmol/L (3.5-5.1) Chloride Level 103 mmol/L (98-107) Carbon Dioxide Level 21 mmol/L (21-32) Anion Gap 13 (6-14) Blood Urea Nitrogen 8 mg/dL (7-20) Creatinine 0.8 mg/dL (0.6-1.0) Estimated GFR (Cockcroft-Gault) 84.4 Glucose Level 295 mg/dL (70-99) Calcium Level 9.2 mg/dL (8.5-10.1) Glucose (Fingerstick) 288 mg/dL (70-99) Laboratory Tests Test 05/18/18 11:00 05/18/18 16:37 05/18/18 20:13 05/19/18 05:00 Glucose (Fingerstick) 256 mg/dL (70-99) 240 mg/dL (70-99) 216 mg/dL (70-99) White Blood Count 15.4 x10^3/uL (4.0-11.0) Red Blood Count 4.68 x10^6/uL (3.50-5.40) Hemoglobin 13.8 g/dL (12.0-15.5) Hematocrit 41.0 % (36.0-47.0) Mean Corpuscular Volume 88 fL (79-100) Mean Corpuscular Hemoglobin 30 pg (25-35) Mean Corpuscular Hemoglobin Concent 34 g/dL (31-37) Red Cell Distribution Width 12.8 % (11.5-14.5) Platelet Count 249 x10^3/uL (140-400) Neutrophils (%) (Auto) 86 % (31-73) Lymphocytes (%) (Auto) 8 % (24-48) Monocytes (%) (Auto) 6 % (0-9) Eosinophils (%) (Auto) 0 % (0-3) Basophils (%) (Auto) 0 % (0-3) Neutrophils # (Auto) 13.2 x10^3uL (1.8-7.7) Lymphocytes # (Auto) 1.3 x10^3/uL (1.0-4.8) Monocytes # (Auto) 0.9 x10^3/uL (0.0-1.1) Eosinophils # (Auto) 0.0 x10^3/uL (0.0-0.7) Basophils # (Auto) 0.1 x10^3/uL (0.0-0.2) Sodium Level 137 mmol/L (136-145) Potassium Level 3.6 mmol/L (3.5-5.1) Chloride Level 103 mmol/L (98-107) Carbon Dioxide Level 21 mmol/L (21-32) Anion Gap 13 (6-14) Blood Urea Nitrogen 8 mg/dL (7-20) Creatinine 0.8 mg/dL (0.6-1.0) Estimated GFR (Cockcroft-Gault) 84.4 Glucose Level 295 mg/dL (70-99) Calcium Level 9.2 mg/dL (8.5-10.1) Test 05/19/18 07:36 Glucose (Fingerstick) 288 mg/dL (70-99) Problem List Problems Medical Problems: (1) Enteritis Status: Acute (2) Small bowel obstruction Status: Acute (3) UTI (urinary tract infection) Status: Acute Assessment/Plan sbo vs ileus will check SBFT PEARL MARIEE MD 05/19/18 1629: SURGICAL PROGRESS NOTE Assessment/Plan pt seen daughter at bedside still has hiccups SBFT still in progress await those results ERI [employer] SUPERINTENDENT May 19, 2018 08:47 PEARL MARIEE MD May 19, 2018 16:29
[2018-05-19] MEDS: amLODIPine BESYLATE 10 MG TABLET PO SCH (09:00)
[2018-05-19 09:38] LABS: % ATYL 1 % (0-0); % BASOS 1 % (0-3); % LYMPHS 9 % (24-48); % MONOS 4 % (0-10); % SEGS 85 % (35-66); ANISOCYTOSIS SLIGHT; HYPERSEGS PRESENT
[2018-05-19 09:42] LABS: PLT ESTIMATE ADEQUATE (ADEQUATE)
[2018-05-19] MEDS ORDERED: IOHEXOL 300 MG/ML 100ML VIAL. PO ONE (10:30)
--- NOTE | 2018-05-19 13:11 | PDOC ---
Objective: Objective: Reviewed other notes. Vital Signs: Vital Signs Date Time Temp Pulse Resp B/P (MAP) Pulse Ox O2 Delivery O2 Flow Rate FiO2 05/19/18 07:00 98.7 116 20 148/86 (106) 92 Room Air 98.7 Labs: Laboratory Tests Test 05/18/18 16:37 05/18/18 20:13 05/19/18 05:00 05/19/18 07:36 Glucose (Fingerstick) 240 mg/dL 216 mg/dL 288 mg/dL White Blood Count 15.4 x10^3/uL Red Blood Count 4.68 x10^6/uL Hemoglobin 13.8 g/dL Hematocrit 41.0 % Mean Corpuscular Volume 88 fL Mean Corpuscular Hemoglobin 30 pg Mean Corpuscular Hemoglobin Concent 34 g/dL Red Cell Distribution Width 12.8 % Platelet Count 249 x10^3/uL Neutrophils (%) (Auto) 86 % Lymphocytes (%) (Auto) 8 % Monocytes (%) (Auto) 6 % Eosinophils (%) (Auto) 0 % Basophils (%) (Auto) 0 % Neutrophils # (Auto) 13.2 x10^3uL Lymphocytes # (Auto) 1.3 x10^3/uL Monocytes # (Auto) 0.9 x10^3/uL Eosinophils # (Auto) 0.0 x10^3/uL Basophils # (Auto) 0.1 x10^3/uL Segmented Neutrophils % 85 % Lymphocytes % 9 % Atypical Lymphocytes % (Manual) 1 % Monocytes % 4 % Basophils % 1 % Hypersegmented Neutrophils Present Platelet Estimate Adequate Anisocytosis Slight Sodium Level 137 mmol/L Potassium Level 3.6 mmol/L Chloride Level 103 mmol/L Carbon Dioxide Level 21 mmol/L Anion Gap 13 Blood Urea Nitrogen 8 mg/dL Creatinine 0.8 mg/dL Estimated GFR (Cockcroft-Gault) 84.4 Glucose Level 295 mg/dL Calcium Level 9.2 mg/dL Imaging: KUB 05/19 IMPRESSION: Mildly dilated loops of small bowel, somewhat increased from prior study. SBS 05/19 (pending) PE: no exam, out of room A/P: Abd pain, n/v -on imaging: small bowel distention Leukocytosis -- Out of room, await SBFT. KRISHNA ISAAC May 19, 2018 13:11
[2018-05-19] MEDS: PROMETHAZINE 12.5 MG TABLET. PO PRN (17:13)
[2018-05-19 19:00] VITALS: BP 140/80
[2018-05-19] MEDS: INSULIN GLARGINE 300 UNITS/3 ML INSULN.PEN. SQ SCH (21:06)
[2018-05-19 23:00] VITALS: BP 145/84
[2018-05-20] MEDS: CIPROFLOXACIN 400MG PREMIX 200 ML IV SCH ×2 (01:26→11:57)
[2018-05-20 03:00] VITALS: BP 134/83
[2018-05-20] MEDS: AMINO AC 3%/ELECTROLYTE/GLYCER 1,000 ML IV SCH ×2 (03:45→09:15)
[2018-05-20 04:06] LABS: FECAL OB PT NEGATIVE (NEG)
[2018-05-20] MEDS: PROMETHAZINE 12.5 MG TABLET. PO PRN (04:54)
[2018-05-20 07:00] VITALS: BP 154/85
--- NOTE | 2018-05-20 07:59 | RAD ---
Small bowel series, 05/19/2018: History: Small bowel obstruction A KUB from earlier in the day demonstrated mild gaseous distention of small bowel loops in the central abdomen. Serial digital images were obtained following oral ingestion of nonionic contrast. No fluoroscopy was utilized due to the delay in passage of the contrast through the small bowel. The proximal small bowel loops are of normal caliber with no evidence of thickening of their folds. There is mild dilatation of mid small bowel loops, again with no significant fold thickening. At 4 hours and 15 minutes contrast has not reached the distal ileum. At 6 hours and 20 minutes, loops of nondilated terminal ileum are opacified and contrast has extended into the colon. A focal point of obstruction is not evident on these radiographs. There is reflux of contrast into the appendix. At 11 hours there is moderate contrast extension into the colon, although there is also persistent contrast in mildly prominent mid small bowel loops. IMPRESSION: Partial distal small bowel obstruction as described above.
--- NOTE | 2018-05-20 08:44 | PDOC ---
ERI PAGE [employer] REPAIRER 05/20/18 0844: SURGICAL PROGRESS NOTE Subjective reports emesis around 2am 1 loose stool this AM eating FL--increasing epigastric pain Vital Signs Vital Signs Date Time Temp Pulse Resp B/P (MAP) Pulse Ox O2 Delivery O2 Flow Rate FiO2 05/20/18 03:00 98.9 108 20 134/83 (100) 95 Room Air 98.9 I&O Intake and Output 05/20/18 07:00 Intake Total 1600 ml Balance 1600 ml Intake Oral 300 ml IV Total 1300 ml # Voids 3 General: Alert, Oriented X3, Cooperative, No acute distress Abdomen: Soft, Other (mild distention, epigastric TTP) Labs Laboratory Tests Test 05/18/18 11:00 05/18/18 16:37 05/18/18 20:13 05/19/18 05:00 Glucose (Fingerstick) 256 mg/dL (70-99) 240 mg/dL (70-99) 216 mg/dL (70-99) White Blood Count 15.4 x10^3/uL (4.0-11.0) Red Blood Count 4.68 x10^6/uL (3.50-5.40) Hemoglobin 13.8 g/dL (12.0-15.5) Hematocrit 41.0 % (36.0-47.0) Mean Corpuscular Volume 88 fL (79-100) Mean Corpuscular Hemoglobin 30 pg (25-35) Mean Corpuscular Hemoglobin Concent 34 g/dL (31-37) Red Cell Distribution Width 12.8 % (11.5-14.5) Platelet Count 249 x10^3/uL (140-400) Neutrophils (%) (Auto) 86 % (31-73) Lymphocytes (%) (Auto) 8 % (24-48) Monocytes (%) (Auto) 6 % (0-9) Eosinophils (%) (Auto) 0 % (0-3) Basophils (%) (Auto) 0 % (0-3) Neutrophils # (Auto) 13.2 x10^3uL (1.8-7.7) Lymphocytes # (Auto) 1.3 x10^3/uL (1.0-4.8) Monocytes # (Auto) 0.9 x10^3/uL (0.0-1.1) Eosinophils # (Auto) 0.0 x10^3/uL (0.0-0.7) Basophils # (Auto) 0.1 x10^3/uL (0.0-0.2) Segmented Neutrophils % 85 % (35-66) Lymphocytes % 9 % (24-48) Atypical Lymphocytes % (Manual) 1 % (0-0) Monocytes % 4 % (0-10) Basophils % 1 % (0-3) Hypersegmented Neutrophils Present Platelet Estimate Adequate (ADEQUATE) Anisocytosis Slight Sodium Level 137 mmol/L (136-145) Potassium Level 3.6 mmol/L (3.5-5.1) Chloride Level 103 mmol/L (98-107) Carbon Dioxide Level 21 mmol/L (21-32) Anion Gap 13 (6-14) Blood Urea Nitrogen 8 mg/dL (7-20) Creatinine 0.8 mg/dL (0.6-1.0) Estimated GFR (Cockcroft-Gault) 84.4 Glucose Level 295 mg/dL (70-99) Calcium Level 9.2 mg/dL (8.5-10.1) Test 05/19/18 07:36 05/19/18 16:28 05/19/18 20:37 05/20/18 02:45 Glucose (Fingerstick) 288 mg/dL (70-99) 335 mg/dL (70-99) 255 mg/dL (70-99) Stool Occult Blood Negative (NEG) Laboratory Tests Test 05/19/18 16:28 05/19/18 20:37 05/20/18 02:45 Glucose (Fingerstick) 335 mg/dL (70-99) 255 mg/dL (70-99) Stool Occult Blood Negative (NEG) Problem List Problems Medical Problems: (1) Enteritis Status: Acute (2) Small bowel obstruction Status: Acute (3) UTI (urinary tract infection) Status: Acute Assessment/Plan sbft concerning for partial distal SBO NPO will review with PEARL Aguilera MD 05/20/18 1848: SURGICAL PROGRESS NOTE Assessment/Plan 17:15 pt seen and examined family at bedside hiccups have stopped having loose stools suggest starting liquids in the AM to see if tolerated supine and upright plain films in the morning d/w patient and family KAYLEEERI Yoly ENAMORADO May 20, 2018 08:44 PEARL MARIEE MD May 20, 2018 17:14
--- NOTE | 2018-05-20 08:53 | PDOC ---
PROGRESS NOTES Subjective Subjective Patient states she had a large BM last night but nursing did not receive this information in report so unclear if this is true. Denies abdominal pain at this time. Objective Objective Vital Signs Date Time Temp Pulse Resp B/P (MAP) Pulse Ox O2 Delivery O2 Flow Rate FiO2 05/20/18 03:00 98.9 108 20 134/83 (100) 95 Room Air 98.9 Intake and Output 05/20/18 07:00 Intake Total 1600 ml Balance 1600 ml Intake Oral 300 ml IV Total 1300 ml # Voids 3 Physical Exam Abdomen: Normal bowel sounds, Soft, No tenderness Heart: Regular rate Extremities: No edema General: Alert (oriented to person and place), No acute distress Lungs: Clear to auscultation Assessment Assessment Problems Medical Problems: (1) Enteritis Status: Acute (2) Small bowel obstruction Status: Acute (3) UTI (urinary tract infection) Status: Acute Plan Plan of Care 1. Partial SBO/enteritis - SB series yesterday showed delayed transit and partial distal obstruction. Continue conservative care and IV abx. Tolerating full liquid diet and po fluids, will d/c PPN. 2. UTI - culture shows light growth of Klebsiella sensitive to Cipro, continue. 3. metabolic encephalopathy - not at baseline yet. Continue supportive care. 4. DM2 - glucose remains elevated due to PPN. Have stopped this, continue Lantus and SS. 5. HTN - fairly well controlled but having some mild tachycardia. Will resume her usual Toprol XL. Comment Review of Relevant I have reviewed the following items moriah (where applicable) has been applied. Labs Laboratory Tests Test 05/18/18 11:00 05/18/18 16:37 05/18/18 20:13 05/19/18 05:00 Glucose (Fingerstick) 256 mg/dL (70-99) 240 mg/dL (70-99) 216 mg/dL (70-99) White Blood Count 15.4 x10^3/uL (4.0-11.0) Red Blood Count 4.68 x10^6/uL (3.50-5.40) Hemoglobin 13.8 g/dL (12.0-15.5) Hematocrit 41.0 % (36.0-47.0) Mean Corpuscular Volume 88 fL (79-100) Mean Corpuscular Hemoglobin 30 pg (25-35) Mean Corpuscular Hemoglobin Concent 34 g/dL (31-37) Red Cell Distribution Width 12.8 % (11.5-14.5) Platelet Count 249 x10^3/uL (140-400) Neutrophils (%) (Auto) 86 % (31-73) Lymphocytes (%) (Auto) 8 % (24-48) Monocytes (%) (Auto) 6 % (0-9) Eosinophils (%) (Auto) 0 % (0-3) Basophils (%) (Auto) 0 % (0-3) Neutrophils # (Auto) 13.2 x10^3uL (1.8-7.7) Lymphocytes # (Auto) 1.3 x10^3/uL (1.0-4.8) Monocytes # (Auto) 0.9 x10^3/uL (0.0-1.1) Eosinophils # (Auto) 0.0 x10^3/uL (0.0-0.7) Basophils # (Auto) 0.1 x10^3/uL (0.0-0.2) Segmented Neutrophils % 85 % (35-66) Lymphocytes % 9 % (24-48) Atypical Lymphocytes % (Manual) 1 % (0-0) Monocytes % 4 % (0-10) Basophils % 1 % (0-3) Hypersegmented Neutrophils Present Platelet Estimate Adequate (ADEQUATE) Anisocytosis Slight Sodium Level 137 mmol/L (136-145) Potassium Level 3.6 mmol/L (3.5-5.1) Chloride Level 103 mmol/L (98-107) Carbon Dioxide Level 21 mmol/L (21-32) Anion Gap 13 (6-14) Blood Urea Nitrogen 8 mg/dL (7-20) Creatinine 0.8 mg/dL (0.6-1.0) Estimated GFR (Cockcroft-Gault) 84.4 Glucose Level 295 mg/dL (70-99) Calcium Level 9.2 mg/dL (8.5-10.1) Test 05/19/18 07:36 05/19/18 16:28 05/19/18 20:37 05/20/18 02:45 Glucose (Fingerstick) 288 mg/dL (70-99) 335 mg/dL (70-99) 255 mg/dL (70-99) Stool Occult Blood Negative (NEG) Laboratory Tests Test 05/19/18 16:28 05/19/18 20:37 05/20/18 02:45 Glucose (Fingerstick) 335 mg/dL (70-99) 255 mg/dL (70-99) Stool Occult Blood Negative (NEG) Microbiology 05/16/18 Urine Culture - Final, Complete 05/16/18 Urine Culture Result 1 (KATIA) - Final, Complete 05/16/18 Antimicrobic Susceptibility - Final, Complete Medications Current Medications Prochlorperazine Edisylate (Compazine) 10 mg 1X ONCE IV Last administered on 05/16/18at 11:24; Start 05/16/18 at 11:15; Stop 05/16/18 at 11:16; Status DC Sodium Chloride 1,000 ml @ 1,000 mls/hr 1X ONCE IV Last administered on at 11:15; Start 05/16/18 at 11:15; Stop 05/16/18 at 12:14; Status DC Famotidine (Pepcid Vial) 20 mg 1X ONCE IVP Last administered on 05/16/18at 11: 24; Start 05/16/18 at 11:15; Stop 05/16/18 at 11:16; Status DC Iohexol (Omnipaque 300 Mg/ml) 75 ml 1X ONCE IV Last administered on 05/16/18at 11:41; Start 05/16/18 at 11:30; Stop 05/16/18 at 11:31; Status DC Info (CONTRAST GIVEN -- Rx MONITORING) 1 each PRN DAILY PRN MC SEE COMMENTS; Start 05/16/18 at 11:30; Stop 05/18/18 at 11:29; Status DC Ciprofloxacin/ Dextrose 200 ml @ 200 mls/hr Q12H IV Last administered on at 01:26; Start 05/16/18 at 14:00 Metronidazole 100 ml @ 100 mls/hr Q8HRS IV Last administered on 05/20/18at 04: 55; Start 05/16/18 at 14:00 Ondansetron HCl (Zofran) 4 mg PRN Q8HRS PRN IV NAUSEA/VOMITING; Start 05/16/18 at 14:30; Stop 05/17/18 at 14:29; Status DC Morphine Sulfate (Morphine Sulfate) 4 mg PRN Q2HR PRN IV PAIN; Start 05/16/18 at 14:30; Stop 05/17/18 at 14:29; Status DC Sodium Chloride 1,000 ml @ 100 mls/hr 1X ONCE IV ; Start 05/16/18 at 14:30; Stop 05/17/18 at 00:29; Status DC Sodium Chloride 1,000 ml @ 100 mls/hr Q10H IV Last administered on 05/17/18at 11:00; Start 05/16/18 at 15:00; Stop 05/17/18 at 13:13; Status DC Insulin Human Lispro (HumaLOG) 0-9 UNITS TIDWMEALS SQ Last administered on 05/19at 18:09; Start 05/16/18 at 17:00 Dextrose (Dextrose 50%-Water Syringe) 12.5 gm PRN Q15MIN PRN IV SEE COMMENTS; Start 05/16/18 at 15:00 Lorazepam (Ativan) 0.5 mg PRN Q6HRS PRN PO ANXIETY / AGITATION; Start 05/17/18 at 13:15; Status Cancel Amino Acids/ Glycerin/ Electrolytes 1,000 ml @ 80 mls/hr [id number] IV Last administered on 05/19/18at 17:59; Start 05/17/18 at 13:15 Lorazepam (Ativan) 0.5 mg PRN Q6HRS PRN IV ANXIETY / AGITATION Last administered on 05/17/18at 18:06; Start 05/17/18 at 13:30; Stop 05/19/18 at 08:16 ; Status DC Ondansetron HCl (Zofran) 4 mg PRN Q6HRS PRN IV NAUSEA/VOMITING Last administered on 05/19/18at 08:29; Start 05/17/18 at 18:00 Lactobacillus Rhamnosus (Culturelle) 1 cap BID PO Last administered on at 21:01; Start 05/18/18 at 21:00 Mineral Oil (Fleet Mineral Oil) 133 ml 1X ONCE DC Last administered on at 11:08; Start 05/18/18 at 11:30; Stop 05/18/18 at 11:31; Status DC Potassium Chloride (Klor-Con) 40 meq 1X ONCE PO Last administered on at 13:43; Start 05/18/18 at 14:00; Stop 05/18/18 at 14:01; Status DC Zolpidem Tartrate (Ambien) 10 mg PRN QHS PRN PO INSOMNIA Last administered on 05/18/18at 21:16; Start 05/18/18 at 18:15; Stop 05/19/18 at 08:16; Status DC Insulin Glargine (Lantus) 20 units QHS SQ Last administered on 05/19/18at 21:06 ; Start 05/19/18 at 21:00 Amlodipine Besylate (Norvasc) 10 mg DAILY PO ; Start 05/19/18 at 09:00 Iohexol (Omnipaque 300 Mg/ml) 300 ml 1X ONCE PO Last administered on at 10:30; Start 05/19/18 at 10:30; Stop 05/19/18 at 10:31; Status DC Promethazine HCl (Phenergan) 12.5 mg PRN Q6HRS PRN PO NAUSEA/VOMITING Last administered on 05/20/18at 04:54; Start 05/19/18 at 17:15 Active Scripts Active Lantus Solostar (Insulin Glargine,Hum.rec.anlog) 100 Unit/1 Ml Insuln.pen 35 Unit SQ QHS 30 Days Atorvastatin Calcium 40 Mg Tablet 40 Mg PO QHS 30 Days Reported Humalog (Insulin Lispro) 100 Unit/1 Ml Vial 10-20 Units SQ TIDAC Klor-Con M20 (Potassium Chloride) 20 Meq Tab.er.prt 1 Tab PO DAILY Ibuprofen 600 Mg Tablet 1 Tab PO PRN Q8HRS PRN Lisinopril-Hctz 20-25 Mg Tab (Lisinopril/Hydrochlorothiazide) 1 Each Tablet 1 Tab PO DAILY Garlic 1,000 Mg Capsule 1,000 Mg PO DAILY B Complex With Vitamin C (Vitamin B Complex & Vit C No.3) 1 Each Capsule 1 Each PO DAILY Toprol Xl (Metoprolol Succinate) 25 Mg Tab.er.24h 50 Mg PO DAILY Norvasc (Amlodipine Besylate) 10 Mg Tablet 10 Mg PO DAILY Ranitidine Hcl 150 Mg Tablet 150 Mg PO BID Centrum Silver Tablet (Multivits-Min/Fa/Lycopene/Lut) 1 Each Tablet 1 Each PO DAILY Vitals/I & O Vital Sign - Last 24 Hours 05/19/18 05/19/18 05/19/18 05/20/18 19:00 20:00 23:00 03:00 Temp 98.2 99.3 98.9 98.2 99.3 98.9 Pulse 109 111 108 Resp 20 20 B/P (MAP) 140/80 (100) 145/84 (104) 134/83 (100) Pulse Ox 94 93 95 O2 Delivery Room Air Room Air Room Air Room Air Intake and Output 05/19/18 05/19/18 05/20/18 15:00 23:00 07:00 Intake Total 300 ml 1100 ml 200 ml Balance 300 ml 1100 ml 200 ml ROSEMARY LENZ MD May 20, 2018 08:53
[2018-05-20] MEDS: LACTOBACILLUS RHAMNOSUS GG 1 CAPSULE. PO SCH ×2 (09:00→21:22)
[2018-05-20] MEDS: METOPROLOL SUCC 24HR ER 50 MG TAB.ER.24H. PO SCH (09:00)
[2018-05-20] MEDS: amLODIPine BESYLATE 10 MG TABLET PO SCH (09:00)
[2018-05-20] MEDS: INSULIN LISPRO 300 UNITS/3 ML INSULN.PEN. SQ SCH ×3 (09:07→17:02)
[2018-05-20] MEDS: ONDANSETRON PF 4 MG/2 ML VIAL. IV PRN ×2 (10:36→16:50)
[2018-05-20 11:00] VITALS: BP 129/83
--- NOTE | 2018-05-20 13:45 | PDOC ---
Subjective: Subjective: Feels better. Handed me the phone to talk to her daughter. Objective: Objective: Per RN - probably not the most trustworthy historian. Had some nausea and belching, passed liquid stool. Per aide - she just asked for cake after having a conversation about being NPO. Vital Signs: Vital Signs Date Time Temp Pulse Resp B/P (MAP) Pulse Ox O2 Delivery O2 Flow Rate FiO2 05/20/18 11:00 98.7 99 20 129/83 (98) 98 Room Air 98.7 Labs: Laboratory Tests Test 05/19/18 16:28 05/19/18 20:37 05/20/18 08:46 05/20/18 11:31 Glucose (Fingerstick) 335 mg/dL (70-99) 255 mg/dL (70-99) 276 mg/dL (70-99) 286 mg/dL (70-99) Imaging: SBS 05/19 IMPRESSION: Partial distal small bowel obstruction. PE: GEN: NAD LUNGS: CTAB HEART: tachycardic ABD: distended, quiet, doesn't seem tender NEURO/PSYCH: forgetful A/P: Partial SBO UTI Encephalopathy -- NPO on PPN, follow surgical recs. KRISHNA ISAAC May 20, 2018 13:45
[2018-05-20 15:58] VITALS: BP 120/75
[2018-05-20 19:00] VITALS: BP 144/80
[2018-05-20] MEDS: INSULIN GLARGINE 300 UNITS/3 ML INSULN.PEN. SQ SCH (21:27)
[2018-05-20 23:00] VITALS: BP 129/74
[2018-05-21] MEDS: CIPROFLOXACIN 400MG PREMIX 200 ML IV SCH ×2 (02:29→13:34)
[2018-05-21] MEDS: AMINO AC 3%/ELECTROLYTE/GLYCER 1,000 ML IV SCH ×2 (02:29→09:34)
[2018-05-21 03:00] VITALS: BP 144/73
[2018-05-21 07:00] VITALS: BP 148/87
--- NOTE | 2018-05-21 08:02 | RAD ---
Upright supine AP views abdomen 05/21/2018 Clinical indication: Partial small bowel obstruction. COMPARISON: CT abdomen pelvis 05/16/2018 FINDINGS: Mild gaseous dilated small bowel loops measuring up to 3.1 cm and the midabdomen. There is oral contrast in the sigmoid colon. No evidence of pneumoperitoneum. IMPRESSION: Mild gaseous dilated small bowel loops with distal colonic intraluminal contrast, either representing resolving bowel obstruction versus ileus. Electronically signed by: Lee Kurtz MD (05/21/2018 7:59 AM) [id number]
--- NOTE | 2018-05-21 08:37 | PDOC ---
PROGRESS NOTES Subjective Subjective Patient denies abdominal pain. States she is having liquid stools. Objective Objective Vital Signs Date Time Temp Pulse Resp B/P (MAP) Pulse Ox O2 Delivery O2 Flow Rate FiO2 05/21/18 03:00 98.8 87 20 144/73 (96) 96 Room Air 98.8 Intake and Output 05/21/18 07:00 Intake Total 1500 ml Balance 1500 ml Intake Oral 300 ml IV Total 1200 ml # Voids 5 # Bowel Movements 2 Physical Exam Abdomen: Normal bowel sounds, Soft, No tenderness Heart: Regular rate Extremities: No edema General: Alert, No acute distress Lungs: Clear to auscultation Assessment Assessment Problems Medical Problems: (1) Enteritis Status: Acute (2) Small bowel obstruction Status: Acute (3) UTI (urinary tract infection) Status: Acute Plan Plan of Care 1. Partial SBO/enteritis - KUB and exam improving. Clears today per Surgery. Continue PPN for now. 2. DM2 - glucose elevated due to PPN, increase insulins. 3. HTN - BP elevated as po meds were held yesterday. Resume today and follow. 4. metabolic encephalopathy - improving, closer to baseline today. 5. UTI - continue Cipro. 6. debility - PT recommending some time on nursing home and patient agreeable , has been there previously. Consult SW to help with discharge planning. Comment Review of Relevant I have reviewed the following items moriah (where applicable) has been applied. Labs Laboratory Tests Test 05/19/18 16:28 05/19/18 20:37 05/20/18 02:45 05/20/18 08:46 Glucose (Fingerstick) 335 mg/dL (70-99) 255 mg/dL (70-99) 276 mg/dL (70-99) Stool Occult Blood Negative (NEG) Test 05/20/18 11:31 05/20/18 16:29 05/20/18 20:55 Glucose (Fingerstick) 286 mg/dL (70-99) 229 mg/dL (70-99) 197 mg/dL (70-99) Laboratory Tests Test 05/20/18 08:46 05/20/18 11:31 05/20/18 16:29 05/20/18 20:55 Glucose (Fingerstick) 276 mg/dL (70-99) 286 mg/dL (70-99) 229 mg/dL (70-99) 197 mg/dL (70-99) Microbiology 05/16/18 Urine Culture - Final, Complete 05/16/18 Urine Culture Result 1 (KATIA) - Final, Complete 05/16/18 Antimicrobic Susceptibility - Final, Complete Medications Current Medications Prochlorperazine Edisylate (Compazine) 10 mg 1X ONCE IV Last administered on 05/16/18at 11:24; Start 05/16/18 at 11:15; Stop 05/16/18 at 11:16; Status DC Sodium Chloride 1,000 ml @ 1,000 mls/hr 1X ONCE IV Last administered on at 11:15; Start 05/16/18 at 11:15; Stop 05/16/18 at 12:14; Status DC Famotidine (Pepcid Vial) 20 mg 1X ONCE IVP Last administered on 05/16/18at 11: 24; Start 05/16/18 at 11:15; Stop 05/16/18 at 11:16; Status DC Iohexol (Omnipaque 300 Mg/ml) 75 ml 1X ONCE IV Last administered on 05/16/18at 11:41; Start 05/16/18 at 11:30; Stop 05/16/18 at 11:31; Status DC Info (CONTRAST GIVEN -- Rx MONITORING) 1 each PRN DAILY PRN MC SEE COMMENTS; Start 05/16/18 at 11:30; Stop 05/18/18 at 11:29; Status DC Ciprofloxacin/ Dextrose 200 ml @ 200 mls/hr Q12H IV Last administered on at 02:29; Start 05/16/18 at 14:00 Metronidazole 100 ml @ 100 mls/hr Q8HRS IV Last administered on 05/20/18at 22: 20; Start 05/16/18 at 14:00 Ondansetron HCl (Zofran) 4 mg PRN Q8HRS PRN IV NAUSEA/VOMITING; Start 05/16/18 at 14:30; Stop 05/17/18 at 14:29; Status DC Morphine Sulfate (Morphine Sulfate) 4 mg PRN Q2HR PRN IV PAIN; Start 05/16/18 at 14:30; Stop 05/17/18 at 14:29; Status DC Sodium Chloride 1,000 ml @ 100 mls/hr 1X ONCE IV ; Start 05/16/18 at 14:30; Stop 05/17/18 at 00:29; Status DC Sodium Chloride 1,000 ml @ 100 mls/hr Q10H IV Last administered on 05/17/18at 11:00; Start 05/16/18 at 15:00; Stop 05/17/18 at 13:13; Status DC Insulin Human Lispro (HumaLOG) 0-9 UNITS TIDWMEALS SQ Last administered on 05/20at 17:02; Start 05/16/18 at 17:00 Dextrose (Dextrose 50%-Water Syringe) 12.5 gm PRN Q15MIN PRN IV SEE COMMENTS; Start 05/16/18 at 15:00 Lorazepam (Ativan) 0.5 mg PRN Q6HRS PRN PO ANXIETY / AGITATION; Start 05/17/18 at 13:15; Status Cancel Amino Acids/ Glycerin/ Electrolytes 1,000 ml @ 80 mls/hr [id number] IV Last administered on 05/19/18at 17:59; Start 05/17/18 at 13:15; Stop 05/20/18 at 08:49 ; Status DC Lorazepam (Ativan) 0.5 mg PRN Q6HRS PRN IV ANXIETY / AGITATION Last administered on 05/17/18at 18:06; Start 05/17/18 at 13:30; Stop 05/19/18 at 08:16 ; Status DC Ondansetron HCl (Zofran) 4 mg PRN Q6HRS PRN IV NAUSEA/VOMITING Last administered on 05/20/18at 16:50; Start 05/17/18 at 18:00 Lactobacillus Rhamnosus (Culturelle) 1 cap BID PO Last administered on at 21:22; Start 05/18/18 at 21:00 Mineral Oil (Fleet Mineral Oil) 133 ml 1X ONCE WA Last administered on at 11:08; Start 05/18/18 at 11:30; Stop 05/18/18 at 11:31; Status DC Potassium Chloride (Klor-Con) 40 meq 1X ONCE PO Last administered on at 13:43; Start 05/18/18 at 14:00; Stop 05/18/18 at 14:01; Status DC Zolpidem Tartrate (Ambien) 10 mg PRN QHS PRN PO INSOMNIA Last administered on 05/18/18at 21:16; Start 05/18/18 at 18:15; Stop 05/19/18 at 08:16; Status DC Insulin Glargine (Lantus) 20 units QHS SQ Last administered on 05/20/18at 21:27 ; Start 05/19/18 at 21:00 Amlodipine Besylate (Norvasc) 10 mg DAILY PO ; Start 05/19/18 at 09:00 Iohexol (Omnipaque 300 Mg/ml) 300 ml 1X ONCE PO Last administered on at 10:30; Start 05/19/18 at 10:30; Stop 05/19/18 at 10:31; Status DC Promethazine HCl (Phenergan) 12.5 mg PRN Q6HRS PRN PO NAUSEA/VOMITING Last administered on 05/20/18at 04:54; Start 05/19/18 at 17:15 Metoprolol Succinate (Toprol Xl) 50 mg DAILY PO ; Start 05/20/18 at 09:00 Amino Acids/ Glycerin/ Electrolytes 1,000 ml @ 80 mls/hr [id number] IV Last administered on 05/21/18at 02:29; Start 05/20/18 at 09:15 Active Scripts Active Lantus Solostar (Insulin Glargine,Hum.rec.anlog) 100 Unit/1 Ml Insuln.pen 35 Unit SQ QHS 30 Days Atorvastatin Calcium 40 Mg Tablet 40 Mg PO QHS 30 Days Reported Humalog (Insulin Lispro) 100 Unit/1 Ml Vial 10-20 Units SQ TIDAC Klor-Con M20 (Potassium Chloride) 20 Meq Tab.er.prt 1 Tab PO DAILY Ibuprofen 600 Mg Tablet 1 Tab PO PRN Q8HRS PRN Lisinopril-Hctz 20-25 Mg Tab (Lisinopril/Hydrochlorothiazide) 1 Each Tablet 1 Tab PO DAILY Garlic 1,000 Mg Capsule 1,000 Mg PO DAILY B Complex With Vitamin C (Vitamin B Complex & Vit C No.3) 1 Each Capsule 1 Each PO DAILY Toprol Xl (Metoprolol Succinate) 25 Mg Tab.er.24h 50 Mg PO DAILY Norvasc (Amlodipine Besylate) 10 Mg Tablet 10 Mg PO DAILY Ranitidine Hcl 150 Mg Tablet 150 Mg PO BID Centrum Silver Tablet (Multivits-Min/Fa/Lycopene/Lut) 1 Each Tablet 1 Each PO DAILY Vitals/I & O Vital Sign - Last 24 Hours 05/20/18 05/20/18 05/20/18 05/20/18 09:00 11:00 15:58 19:00 Temp 98.7 98.8 99.0 98.7 98.8 99.0 Pulse 115 99 97 96 Resp 20 20 20 B/P (MAP) 154/85 129/83 (98) 120/75 (90) 144/80 (101) Pulse Ox 98 98 96 O2 Delivery Room Air Room Air Room Air 05/20/18 05/20/18 05/21/18 19:50 23:00 03:00 Temp 98.9 98.8 98.9 98.8 Pulse 100 87 Resp 20 20 B/P (MAP) 129/74 (92) 144/73 (96) Pulse Ox 95 96 O2 Delivery Room Air Room Air Room Air Intake and Output 05/20/18 05/20/18 05/21/18 15:00 23:00 07:00 Intake Total 50 ml 1450 ml Balance 50 ml 1450 ml ROSEMARY LENZ MD May 21, 2018 08:37
[2018-05-21] MEDS: LACTOBACILLUS RHAMNOSUS GG 1 CAPSULE. PO SCH ×2 (09:32→21:26)
[2018-05-21] MEDS: amLODIPine BESYLATE 10 MG TABLET PO SCH (09:33)
[2018-05-21] MEDS: METOPROLOL SUCC 24HR ER 50 MG TAB.ER.24H. PO SCH (09:33)
[2018-05-21] MEDS: INSULIN LISPRO 300 UNITS/3 ML INSULN.PEN. SQ SCH ×3 (09:52→17:18)
[2018-05-21 11:00] VITALS: BP 130/80
--- NOTE | 2018-05-21 12:02 | PDOC ---
SURGICAL PROGRESS NOTE Subjective tolerating clear liquids Vital Signs Vital Signs Date Time Temp Pulse Resp B/P (MAP) Pulse Ox O2 Delivery O2 Flow Rate FiO2 05/21/18 09:33 93 148/87 05/21/18 07:00 99.2 20 98 Room Air 99.2 I&O Intake and Output 05/21/18 07:00 Intake Total 1500 ml Balance 1500 ml Intake Oral 300 ml IV Total 1200 ml # Voids 5 # Bowel Movements 2 PATIENT HAS A VALERIO: No Labs Laboratory Tests Test 05/19/18 16:28 05/19/18 20:37 05/20/18 02:45 05/20/18 08:46 Glucose (Fingerstick) 335 mg/dL (70-99) 255 mg/dL (70-99) 276 mg/dL (70-99) Stool Occult Blood Negative (NEG) Test 05/20/18 11:31 05/20/18 16:29 05/20/18 20:55 05/21/18 08:44 Glucose (Fingerstick) 286 mg/dL (70-99) 229 mg/dL (70-99) 197 mg/dL (70-99) 241 mg/dL (70-99) Test 05/21/18 11:52 Glucose (Fingerstick) 205 mg/dL (70-99) Laboratory Tests Test 05/20/18 16:29 05/20/18 20:55 05/21/18 08:44 05/21/18 11:52 Glucose (Fingerstick) 229 mg/dL (70-99) 197 mg/dL (70-99) 241 mg/dL (70-99) 205 mg/dL (70-99) Problem List Problems Medical Problems: (1) Enteritis Status: Acute (2) Small bowel obstruction Status: Acute (3) UTI (urinary tract infection) Status: Acute Assessment/Plan ileus/pSBO, slowly improving gradually increase diet ambulate no surg res at present PEARL MARIEE MD May 21, 2018 12:02
--- NOTE | 2018-05-21 12:26 | PDOC ---
Subjective: Subjective: On the phone, says she feels fine. Objective: Objective: Reviewed w/ RN - stools overnight, tolerating clears. Vital Signs: Vital Signs Date Time Temp Pulse Resp B/P (MAP) Pulse Ox O2 Delivery O2 Flow Rate FiO2 05/21/18 11:00 98.8 85 20 130/80 (97) 97 Room Air 98.8 Labs: Laboratory Tests Test 05/20/18 16:29 05/20/18 20:55 05/21/18 08:44 05/21/18 11:52 Glucose (Fingerstick) 229 mg/dL 197 mg/dL 241 mg/dL 205 mg/dL PE: GEN: NAD LUNGS: CTAB HEART: RRR ABD: quiet, non-tender NEURO/PSYCH: not a good historian A/P: Partial SBO/ileus -- Now on clears, follow surgical recs. KRISHNA ISAAC May 21, 2018 12:26
[2018-05-21 15:00] VITALS: BP 135/79
[2018-05-21 19:00] VITALS: BP 132/72
[2018-05-21] MEDS: LORazepam 0.5 MG TABLET PO PRN (21:26)
[2018-05-21] MEDS: INSULIN GLARGINE 300 UNITS/3 ML INSULN.PEN. SQ SCH (21:28)
[2018-05-21] MEDS: ONDANSETRON PF 4 MG/2 ML VIAL. IV PRN (21:41)
[2018-05-21 22:40] VITALS: BP 129/77
[2018-05-22] MEDS: CIPROFLOXACIN 400MG PREMIX 200 ML IV SCH ×2 (02:46→17:42)
[2018-05-22 03:00] VITALS: BP 136/81
[2018-05-22] MEDS: AMINO AC 3%/ELECTROLYTE/GLYCER 1,000 ML IV SCH (06:37)
[2018-05-22 07:00] VITALS: BP 126/61
[2018-05-22] MEDS: LACTOBACILLUS RHAMNOSUS GG 1 CAPSULE. PO SCH ×2 (08:32→21:31)
[2018-05-22] MEDS: METOPROLOL SUCC 24HR ER 50 MG TAB.ER.24H. PO SCH (08:33)
[2018-05-22] MEDS: amLODIPine BESYLATE 10 MG TABLET PO SCH (08:33)
[2018-05-22] MEDS: INSULIN LISPRO 300 UNITS/3 ML INSULN.PEN. SQ SCH ×3 (08:48→17:48)
--- NOTE | 2018-05-22 09:42 | PDOC ---
PROGRESS NOTES Subjective Subjective Patient without complaint, wants to eat regular food. Objective Objective Vital Signs Date Time Temp Pulse Resp B/P (MAP) Pulse Ox O2 Delivery O2 Flow Rate FiO2 05/22/18 08:33 83 126/61 05/22/18 07:00 98.9 16 98 Room Air 98.9 Intake and Output 05/22/18 07:00 Intake Total 1200 ml Output Total 50 ml Balance 1150 ml Intake Oral 900 ml IV Total 300 ml Stool Total 50 ml # Voids 6 # Bowel Movements 1 Physical Exam Abdomen: Normal bowel sounds, Soft, No tenderness Heart: Regular rate Extremities: No edema General: Alert, No acute distress Lungs: Clear to auscultation Assessment Assessment Problems Medical Problems: (1) Enteritis Status: Acute (2) Small bowel obstruction Status: Acute (3) UTI (urinary tract infection) Status: Acute Plan Plan of Care 1. Partial SBO with enteritis - improving, tolerating full liquids. Continue IV abx. Will d/c PPN. 2. UTI - continue Cipro. 3. DM2 - glucose elevated, continue insulins, Anticipate improvement off PPN. 4. HTN - well controlled, continue home meds. 5. metabolic encephalopathy - improving although patient did have episode of confusion and agitation last night. Continue supportive care. 6. debility - continue therapies, hope to discharge to [facility] tomorrow. Comment Review of Relevant I have reviewed the following items moriah (where applicable) has been applied. Labs Laboratory Tests Test 05/20/18 11:31 05/20/18 16:29 05/20/18 20:55 05/21/18 08:44 Glucose (Fingerstick) 286 mg/dL (70-99) 229 mg/dL (70-99) 197 mg/dL (70-99) 241 mg/dL (70-99) Test 05/21/18 11:52 05/21/18 16:51 05/21/18 21:23 05/22/18 07:35 Glucose (Fingerstick) 205 mg/dL (70-99) 232 mg/dL (70-99) 237 mg/dL (70-99) 266 mg/dL (70-99) Laboratory Tests Test 05/21/18 11:52 05/21/18 16:51 05/21/18 21:23 05/22/18 07:35 Glucose (Fingerstick) 205 mg/dL (70-99) 232 mg/dL (70-99) 237 mg/dL (70-99) 266 mg/dL (70-99) Microbiology 05/16/18 Urine Culture - Final, Complete 05/16/18 Urine Culture Result 1 (KATIA) - Final, Complete 05/16/18 Antimicrobic Susceptibility - Final, Complete Medications Current Medications Prochlorperazine Edisylate (Compazine) 10 mg 1X ONCE IV Last administered on 05/16/18at 11:24; Start 05/16/18 at 11:15; Stop 05/16/18 at 11:16; Status DC Sodium Chloride 1,000 ml @ 1,000 mls/hr 1X ONCE IV Last administered on at 11:15; Start 05/16/18 at 11:15; Stop 05/16/18 at 12:14; Status DC Famotidine (Pepcid Vial) 20 mg 1X ONCE IVP Last administered on 05/16/18at 11: 24; Start 05/16/18 at 11:15; Stop 05/16/18 at 11:16; Status DC Iohexol (Omnipaque 300 Mg/ml) 75 ml 1X ONCE IV Last administered on 05/16/18at 11:41; Start 05/16/18 at 11:30; Stop 05/16/18 at 11:31; Status DC Info (CONTRAST GIVEN -- Rx MONITORING) 1 each PRN DAILY PRN MC SEE COMMENTS; Start 05/16/18 at 11:30; Stop 05/18/18 at 11:29; Status DC Ciprofloxacin/ Dextrose 200 ml @ 200 mls/hr Q12H IV Last administered on at 02:46; Start 05/16/18 at 14:00 Metronidazole 100 ml @ 100 mls/hr Q8HRS IV Last administered on 05/22/18at 06: 33; Start 05/16/18 at 14:00 Ondansetron HCl (Zofran) 4 mg PRN Q8HRS PRN IV NAUSEA/VOMITING; Start 05/16/18 at 14:30; Stop 05/17/18 at 14:29; Status DC Morphine Sulfate (Morphine Sulfate) 4 mg PRN Q2HR PRN IV PAIN; Start 05/16/18 at 14:30; Stop 05/17/18 at 14:29; Status DC Sodium Chloride 1,000 ml @ 100 mls/hr 1X ONCE IV ; Start 05/16/18 at 14:30; Stop 05/17/18 at 00:29; Status DC Sodium Chloride 1,000 ml @ 100 mls/hr Q10H IV Last administered on 05/17/18at 11:00; Start 05/16/18 at 15:00; Stop 05/17/18 at 13:13; Status DC Insulin Human Lispro (HumaLOG) 0-9 UNITS TIDWMEALS SQ Last administered on 05/22at 08:48; Start 05/16/18 at 17:00 Dextrose (Dextrose 50%-Water Syringe) 12.5 gm PRN Q15MIN PRN IV SEE COMMENTS; Start 05/16/18 at 15:00 Lorazepam (Ativan) 0.5 mg PRN Q6HRS PRN PO ANXIETY / AGITATION; Start 05/17/18 at 13:15; Status Cancel Amino Acids/ Glycerin/ Electrolytes 1,000 ml @ 80 mls/hr [id number] IV Last administered on 05/19/18at 17:59; Start 05/17/18 at 13:15; Stop 05/20/18 at 08:49 ; Status DC Lorazepam (Ativan) 0.5 mg PRN Q6HRS PRN IV ANXIETY / AGITATION Last administered on 05/17/18at 18:06; Start 05/17/18 at 13:30; Stop 05/19/18 at 08:16 ; Status DC Ondansetron HCl (Zofran) 4 mg PRN Q6HRS PRN IV NAUSEA/VOMITING Last administered on 05/21/18at 21:41; Start 05/17/18 at 18:00 Lactobacillus Rhamnosus (Culturelle) 1 cap BID PO Last administered on at 08:32; Start 05/18/18 at 21:00 Mineral Oil (Fleet Mineral Oil) 133 ml 1X ONCE CA Last administered on at 11:08; Start 05/18/18 at 11:30; Stop 05/18/18 at 11:31; Status DC Potassium Chloride (Klor-Con) 40 meq 1X ONCE PO Last administered on at 13:43; Start 05/18/18 at 14:00; Stop 05/18/18 at 14:01; Status DC Zolpidem Tartrate (Ambien) 10 mg PRN QHS PRN PO INSOMNIA Last administered on 05/18/18 21:16; Start 05/18/18 at 18:15; Stop 05/19/18 at 08:16; Status DC Insulin Glargine (Lantus) 20 units QHS SQ Last administered on 05/20/18at 21:27 ; Start 05/19/18 at 21:00; Stop 05/21/18 at 08:39; Status DC Amlodipine Besylate (Norvasc) 10 mg DAILY PO Last administered on 05/22/18 08: 33; Start 05/19/18 at 09:00 Iohexol (Omnipaque 300 Mg/ml) 300 ml 1X ONCE PO Last administered on at 10:30; Start 05/19/18 at 10:30; Stop 05/19/18 at 10:31; Status DC Promethazine HCl (Phenergan) 12.5 mg PRN Q6HRS PRN PO NAUSEA/VOMITING Last administered on 05/20/18at 04:54; Start 05/19/18 at 17:15 Metoprolol Succinate (Toprol Xl) 50 mg DAILY PO Last administered on 05/22/18 08:33; Start 05/20/18 at 09:00 Amino Acids/ Glycerin/ Electrolytes 1,000 ml @ 80 mls/hr [id number] IV Last administered on 05/22/18 06:37; Start 05/20/18 at 09:15 Insulin Glargine (Lantus) 30 units QHS SQ Last administered on 05/21/18at 21:28 ; Start 05/21/18 at 21:00 Lorazepam (Ativan) 0.25 mg PRN QHS PRN PO ANXIETY / AGITATION Last administered on 05/21/18 21:26; Start 05/21/18 at 20:15 Active Scripts Active Lantus Solostar (Insulin Glargine,Hum.rec.anlog) 100 Unit/1 Ml Insuln.pen 35 Unit SQ QHS 30 Days Atorvastatin Calcium 40 Mg Tablet 40 Mg PO QHS 30 Days Reported Humalog (Insulin Lispro) 100 Unit/1 Ml Vial 10-20 Units SQ TIDAC Klor-Con M20 (Potassium Chloride) 20 Meq Tab.er.prt 1 Tab PO DAILY Ibuprofen 600 Mg Tablet 1 Tab PO PRN Q8HRS PRN Lisinopril-Hctz 20-25 Mg Tab (Lisinopril/Hydrochlorothiazide) 1 Each Tablet 1 Tab PO DAILY Garlic 1,000 Mg Capsule 1,000 Mg PO DAILY B Complex With Vitamin C (Vitamin B Complex & Vit C No.3) 1 Each Capsule 1 Each PO DAILY Toprol Xl (Metoprolol Succinate) 25 Mg Tab.er.24h 50 Mg PO DAILY Norvasc (Amlodipine Besylate) 10 Mg Tablet 10 Mg PO DAILY Ranitidine Hcl 150 Mg Tablet 150 Mg PO BID Centrum Silver Tablet (Multivits-Min/Fa/Lycopene/Lut) 1 Each Tablet 1 Each PO DAILY Vitals/I & O Vital Sign - Last 24 Hours 05/21/18 05/21/18 05/21/18 05/21/18 11:00 15:00 19:00 22:40 Temp 98.8 98.8 98.5 98.3 98.8 98.8 98.5 98.3 Pulse 85 85 91 99 Resp 20 20 19 18 B/P (MAP) 130/80 (97) 135/79 (97) 132/72 (92) 129/77 (94) Pulse Ox 97 97 95 97 O2 Delivery Room Air Room Air Room Air 05/22/18 05/22/18 05/22/18 05/22/18 03:00 07:00 08:33 08:33 Temp 98.5 98.9 98.5 98.9 Pulse 87 83 83 83 Resp 18 16 B/P (MAP) 136/81 (99) 126/61 (82) 126/61 126/61 Pulse Ox 96 98 O2 Delivery Room Air Room Air Intake and Output 05/21/18 05/21/18 05/22/18 15:00 23:00 07:00 Intake Total 600 ml 400 ml 200 ml Output Total 50 ml Balance 550 ml 400 ml 200 ml ROSEMARY LENZ MD May 22, 2018 09:42
--- NOTE | 2018-05-22 09:44 | PDOC ---
ERI PAGE APRN 05/22/18 0944: SURGICAL PROGRESS NOTE Subjective thinks the liquids are upsetting her stomach likes the ensure does not think shes getting enough to eat + flatus Vital Signs Vital Signs Date Time Temp Pulse Resp B/P (MAP) Pulse Ox O2 Delivery O2 Flow Rate FiO2 05/22/18 08:33 83 126/61 05/22/18 07:00 98.9 16 98 Room Air 98.9 I&O Intake and Output 05/22/18 07:00 Intake Total 1200 ml Output Total 50 ml Balance 1150 ml Intake Oral 900 ml IV Total 300 ml Stool Total 50 ml # Voids 6 # Bowel Movements 1 General: Alert, Cooperative, No acute distress Abdomen: Soft, Other (ttp mid abd, mild) Labs Laboratory Tests Test 05/20/18 11:31 05/20/18 16:29 05/20/18 20:55 05/21/18 08:44 Glucose (Fingerstick) 286 mg/dL (70-99) 229 mg/dL (70-99) 197 mg/dL (70-99) 241 mg/dL (70-99) Test 05/21/18 11:52 05/21/18 16:51 05/21/18 21:23 05/22/18 07:35 Glucose (Fingerstick) 205 mg/dL (70-99) 232 mg/dL (70-99) 237 mg/dL (70-99) 266 mg/dL (70-99) Laboratory Tests Test 05/21/18 11:52 05/21/18 16:51 05/21/18 21:23 05/22/18 07:35 Glucose (Fingerstick) 205 mg/dL (70-99) 232 mg/dL (70-99) 237 mg/dL (70-99) 266 mg/dL (70-99) Problem List Problems Medical Problems: (1) Enteritis Status: Acute (2) Small bowel obstruction Status: Acute (3) UTI (urinary tract infection) Status: Acute Assessment/Plan observe, some bowel function, work toward advancing diet if tolerating PEARL MARIEE MD 05/22/18 1131: SURGICAL PROGRESS NOTE Assessment/Plan agree with above advance diet SLOWLY Dr Cintron available over the weekend if needed ERI PAGE APRN May 22, 2018 09:44 PEARL MARIEE MD May 22, 2018 11:31
--- NOTE | 2018-05-22 09:45 | PDOC ---
Subjective: Subjective: Overnight events noted. She's drinking Ensure, doesn't want to eat anything else on full liquid tray, denies abd pain. Still upset about beeping machine, tells me a story about throwing malt-o-meal when she was a child and her mother fixed it for the family , wants me to know she's a Y[employer] and a nice person but the devil it out today and "I know you're all sick of me." Objective: Objective: 1 stool charted today. Vital Signs: Vital Signs Date Time Temp Pulse Resp B/P (MAP) Pulse Ox O2 Delivery O2 Flow Rate FiO2 05/22/18 08:33 83 126/61 05/22/18 07:00 98.9 16 98 Room Air 98.9 Labs: Laboratory Tests Test 05/21/18 11:52 05/21/18 16:51 05/21/18 21:23 05/22/18 07:35 Glucose (Fingerstick) 205 mg/dL 232 mg/dL 237 mg/dL 266 mg/dL PE: GEN: NAD LUNGS: CTAB HEART: RRR ABD: less distended? soft, non-tender, a few bowel sounds NEURO/PSYCH: anxious/agitated, probably a bit confused A/P: Partial SBO/ileus -- Seems resolving - trying full liquids this morning. KRISHNA ISAAC May 22, 2018 09:45
[2018-05-22 11:00] VITALS: BP 129/60
[2018-05-22] MEDS: ONDANSETRON PF 4 MG/2 ML VIAL. IV PRN (12:10)
[2018-05-22 15:00] VITALS: BP 141/65
[2018-05-22 19:00] VITALS: BP 115/71
[2018-05-22] MEDS: INSULIN GLARGINE 300 UNITS/3 ML INSULN.PEN. SQ SCH (21:43)
[2018-05-23] MEDS: CIPROFLOXACIN 400MG PREMIX 200 ML IV SCH (02:11)
[2018-05-23] MEDS: LORazepam 0.5 MG TABLET PO PRN (04:02)
[2018-05-23 07:00] VITALS: BP 165/59
[2018-05-23] MEDS: METOPROLOL SUCC 24HR ER 50 MG TAB.ER.24H. PO SCH (08:14)
[2018-05-23] MEDS: amLODIPine BESYLATE 10 MG TABLET PO SCH (08:14)
[2018-05-23] MEDS: PROMETHAZINE 12.5 MG TABLET. PO PRN (08:14)
--- NOTE | 2018-05-23 08:19 | PDOC ---
PROGRESS NOTES Subjective Subjective Patient without complaint, eating regular breakfast, agreeable to jail transfer today. Objective Objective Vital Signs Date Time Temp Pulse Resp B/P (MAP) Pulse Ox O2 Delivery O2 Flow Rate FiO2 05/23/18 03:00 Room Air 05/22/18 19:00 98.4 84 18 115/71 (86) 98 98.4 Intake and Output 05/23/18 07:00 Intake Total 780 ml Balance 780 ml Intake Oral 780 ml # Voids 6 # Bowel Movements 3 Physical Exam Abdomen: Normal bowel sounds, Soft, No tenderness Heart: Regular rate Extremities: No edema General: Alert, Oriented X3, No acute distress Lungs: Clear to auscultation Assessment Assessment Problems Medical Problems: (1) Enteritis Status: Acute (2) Small bowel obstruction Status: Acute (3) UTI (urinary tract infection) Status: Acute Plan Plan of Care 1. Partial SBO with enteritis - much improved. Tolerating regular diet. Will d/ c antibiotics. 2. UTI - treated. 3. DM2 - fairly well controlled, resume her usual insulins. 4. HTN - well controlled with home meds. 5. metabolic encephalopathy with mild memory loss - back to baseline. 6. debility - to jail for short stay before returning home. Comment Review of Relevant I have reviewed the following items moriah (where applicable) has been applied. Labs Laboratory Tests Test 05/21/18 08:44 05/21/18 11:52 05/21/18 16:51 05/21/18 21:23 Glucose (Fingerstick) 241 mg/dL (70-99) 205 mg/dL (70-99) 232 mg/dL (70-99) 237 mg/dL (70-99) Test 05/22/18 07:35 05/22/18 11:27 05/22/18 16:30 05/22/18 19:52 Glucose (Fingerstick) 266 mg/dL (70-99) 314 mg/dL (70-99) 237 mg/dL (70-99) 275 mg/dL (70-99) Test 05/23/18 07:27 Glucose (Fingerstick) 228 mg/dL (70-99) Laboratory Tests Test 05/22/18 11:27 05/22/18 16:30 05/22/18 19:52 05/23/18 07:27 Glucose (Fingerstick) 314 mg/dL (70-99) 237 mg/dL (70-99) 275 mg/dL (70-99) 228 mg/dL (70-99) Microbiology 05/19/18 Stool Culture - Final, Resulted 05/19/18 Stool Culture Result 1 (KATIA) - Final, Resulted 05/19/18 Campylobacter Antigen Assay - Preliminary, Resulted 05/19/18 Campylobactor Result 1 - Preliminary, Resulted 05/19/18 Shiga Toxin Test - Final, Resulted 05/16/18 Urine Culture - Final, Complete 05/16/18 Urine Culture Result 1 (KATIA) - Final, Complete 05/16/18 Antimicrobic Susceptibility - Final, Complete Medications Current Medications Prochlorperazine Edisylate (Compazine) 10 mg 1X ONCE IV Last administered on 05/16/18at 11:24; Start 05/16/18 at 11:15; Stop 05/16/18 at 11:16; Status DC Sodium Chloride 1,000 ml @ 1,000 mls/hr 1X ONCE IV Last administered on at 11:15; Start 05/16/18 at 11:15; Stop 05/16/18 at 12:14; Status DC Famotidine (Pepcid Vial) 20 mg 1X ONCE IVP Last administered on 05/16/18at 11: 24; Start 05/16/18 at 11:15; Stop 05/16/18 at 11:16; Status DC Iohexol (Omnipaque 300 Mg/ml) 75 ml 1X ONCE IV Last administered on 05/16/18at 11:41; Start 05/16/18 at 11:30; Stop 05/16/18 at 11:31; Status DC Info (CONTRAST GIVEN -- Rx MONITORING) 1 each PRN DAILY PRN MC SEE COMMENTS; Start 05/16/18 at 11:30; Stop 05/18/18 at 11:29; Status DC Ciprofloxacin/ Dextrose 200 ml @ 200 mls/hr Q12H IV Last administered on at 02:11; Start 05/16/18 at 14:00 Metronidazole 100 ml @ 100 mls/hr Q8HRS IV Last administered on 05/23/18at 06: 06; Start 05/16/18 at 14:00 Ondansetron HCl (Zofran) 4 mg PRN Q8HRS PRN IV NAUSEA/VOMITING; Start 05/16/18 at 14:30; Stop 05/17/18 at 14:29; Status DC Morphine Sulfate (Morphine Sulfate) 4 mg PRN Q2HR PRN IV PAIN; Start 05/16/18 at 14:30; Stop 05/17/18 at 14:29; Status DC Sodium Chloride 1,000 ml @ 100 mls/hr 1X ONCE IV ; Start 05/16/18 at 14:30; Stop 05/17/18 at 00:29; Status DC Sodium Chloride 1,000 ml @ 100 mls/hr Q10H IV Last administered on 05/17/18at 11:00; Start 05/16/18 at 15:00; Stop 05/17/18 at 13:13; Status DC Insulin Human Lispro (HumaLOG) 0-9 UNITS TIDWMEALS SQ Last administered on 05/22at 17:48; Start 05/16/18 at 17:00 Dextrose (Dextrose 50%-Water Syringe) 12.5 gm PRN Q15MIN PRN IV SEE COMMENTS; Start 05/16/18 at 15:00 Lorazepam (Ativan) 0.5 mg PRN Q6HRS PRN PO ANXIETY / AGITATION; Start 05/17/18 at 13:15; Status Cancel Amino Acids/ Glycerin/ Electrolytes 1,000 ml @ 80 mls/hr [id number] IV Last administered on 05/19/18at 17:59; Start 05/17/18 at 13:15; Stop 05/20/18 at 08:49 ; Status DC Lorazepam (Ativan) 0.5 mg PRN Q6HRS PRN IV ANXIETY / AGITATION Last administered on 05/17/18at 18:06; Start 05/17/18 at 13:30; Stop 05/19/18 at 08:16 ; Status DC Ondansetron HCl (Zofran) 4 mg PRN Q6HRS PRN IV NAUSEA/VOMITING Last administered on 05/22/18at 12:10; Start 05/17/18 at 18:00 Lactobacillus Rhamnosus (Culturelle) 1 cap BID PO Last administered on at 21:31; Start 05/18/18 at 21:00 Mineral Oil (Fleet Mineral Oil) 133 ml 1X ONCE MS Last administered on at 11:08; Start 05/18/18 at 11:30; Stop 05/18/18 at 11:31; Status DC Potassium Chloride (Klor-Con) 40 meq 1X ONCE PO Last administered on 13:43; Start 05/18/18 at 14:00; Stop 05/18/18 at 14:01; Status DC Zolpidem Tartrate (Ambien) 10 mg PRN QHS PRN PO INSOMNIA Last administered on 05/18/18 21:16; Start 05/18/18 at 18:15; Stop 05/19/18 at 08:16; Status DC Insulin Glargine (Lantus) 20 units QHS SQ Last administered on 05/20/18 21:27 ; Start 05/19/18 at 21:00; Stop 05/21/18 at 08:39; Status DC Amlodipine Besylate (Norvasc) 10 mg DAILY PO Last administered on 05/22/18 08: 33; Start 05/19/18 at 09:00 Iohexol (Omnipaque 300 Mg/ml) 300 ml 1X ONCE PO Last administered on at 10:30; Start 05/19/18 at 10:30; Stop 05/19/18 at 10:31; Status DC Promethazine HCl (Phenergan) 12.5 mg PRN Q6HRS PRN PO NAUSEA/VOMITING Last administered on 05/20/18 04:54; Start 05/19/18 at 17:15 Metoprolol Succinate (Toprol Xl) 50 mg DAILY PO Last administered on 05/22/18 08:33; Start 05/20/18 at 09:00 Amino Acids/ Glycerin/ Electrolytes 1,000 ml @ 80 mls/hr [id number] IV Last administered on 05/22/18 06:37; Start 05/20/18 at 09:15; Stop 05/22/18 at 09:36 ; Status DC Insulin Glargine (Lantus) 30 units QHS SQ Last administered on 05/22/18 21:43 ; Start 05/21/18 at 21:00 Lorazepam (Ativan) 0.25 mg PRN QHS PRN PO ANXIETY / AGITATION Last administered on 05/23/18 04:02; Start 05/21/18 at 20:15 Active Scripts Active Lantus Solostar (Insulin Glargine,Hum.rec.anlog) 100 Unit/1 Ml Insuln.pen 35 Unit SQ QHS 30 Days Atorvastatin Calcium 40 Mg Tablet 40 Mg PO QHS 30 Days Reported Humalog (Insulin Lispro) 100 Unit/1 Ml Vial 10-20 Units SQ TIDAC Klor-Con M20 (Potassium Chloride) 20 Meq Tab.er.prt 1 Tab PO DAILY Ibuprofen 600 Mg Tablet 1 Tab PO PRN Q8HRS PRN Lisinopril-Hctz 20-25 Mg Tab (Lisinopril/Hydrochlorothiazide) 1 Each Tablet 1 Tab PO DAILY Garlic 1,000 Mg Capsule 1,000 Mg PO DAILY B Complex With Vitamin C (Vitamin B Complex & Vit C No.3) 1 Each Capsule 1 Each PO DAILY Toprol Xl (Metoprolol Succinate) 25 Mg Tab.er.24h 50 Mg PO DAILY Norvasc (Amlodipine Besylate) 10 Mg Tablet 10 Mg PO DAILY Ranitidine Hcl 150 Mg Tablet 150 Mg PO BID Centrum Silver Tablet (Multivits-Min/Fa/Lycopene/Lut) 1 Each Tablet 1 Each PO DAILY Vitals/I & O Vital Sign - Last 24 Hours 05/22/18 05/22/18 05/22/18 05/22/18 08:33 08:33 11:00 15:00 Temp 99.2 99.2 99.2 99.2 Pulse 83 83 83 86 Resp 12 16 B/P (MAP) 126/61 126/61 129/60 (83) 141/65 (90) Pulse Ox 97 97 O2 Delivery Room Air Room Air 05/22/18 05/22/18 05/22/18 05/23/18 19:00 20:00 23:00 03:00 Temp 98.4 98.4 Pulse 84 Resp 18 B/P (MAP) 115/71 (86) Pulse Ox 98 O2 Delivery Room Air Room Air Room Air Room Air Intake and Output 05/22/18 05/22/18 05/23/18 15:00 23:00 07:00 Intake Total 540 ml 240 ml Balance 540 ml 240 ml ROSEMARY LENZ MD May 23, 2018 08:19
--- NOTE | 2018-05-23 08:21 | DISCH ---
DISCHARGE DISCHARGE INFORMATION: FINAL DIAGNOSIS Problems Medical Problems: (1) Enteritis Status: Acute (2) Small bowel obstruction Status: Acute (3) UTI (urinary tract infection) Status: Acute CONDITION ON DISCHARGE: Stable CODE STATUS: Code Status: Full SENIOR LIVING: SNF STAY <30 DAYS: Yes HOSPICE: HOSPICE: No HOSPICE EVAL & TREAT: No LTAC: ADMIT TO LTAC: No POST DISCHARGE ORDERS: ACTIVITY ORDERS: Resume previous activity, Activity as tolerated WEIGHT BEARING STATUS: No restrictions BATHING ORDERS: Shower-keep dressing dry DIET AFTER DISCHARGE: ADA WOUND/INCISION CARE: Keep wound/cast CDI CHECKS AFTER DISCHARGE: CHECKS AFTER DISCHARGE: Check blood sugar, ac/hs, Weigh Yourself Daily TREATMENT/EQUIPMENT ORDERS: ADAPTIVE EQUIPMENT NEEDED: None Physical Therapy For: Evalulation/Treatment Occupational Therapy For: Evaluation/Treatment DISCHARGE MEDICATIONS: Home Meds Active Scripts Insulin Glargine,Hum.rec.anlog (LANTUS SOLOSTAR) 100 Unit/1 Ml Insuln.pen, 35 UNIT SQ QHS for 30 Days, #15 ML 3 Refills Prov:ROSEMARY LENZ MD 01/22/18 Atorvastatin Calcium (ATORVASTATIN CALCIUM) 40 Mg Tablet, 40 MG PO QHS for 30 Days, TAB Prov:ROSEMARY LENZ MD 07/17/16 Reported Medications Insulin Lispro (HUMALOG) 100 Unit/1 Ml Vial, 10-20 UNITS SQ TIDAC 01/21/18 Potassium Chloride (KLOR-CON M20) 20 Meq Tab.er.prt, 1 TAB PO DAILY 01/21/18 Ibuprofen (Ibuprofen) 600 Mg Tablet, 1 TAB PO PRN Q8HRS PRN for PAIN 01/21/18 Lisinopril/Hydrochlorothiazide (LISINOPRIL-HCTZ 20-25 MG TAB) 1 Each Tablet, 1 TAB PO DAILY 01/21/18 Garlic (GARLIC) 1,000 Mg Capsule, 1000 MG PO DAILY, CAP 02/11/17 Vitamin B Complex & Vit C No.3 (B COMPLEX WITH VITAMIN C) 1 Each Capsule, 1 EACH PO DAILY, CAP 12/11/16 Metoprolol Succinate (TOPROL XL) 25 Mg Tab.er.24h, 50 MG PO DAILY for FOR HYPERTENSION, #30 TAB 0 Refills 06/02/15 Amlodipine Besylate (NORVASC) 10 Mg Tablet, 10 MG PO DAILY 09/03/13 Ranitidine Hcl (RANITIDINE HCL) 150 Mg Tablet, 150 MG PO BID 09/03/13 Multivits-Min/Fa/Lycopene/Lut (CENTRUM SILVER TABLET) 1 Each Tablet, 1 EACH PO DAILY 09/03/13 ROSEMARY LENZ MD May 23, 2018 08:21
[2018-05-23] MEDS: INSULIN LISPRO 300 UNITS/3 ML INSULN.PEN. SQ SCH ×2 (08:29→12:02)
[2018-05-23] MEDS: LACTOBACILLUS RHAMNOSUS GG 1 CAPSULE. PO SCH (08:31)
--- NOTE | 2018-05-23 09:27 | PDOC ---
ERI PAGE Yoly PRECISION FILER HAND 05/23/18 0927: SURGICAL PROGRESS NOTE Subjective tolerating regular diet now having stools no emesis Vital Signs Vital Signs Date Time Temp Pulse Resp B/P (MAP) Pulse Ox O2 Delivery O2 Flow Rate FiO2 05/23/18 08:14 84 115/71 05/23/18 07:00 98.3 16 99 Room Air 98.3 I&O Intake and Output 05/23/18 07:00 Intake Total 780 ml Balance 780 ml Intake Oral 780 ml # Voids 6 # Bowel Movements 3 General: Alert, Oriented X3, Cooperative, No acute distress Abdomen: Soft, No tenderness Labs Laboratory Tests Test 05/21/18 11:52 05/21/18 16:51 05/21/18 21:23 05/22/18 07:35 Glucose (Fingerstick) 205 mg/dL (70-99) 232 mg/dL (70-99) 237 mg/dL (70-99) 266 mg/dL (70-99) Test 05/22/18 11:27 05/22/18 16:30 05/22/18 19:52 05/23/18 07:27 Glucose (Fingerstick) 314 mg/dL (70-99) 237 mg/dL (70-99) 275 mg/dL (70-99) 228 mg/dL (70-99) Laboratory Tests Test 05/22/18 11:27 05/22/18 16:30 05/22/18 19:52 05/23/18 07:27 Glucose (Fingerstick) 314 mg/dL (70-99) 237 mg/dL (70-99) 275 mg/dL (70-99) 228 mg/dL (70-99) Problem List Problems Medical Problems: (1) Enteritis Status: Acute (2) Small bowel obstruction Status: Acute (3) UTI (urinary tract infection) Status: Acute Assessment/Plan no surgical plans can dc per PCP SANTIAGO ALEMAN MD 05/23/18 1237: SURGICAL PROGRESS NOTE Assessment/Plan Agree KAYLEEERI Frederick [employer] HAND May 23, 2018 09:27 SANTIAGO ALEMAN MD May 23, 2018 12:37
--- NOTE | 2018-05-23 09:58 | PDOC ---
Subjective: Subjective: Tolerating diet, denies abd pain, stooling w/o issue. Objective: Vital Signs: Vital Signs Date Time Temp Pulse Resp B/P (MAP) Pulse Ox O2 Delivery O2 Flow Rate FiO2 05/23/18 08:14 84 115/71 05/23/18 07:00 98.3 16 99 Room Air 98.3 Labs: Laboratory Tests Test 05/22/18 11:27 05/22/18 16:30 05/22/18 19:52 05/23/18 07:27 Glucose (Fingerstick) 314 mg/dL (70-99) 237 mg/dL (70-99) 275 mg/dL (70-99) 228 mg/dL (70-99) PE: GEN: NAD LUNGS: CTAB HEART: RRR ABD: non-tender NEURO/PSYCH: (probably) pleasantly confused A/P: Partial SBO/ileus -- Improved, tolerating diet. DC per primary. KRISHNA ISAAC May 23, 2018 09:58
[2018-05-23 11:00] VITALS: BP 141/119
[2018-05-23] MEDS ORDERED: CALCIUM CARBONATE 500 MG TAB.CHEW PO PRN (12:15)
--- NOTE | 2018-05-23 16:41 | DS ---
DATE OF DISCHARGE: 05/23/2018 CHIEF COMPLAINT: Nausea, vomiting and diarrhea. HISTORY OF PRESENT ILLNESS: The patient is a 78-year-old female who presented to the Emergency Room with the above complaint. She reported a several day history of worsening symptoms. She had been seen in our office and prescribed some Zofran to take as needed, but this apparently did not help enough and she came to the Emergency Department. Evaluation there included a CAT scan, which showed a partial small-bowel obstruction and enteritis. Treatment was started and she was admitted for further care. HOSPITAL COURSE: The patient was started on IV fluids and IV antibiotics. She was kept n.p.o. She was seen in consultation by Gastroenterology and General Surgery, all of whom recommended conservative care. Her symptoms gradually improved and she was started on a clear liquid diet. Her diet was able to be advanced to full liquid yesterday. She tolerated this well and is now taking a regular diet with no complaint of abdominal pain or nausea. Stool studies were ordered and were within normal limits. The patient had a mild urinary tract infection at admission. Her culture was positive for Klebsiella 25-50,000. This was susceptible to the ciprofloxacin she was already receiving, so this was continued. She has received 6 full days of antibiotics and no further treatment is considered needed at this time. The patient has insulin-dependent diabetes. Her blood sugars were elevated due in part to the PPN that she was on and she received insulin for treatment of this. The patient's blood pressure medicines were initially held as her blood pressure was not elevated at admission. As her condition improved, her blood pressure increased and her home medications were resumed. The patient has some mild underlying memory loss. She had a metabolic encephalopathy for the first several days of her hospital stay with increased confusion and some difficulty cooperating with her care. This has gradually improved and she appears at her baseline mental status at this time. She was seen by physical and occupational therapy and found to have some debility. A short stay [facility] was recommended for her as she does live alone and did not appear at her baseline. The patient and her daughter were in agreement with this and she is to transfer to [facility] for [facility] today. FINAL DIAGNOSES: 1. Partial small-bowel obstruction. 2. Enteritis. 3. Urinary tract infection. 4. Diabetes mellitus type 2, insulin-dependent. 5. Hypertension. 6. Metabolic encephalopathy. 7. Debility. DISCHARGE MEDICATIONS: Amlodipine 10 mg daily, atorvastatin 40 mg daily, ibuprofen p.r.n., Lantus insulin 35 units at bedtime, Humalog insulin 15-20 units t.i.d. a.c., lisinopril/hydrochlorothiazide 20/25 one daily, Toprol-XL 50 mg daily, potassium 20 mEq daily, ranitidine 150 mg b.i.d. FOLLOWUP: With Dr. Castillo after discharge from [facility]. ROSEMARY CASTILLO MD DR: DANIEL/letitia JOB#: [id number] / [id number] REGINE
== END 2018-05-23 13:00 | DRG 871 ==
LOC: ER 10:36 → 5 SOUTH 14:03
PROVIDERS: ADMIT Family Medicine; ATTEND Family Medicine
DX: A41.9 Sepsis, unspecified organism (principal); G93.41 Metabolic encephalopathy; K56.600 Partial intestinal obstruction, unspecified as to cause; N39.0 Urinary tract infection, site not specified; K56.7 Ileus, unspecified; I25.10 Atherosclerotic heart disease of native coronary artery without angina pectoris; I10 Essential (primary) hypertension; E78.00 Pure hypercholesterolemia, unspecified; E11.9 Type 2 diabetes mellitus without complications; G56.01 Carpal tunnel syndrome, right upper limb; K52.9 Noninfective gastroenteritis and colitis, unspecified; E78.5 Hyperlipidemia, unspecified; K44.9 Diaphragmatic hernia without obstruction or gangrene; K21.9 Gastro-esophageal reflux disease without esophagitis; M19.90 Unspecified osteoarthritis, unspecified site; F41.9 Anxiety disorder, unspecified; R45.86 Emotional lability; E66.9 Obesity, unspecified; E87.6 Hypokalemia; R53.81 Other malaise; Z95.1 Presence of aortocoronary bypass graft; Z90.721 Acquired absence of ovaries, unilateral; Z88.0 Allergy status to penicillin; Z88.2 Allergy status to sulfonamides; Z85.3 Personal history of malignant neoplasm of breast; Z90.710 Acquired absence of both cervix and uterus; Z90.11 Acquired absence of right breast and nipple; Z80.41 Family history of malignant neoplasm of ovary; Z80.1 Family history of malignant neoplasm of trachea, bronchus and lung; Z79.4 Long term (current) use of insulin; Z82.49 Family history of ischemic heart disease and other diseases of the circulatory system; Z90.49 Acquired absence of other specified parts of digestive tract; Z88.8 Allergy status to other drugs, medicaments and biological substances
CPT/HCPCS: 36415; 74018; 74021; 74177; 74250; 80048; 80053; 81001; 82274; 82962; 83690; 85007; 85025; 86140; 87045; 87086; 87186; 96374; 96375; J0744; J0780; J1815; J2060; J2405; J3490; J7030; Q0169; Q9967; 97530; 97535; 99285-25

== ENCOUNTER → 2018-07-04 | Outpatient (CLI) | payer MEDICARE ==
[~2018-07-04] MED LIST changes: +ALBU2.5V8 IH; -PROAIR HFA8.5 GM IH
[2018-07-04 10:11] LABS: BASO # 0.1 x10^3/uL (0.0-0.2); BASO % 1 % (0-3); EOS # 0.3 x10^3/uL (0.0-0.7); EOS % 3 % (0-3); HEMATOCRIT 44.2 % (36.0-47.0); HEMOGLOBIN 15.1 g/dL (12.0-15.5); LYMPH # 2.1 x10^3/uL (1.0-4.8); LYMPH % 20 % (24-48); MEAN CORPUSCULAR HEMOGLOBIN 30 pg (25-35); MEAN CORPUSCULAR HGB CONC 34 g/dL (31-37); MEAN CORPUSCULAR VOLUME 88 fL (79-100); MONO # 0.6 x10^3/uL (0.0-1.1); MONO % 5 % (0-9); NEUT # 7.4 x10^3uL (1.8-7.7); NEUT % 71 % (31-73); PLATELET COUNT 249 x10^3/uL (140-400); RED CELL DISTRIBUTION WIDTH 13.9 % (11.5-14.5); WHITE BLOOD COUNT 10.5 x10^3/uL (4.0-11.0)
[2018-07-04 10:31] LABS: CALCIUM 10.6 mg/dL (8.5-10.1); CREATININE 0.8 mg/dL (0.6-1.0); GFR 84.4; POTASSIUM 4.4 mmol/L (3.5-5.1)
[2018-07-04 10:38] LABS: ALBUMIN 4.2 g/dL (3.4-5.0); TOTAL BILIRUBIN 0.5 mg/dL (0.2-1.0); TOTAL PROTEIN 8.3 g/dL (6.4-8.2)
[2018-07-04 19:16] LABS: HEMOGLOBIN A1C 7.9 % (4.8-5.6)
== END | disposition home or self-care (01) ==
LOC: SPEC 09:41
PROVIDERS: ATTEND Family Medicine
DX: I25.10 Atherosclerotic heart disease of native coronary artery without angina pectoris (principal); E11.9 Type 2 diabetes mellitus without complications; I11.0 Hypertensive heart disease with heart failure; I50.9 Heart failure, unspecified
CPT/HCPCS: 36415; 80053; 80061; 83036; 85025

== ENCOUNTER 2018-10-25 12:14 | Inpatient (IN) | payer MEDICARE ==
[~2018-10-25] VITALS: Ht 160 cm; Wt 63.6 kg
--- NOTE | 2018-10-25 12:25 | PHYS DOC ---
Past Medical History Past Medical History: CAD, Cancer, Diabetes-Type II, High Cholesterol, Hypertension, Other Additional Past Medical Histor: breast cancer Past Surgical History: Cholecystectomy, Coronary Bypass Surgery, Hysterectomy, Oophorectomy, Other Additional Past Surgical Histo: hemorrhoidectomy, right mastectomy,CARPAL TUNNEL RIGHT Alcohol Use: Rarely Drug Use: None Adult General Chief Complaint Chief Complaint: CONSTIPATION HPI HPI 68-year-old female presents to ER via EMS from a local snf. Per patient she was having issues with possible constipation and was in the bathroom when she had possible vasovagal episode and passed out. Per EMS this was unwitnessed. Patient states she woke up and was on the bathroom floor. She is denying any head, neck, or back pain. On arrival patient states she is feeling herself and feels "off". She is denying any head pain, dizziness, or tendinitis. She is answering questions appropriately. Only complaint patient is currently having is of rectal pressure and feels she needs to have bowel movement. Review of Systems Review of Systems Constitutional: Denies fever or chills [] Eyes: Denies change in visual acuity, redness, or eye pain [] HENT: Denies nasal congestion or sore throat [] Respiratory: Denies cough or shortness of breath [] Cardiovascular: Denies CP/palpitations GI: Denies abdominal pain, nausea, vomiting, bloody stools or diarrhea [] : Denies dysuria or hematuria. Reports rectal pressure feeling she needs to have BM Musculoskeletal: Denies back/neck pain or joint pain [] Integument: Denies rash or skin lesions [] Neurologic: Denies headache, focal weakness or sensory changes [] Endocrine: Denies polyuria or polydipsia [] All other systems were reviewed and found to be within normal limits, except as documented in this note. Current Medications Current Medications Current Medications Medications (Trade) Dose Ordered Sig/Shakeel Start Time Stop Time Status Last Admin Dose Admin Sodium Chloride 500 ml @ 500 mls/hr 1X ONCE 10/25/18 12:30 10/25/18 13:29 DC 10/25/18 13:13 500 MLS/HR Allergies Allergies Allergies Coded Allergies Type Severity Reaction Last Updated Verified Penicillins Allergy Intermediate hives 07/10/17 Yes Sulfa (Sulfonamide Antibiotics) Allergy Intermediate 07/10/17 Yes chocolate flavor Allergy Intermediate 07/10/17 Yes rosuvastatin Allergy Intermediate 05/17/18 Yes celecoxib Adverse Reaction Intermediate "makes me crazy" 07/10/17 Yes Physical Exam Physical Exam Constitutional: Well developed, well nourished, no acute distress, non-toxic appearance. [] HENT: Normocephalic, atraumatic, bilateral ears normal, mucous membranes pink/ dry, no oral exudates, nose normal. [] Eyes: PERRLA, no nystagmus, conjunctiva normal, no discharge. [] Neck: Normal range of motion, no tenderness mid line cspine- no palp. deformity , supple, no stridor. Trachea midline Cardiovascular: Heart rate regular rhythm, no murmur [] Lungs & Thorax: Bilateral breath sounds clear to auscultation. Resp. equal/ nonlabored Abdomen: Bowel sounds normal, soft, no tenderness- no distention or rigidity Skin: Warm, dry, no erythema, no rash. [] Back: No tenderness on midline spine- no palp. deformity, no visible injury, no CVA tenderness. [] Extremities: Pelvis stable/nontender. No tenderness, no cyanosis, no clubbing, ROM intact, no edema. [] Neurologic: Alert and oriented X 3, normal motor function, normal sensory function, no focal deficits noted. [] Psychologic: Affect normal, judgement normal, mood normal. [] Current Patient Data Vital Signs Vital Signs Date Time Temp Pulse Resp B/P (MAP) Pulse Ox O2 Delivery O2 Flow Rate FiO2 10/25/18 14:25 78 16 132/58 (82) 98 Room Air 10/25/18 12:22 98.3 98.3 Lab Values Laboratory Tests Test 10/25/18 13:10 10/25/18 13:30 10/25/18 14:00 White Blood Count 16.4 x10^3/uL (4.0-11.0) H Red Blood Count 4.88 x10^6/uL (3.50-5.40) Hemoglobin 14.6 g/dL (12.0-15.5) Hematocrit 43.7 % (36.0-47.0) Mean Corpuscular Volume 90 fL (79-100) Mean Corpuscular Hemoglobin 30 pg (25-35) Mean Corpuscular Hemoglobin Concent 33 g/dL (31-37) Red Cell Distribution Width 14.2 % (11.5-14.5) Platelet Count 233 x10^3/uL (140-400) Neutrophils (%) (Auto) 83 % (31-73) H Lymphocytes (%) (Auto) 11 % (24-48) L Monocytes (%) (Auto) 5 % (0-9) Eosinophils (%) (Auto) 1 % (0-3) Basophils (%) (Auto) 1 % (0-3) Neutrophils # (Auto) 13.6 x10^3uL (1.8-7.7) H Lymphocytes # (Auto) 1.8 x10^3/uL (1.0-4.8) Monocytes # (Auto) 0.7 x10^3/uL (0.0-1.1) Eosinophils # (Auto) 0.2 x10^3/uL (0.0-0.7) Basophils # (Auto) 0.1 x10^3/uL (0.0-0.2) Platelet Estimate Pending Troponin I Quantitative < 0.017 ng/mL (0.000-0.055) Urine Collection Type Unknown Urine Color Yellow Urine Clarity Clear Urine pH 7.0 Urine Specific [place]cl[place] 1.010 Urine Protein Negative mg/dL (NEG-TRACE) Urine Glucose (UA) Negative mg/dL (NEG) Urine Ketones (Stick) Negative mg/dL (NEG) Urine Blood Negative (NEG) Urine Nitrite Negative (NEG) Urine Bilirubin Negative (NEG) Urine Urobilinogen Dipstick 0.2 mg/dL (0.2 mg/dL) Urine Leukocyte Esterase Moderate (NEG) Urine RBC Occ /HPF (0-2) Urine WBC 1-4 /HPF (0-4) Urine Squamous Epithelial Cells Mod /LPF Urine Bacteria Few /HPF (0-FEW) Sodium Level 139 mmol/L (136-145) Potassium Level 3.4 mmol/L (3.5-5.1) L Chloride Level 103 mmol/L (98-107) Carbon Dioxide Level 25 mmol/L (21-32) Anion Gap 11 (6-14) Blood Urea Nitrogen 12 mg/dL (7-20) Creatinine 0.8 mg/dL (0.6-1.0) Estimated GFR (Cockcroft-Gault) 84.4 BUN/Creatinine Ratio 15 (6-20) Glucose Level 92 mg/dL (70-99) Calcium Level 10.2 mg/dL (8.5-10.1) H Magnesium Level 2.1 mg/dL (1.8-2.4) Total Bilirubin 0.6 mg/dL (0.2-1.0) Aspartate Amino Transferase (AST) 22 U/L (15-37) Alanine Aminotransferase (ALT) 27 U/L (14-59) Alkaline Phosphatase 103 U/L (46-116) Total Protein 8.3 g/dL (6.4-8.2) H Albumin 4.1 g/dL (3.4-5.0) Albumin/Globulin Ratio 1.0 (1.0-1.7) Laboratory Tests 10/25/18 13:10 Laboratory Tests 10/25/18 14:00 EKG EKG EKG obtained 10/25/18 at [address] Dinorah CARDOSO Lt axis deviation Rate 78 No STEMI Radiology/Procedures Radiology/Procedures PROCEDURE: CT HEAD AND CERVICAL SPINE WO CT brain without contrast, CT cervical spine without contrast. HISTORY: Syncopal episode CT scan of brain CT scan of brain was done without contrast. There is no intracranial hemorrhage or subdural hematoma. Ventricles are normal in size. There is no mass or shift of the midline. There is extensive decreased density in the white matter from chronic microvascular changes. An acute CVA is not identified. Sinuses are clear. A skull fracture is not identified. IMPRESSION: 1. Chronic white matter changes. 2. No intracranial hemorrhage or mass or acute CVA noted. End impression CT cervical spine Axial CT images were obtained to the cervical spine. Sagittal and coronal reconstructed images were reviewed. Visualized portions of the lungs are clear. There is a 8 mm hypoechoic nodule in the right thyroid. There is a larger nodule in the right thyroid isthmus. There is moderate carotid artery calcification. There is degenerative disc disease in the cervical spine with disc space narrowing at C5-6 and C6-7 with prominent spurring. There is foraminal narrowing at feet C5-6 and C6-7. There is no acute C-spine fracture. There is also degenerative disc disease at C7-T1. IMPRESSION: 1. Degenerative changes in the cervical spine. 2. No acute C-spine fracture. 3. Thyroid nodules. PROCEDURE: ACUTE ABDOMEN SERIES Three-view acute abdominal series. HISTORY: Syncope, constipation 3 views were taken for an acute abdominal series. The lungs are clear. Heart is normal in size. There is no effusion. Patient had previous sternotomy. There is no free air on the upright view the abdomen. The patient had a previous cholecystectomy. There is a right upper quadrant calcification which could be a tablet in the bowel, a renal calculus is possible. There is not evidence of abnormal stool in the colon. Bladder is mildly distended. There is degenerative change in the lower lumbar spine. There is no renal calculus on the film from May 2018. IMPRESSION: 1. Calcification or tablet right upper quadrant. 2. No bowel obstruction or other acute finding in the abdomen. Electronically signed by: Peter Morales MD (10/25/2018 1:33 PM) [facility] DICTATED and SIGNED BY: PETER MORALES MD DATE: 10/25/18 1333 Course & Med Decision Making Course & Med Decision Making Pertinent Labs and Imaging studies reviewed. (See chart for details) 1255: RN reports patient had large bowel movement denies any dizziness or vasovagal episodes during. Patient reports following bowel movement. She is in no visible distress with daughter at bedside. Labs are pending. EKG was obtained with no acute ST elevation or STEMI. She is denying any chest pain or shortness of air. 1405: Imaging and lab results were discussed with pt and her dgtr. Head/Cspine CT neg. for acute findings. UA neg. for infection- showed probable contaminated specimen with moderate squamous. WBCs elevated at 16.4 with no findings of infection on tests- possibly d/t syncope episode. With patient having syncope episode and not feeling herself at time of arrival discussed admission for further care and monitoring. Both patient and her daughter are agreeable with this plan. Will call patient's primary care physician Dr. Castillo and discussed patient's case and admit plan. Patient remains alert and oriented 3 and in no distress at this time. She is denying any chest pain, shortness of air, or dizziness. She reports she is feeling better following bowel movement she had while in the ER. She was given 500 mL normal saline fluid bolus. Vital signs have remained stable. We will admit to telemetry for further care and monitoring and placed orders for serial cardiac enzymes with admit orders. 1435: Spoke with Dr. Ingram, production team member physician for patient's primary care physician and discussed patient's case and admit plan. Dragon Disclaimer Dragon Disclaimer This electronic medical record was generated, in whole or in part, using a voice recognition dictation system. Departure Departure Impression: Primary Impression: Episode of syncope Disposition: 09 ADMITTED INPATIENT Admitting Physician: Barak Ingram Condition: STABLE Referrals: ROSEMARY CASTILLO MD (PCP) ALEJANDRO VINCENT APRN Oct 25, 2018 12:24
[2018-10-25] MEDS ORDERED: IV NORMAL SALINE 500ML BAG 500 ML IV ONE (12:30)
[2018-10-25 13:22] LABS: BASO # 0.1 x10^3/uL (0.0-0.2); BASO % 1 % (0-3); EOS # 0.2 x10^3/uL (0.0-0.7); EOS % 1 % (0-3); HEMATOCRIT 43.7 % (36.0-47.0); HEMOGLOBIN 14.6 g/dL (12.0-15.5); LYMPH # 1.8 x10^3/uL (1.0-4.8); LYMPH % 11 % (24-48); MEAN CORPUSCULAR HEMOGLOBIN 30 pg (25-35); MEAN CORPUSCULAR HGB CONC 33 g/dL (31-37); MEAN CORPUSCULAR VOLUME 90 fL (79-100); MONO # 0.7 x10^3/uL (0.0-1.1); MONO % 5 % (0-9); NEUT # 13.6 x10^3uL (1.8-7.7); NEUT % 83 % (31-73); PLATELET COUNT 233 x10^3/uL (140-400); RED BLOOD COUNT 4.88 x10^6/uL (3.50-5.40); RED CELL DISTRIBUTION WIDTH 14.2 % (11.5-14.5); WHITE BLOOD COUNT 16.4 x10^3/uL (4.0-11.0)
--- NOTE | 2018-10-25 13:36 | RAD ---
Three-view acute abdominal series. HISTORY: Syncope, constipation 3 views were taken for an acute abdominal series. The lungs are clear. Heart is normal in size. There is no effusion. Patient had previous sternotomy. There is no free air on the upright view the abdomen. The patient had a previous cholecystectomy. There is a right upper quadrant calcification which could be a tablet in the bowel, a renal calculus is possible. There is not evidence of abnormal stool in the colon. Bladder is mildly distended. There is degenerative change in the lower lumbar spine. There is no renal calculus on the film from May 2018. IMPRESSION: 1. Calcification or tablet right upper quadrant. 2. No bowel obstruction or other acute finding in the abdomen. Electronically signed by: Peter Morales MD (10/25/2018 1:33 PM) [facility]
[2018-10-25 13:47] LABS: BILIRUBIN,URINE NEGATIVE (NEG); CLARITY,URINE CLEAR; COLOR,URINE YELLOW; NITRITE,URINE NEGATIVE (NEG); PROTEIN,URINE NEGATIVE (NEG-TRACE); UROBILINOGEN,URINE 0.2 mg/dL (0.2 mg/dL)
--- NOTE | 2018-10-25 14:11 | RAD ---
CT brain without contrast, CT cervical spine without contrast. HISTORY: Syncopal episode CT scan of brain CT scan of brain was done without contrast. There is no intracranial hemorrhage or subdural hematoma. Ventricles are normal in size. There is no mass or shift of the midline. There is extensive decreased density in the white matter from chronic microvascular changes. An acute CVA is not identified. Sinuses are clear. A skull fracture is not identified. IMPRESSION: 1. Chronic white matter changes. 2. No intracranial hemorrhage or mass or acute CVA noted. End impression CT cervical spine Axial CT images were obtained to the cervical spine. Sagittal and coronal reconstructed images were reviewed. Visualized portions of the lungs are clear. There is a 8 mm hypoechoic nodule in the right thyroid. There is a larger nodule in the right thyroid isthmus. There is moderate carotid artery calcification. There is degenerative disc disease in the cervical spine with disc space narrowing at C5-6 and C6-7 with prominent spurring. There is foraminal narrowing at feet C5-6 and C6-7. There is no acute C-spine fracture. There is also degenerative disc disease at C7-T1. IMPRESSION: 1. Degenerative changes in the cervical spine. 2. No acute C-spine fracture. 3. Thyroid nodules. PQRS Compliance Statement: One or more of the following individualized dose reduction techniques were utilized for this examination: 1. Automated exposure control 2. Adjustment of the mA and/or kV according to patient size 3. Use of iterative reconstruction technique Electronically signed by: Peter Morales MD (10/25/2018 2:08 PM) [facility]
[2018-10-25 14:12] LABS: BACTERIA,URINE FEW /HPF (0-FEW); RBC,URINE OCC /HPF (0-2); SQUAMOUS EPITHELIAL CELL,UR MOD /LPF
[2018-10-25 14:16] LABS: CALCIUM 10.2 mg/dL (8.5-10.1); CREATININE 0.8 mg/dL (0.6-1.0); GFR 84.4; POTASSIUM 3.4 mmol/L (3.5-5.1)
[2018-10-25 14:22] LABS: ALBUMIN 4.1 g/dL (3.4-5.0); MAGNESIUM 2.1 mg/dL (1.8-2.4); TOTAL BILIRUBIN 0.6 mg/dL (0.2-1.0); TOTAL PROTEIN 8.3 g/dL (6.4-8.2)
--- NOTE | 2018-10-25 14:40 | EKG ---
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
[2018-10-25 14:56] LABS: % BANDS 2 % (0-9); % BASOS 1 % (0-3); % EOS 2 % (0-5); % LYMPHS 17 % (24-48); % MONOS 2 % (0-10); % SEGS 76 % (35-66); PLT ESTIMATE ADEQUATE (ADEQUATE)
[2018-10-25 15:20] VITALS: BP 123/60
[2018-10-25] MEDS: ENOXAPARIN 40 MG/0.4 ML SYRINGE. SQ SCH (17:30)
[2018-10-25] MEDS ORDERED: IBUPROFEN 200 MG TABLET. PO PRN (17:30)
[2018-10-25] MEDS ORDERED: DEXTROSE 50% 25 GM / 50ML DISP.SYRIN. IV PRN (17:30)
[2018-10-25] MEDS: INSULIN LISPRO 300 UNITS/3 ML INSULN.PEN. SQ SCH (18:15)
[2018-10-25 19:03] VITALS: BP 153/74
[2018-10-25] MEDS ORDERED: INSU100I13 SQ (20:00)
[2018-10-25] MEDS ORDERED: INSU100C SQ (20:02)
[2018-10-25] MEDS: FAMOTIDINE 20 MG TABLET. PO SCH (20:46)
[2018-10-25] MEDS: ATORVASTATIN CALCIUM 40 MG TABLET. PO SCH (20:46)
[2018-10-25] MEDS: INSULIN GLARGINE 300 UNITS/3 ML INSULN.PEN. SQ SCH (20:54)
[2018-10-25 22:02] VITALS: BP 106/48
[2018-10-26 03:01] VITALS: BP 130/67
[2018-10-26 07:00] VITALS: BP 163/70
[2018-10-26] MEDS: DOCUSATE SODIUM 100 MG CAPSULE. PO SCH (08:14)
[2018-10-26] MEDS: hydroCHLOROthiazide 25 MG TABLET PO SCH (08:14)
[2018-10-26] MEDS: MULTIVITAMIN with MINERAL TABLET. PO SCH (08:15)
[2018-10-26] MEDS: FAMOTIDINE 20 MG TABLET. PO SCH ×2 (08:15→20:14)
[2018-10-26] MEDS: amLODIPine BESYLATE 10 MG TABLET PO SCH (08:16)
[2018-10-26] MEDS: POTASSIUM CHLORIDE 20 MEQ TABLET.ER. PO SCH (08:16)
[2018-10-26] MEDS: LISINOPRIL 20 MG TABLET PO SCH (08:16)
[2018-10-26] MEDS: VITAMIN B COMPLEX TABLET. PO SCH (08:17)
[2018-10-26] MEDS: METOPROLOL TART IMMED RELEASE 50 MG TABLET. PO SCH (08:17)
[2018-10-26] MEDS: INSULIN LISPRO 300 UNITS/3 ML INSULN.PEN. SQ SCH ×3 (08:28→17:37)
[2018-10-26] MEDS ORDERED: NON FORMULARY ITEM (Garlic 1,000 MG) PO SCH (09:00)
--- NOTE | 2018-10-26 10:35 | PDOC ---
Provider Note Provider Note H&P dictated # [id number] Bhupendra ROSA MD Oct 26, 2018 10:35
[2018-10-26] MEDS: POLYETHYLENE GLYCOL 3350 17 GM PACKET. PO SCH (10:55)
[2018-10-26 11:00] VITALS: BP 158/72
--- NOTE | 2018-10-26 11:37 | HP ---
ADMIT DATE: 10/25/2018 ADMISSION DIAGNOSIS: Syncope. HISTORY OF PRESENT ILLNESS: This is a 78-year-old Afro [place] female who is currently living at a local fpc. She has been constipated recently and was in the bathroom trying to have a bowel movement. She does not really recall what happened next, but she was on the floor. She tried to push herself up and caused her fingernails to break. She requested assistance and managed apparently to call EMS. She was brought to the Emergency Room, seen and evaluated and subsequently admitted. She was found to have a small hemorrhoid with some fresh bleeding, but had not had any recurrent bleeding. She has not had any additional bowel movements since. PAST MEDICAL HISTORY: Coronary artery disease, breast cancer, type 2 diabetes, hypertension, hyperlipidemia, mild dementia, heart murmur, sleep apnea but she is untreated, colon polyps, urinary tract infections, osteoarthritis, depression and anxiety. PAST SURGICAL HISTORY: Include cataract extractions, coronary artery bypass graft, cholecystectomy, right breast mastectomy, hysterectomy, carpal tunnel release on the right x 2. FAMILY HISTORY: Heart disease, ovarian cancer and lung cancer. SOCIAL HISTORY: She lives at the fpc. Does not smoke, does not drink. ALLERGIES: PENICILLIN, SULFA, CELECOXIB, ROSUVASTATIN. ROUTINE MEDICATIONS: Atorvastatin 40 mg at bedtime, metoprolol extended release succinate 50 mg daily, amlodipine 10 mg daily, lisinopril 20/25 HCTZ 1 daily, ibuprofen 600 mg q.8 hours p.r.n. pain, potassium chloride 20 mEq daily, ranitidine 150 mg b.i.d., Lantus 30 units at bedtime, Humalog 10 units t.i.d. with meals, vitamin B complex with C 1 daily, multivitamin daily, garlic 1000 mg daily. REVIEW OF SYSTEMS: HEENT: No recent changes in vision, hearing or taste. CONSTITUTIONAL: No fever, chills or night sweats. CARDIAC: No chest pain or palpitations. PULMONARY: No cough or shortness of breath. GASTROINTESTINAL: Positive for constipation. GENITOURINARY: She typically wears a pad for some leakage. She has not had any dysuria. MUSCULOSKELETAL: No acute joint pain or swelling. SKIN: No bruising or skin lesions. NEUROLOGIC: No history of seizures. PHYSICAL EXAMINATION: VITAL SIGNS: Her blood pressures ranged from a low of 106/48 at 2200 last night to 163/70 this morning. GENERAL: She is in no acute distress. She is up in the chair, alert and oriented. She does not recall seeing me in the past, though. HEENT: Normocephalic, atraumatic, wearing her glasses. Conjunctivae are clear. No nasal congestion. Mucous membranes are moist. NECK: Supple, no bruits heard. HEART: Regular rate and rhythm with 2/6 systolic ejection murmur. LUNGS: Clear. BREAST: Remaining breast is not examined. ABDOMEN: Soft, nondistended, nontender, no masses are palpable. Bowel sounds are present. EXTREMITIES: Without clubbing, cyanosis or edema. SKIN: With normal turgor. NEUROLOGIC: Without focal weakness. LABORATORY DATA: White count elevated at 16.4, hemoglobin is 14.6. Differential with a left shift. Chemistries: Potassium is low at 3.4. Glucose has ranged from 130-237, calcium at 10.2, total protein at 8.3. Troponins negative. Other chemistries are normal. Urinalysis is showing moderate leukocyte esterase with occasional rbc's, 1-4 wbc's, but there is a moderate number of squamous epithelial cells, so could be a non-clean catch, a few bacteria present. IMAGING: CT head and cervical spine shows chronic white matter changes, but no acute findings. Sinuses are clear. No skull fracture is noted. She has degenerative changes in her cervical spine, but no acute fracture. There are thyroid nodules present. Acute abdomen series shows calcification in the right upper quadrant, likely a tablet; dural changes are noted in her lower lumbar spine. Previous renal calculus noted on prior imaging is not visualized. She has changes of previous cholecystectomy. Lung bases are clear. Heart is normal. Sternotomy scar is present. ASSESSMENT: 1. Syncope, most likely this is vasovagal, but she does have an elevated white count and concern for urinary tract infection. 2. Hypertension, labile readings. 3. Constipation. We will add MiraLax and Docusate. 4. Type 2 diabetes. We will resume her usual insulin. Her other chronic medical problems appear to be stable. She does have a mild hypokalemia, which will be monitored and replaced if needed. She has some chronic renal disease per EGFR. She is allergic to PENICILLIN, so we will cover her with a low dose of Levaquin for now, awaiting urine culture. PT and OT to screen. W Dhaval ROSA MD DR: EVANGELIST/letitia JOB#: [id number] / [id number]
[2018-10-26 15:00] VITALS: BP 128/60
[2018-10-26] MEDS: ENOXAPARIN 40 MG/0.4 ML SYRINGE. SQ SCH (17:35)
--- NOTE | 2018-10-26 17:58 | PDOC2 ---
CARDIOLOGY CONSULT NOTE REYES COMPLAINT: Passing out HPI: Ranjana is a 78-year-old woman coming into the hospital today due to a near syncopal episode. She apparently was in her usual state of health doing well and staying active when she became constipated and had a significant Valsalva episode and this led to her near syncopal episode event. She denies any associated chest pain, dyspnea, orthopnea, PND or lower extremity edema. No syncope previously. No palpitations. She underwent cardiac catheterization last year which revealed patency of 3 or 4 grafts and she was treated medically in light of her normal LV function. PMHX: Coronary artery disease status post bypass Mild peripheral arterial disease Hypertension Dyslipidemia SOCHX: No tobacco abuse, occasional alcohol use. No illicit drug use. She is retired. FAMHX: Noncontributory CURRENT MEDS: Current Medications Medications (Trade) Dose Ordered Sig/Shakeel Start Time Stop Time Status Last Admin Dose Admin Amlodipine Besylate (Norvasc) 10 mg DAILY 10/26/18 09:00 10/26/18 08:16 10 MG Atorvastatin Calcium (Lipitor) 40 mg QHS 10/25/18 21:00 10/25/18 20:46 40 MG Dextrose (Dextrose 50%-Water Syringe) 12.5 gm PRN Q15MIN PRN 10/25/18 17:30 Docusate Sodium (Colace) 100 mg DAILY 10/26/18 09:00 10/26/18 08:14 100 MG Enoxaparin Sodium (Lovenox 40mg Syringe) 40 mg Q24H 10/25/18 17:30 10/26/18 17:35 40 MG Famotidine (Pepcid) 20 mg BID 10/25/18 21:00 10/26/18 08:15 20 MG Hydrochlorothiazide (Hydrodiuril) 25 mg DAILY 10/26/18 09:00 10/26/18 08:14 25 MG Ibuprofen (Motrin) 600 mg PRN Q8HRS PRN 10/25/18 17:30 10/26/18 08:14 600 MG Insulin Glargine (Lantus) 30 units QHS 10/25/18 21:00 10/25/18 20:54 30 UNITS Insulin Human Lispro (HumaLOG) 10 units TIDWMEALS 10/25/18 17:00 10/26/18 17:37 10 UNITS Lactobacillus Rhamnosus (Culturelle) 1 cap BID 10/26/18 21:00 Levofloxacin/ Dextrose 50 ml @ 50 mls/hr Q24H 10/26/18 11:00 10/26/18 10:55 50 MLS/HR Lisinopril (Prinivil) 20 mg DAILY 10/26/18 09:00 10/26/18 08:16 20 MG Metoprolol Tartrate (Lopressor) 50 mg DAILY 10/26/18 09:00 10/26/18 08:17 50 MG Multivitamins (Thera M Plus) 1 tab DAILY 10/26/18 09:00 10/26/18 08:15 1 TAB Non-Formulary Medication (Garlic ) 1,000 mg DAILY 10/26/18 09:00 UNV Polyethylene Glycol (miraLAX PACKET) 17 gm DAILY 10/26/18 11:00 10/26/18 10:55 17 GM Potassium Chloride (Klor-Con) 20 meq DAILY 10/26/18 09:00 10/26/18 08:16 20 MEQ Sodium Chloride 500 ml @ 500 mls/hr 1X ONCE 10/25/18 12:30 10/25/18 13:29 DC 10/25/18 13:13 500 MLS/HR Vitamin B Complex (Wade B) 1 tab DAILY 10/26/18 09:00 10/26/18 08:17 1 TAB ALLERGIES: Allergies Coded Allergies Type Severity Reaction Last Updated Verified Penicillins Allergy Intermediate hives 07/10/17 Yes Sulfa (Sulfonamide Antibiotics) Allergy Intermediate 07/10/17 Yes chocolate flavor Allergy Intermediate 07/10/17 Yes rosuvastatin Allergy Intermediate 05/17/18 Yes celecoxib Adverse Reaction Intermediate "makes me crazy" 07/10/17 Yes ROS: Negative for 10 out of 14 systems reviewed unless otherwise mentioned above in history of present illness PHYSICAL EXAM: Vital Signs: Vital Signs Date Time Temp Pulse Resp B/P (MAP) Pulse Ox O2 Delivery O2 Flow Rate FiO2 10/26/18 15:00 98.8 60 18 128/60 (82) 96 Room Air 98.8 I & O Intake and Output 10/26/18 07:00 Intake Total 500 ml Output Total 825 ml Balance -325 ml Intake Oral 500 ml Output Urine Total 825 ml # Bowel Movements 2 Physical Exam: The patient appeared well nourished and normally developed. Head exam is unremarkable. No scleral icterus or corneal arcus noted. Neck is without jugular venous distension, thyromegaly, or carotid bruits. Carotid upstrokes are brisk bilaterally. Lungs are clear to auscultation and percussion. Cardiac exam reveals the PMI to be normally sized and situated. Rhythm is regular. First and second heart sounds normal. Soft 3/6 systolic murmur heard throughout the precordium likely due to aortic sclerosis and mild mitral regurgitation Abdominal exam reveals normal bowel sounds, no masses, no organomegaly and no aortic enlargement. Extremities are nonedematous and both femoral and pedal pulses are normal. Msk: No traumua Neuro: No focal deficits DIAGNOSTIC TESTING: EKG without any acute findings. Troponin negative. Lab Laboratory Tests Test 10/25/18 20:27 10/26/18 07:30 10/26/18 10:56 10/26/18 17:07 Glucose (Fingerstick) 199 mg/dL (70-99) H 130 mg/dL (70-99) H 177 mg/dL (70-99) H 185 mg/dL (70-99) H ASSESSMENT: 1. Presyncope in the setting of severe Valsalva. 2. Coronary disease stable 3. Hypertension stable 4. Dyslipidemia stable PLAN: 1. Syncopal event likely in the setting of vagal response. No further cardiac testing necessary. Supportive care. Okay to discharge from a cardiac standpoint. OLGA DYER MD Oct 26, 2018 17:58
[2018-10-26 18:50] VITALS: BP 117/58
[2018-10-26] MEDS: ATORVASTATIN CALCIUM 40 MG TABLET. PO SCH (20:14)
[2018-10-26] MEDS: LACTOBACILLUS RHAMNOSUS GG 1 CAPSULE. PO SCH (20:14)
[2018-10-26] MEDS: INSULIN GLARGINE 300 UNITS/3 ML INSULN.PEN. SQ SCH (20:16)
[2018-10-26 22:36] VITALS: BP 160/72
[2018-10-27 07:00] VITALS: BP 148/67
[2018-10-27] MEDS ORDERED: BISACODYL 10 MG SUPP.RECT. PR ONE (08:45)
--- NOTE | 2018-10-27 08:47 | PDOC ---
PROGRESS NOTES Subjective Subjective Patient without complaint, wants to go home today. Objective Objective Vital Signs Date Time Temp Pulse Resp B/P (MAP) Pulse Ox O2 Delivery O2 Flow Rate FiO2 10/27/18 07:00 98.2 77 18 148/67 (94) 98 Room Air 98.2 Intake and Output 10/27/18 07:00 Intake Total 1180 ml Output Total 2050 ml Balance -870 ml Intake Oral 1130 ml IV Total 50 ml Output Urine Total 2050 ml Physical Exam Abdomen: Normal bowel sounds, Soft, No tenderness Heart: Regular rate Extremities: No edema General: Alert, Oriented X3 (somewhat forgetful), No acute distress Lungs: Clear to auscultation Assessment Assessment Problems Medical Problems: (1) Episode of syncope Status: Acute Plan Plan of Care 1. Vasovagal syncope - resolved. Tele with sinus rhythm. Discharge home today. 2. CAD - stable, Cardiology does not recommend any further evaluation at this time. 3. DM2 - fairly well controlled, continue insulins. 4. HTN - controlled, home on her usual medication. 5. possible UTI - 1-4 WBC's present but moderate squamous cells also so infection less likely. Has been treated with Levaquin while here. Will not discharge on abx, follow up urine culture as outpatient. 6. mild memory loss - patient is at her baseline and has been doing OK at home. She lives alone but daughter checks up on her daily. Do not feel she would benefit from home health at this time. Comment Review of Relevant I have reviewed the following items moriah (where applicable) has been applied. Labs Laboratory Tests Test 10/25/18 13:10 10/25/18 13:30 10/25/18 14:00 10/25/18 17:15 White Blood Count 16.4 x10^3/uL (4.0-11.0) Red Blood Count 4.88 x10^6/uL (3.50-5.40) Hemoglobin 14.6 g/dL (12.0-15.5) Hematocrit 43.7 % (36.0-47.0) Mean Corpuscular Volume 90 fL (79-100) Mean Corpuscular Hemoglobin 30 pg (25-35) Mean Corpuscular Hemoglobin Concent 33 g/dL (31-37) Red Cell Distribution Width 14.2 % (11.5-14.5) Platelet Count 233 x10^3/uL (140-400) Neutrophils (%) (Auto) 83 % (31-73) Lymphocytes (%) (Auto) 11 % (24-48) Monocytes (%) (Auto) 5 % (0-9) Eosinophils (%) (Auto) 1 % (0-3) Basophils (%) (Auto) 1 % (0-3) Neutrophils # (Auto) 13.6 x10^3uL (1.8-7.7) Lymphocytes # (Auto) 1.8 x10^3/uL (1.0-4.8) Monocytes # (Auto) 0.7 x10^3/uL (0.0-1.1) Eosinophils # (Auto) 0.2 x10^3/uL (0.0-0.7) Basophils # (Auto) 0.1 x10^3/uL (0.0-0.2) Segmented Neutrophils % 76 % (35-66) Band Neutrophils % 2 % (0-9) Lymphocytes % 17 % (24-48) Monocytes % 2 % (0-10) Eosinophils % 2 % (0-5) Basophils % 1 % (0-3) Platelet Estimate Adequate (ADEQUATE) Troponin I Quantitative < 0.017 ng/mL (0.000-0.055) Urine Collection Type Unknown Urine Color Yellow Urine Clarity Clear Urine pH 7.0 Urine Specific [place] 1.010 Urine Protein Negative mg/dL (NEG-TRACE) Urine Glucose (UA) Negative mg/dL (NEG) Urine Ketones (Stick) Negative mg/dL (NEG) Urine Blood Negative (NEG) Urine Nitrite Negative (NEG) Urine Bilirubin Negative (NEG) Urine Urobilinogen Dipstick 0.2 mg/dL (0.2 mg/dL) Urine Leukocyte Esterase Moderate (NEG) Urine RBC Occ /HPF (0-2) Urine WBC 1-4 /HPF (0-4) Urine Squamous Epithelial Cells Mod /LPF Urine Bacteria Few /HPF (0-FEW) Sodium Level 139 mmol/L (136-145) Potassium Level 3.4 mmol/L (3.5-5.1) Chloride Level 103 mmol/L (98-107) Carbon Dioxide Level 25 mmol/L (21-32) Anion Gap 11 (6-14) Blood Urea Nitrogen 12 mg/dL (7-20) Creatinine 0.8 mg/dL (0.6-1.0) Estimated GFR (Cockcroft-Gault) 84.4 BUN/Creatinine Ratio 15 (6-20) Glucose Level 92 mg/dL (70-99) Calcium Level 10.2 mg/dL (8.5-10.1) Magnesium Level 2.1 mg/dL (1.8-2.4) Total Bilirubin 0.6 mg/dL (0.2-1.0) Aspartate Amino Transf (AST/SGOT) 22 U/L (15-37) Alanine Aminotransferase (ALT/SGPT) 27 U/L (14-59) Alkaline Phosphatase 103 U/L (46-116) Total Protein 8.3 g/dL (6.4-8.2) Albumin 4.1 g/dL (3.4-5.0) Albumin/Globulin Ratio 1.0 (1.0-1.7) Glucose (Fingerstick) 237 mg/dL (70-99) Test 10/25/18 20:27 10/26/18 07:30 10/26/18 10:56 10/26/18 17:07 Glucose (Fingerstick) 199 mg/dL (70-99) 130 mg/dL (70-99) 177 mg/dL (70-99) 185 mg/dL (70-99) Test 10/26/18 20:13 10/27/18 07:31 Glucose (Fingerstick) 206 mg/dL (70-99) 148 mg/dL (70-99) Laboratory Tests Test 10/26/18 10:56 10/26/18 17:07 10/26/18 20:13 10/27/18 07:31 Glucose (Fingerstick) 177 mg/dL (70-99) 185 mg/dL (70-99) 206 mg/dL (70-99) 148 mg/dL (70-99) Medications Current Medications Sodium Chloride 500 ml @ 500 mls/hr 1X ONCE IV Last administered on at 13:13; Start 10/25/18 at 12:30; Stop 10/25/18 at 13:29; Status DC Amlodipine Besylate (Norvasc) 10 mg DAILY PO Last administered on 10/26/18at 08: 16; Start 10/26/18 at 09:00 Atorvastatin Calcium (Lipitor) 40 mg QHS PO Last administered on 10/26/18 20: 14; Start 10/25/18 at 21:00 Metoprolol Tartrate (Lopressor) 50 mg DAILY PO Last administered on 10/26/18 08:17; Start 10/26/18 at 09:00 Potassium Chloride (Klor-Con) 20 meq DAILY PO Last administered on 10/26/18 08 :16; Start 10/26/18 at 09:00 Non-Formulary Medication (Garlic ) 1,000 mg DAILY PO ; Start 10/26/18 at 09:00; Status UNV Ibuprofen (Motrin) 600 mg PRN Q8HRS PRN PO INFLAMMATION Last administered on 08:14; Start 10/25/18 at 17:30 Lisinopril (Prinivil) 20 mg DAILY PO Last administered on 10/26/18 08:16; Start 10/26/18 at 09:00 Multivitamins (Thera M Plus) 1 tab DAILY PO Last administered on 10/26/18 08: 15; Start 10/26/18 at 09:00 Famotidine (Pepcid) 20 mg BID PO Last administered on 10/26/18 20:14; Start at 21:00 Vitamin B Complex (Wade B) 1 tab DAILY PO Last administered on 10/26/18 08:17 ; Start 10/26/18 at 09:00 Hydrochlorothiazide (Hydrodiuril) 25 mg DAILY PO Last administered on 08:14; Start 10/26/18 at 09:00 Insulin Glargine (Lantus) 30 units QHS SQ Last administered on 10/26/18 20:16 ; Start 10/25/18 at 21:00 Dextrose (Dextrose 50%-Water Syringe) 12.5 gm PRN Q15MIN PRN IV SEE COMMENTS; Start 10/25/18 at 17:30 Insulin Human Lispro (HumaLOG) 10 units TIDWMEALS SQ Last administered on 17:37; Start 10/25/18 at 17:00 Enoxaparin Sodium (Lovenox 40mg Syringe) 40 mg Q24H SQ Last administered on 17:35; Start 10/25/18 at 17:30 Docusate Sodium (Colace) 100 mg DAILY PO Last administered on 10/26/18at 08:14; Start 10/26/18 at 09:00 Levofloxacin/ Dextrose 50 ml @ 50 mls/hr Q24H IV Last administered on at 10:55; Start 10/26/18 at 11:00 Polyethylene Glycol (miraLAX PACKET) 17 gm DAILY PO Last administered on at 10:55; Start 10/26/18 at 11:00 Lactobacillus Rhamnosus (Culturelle) 1 cap BID PO Last administered on at 20:14; Start 10/26/18 at 21:00 Active Scripts Active Atorvastatin Calcium 40 Mg Tablet 40 Mg PO QHS 30 Days Reported Humalog (Insulin Lispro) 100 Unit/1 Ml Cartridge 10 Unit SQ TIDAC Lantus Solostar (Insulin Glargine,Hum.rec.anlog) 100 Unit/1 Ml Insuln.pen 30 Unit SQ QHS Klor-Con M20 (Potassium Chloride) 20 Meq Tab.er.prt 1 Tab PO DAILY Ibuprofen 600 Mg Tablet 1 Tab PO PRN Q8HRS PRN Lisinopril-Hctz 20-25 Mg Tab (Lisinopril/Hydrochlorothiazide) 1 Each Tablet 1 Tab PO DAILY Garlic 1,000 Mg Capsule 1,000 Mg PO DAILY B Complex With Vitamin C (Vitamin B Complex & Vit C No.3) 1 Each Capsule 1 Each PO DAILY Toprol Xl (Metoprolol Succinate) 25 Mg Tab.er.24h 50 Mg PO DAILY Norvasc (Amlodipine Besylate) 10 Mg Tablet 10 Mg PO DAILY Ranitidine Hcl 150 Mg Tablet 150 Mg PO BID Centrum Silver Tablet (Multivits-Min/Fa/Lycopene/Lut) 1 Each Tablet 1 Each PO DAILY Vitals/I & O Vital Sign - Last 24 Hours 10/26/18 10/26/18 10/26/18 10/26/18 11:00 15:00 18:50 19:52 Temp 98.8 98.8 98.5 98.8 98.8 98.5 Pulse 60 60 72 Resp 18 18 16 B/P (MAP) 158/72 (100) 128/60 (82) 117/58 (77) Pulse Ox 96 96 95 O2 Delivery Room Air Room Air Room Air Room Air 10/26/18 10/27/18 22:36 07:00 Temp 97.9 98.2 97.9 98.2 Pulse 79 77 Resp 16 18 B/P (MAP) 160/72 (101) 148/67 (94) Pulse Ox 98 98 O2 Delivery Room Air Room Air Intake and Output 10/26/18 10/26/18 10/27/18 15:00 23:00 07:00 Intake Total 250 ml 830 ml 100 ml Output Total 200 ml 1150 ml 700 ml Balance 50 ml -320 ml -600 ml ROSEMARY LENZ MD Oct 27, 2018 08:47
[2018-10-27] MEDS ORDERED: POLY17PO28 PO (08:49)
[2018-10-27] MEDS: POLYETHYLENE GLYCOL 3350 17 GM PACKET. PO SCH (10:26)
[2018-10-27] MEDS: DOCUSATE SODIUM 100 MG CAPSULE. PO SCH (10:26)
[2018-10-27] MEDS: LACTOBACILLUS RHAMNOSUS GG 1 CAPSULE. PO SCH (10:37)
[2018-10-27] MEDS: hydroCHLOROthiazide 25 MG TABLET PO SCH (10:38)
[2018-10-27] MEDS: POTASSIUM CHLORIDE 20 MEQ TABLET.ER. PO SCH (10:38)
[2018-10-27] MEDS: amLODIPine BESYLATE 10 MG TABLET PO SCH (10:38)
[2018-10-27] MEDS: MULTIVITAMIN with MINERAL TABLET. PO SCH (10:38)
[2018-10-27] MEDS: VITAMIN B COMPLEX TABLET. PO SCH (10:38)
[2018-10-27] MEDS: LISINOPRIL 20 MG TABLET PO SCH (10:39)
[2018-10-27] MEDS: METOPROLOL TART IMMED RELEASE 50 MG TABLET. PO SCH (10:39)
[2018-10-27] MEDS: FAMOTIDINE 20 MG TABLET. PO SCH (10:39)
[2018-10-27] MEDS: INSULIN LISPRO 300 UNITS/3 ML INSULN.PEN. SQ SCH ×2 (10:54→12:47)
--- NOTE | 2018-10-27 18:21 | DS ---
DATE OF DISCHARGE: 10/27/2018 CHIEF COMPLAINT: Syncope. HISTORY OF PRESENT ILLNESS: The patient is a 78-year-old female who presented to the Emergency Room with the above complaint. She reported that she had been constipated and had spent some time in her bathroom trying to have a bowel movement. She suddenly got lightheaded and apparently fell to the floor. This was an unwitnessed syncope, but it does not appear that she was on the floor for very long. She remembers waking up, and she was able to get to the phone to call 911. Initial evaluation in the Emergency Room was unremarkable, and she was admitted for observation and further care. HOSPITAL COURSE: The patient was admitted and placed on telemetry where she remains in sinus rhythm. She was seen in consultation by Dr. Dickey due to her history of coronary artery disease. He felt that this was a vasovagal syncope and no further cardiac evaluation was presently indicated. The patient had no further episodes of lightheadedness. The patient was noted to have a white blood cell count elevated at 16.4 at admission. Her urinalysis showed 1-4 wbc's, but also moderate squamous epithelial cells, indicating a possible contaminant. There was no other evidence of acute infection, and she was given Levaquin to cover this possible urinary tract infection. She did not complain of any symptoms from this. For her chronic constipation, the patient is advised to take MiraLax daily. She reports that she had been doing this at home, but then ran out a while ago and became constipated. She is requesting treatment for constipation this morning, and so a Dulcolax suppository has been ordered. The patient has hypertension, and her blood pressure is somewhat labile, but fairly well controlled with her usual medicine. She has insulin-dependent diabetes, and this has been stable with her usual insulins. The patient has some mild memory loss, but has been functioning fairly well at home with daily help from her daughter. She appears to be at her baseline mental status. She states she feels much better and is anxious to return home today. She states her daughter can come and get her after work later today. FINAL DIAGNOSES: 1. Vasovagal syncope. 2. Coronary artery disease. 3. Diabetes mellitus type 2, insulin-dependent. 4. Hypertension. 5. Mild memory loss. DISCHARGE MEDICATIONS: All remain the same as at admission. She is advised to resume the MiraLax daily. She can call our office tomorrow for final report on the urine culture. She will not be sent home on any antibiotics. ADDENDUM: The urine culture was without significant growth so no further antibiotics are indicated. ROSEMARY LENZ MD DR: DANIEL/letitia JOB#: [id number] / [id number] REGINE
[2018-10-27 19:16] VITALS: BP 136/74
== END 2018-10-27 19:20 | disposition home or self-care (01) | DRG 690 ==
LOC: ER 12:14 → 2 SOUTH 14:25
PROVIDERS: ADMIT Family Medicine; ATTEND Family Medicine
DX: N39.0 Urinary tract infection, site not specified (principal); R55 Syncope and collapse; E04.2 Nontoxic multinodular goiter; E11.22 Type 2 diabetes mellitus with diabetic chronic kidney disease; E78.00 Pure hypercholesterolemia, unspecified; E78.5 Hyperlipidemia, unspecified; E87.6 Hypokalemia; F03.90 Unspecified dementia, unspecified severity, without behavioral disturbance, psychotic disturbance, mood disturbance, and anxiety; G47.30 Sleep apnea, unspecified; I12.9 Hypertensive chronic kidney disease with stage 1 through stage 4 chronic kidney disease, or unspecified chronic kidney disease; I25.10 Atherosclerotic heart disease of native coronary artery without angina pectoris; K59.09 Other constipation; K64.9 Unspecified hemorrhoids; M46.02 Spinal enthesopathy, cervical region; M47.812 Spondylosis without myelopathy or radiculopathy, cervical region; M48.02 Spinal stenosis, cervical region; M50.30 Other cervical disc degeneration, unspecified cervical region; F32.9 Major depressive disorder, single episode, unspecified; N18.9 Chronic kidney disease, unspecified; M19.90 Unspecified osteoarthritis, unspecified site; Z79.4 Long term (current) use of insulin; F41.9 Anxiety disorder, unspecified; Z80.1 Family history of malignant neoplasm of trachea, bronchus and lung; Z80.41 Family history of malignant neoplasm of ovary; Z85.3 Personal history of malignant neoplasm of breast; Z86.010 Personal history of colon polyps; Z88.0 Allergy status to penicillin; Z90.11 Acquired absence of right breast and nipple; Z90.49 Acquired absence of other specified parts of digestive tract; Z90.710 Acquired absence of both cervix and uterus; Z95.1 Presence of aortocoronary bypass graft; Z88.2 Allergy status to sulfonamides; Z88.8 Allergy status to other drugs, medicaments and biological substances; Z87.440 Personal history of urinary (tract) infections; Z60.2 Problems related to living alone
CPT/HCPCS: 36415; 70450; 72125; 74022; 80053; 81001; 82962; 83735; 84484; 85007; 85025; 87086; 93005; 96360; J1650; J1815; J1956; J7040; 99285-25

== ENCOUNTER 2018-11-07 15:52 | Observation (INO) | payer MEDICARE ==
[~2018-11-07] VITALS: Ht 160 cm; Wt 64.9 kg
[~2018-11-07 15:52] MED LIST changes: +INSU100C SQ; +POLY17PO28 PO
[2018-11-07] MEDS ORDERED: IV NORMAL SALINE 500ML BAG 500 ML IV ONE (16:30)
--- NOTE | 2018-11-07 16:30 | PHYS DOC ---
Past Medical History Past Medical History: Constipation, Diabetes-Type I, Hypertension Additional Past Medical Histor: breast cancer Past Surgical History: Other Additional Past Surgical Histo: triple bypass, mastectomy R. Alcohol Use: None Drug Use: None Adult General Chief Complaint Chief Complaint: CHEST PAIN HPI HPI 78-year-old female presenting the emergency department today with chest pain and dizziness this started today around 10:00 when she was watching the [employer] show. Today this afternoon she was out cutting the mail when her postal service nilton Sancheztan asked her if she was feeling well. At that time she was having chest pain and feeling lightheaded. The pain is a throbbing nonradiating pain which is currently improving. She denies any syncopal episodes. She denies fevers or chills. She denies hemoptysis or unilateral leg swelling. Medical hx from previous admission note by Doctor Ingram: "PAST MEDICAL HISTORY: Coronary artery disease, breast cancer, type 2 diabetes, hypertension, hyperlipidemia, mild dementia, heart murmur, sleep apnea but she is untreated, colon polyps, urinary tract infections, osteoarthritis, depression and anxiety. PAST SURGICAL HISTORY: Include cataract extractions, coronary artery bypass graft, cholecystectomy, right breast mastectomy, hysterectomy, carpal tunnel release on the right x 2. FAMILY HISTORY: Heart disease, ovarian cancer and lung cancer. SOCIAL HISTORY: She lives at the group home. Does not smoke, does not drink. ALLERGIES: PENICILLIN, SULFA, CELECOXIB, ROSUVASTATIN." Review of systems is negative for abdominal pain nausea vomiting diaphoresis fevers or chills. All other review of systems is negative unless otherwise noted in history of present illness. ED course: 78-year-old female presenting the emergency department today with chest pain and lightheadedness. On arrival EKG obtained. EKG shows sinus rhythm with a regular rate. ST segments congruent. Not suggestive of ACS. Chest x-ray ordered along with blood work. D-dimer is minimally elevated. Age adjusted d- dimer would be negative. I ordered an angiogram which the patient is refusing. We will admit the patient to Dr. Castillo whom I spoke with who accepts the patient for admission. I spoke with Dr. Castillo about the need for a VQ scan. I will order the test. She states that she will follow-up on this test. The patient was then admitted for further treatment and care. Review of Systems Review of Systems SEE ABOVE. Current Medications Current Medications Current Medications Medications (Trade) Dose Ordered Sig/Shakeel Start Time Stop Time Status Last Admin Dose Admin Sodium Chloride 500 ml @ 500 mls/hr 1X ONCE 11/07/18 16:30 11/07/18 17:29 DC 11/07/18 16:37 500 MLS/HR Allergies Allergies Allergies Coded Allergies Type Severity Reaction Last Updated Verified Penicillins Allergy Intermediate hives 07/10/17 Yes Sulfa (Sulfonamide Antibiotics) Allergy Intermediate 07/10/17 Yes chocolate flavor Allergy Intermediate 07/10/17 Yes rosuvastatin Allergy Intermediate 05/17/18 Yes celecoxib Adverse Reaction Intermediate "makes me crazy" 07/10/17 Yes Physical Exam Physical Exam SEE ABOVE Constitutional: Well developed, well nourished, no acute distress, non-toxic appearance. [] HENT: Normocephalic, atraumatic, bilateral external ears normal, oropharynx moist, no oral exudates, nose normal. [] Eyes: PERRLA, EOMI, conjunctiva normal, no discharge. [] Neck: Normal range of motion, no tenderness, supple, no stridor. [] Cardiovascular:Heart rate regular rhythm, no murmur [] Lungs & Thorax: Bilateral breath sounds clear to auscultation [] Abdomen: Bowel sounds normal, soft, no tenderness, no masses, no pulsatile masses. [] Skin: Warm, dry, no erythema, no rash. [] Back: No tenderness, no CVA tenderness. [] Extremities: No tenderness, no cyanosis, no clubbing, ROM intact, no edema. [] Neurologic: Alert and oriented X 3, normal motor function, normal sensory function, no focal deficits noted. [] Psychologic: Affect normal, judgement normal, mood normal. [] Current Patient Data Vital Signs Vital Signs Date Time Temp Pulse Resp B/P (MAP) Pulse Ox O2 Delivery O2 Flow Rate FiO2 11/07/18 15:55 98.8 92 16 177/98 (124) 97 Room Air 98.8 Lab Values Laboratory Tests Test 11/07/18 16:30 White Blood Count 16.3 x10^3/uL (4.0-11.0) H Red Blood Count 4.99 x10^6/uL (3.50-5.40) Hemoglobin 14.9 g/dL (12.0-15.5) Hematocrit 44.9 % (36.0-47.0) Mean Corpuscular Volume 90 fL (79-100) Mean Corpuscular Hemoglobin 30 pg (25-35) Mean Corpuscular Hemoglobin Concent 33 g/dL (31-37) Red Cell Distribution Width 14.2 % (11.5-14.5) Platelet Count 240 x10^3/uL (140-400) Neutrophils (%) (Auto) 82 % (31-73) H Lymphocytes (%) (Auto) 11 % (24-48) L Monocytes (%) (Auto) 6 % (0-9) Eosinophils (%) (Auto) 1 % (0-3) Basophils (%) (Auto) 0 % (0-3) Neutrophils # (Auto) 13.3 x10^3uL (1.8-7.7) H Lymphocytes # (Auto) 1.9 x10^3/uL (1.0-4.8) Monocytes # (Auto) 0.9 x10^3/uL (0.0-1.1) Eosinophils # (Auto) 0.1 x10^3/uL (0.0-0.7) Basophils # (Auto) 0.0 x10^3/uL (0.0-0.2) Segmented Neutrophils % 78 % (35-66) H Band Neutrophils % 2 % (0-9) Lymphocytes % 10 % (24-48) L Atypical Lymphocytes % (Manual) 1 % (0-0) H Monocytes % 7 % (0-10) Eosinophils % 1 % (0-5) Basophils % 1 % (0-3) Platelet Estimate Adequate (ADEQUATE) Large Platelets Few Giant Platelets Occ Prothrombin Time 12.5 SEC (11.7-14.0) Prothrombin Time INR 1.0 (0.8-1.1) PTT 25 SEC (24-38) D-Dimer (Fiona) 0.52 ug/mlFEU (0.00-0.50) H Sodium Level 139 mmol/L (136-145) Potassium Level 3.5 mmol/L (3.5-5.1) Chloride Level 104 mmol/L (98-107) Carbon Dioxide Level 26 mmol/L (21-32) Anion Gap 9 (6-14) Blood Urea Nitrogen 12 mg/dL (7-20) Creatinine 0.8 mg/dL (0.6-1.0) Estimated GFR (Cockcroft-Gault) 84.4 Glucose Level 105 mg/dL (70-99) H Calcium Level 10.4 mg/dL (8.5-10.1) H Total Bilirubin 0.3 mg/dL (0.2-1.0) Direct Bilirubin 0.1 mg/dL (0.0-0.2) Aspartate Amino Transferase (AST) 20 U/L (15-37) Alanine Aminotransferase (ALT) 30 U/L (14-59) Alkaline Phosphatase 87 U/L (46-116) Troponin I Quantitative 0.031 ng/mL (0.000-0.055) NJ-Yjo-F-Type Natriuretic Peptide 205 pg/mL (0-449) Total Protein 8.2 g/dL (6.4-8.2) Albumin 4.1 g/dL (3.4-5.0) Lipase 96 U/L (73-393) Laboratory Tests 11/07/18 16:30 Laboratory Tests 11/07/18 16:30 EKG EKG [] Radiology/Procedures Radiology/Procedures [] Course & Med Decision Making Course & Med Decision Making Pertinent Labs and Imaging studies reviewed. (See chart for details) [] Dragon Disclaimer Dragon Disclaimer This electronic medical record was generated, in whole or in part, using a voice recognition dictation system. Departure Departure Impression: Primary Impression: CAD (coronary artery disease) Additional Impressions: Dizziness Chest pain Disposition: 09 ADMITTED INPATIENT Admitting Physician: Nano Castillo Condition: STABLE Referrals: NANO CASTILLO MD (PCP) Problem Qualifiers FANG VINSON MD Nov 07, 2018 16:30
[2018-11-07 16:44] LABS: BASO % 0 % (0-3); EOS # 0.1 x10^3/uL (0.0-0.7); EOS % 1 % (0-3); HEMATOCRIT 44.9 % (36.0-47.0); HEMOGLOBIN 14.9 g/dL (12.0-15.5); LYMPH # 1.9 x10^3/uL (1.0-4.8); LYMPH % 11 % (24-48); MEAN CORPUSCULAR HEMOGLOBIN 30 pg (25-35); MEAN CORPUSCULAR HGB CONC 33 g/dL (31-37); MEAN CORPUSCULAR VOLUME 90 fL (79-100); MONO # 0.9 x10^3/uL (0.0-1.1); MONO % 6 % (0-9); NEUT # 13.3 x10^3uL (1.8-7.7); NEUT % 82 % (31-73); PLATELET COUNT 240 x10^3/uL (140-400); RED BLOOD COUNT 4.99 x10^6/uL (3.50-5.40); RED CELL DISTRIBUTION WIDTH 14.2 % (11.5-14.5); WHITE BLOOD COUNT 16.3 x10^3/uL (4.0-11.0)
--- NOTE | 2018-11-07 16:57 | RAD ---
CHEST AP ONLY Clinical indications: ER PATIENT. DIZZINESS. Hx of hypertension, CABG X3, RIGHT SIDE MASTECTOMY. COMPARISON: Chest x-ray dated October 25, 2018. Findings: No acute lung infiltrate or pleural effusion or pulmonary edema or lung mass or pneumothorax is seen. Sternotomy is again evident. The heart size, pulmonary vasculature, mediastinum and both elizabeth are otherwise unremarkable. Impression: No acute radiographic abnormality is seen. Electronically signed by: Ernesto Vega MD (11/07/2018 4:55 PM) [place] [id number]
[2018-11-07 16:58] LABS: PROTHROMBIN TIME PATIENT 12.5 SEC (11.7-14.0)
[2018-11-07 16:59] LABS: CALCIUM 10.4 mg/dL (8.5-10.1); CREATININE 0.8 mg/dL (0.6-1.0); GFR 84.4; POTASSIUM 3.5 mmol/L (3.5-5.1)
[2018-11-07] MEDS ORDERED: levOFLOXacin PER PHARMACY. MC ONE (17:00)
[2018-11-07 17:05] LABS: ALBUMIN 4.1 g/dL (3.4-5.0); DIRECT BILIRUBIN 0.1 mg/dL (0.0-0.2); TOTAL BILIRUBIN 0.3 mg/dL (0.2-1.0); TOTAL PROTEIN 8.2 g/dL (6.4-8.2)
[2018-11-07 17:14] LABS: % ATYL 1 % (0-0); % BANDS 2 % (0-9); % BASOS 1 % (0-3); % EOS 1 % (0-5); % LYMPHS 10 % (24-48); % MONOS 7 % (0-10); % SEGS 78 % (35-66); PLT ESTIMATE ADEQUATE (ADEQUATE)
--- NOTE | 2018-11-07 17:16 | EKG ---
[facility] [address] [place] [address] Test Date: 2018-11-07 Test Time: 15:57:46 Pat Name: PAVAN SHARP Department: Room: Gender: F Unit Aid: : 1940 Requested By: FANG VINSON Order Number: [id number] Reading MD: Measurements Intervals [place] Rate: 93 P: 50 ND: 130 QRS: -44 QRSD: 90 T: 74 QT: 338 QTc: 427 Interpretive Statements SINUS RHYTHM LEFT ATRIAL ABNORMALITY ABNORMAL LEFT AXIS DEVIATION QRS(T) CONTOUR ABNORMALITY CONSISTENT WITH INFERIOR INFARCT PROBABLY OLD ST & T ABNORMALITY, CONSIDER HIGH LATERAL ISCHEMIA OR LEFT VENTRICULAR STRAIN ABNORMAL ECG No previous ECG available for comparison
[2018-11-07 17:23] LABS: BILIRUBIN,URINE NEGATIVE (NEG); CLARITY,URINE CLEAR; COLOR,URINE YELLOW; NITRITE,URINE NEGATIVE (NEG); PROTEIN,URINE NEGATIVE (NEG-TRACE); UROBILINOGEN,URINE 0.2 mg/dL (0.2 mg/dL)
[2018-11-07 17:26] LABS: BACTERIA,URINE 0 /HPF (0-FEW); RBC,URINE OCC /HPF (0-2); SQUAMOUS EPITHELIAL CELL,UR FEW /LPF; WBC,URINE OCC /HPF (0-4)
[2018-11-07] MEDS ORDERED: CONTRAST GIVEN. MC PRN (17:30)
[2018-11-07] MEDS ORDERED: IOHEXOL 350 MG/ML 100 ML VIAL. IV ONE (17:30)
[2018-11-07 19:20] VITALS: BP 150/79
[2018-11-07] MEDS ORDERED: ACETAMINOPHEN 500 MG TABLET PO PRN (22:30)
[2018-11-07] MEDS ORDERED: DEXTROSE 50% 25 GM / 50ML DISP.SYRIN. IV PRN (22:30)
[2018-11-07] MEDS: INSULIN LISPRO 300 UNITS/3 ML INSULN.PEN. SQ SCH (22:56)
[2018-11-07] MEDS ORDERED: INSULIN GLARGINE 300 UNITS/3 ML INSULN.PEN. SQ SCH (23:00)
[2018-11-07 23:42] VITALS: BP 143/60
[2018-11-08 03:44] VITALS: BP 147/60
[2018-11-08] MEDS: INSULIN LISPRO 300 UNITS/3 ML INSULN.PEN. SQ SCH ×2 (07:30→12:12)
[2018-11-08 07:55] VITALS: BP 150/66
--- NOTE | 2018-11-08 09:00 | RAD ---
Ventilation perfusion exam History: Chest pain for one day Comparison: November 07, 2018 chest radiograph, no previous similar exam available Findings: Ventilation perfusion examination was performed. Ventilation images were acquired after the patient inhaled 28 mCi of xenon-133 gas. Perfusion images were acquired after the patient was injected with 6.6 mCi of technetium 99m MAA. No mismatched perfusion defect is identified. Impression: 1. There is low probability for pulmonary embolic disease. Electronically signed by: Shashi Elias MD (11/08/2018 8:58 AM) [facility]
[2018-11-08 11:30] VITALS: BP 166/61
--- NOTE | 2018-11-08 12:43 | PDOC ---
PROGRESS NOTES Subjective Subjective Patient reports lightheadedness and chest pain are better than at admission. Wants to go home today. Objective Objective Vital Signs Date Time Temp Pulse Resp B/P (MAP) Pulse Ox O2 Delivery O2 Flow Rate FiO2 11/08/18 11:30 98.2 85 12 166/61 (96) 97 Room Air 98.2 Intake and Output 11/08/18 06:59 Intake Total 740 ml Output Total 600 ml Balance 140 ml Intake Oral 240 ml IV Total 500 ml Output Urine Total 600 ml # Voids 4 Physical Exam Abdomen: Normal bowel sounds, Soft, No tenderness Heart: Regular rate Extremities: No edema General: Alert, Oriented X3, No acute distress Lungs: Clear to auscultation Assessment Assessment Problems Medical Problems: (1) CAD (coronary artery disease) Status: Acute (2) Chest pain Status: Acute (3) Dizziness Status: Acute Plan Plan of Care 1. Chest pain with hx of CAD - stable, Troponin very mildly elevated but not i ncreasing. EKG reported without acute ischemic change. Cardiac cath last year showed preserved EF and 3/4 grafts patent. Patient overdue office visit with Dr Rawls. Will discharge home today and she is advised follow up with Cardiology as soon as possible. D dimer very mildly elevated, VQ scan low probability. 2. lightheadedness - resolved, lab and vital signs unremarkable. 3. DM2 - stable, continue insulins. 4. HTN - continue home medications. Comment Review of Relevant I have reviewed the following items moriah (where applicable) has been applied. Labs Laboratory Tests Test 11/07/18 16:30 11/07/18 16:40 11/07/18 17:14 11/07/18 19:13 White Blood Count 16.3 x10^3/uL (4.0-11.0) Red Blood Count 4.99 x10^6/uL (3.50-5.40) Hemoglobin 14.9 g/dL (12.0-15.5) Hematocrit 44.9 % (36.0-47.0) Mean Corpuscular Volume 90 fL (79-100) Mean Corpuscular Hemoglobin 30 pg (25-35) Mean Corpuscular Hemoglobin Concent 33 g/dL (31-37) Red Cell Distribution Width 14.2 % (11.5-14.5) Platelet Count 240 x10^3/uL (140-400) Neutrophils (%) (Auto) 82 % (31-73) Lymphocytes (%) (Auto) 11 % (24-48) Monocytes (%) (Auto) 6 % (0-9) Eosinophils (%) (Auto) 1 % (0-3) Basophils (%) (Auto) 0 % (0-3) Neutrophils # (Auto) 13.3 x10^3uL (1.8-7.7) Lymphocytes # (Auto) 1.9 x10^3/uL (1.0-4.8) Monocytes # (Auto) 0.9 x10^3/uL (0.0-1.1) Eosinophils # (Auto) 0.1 x10^3/uL (0.0-0.7) Basophils # (Auto) 0.0 x10^3/uL (0.0-0.2) Segmented Neutrophils % 78 % (35-66) Band Neutrophils % 2 % (0-9) Lymphocytes % 10 % (24-48) Atypical Lymphocytes % (Manual) 1 % (0-0) Monocytes % 7 % (0-10) Eosinophils % 1 % (0-5) Basophils % 1 % (0-3) Platelet Estimate Adequate (ADEQUATE) Large Platelets Few Giant Platelets Occ Prothrombin Time 12.5 SEC (11.7-14.0) Prothromb Time International Ratio 1.0 (0.8-1.1) Activated Partial Thromboplast Time 25 SEC (24-38) D-Dimer (Fiona) 0.52 ug/mlFEU (0.00-0.50) Sodium Level 139 mmol/L (136-145) Potassium Level 3.5 mmol/L (3.5-5.1) Chloride Level 104 mmol/L (98-107) Carbon Dioxide Level 26 mmol/L (21-32) Anion Gap 9 (6-14) Blood Urea Nitrogen 12 mg/dL (7-20) Creatinine 0.8 mg/dL (0.6-1.0) Estimated GFR (Cockcroft-Gault) 84.4 Glucose Level 105 mg/dL (70-99) Calcium Level 10.4 mg/dL (8.5-10.1) Total Bilirubin 0.3 mg/dL (0.2-1.0) Direct Bilirubin 0.1 mg/dL (0.0-0.2) Aspartate Amino Transf (AST/SGOT) 20 U/L (15-37) Alanine Aminotransferase (ALT/SGPT) 30 U/L (14-59) Alkaline Phosphatase 87 U/L (46-116) Troponin I Quantitative 0.031 ng/mL (0.000-0.055) TF-Del-S-Type Natriuretic Peptide 205 pg/mL (0-449) Total Protein 8.2 g/dL (6.4-8.2) Albumin 4.1 g/dL (3.4-5.0) Lipase 96 U/L (73-393) Lactic Acid Level 1.6 mmol/L (0.4-2.0) Urine Collection Type Unknown Urine Color Yellow Urine Clarity Clear Urine pH 6.0 Urine Specific [place] 1.010 Urine Protein Negative mg/dL (NEG-TRACE) Urine Glucose (UA) Negative mg/dL (NEG) Urine Ketones (Stick) Negative mg/dL (NEG) Urine Blood Negative (NEG) Urine Nitrite Negative (NEG) Urine Bilirubin Negative (NEG) Urine Urobilinogen Dipstick 0.2 mg/dL (0.2 mg/dL) Urine Leukocyte Esterase Negative (NEG) Urine RBC Occ /HPF (0-2) Urine WBC Occ /HPF (0-4) Urine Squamous Epithelial Cells Few /LPF Urine Bacteria 0 /HPF (0-FEW) Glucose (Fingerstick) 122 mg/dL (70-99) Test 11/07/18 21:16 11/07/18 22:10 11/08/18 00:05 11/08/18 06:55 Glucose (Fingerstick) 201 mg/dL (70-99) 224 mg/dL (70-99) Troponin I Quantitative 0.041 ng/mL (0.000-0.055) 0.027 ng/mL (0.000-0.055) Test 11/08/18 08:03 11/08/18 11:29 Glucose (Fingerstick) 88 mg/dL (70-99) 178 mg/dL (70-99) Laboratory Tests Test 11/07/18 16:30 11/07/18 16:40 11/07/18 17:14 11/07/18 19:13 White Blood Count 16.3 x10^3/uL (4.0-11.0) Red Blood Count 4.99 x10^6/uL (3.50-5.40) Hemoglobin 14.9 g/dL (12.0-15.5) Hematocrit 44.9 % (36.0-47.0) Mean Corpuscular Volume 90 fL (79-100) Mean Corpuscular Hemoglobin 30 pg (25-35) Mean Corpuscular Hemoglobin Concent 33 g/dL (31-37) Red Cell Distribution Width 14.2 % (11.5-14.5) Platelet Count 240 x10^3/uL (140-400) Neutrophils (%) (Auto) 82 % (31-73) Lymphocytes (%) (Auto) 11 % (24-48) Monocytes (%) (Auto) 6 % (0-9) Eosinophils (%) (Auto) 1 % (0-3) Basophils (%) (Auto) 0 % (0-3) Neutrophils # (Auto) 13.3 x10^3uL (1.8-7.7) Lymphocytes # (Auto) 1.9 x10^3/uL (1.0-4.8) Monocytes # (Auto) 0.9 x10^3/uL (0.0-1.1) Eosinophils # (Auto) 0.1 x10^3/uL (0.0-0.7) Basophils # (Auto) 0.0 x10^3/uL (0.0-0.2) Segmented Neutrophils % 78 % (35-66) Band Neutrophils % 2 % (0-9) Lymphocytes % 10 % (24-48) Atypical Lymphocytes % (Manual) 1 % (0-0) Monocytes % 7 % (0-10) Eosinophils % 1 % (0-5) Basophils % 1 % (0-3) Platelet Estimate Adequate (ADEQUATE) Large Platelets Few Giant Platelets Occ Prothrombin Time 12.5 SEC (11.7-14.0) Prothromb Time International Ratio 1.0 (0.8-1.1) Activated Partial Thromboplast Time 25 SEC (24-38) D-Dimer (Fiona) 0.52 ug/mlFEU (0.00-0.50) Sodium Level 139 mmol/L (136-145) Potassium Level 3.5 mmol/L (3.5-5.1) Chloride Level 104 mmol/L (98-107) Carbon Dioxide Level 26 mmol/L (21-32) Anion Gap 9 (6-14) Blood Urea Nitrogen 12 mg/dL (7-20) Creatinine 0.8 mg/dL (0.6-1.0) Estimated GFR (Cockcroft-Gault) 84.4 Glucose Level 105 mg/dL (70-99) Calcium Level 10.4 mg/dL (8.5-10.1) Total Bilirubin 0.3 mg/dL (0.2-1.0) Direct Bilirubin 0.1 mg/dL (0.0-0.2) Aspartate Amino Transf (AST/SGOT) 20 U/L (15-37) Alanine Aminotransferase (ALT/SGPT) 30 U/L (14-59) Alkaline Phosphatase 87 U/L (46-116) Troponin I Quantitative 0.031 ng/mL (0.000-0.055) WV-Ule-Q-Type Natriuretic Peptide 205 pg/mL (0-449) Total Protein 8.2 g/dL (6.4-8.2) Albumin 4.1 g/dL (3.4-5.0) Lipase 96 U/L (73-393) Lactic Acid Level 1.6 mmol/L (0.4-2.0) Urine Collection Type Unknown Urine Color Yellow Urine Clarity Clear Urine pH 6.0 Urine Specific [place] 1.010 Urine Protein Negative mg/dL (NEG-TRACE) Urine Glucose (UA) Negative mg/dL (NEG) Urine Ketones (Stick) Negative mg/dL (NEG) Urine Blood Negative (NEG) Urine Nitrite Negative (NEG) Urine Bilirubin Negative (NEG) Urine Urobilinogen Dipstick 0.2 mg/dL (0.2 mg/dL) Urine Leukocyte Esterase Negative (NEG) Urine RBC Occ /HPF (0-2) Urine WBC Occ /HPF (0-4) Urine Squamous Epithelial Cells Few /LPF Urine Bacteria 0 /HPF (0-FEW) Glucose (Fingerstick) 122 mg/dL (70-99) Test 11/07/18 21:16 11/07/18 22:10 11/08/18 00:05 11/08/18 06:55 Glucose (Fingerstick) 201 mg/dL (70-99) 224 mg/dL (70-99) Troponin I Quantitative 0.041 ng/mL (0.000-0.055) 0.027 ng/mL (0.000-0.055) Test 11/08/18 08:03 11/08/18 11:29 Glucose (Fingerstick) 88 mg/dL (70-99) 178 mg/dL (70-99) Medications Current Medications Sodium Chloride 500 ml @ 500 mls/hr 1X ONCE IV Last administered on 11/07/18at 16:37; Start 11/07/18 at 16:30; Stop 11/07/18 at 17:29; Status DC Levofloxacin/ Dextrose (Levaquin Per Pharmacy) 1 each 1X ONCE MC Last administered on 11/07/18at 17:00; Start 11/07/18 at 17:00; Stop 11/07/18 at 17:03; Status DC Levofloxacin/ Dextrose 100 ml @ 100 mls/hr 1X ONCE IV Last administered on 11/07/18at 18:50; Start 11/07/18 at 17:30; Stop 11/07/18 at 18:29; Status DC Iohexol (Omnipaque 350 Mg/ml) 90 ml 1X ONCE IV ; Start 11/07/18 at 17:30; Stop 11/07/18 at 17:31; Status DC Info (CONTRAST GIVEN -- Rx MONITORING) 1 each PRN DAILY PRN MC SEE COMMENTS; Start 11/07/18 at 17:30; Stop 11/09/18 at 17:29 Insulin Glargine (Lantus) 30 units QHS SQ Last administered on 11/07/18at 22:56; Start 11/07/18 at 23:00 Dextrose (Dextrose 50%-Water Syringe) 12.5 gm PRN Q15MIN PRN IV SEE COMMENTS; Start 11/07/18 at 22:30 Insulin Human Lispro (HumaLOG) 10 units TIDAC SQ Last administered on 11/08/18at 12:12; Start 11/07/18 at 23:00 Acetaminophen (Tylenol) 1,000 mg PRN Q6HRS PRN PO MILD PAIN / TEMP; Start 11/07/18 at 22:30 Active Scripts Active Polyethylene Glycol 3350 17 Gm Powd.pack 17 Gm PO DAILY 30 Days Atorvastatin Calcium 40 Mg Tablet 40 Mg PO QHS 30 Days Reported Humalog (Insulin Lispro) 100 Unit/1 Ml Cartridge 10 Unit SQ TIDAC Lantus Solostar (Insulin Glargine,Hum.rec.anlog) 100 Unit/1 Ml Insuln.pen 30 Unit SQ QHS Klor-Con M20 (Potassium Chloride) 20 Meq Tab.er.prt 1 Tab PO DAILY Ibuprofen 600 Mg Tablet 1 Tab PO PRN Q8HRS PRN Lisinopril-Hctz 20-25 Mg Tab (Lisinopril/Hydrochlorothiazide) 1 Each Tablet 1 Tab PO DAILY Garlic 1,000 Mg Capsule 1,000 Mg PO DAILY B Complex With Vitamin C (Vitamin B Complex & Vit C No.3) 1 Each Capsule 1 Each PO DAILY Toprol Xl (Metoprolol Succinate) 25 Mg Tab.er.24h 50 Mg PO DAILY Norvasc (Amlodipine Besylate) 10 Mg Tablet 10 Mg PO DAILY Ranitidine Hcl 150 Mg Tablet 150 Mg PO BID Centrum Silver Tablet (Multivits-Min/Fa/Lycopene/Lut) 1 Each Tablet 1 Each PO DAILY Vitals/I & O Vital Sign - Last 24 Hours 11/07/18 11/07/18 11/07/18 11/07/18 15:55 16:41 17:30 18:00 Temp 98.8 98.8 Pulse 92 78 78 68 Resp 16 16 16 16 B/P (MAP) 177/98 (124) 164/69 (100) 151/81 (104) 146/84 (104) Pulse Ox 97 96 96 97 O2 Delivery Room Air Room Air Room Air Room Air 11/07/18 11/07/18 11/07/18 11/07/18 18:30 19:20 20:00 23:42 Temp 98.2 98.5 98.2 98.5 Pulse 80 89 88 Resp 16 18 17 B/P (MAP) 141/63 (89) 150/79 (102) 143/60 (87) Pulse Ox 97 97 96 O2 Delivery Room Air Room Air Room Air Room Air 11/08/18 11/08/18 11/08/18 11/08/18 03:44 07:55 08:00 09:58 Temp 99.2 98.7 99.2 98.7 Pulse 88 81 Resp 18 12 B/P (MAP) 147/60 (89) 150/66 (94) Pulse Ox 96 96 O2 Delivery Room Air Room Air Room Air Room Air 11/08/18 11:30 Temp 98.2 98.2 Pulse 85 Resp 12 B/P (MAP) 166/61 (96) Pulse Ox 97 O2 Delivery Room Air Intake and Output 11/07/18 11/07/18 11/08/18 14:59 22:59 06:59 Intake Total 500 ml 240 ml Output Total 600 ml Balance 500 ml -360 ml ROSEMARY LENZ MD Nov 08, 2018 12:43
[2018-11-08 12:49] VITALS: BP 166/61
[2018-11-08] MEDS ORDERED: LISINOPRIL 20 MG TABLET PO SCH (13:00)
[2018-11-08] MEDS ORDERED: METOPROLOL SUCC 24HR ER 50 MG TAB.ER.24H. PO SCH (13:00)
[2018-11-08] MEDS ORDERED: amLODIPine BESYLATE 10 MG TABLET PO SCH (13:00)
[2018-11-08] MEDS ORDERED: POTASSIUM CHLORIDE 20 MEQ TABLET.ER. PO SCH (13:00)
[2018-11-08] MEDS ORDERED: hydroCHLOROthiazide 25 MG TABLET PO SCH (13:00)
--- NOTE | 2018-11-08 13:27 | SSS ---
ADMIT DATE: 11/08/2018 A 23-HOUR SUMMARY This is a combined history and physical and discharge summary. DATE OF DISCHARGE: 11/08/2018. CHIEF COMPLAINT: Lightheadedness. HISTORY OF PRESENT ILLNESS: The patient is a 78-year-old female with a history of coronary artery disease and insulin-dependent diabetes. She presented to the Emergency Room with the above complaint. The patient reported the onset of lightheadedness at home earlier on the day of admission. She had been resting on the couch and when she got up to answer the door, she had the onset of lightheadedness. These symptoms persisted and she called 911. About the time that the ambulance arrived, she also began experiencing some left-sided chest pain. She was brought to the Emergency Room. Initial evaluation there showed a troponin very mildly increased. An EKG was reported as without acute ischemic change. A V/Q scan was done as her D-dimer was very mildly elevated and this was of low probability for pulmonary emboli. The patient was admitted for further care. PAST MEDICAL HISTORY: Coronary artery disease; diabetes mellitus type 2, insulin-dependent; hyperlipidemia, hypertension, breast cancer, chronic constipation and peripheral artery disease. PAST SURGICAL HISTORY: Right mastectomy, cholecystectomy, hysterectomy, carpal tunnel repair x 2 and coronary artery bypass graft x 5, 06/2015. FAMILY HISTORY: Noncontributory. SOCIAL HISTORY: The patient is . She lives with her daughter. She does not smoke cigarettes or drink alcohol to excess. REVIEW OF SYSTEMS: The patient states she has been feeling fairly well. She denies fever or chills. She denies cough or shortness of breath. She denies other recent episodes of chest pain or palpitations. She is overdue to see Dr. Rawls in the office, but has not seen him recently due to some concerns about her bill there. She denies abdominal pain, nausea or vomiting. Her chronic constipation has been stable. Her blood sugars have been fairly good with her usual insulins. ALLERGIES: THE PATIENT IS ALLERGIC TO PENICILLINS, SULFA, CELEBREX AND CRESTOR. HOME MEDICATIONS: Amlodipine 10 mg daily, atorvastatin 40 mg daily, ibuprofen 600 mg p.r.n., Lantus insulin 30 units at bedtime, Humalog insulin 10 units t.i.d. a.c., Lisinopril/hydrochlorothiazide 20/25 one daily, Toprol-XL 50 mg daily, potassium 20 mEq daily, MiraLax daily and ranitidine 150 mg b.i.d. PHYSICAL EXAMINATION: GENERAL: The patient is alert and oriented x 3, sitting up comfortably in bed, in no acute distress. HEENT: PERRL, EOMI, sclerae clear. Oropharynx, mucous membranes moist. NECK: Supple, without lymphadenopathy. CHEST: Clear to auscultation. CARDIOVASCULAR: Regular rhythm. ABDOMEN: Soft, nontender. Normoactive bowel sounds are present. EXTREMITIES: Without edema. HOSPITAL COURSE: The patient was admitted and placed on telemetry, where she remains in sinus rhythm. Troponin is very mildly increased to a high of 0.041 and is presently 0.027. The patient reports that the significant chest pain she experienced at admission has stopped. She is having some very mild intermittent discomfort, but she feels well enough to go home. She denies any lightheadedness at this time. Her blood pressure has been mildly elevated without her usual medications, but her vital signs are otherwise stable. Lab is otherwise unremarkable. Chest x-ray is clear. V/Q scan is of low probability for pulmonary embolism. The patient is strongly advised a followup with Dr. Rawls in the office as soon as possible and she states that she will arrange this. The patient will be discharged to home later today. FINAL DIAGNOSES: 1. Musculoskeletal chest pain. 2. History of coronary artery disease. 3. Lightheadedness. 4. Diabetes mellitus type 2, insulin dependent. 5. Hypertension. DISCHARGE MEDICATIONS: Remain the same as at admission. FOLLOWUP: With Dr. Castillo as needed. Follow up with Dr. Rawls as soon as possible. ROSEMARY CASTILLO MD DR: DANIEL/letitia JOB#: [id number] / [id number] REGINE
== END 2018-11-08 15:30 | disposition home or self-care (01) ==
LOC: ER 15:52 → 2 NORTH 16:34
PROVIDERS: ADMIT Family Medicine; ATTEND Family Medicine
DX: R07.89 Other chest pain (principal); I10 Essential (primary) hypertension; I25.10 Atherosclerotic heart disease of native coronary artery without angina pectoris; Z85.3 Personal history of malignant neoplasm of breast; E78.5 Hyperlipidemia, unspecified; F03.90 Unspecified dementia, unspecified severity, without behavioral disturbance, psychotic disturbance, mood disturbance, and anxiety; G47.30 Sleep apnea, unspecified; F32.9 Major depressive disorder, single episode, unspecified; F41.9 Anxiety disorder, unspecified; M19.90 Unspecified osteoarthritis, unspecified site; Z90.710 Acquired absence of both cervix and uterus; Z95.1 Presence of aortocoronary bypass graft; Z86.010 Personal history of colon polyps; Z80.1 Family history of malignant neoplasm of trachea, bronchus and lung; Z90.11 Acquired absence of right breast and nipple; Z80.41 Family history of malignant neoplasm of ovary; Z98.890 Other specified postprocedural states; R42 Dizziness and giddiness; E11.51 Type 2 diabetes mellitus with diabetic peripheral angiopathy without gangrene; K59.09 Other constipation
CPT/HCPCS: 36415; 71045; 78582; 80048; 80076; 81001; 82962; 83605; 83690; 83880; 84484; 85007; 85025; 85379; 85610; 85730; 87040; 93005; 96361; 96365; 96372; 99284; A9540; A9558; G0378; J1815; J1956; J7040; 96374; G0379

== ENCOUNTER → 2019-07-10 | Outpatient (CLI) | payer MEDICARE ==
[2019-01-08 15:00] VITALS: BP 127/66
[~2019-07-10] MED LIST changes: -INSU100V SQ; +INSU100V6 SQ; +LISI1TAB20 PO; -LISI1TAB7 PO; -NITR0.4T SL; +NITR0.4T24 SL; -POTA20TA82 PO; -SENN1TAB30 PO; +SENN1TAB50 PO
--- NOTE | 2019-07-10 11:20 | CARD ---
MR#: [id number] Date of Study: 07/10/2019 Ordering Physician: TAYLOR BROWN, Referring Physician: TAYLOR BROWN, Tech: Mary Beth Wells APPROVED REPORT EXAM: Two-dimensional and M-mode echocardiogram with Doppler and color Doppler. Other Information Quality : AverageHR: 72bpm INDICATION Cardiac Disease: CAD RISK FACTORS Hypertension Diabetes 2D DIMENSIONS RVDd3.1 (2.9-3.5cm)Left Atrium(2D)3.8 (1.6-4.0cm) IVSd1.3 (0.7-1.1cm)Aortic Root(2D)2.8 (2.0-3.7cm) LVDd4.1 (3.9-5.9cm)LVOT Diameter2.0 (1.8-2.4cm) PWd1.0 (0.7-1.1cm)LVDs2.1 (2.5-4.0cm) FS (%) 49.9 %SV61.0 ml LVEF(%)81.6 (>50%) Aortic Valve AoV Peak Raymond.241.8cm/sAoV VTI54.6cm AO Peak GR.23.4mmHgLVOT Peak Raymond.89.0cm/s LVOT VTI 21.02cmAO Mean GR.14mmHg JARRETT (VMAX)0.62rz1UQM (VTI)1.18cm2 Mitral Valve MV E Imwhepfk39.2cm/sMV DECEL BYBY770xm MV A Fxeqfhey346.2cm/sMV E Mean Gr.2mmHg MV PQA24hoT/A Ratio0.7 MVA (PHT)2.73cm2 TDI E/Lateral E'16.1E/Medial E'21.5 Pulmonary Valve PV Peak Bjaulqvu87.7cm/sPV Peak Grad.4mmHg Tricuspid Valve TR P. Gcuixehp813xf/sRAP [id number] TR Peak Gr.72ejYnUITT04avOk Pulmonary Vein S1 Weelrlbb32.3cm/sD2 Qvitgwqz63.2cm/s PVa [id number] LEFT VENTRICLE The left ventricle is normal size. There is mild to moderate concentric left ventricular hypertrophy. The left ventricular systolic function is normal and the ejection fraction is within normal range. T he Ejection Fraction is 65%. There is normal LV segmental wall motion. Transmitral Doppler flow patte rn is Grade I-abnormal relaxation pattern. RIGHT VENTRICLE The right ventricle is normal size. There is normal right ventricular wall thickness. The right ventr icular systolic function is normal. ATRIA The left atrium size is normal. The right atrium size is normal. The interatrial septum bows toward r ight atrium consistent with elevated left atrial pressure. AORTIC VALVE The aortic valve is calcified and displays decreased opening. Doppler and Color Flow revealed trace a ortic regurgitation. Calculated aortic valve area is 1.09 cm2 with maximum pressure gradient of 24 mm Hg and mean pressure gradient of 15 mmHg. MITRAL VALVE The mitral valve is moderately thickened. There is no evidence of mitral valve prolapse. There is no mitral valve stenosis. Doppler and Color Flow revealed no mitral valve regurgitation noted. TRICUSPID VALVE The tricuspid valve is normal in structure and function. Doppler and Color Flow revealed trace tricus pid regurgitation with an estimated PAP of 26 mmHg. There is no tricuspid valve stenosis. PULMONIC VALVE The pulmonic valve is not well visualized. Doppler and Color Flow revealed trace pulmonic valvular re gurgitation. There is no pulmonic valvular stenosis. GREAT VESSELS The aortic root is normal in size. The IVC is normal in size and collapses >50% with inspiration. PERICARDIAL EFFUSION There is no evidence of significant pericardial effusion. Critical Notification Critical Value: No <Conclusion> The left ventricular systolic function is normal and the ejection fraction is within normal range. Th e Ejection Fraction is 65%. There is normal LV segmental wall motion. Calculated aortic valve area is 1.09 cm2 with maximum pressure gradient of 24 mmHg and mean pressure gradient of 15 mmHg. Signed by : Sebas Dickey, Electronically Approved : 07/10/2019 11:20:27
== END | disposition home or self-care (01) ==
LOC: ECHO 08:39
PROVIDERS: ATTEND Internal Medicine Cardiovascular Disease
DX: I35.8 Other nonrheumatic aortic valve disorders (principal); I11.9 Hypertensive heart disease without heart failure; I25.10 Atherosclerotic heart disease of native coronary artery without angina pectoris; E11.9 Type 2 diabetes mellitus without complications
CPT/HCPCS: 93306

== ENCOUNTER 2019-11-16 16:25 | Emergency (ER) | payer MEDICARE ==
[~2019-11-16] VITALS: Ht 162.6 cm; Wt 65.9 kg
[2019-11-16] MEDS ORDERED: IV NORMAL SALINE 1000ML BAG 1,000 ML IV ONE (17:00)
[2019-11-16] MEDS ORDERED: FAMOTIDINE 20 MG/2 ML VIAL IVP ONE (17:15)
[2019-11-16] MEDS ORDERED: ONDANSETRON PF 4 MG/2 ML VIAL. IVP ONE (17:15)
[2019-11-16 17:18] LABS: BILIRUBIN,URINE NEGATIVE (NEG); CLARITY,URINE CLEAR; COLOR,URINE YELLOW; NITRITE,URINE NEGATIVE (NEG); PROTEIN,URINE NEGATIVE (NEG-TRACE); UROBILINOGEN,URINE 0.2 mg/dL (0.2 mg/dL)
[2019-11-16 17:23] LABS: BARBITURATES NEG (NEG); BENZODIAZEPINES NEG (NEG); CANNABINOIDS NEG (NEG); COCAINE NEG (NEG); METHADONE NEG (NEG); OPIATES NEG (NEG); PHENCYCLIDINE NEG (NEG)
[2019-11-16 17:25] LABS: BACTERIA,URINE FEW /HPF (0-FEW); RBC,URINE 0 /HPF (0-2); SQUAMOUS EPITHELIAL CELL,UR FEW /LPF
[2019-11-16 17:28] LABS: AMPHETAMINE/METHAMPHETAMINE NEG (NEG)
[2019-11-16 17:38] LABS: BASO # 0.1 x10^3/uL (0.0-0.2); BASO % 1 % (0-3); EOS # 0.3 x10^3/uL (0.0-0.7); EOS % 2 % (0-3); HEMATOCRIT 48.5 % (36.0-47.0); LYMPH # 2.6 x10^3/uL (1.0-4.8); LYMPH % 20 % (24-48); MEAN CORPUSCULAR HEMOGLOBIN 30 pg (25-35); MEAN CORPUSCULAR HGB CONC 33 g/dL (31-37); MEAN CORPUSCULAR VOLUME 92 fL (79-100); MONO # 0.8 x10^3/uL (0.0-1.1); MONO % 6 % (0-9); NEUT # 9.4 x10^3/uL (1.8-7.7); NEUT % 72 % (31-73); PLATELET COUNT 198 x10^3/uL (140-400); RED BLOOD COUNT 5.28 x10^6/uL (3.50-5.40); RED CELL DISTRIBUTION WIDTH 14.4 % (11.5-14.5); WHITE BLOOD COUNT 13.2 x10^3/uL (4.0-11.0)
[2019-11-16 17:47] LABS: CALCIUM 9.4 mg/dL (8.5-10.1); CREATININE 0.7 mg/dL (0.6-1.0); GFR 98.2; POTASSIUM 3.5 mmol/L (3.5-5.1)
[2019-11-16 17:52] LABS: ALBUMIN 3.8 g/dL (3.4-5.0); TOTAL BILIRUBIN 0.4 mg/dL (0.2-1.0); TOTAL PROTEIN 7.8 g/dL (6.4-8.2)
[2019-11-16] MEDS ORDERED: CONTRAST GIVEN. MC PRN (18:15)
[2019-11-16] MEDS ORDERED: IOHEXOL 300 MG/ML 100ML VIAL. IV ONE (18:30)
--- NOTE | 2019-11-16 18:46 | RAD ---
EXAM: Supine AP view of the abdomen DATE: 11/16/2019 6:15 PM INDICATION: Abdominal pain, nausea, vomiting COMPARISON: No Prior FINDINGS: No abnormal small or large bowel dilatation. Moderate colonic stool content. No abnormal soft tissue mass effect. No suspicious calcifications are seen. Evaluation for free intraperitoneal gas is limited on this supine exam. Right upper quadrant cholecystectomy clips are seen. Vascular calcifications are seen. IMPRESSION: 1. No evidence for bowel obstruction. 2. Moderate colonic stool content is seen. Electronically signed by: Jonatan Viveros MD (11/16/2019 6:43 PM) ALIE
[2019-11-16 18:58] VITALS: BP 158/71
--- NOTE | 2019-11-16 19:05 | PHYS DOC ---
Past Medical History Past Medical History: Cancer, Constipation, Dementia, Diabetes-Type I, Diabetes-Type II, Hypertension, Other Additional Past Medical Histor: breast cancer (DAVI WASHBURN APRN) Past Surgical History: Coronary Bypass Surgery, Other Additional Past Surgical Histo: triple bypass, mastectomy R. (DAVI WASHBURN APRN) Smoking Status: Former Smoker Alcohol Use: None Drug Use: None (DAVI WASHBURN APRN) General Adult EDM: Chief Complaint: NAUSEA/VOMITING/DIARRHA HPI: HPI: Patient is a 79 year old female with history of constipation, diabetes type 2, hypertension, who presents to the ED today complaining of nausea and vomiting that began today. Patient reports history of small bowel obstruction. Reports her last bowel movement was yesterday and normal. She is currently refusing care. (DAVI WASHBURN APRN) Review of Systems: Review of Systems: Constitutional: Denies fever or chills. [] Eyes: Denies change in visual acuity. [] HENT: Denies nasal congestion or sore throat. [] Respiratory: Denies cough or shortness of breath. [] Cardiovascular: Denies chest pain or edema. [] GI: Reports nausea and vomiting. Denies nausea, vomiting, bloody stools or diarrhea. [] : Denies dysuria. [] Musculoskeletal: Denies back pain or joint pain. [] Integument: Denies rash. [] Neurologic: Denies headache, focal weakness or sensory changes. [] Endocrine: Denies polyuria or polydipsia. [] Lymphatic: Denies swollen glands. [] Psychiatric: Denies depression or anxiety. [] (DAVI WASHBURN APRN) Heart Score: Risk Factors: Risk Factors: DM, Current or recent (<one month) smoker, HTN, HLP, family history of CAD, obesity. Risk Scores: Score 0 - 3: 2.5% MACE over next 6 weeks - Discharge Home Score 4 - 6: 20.3% MACE over next 6 weeks - Admit for Clinical Observation Score 7 - 10: 72.7% MACE over next 6 weeks - Early Invasive Strategies (DAVI WASHBURN APRN) Current Medications: Current Medications Medications (Trade) Dose Ordered Sig/Shakeel Start Time Stop Time Status Last Admin Dose Admin Famotidine (Pepcid Vial) 20 mg 1X ONCE 5/4/20 17:15 11/16/19 17:16 DC 11/16/19 17:45 20 MG Info (CONTRAST GIVEN -- Rx MONITORING) 1 each PRN DAILY PRN 11/16/19 18:15 11/18/19 18:14 Iohexol (Omnipaque 300 Mg/ml) 75 ml 1X ONCE 11/16/19 18:30 11/16/19 18:31 DC Ondansetron HCl (Zofran) 4 mg 1X ONCE 11/16/19 17:15 11/16/19 17:16 DC 11/16/19 17:49 4 MG Sodium Chloride 1,000 ml @ 1,000 mls/hr 1X ONCE 11/16/19 17:00 11/16/19 17:59 DC 11/16/19 17:49 1,000 MLS/HR (MUTUNGA,DAVI PAYROLL TECHNICIAN) Allergies: Allergies: Allergies Coded Allergies Type Severity Reaction Last Updated Verified Penicillins Allergy Intermediate hives 07/10/17 Yes Sulfa (Sulfonamide Antibiotics) Allergy Intermediate UN 11/16/19 Yes chocolate flavor Allergy Intermediate UN 11/16/19 Yes rosuvastatin Allergy Intermediate UN 11/16/19 Yes celecoxib Adverse Reaction Intermediate "makes me crazy" 07/10/17 Yes (MUTUNGA,DAVI PAYROLL TECHNICIAN) Physical Exam: PE: Constitutional: Well developed, well nourished, no acute distress, non-toxic appearance. [] HENT: Normocephalic, atraumatic, bilateral external ears normal, oropharynx moist, no oral exudates, nose normal. [] Eyes: PERRLA, EOMI, conjunctiva normal, no discharge. [] Neck: Normal range of motion, no tenderness, supple, no stridor. [] Cardiovascular:Heart rate regular rhythm, no murmur [] Lungs & Thorax: Bilateral breath sounds clear to auscultation [] Abdomen: Bowel sounds normal, soft, no tenderness, no masses, no pulsatile masses. [] Skin: Warm, dry, no erythema, no rash. [] Back: No tenderness, no CVA tenderness. [] Extremities: No tenderness, no cyanosis, no clubbing, ROM intact, no edema. [] Neurologic: Alert and oriented X 3, normal motor function, normal sensory function, no focal deficits noted. [] Psychologic: Affect normal, judgement normal, mood normal. [] (DAVI WASHBURN APRN) Current Patient Data: Labs: Laboratory Tests Test 11/16/19 16:49 11/16/19 17:05 White Blood Count 13.2 x10^3/uL (4.0-11.0) H Red Blood Count 5.28 x10^6/uL (3.50-5.40) Hemoglobin 16.0 g/dL (12.0-15.5) H Hematocrit 48.5 % (36.0-47.0) H Mean Corpuscular Volume 92 fL (79-100) Mean Corpuscular Hemoglobin 30 pg (25-35) Mean Corpuscular Hemoglobin Concent 33 g/dL (31-37) Red Cell Distribution Width 14.4 % (11.5-14.5) Platelet Count 198 x10^3/uL (140-400) Neutrophils (%) (Auto) 72 % (31-73) Lymphocytes (%) (Auto) 20 % (24-48) L Monocytes (%) (Auto) 6 % (0-9) Eosinophils (%) (Auto) 2 % (0-3) Basophils (%) (Auto) 1 % (0-3) Neutrophils # (Auto) 9.4 x10^3/uL (1.8-7.7) H Lymphocytes # (Auto) 2.6 x10^3/uL (1.0-4.8) Monocytes # (Auto) 0.8 x10^3/uL (0.0-1.1) Eosinophils # (Auto) 0.3 x10^3/uL (0.0-0.7) Basophils # (Auto) 0.1 x10^3/uL (0.0-0.2) Sodium Level 139 mmol/L (136-145) Potassium Level 3.5 mmol/L (3.5-5.1) Chloride Level 104 mmol/L (98-107) Carbon Dioxide Level 23 mmol/L (21-32) Anion Gap 12 (6-14) Blood Urea Nitrogen 11 mg/dL (7-20) Creatinine 0.7 mg/dL (0.6-1.0) Estimated GFR (Cockcroft-Gault) 98.2 BUN/Creatinine Ratio 16 (6-20) Glucose Level 115 mg/dL (70-99) H Calcium Level 9.4 mg/dL (8.5-10.1) Total Bilirubin 0.4 mg/dL (0.2-1.0) Aspartate Amino Transferase (AST) 34 U/L (15-37) Alanine Aminotransferase (ALT) 43 U/L (14-59) Alkaline Phosphatase 109 U/L (46-116) Total Protein 7.8 g/dL (6.4-8.2) Albumin 3.8 g/dL (3.4-5.0) Albumin/Globulin Ratio 1.0 (1.0-1.7) Lipase 84 U/L (73-393) Ethyl Alcohol Level < 10 mg/dL (0-10) Urine Collection Type Unknown Urine Color Yellow Urine Clarity Clear Urine pH 7.0 (<5.0-8.0) Urine Specific [place] 1.010 (1.000-1.030) Urine Protein Negative mg/dL (NEG-TRACE) Urine Glucose (UA) Negative mg/dL (NEG) Urine Ketones (Stick) Negative mg/dL (NEG) Urine Blood Negative (NEG) Urine Nitrite Negative (NEG) Urine Bilirubin Negative (NEG) Urine Urobilinogen Dipstick 0.2 mg/dL (0.2 mg/dL) Urine Leukocyte Esterase Small (NEG) Urine RBC 0 /HPF (0-2) Urine WBC 5-10 /HPF (0-4) Urine Squamous Epithelial Cells Few /LPF Urine Bacteria Few /HPF (0-FEW) Urine Opiates Screen Neg (NEG) Urine Methadone Screen Neg (NEG) Urine Barbiturates Neg (NEG) Urine Phencyclidine Screen Neg (NEG) Urine Amphetamine/Methamphetamine Neg (NEG) Urine Benzodiazepines Screen Neg (NEG) Urine Cocaine Screen Neg (NEG) Urine Cannabinoids Screen Neg (NEG) Urine Ethyl Alcohol Neg (NEG) Laboratory Tests 11/16/19 16:49 Laboratory Tests 11/16/19 16:49 Vital Signs: Vital Signs Date Time Temp Pulse Resp B/P (MAP) Pulse Ox O2 Delivery O2 Flow Rate FiO2 11/16/19 16:25 99.5 85 19 132/74 (93) 98 Room Air 99.5 (DAVI WASHBURN APRN) EKG: EKG: [] (DAVI WASHBURN APRN) Radiology/Procedures: Radiology/Procedures: [] (DAVI WASHBURN APRN) Course & Med Decision Making: Course & Med Decision Making Pertinent Labs and Imaging studies reviewed. (See chart for details) This is a 79-year-old female patient with history of small bowel obstruction presenting today complaining of nausea and vomiting that began today. Patient is refusing care, refusing to have labs drawn, currently A&O X3 and able to make her own decisions. She refused to have a CAT scan. We eventually talked her into having labs drawn. KUB was ordered which she agreed to. KUB noted for constipation. No small obstruction. She was discharged on OTC constipation medications. (DAVI WASHBURN APRN) Dragon Disclaimer: Dragon Disclaimer: This electronic medical record was generated, in whole or in part, using a voice recognition dictation system. (DAVI WASHBURN APRN) Departure Departure Impression: Primary Impression: Constipation Qualified Codes: K59.00 - Constipation, unspecified Disposition: HOME, SELF-CARE Condition: STABLE Referrals: LUCIAN HERNANDEZ D.O. (PCP) follow up in the course of this week Patient Instructions: Constipation, Adult Additional Instructions: Your xray shows you are constipated. Please take miralax daily Take Mag Citrate tonight and tomorrow morning Take a stool softner daily Increase your dietary fiber and water intake Follow up with your doctor in one week Attending Signature Attending Signature I have reviewed the PA/RAILROAD PASSENGER AGENT's note and plan of care. I was available for consultation as needed during the patient's visit in the emergency department. I agree with the clinical impression, plan, and disposition. (AQUILINO CERON DO) DAVI WASHBURN APRN November 16, 2019 19:05 AQUILINO CERON DO November 16, 2019 22:40
== END 2019-11-16 19:29 | disposition home or self-care (01) ==
LOC: ER 16:25
DX: K59.00 Constipation, unspecified (principal); R11.2 Nausea with vomiting, unspecified; E11.9 Type 2 diabetes mellitus without complications; I10 Essential (primary) hypertension; F03.90 Unspecified dementia, unspecified severity, without behavioral disturbance, psychotic disturbance, mood disturbance, and anxiety; Z95.1 Presence of aortocoronary bypass graft; Z87.891 Personal history of nicotine dependence; Z88.0 Allergy status to penicillin; Z88.2 Allergy status to sulfonamides; Z88.8 Allergy status to other drugs, medicaments and biological substances; Z91.018 Allergy to other foods
CPT/HCPCS: 36415; 74018; 80053; 80307; 81001; 83690; 85025; 96361; 96374; 96375; 99285; G0480; J2405; J3490; J7030

== ENCOUNTER 2019-11-28 19:46 | Emergency (ER) | payer MEDICARE ==
[~2019-11-28] VITALS: Ht 167.6 cm; Wt 52.2 kg
[2019-11-28] MEDS ORDERED: IV NORMAL SALINE 1000ML BAG 1,000 ML IV SCH (20:06)
[2019-11-28] MEDS ORDERED: MECLIZINE HCL 12.5 MG TABLET. PO ONE (20:15)
[2019-11-28] MEDS ORDERED: ONDANSETRON PF 4 MG/2 ML VIAL. IVP ONE (20:15)
[2019-11-28 20:18] LABS: BASO # 0.1 x10^3/uL (0.0-0.2); BASO % 1 % (0-3); EOS # 0.3 x10^3/uL (0.0-0.7); EOS % 2 % (0-3); HEMATOCRIT 44.7 % (36.0-47.0); HEMOGLOBIN 15.2 g/dL (12.0-15.5); LYMPH # 3.6 x10^3/uL (1.0-4.8); LYMPH % 26 % (24-48); MEAN CORPUSCULAR HEMOGLOBIN 30 pg (25-35); MEAN CORPUSCULAR HGB CONC 34 g/dL (31-37); MEAN CORPUSCULAR VOLUME 90 fL (79-100); MONO # 0.9 x10^3/uL (0.0-1.1); MONO % 6 % (0-9); NEUT # 8.8 x10^3/uL (1.8-7.7); NEUT % 65 % (31-73); PLATELET COUNT 222 x10^3/uL (140-400); RED BLOOD COUNT 4.98 x10^6/uL (3.50-5.40); RED CELL DISTRIBUTION WIDTH 14.1 % (11.5-14.5); WHITE BLOOD COUNT 13.7 x10^3/uL (4.0-11.0)
[2019-11-28 20:26] LABS: CALCIUM 9.8 mg/dL (8.5-10.1); CREATININE 0.8 mg/dL (0.6-1.0); GFR 84.2; POTASSIUM 3.8 mmol/L (3.5-5.1)
[2019-11-28 20:36] LABS: ALBUMIN 3.8 g/dL (3.4-5.0); ALBUMIN/GLOBULIN RATIO 0.9 (1.0-1.7); MAGNESIUM 2.1 mg/dL (1.8-2.4); TOTAL BILIRUBIN 0.2 mg/dL (0.2-1.0); TOTAL PROTEIN 7.9 g/dL (6.4-8.2)
--- NOTE | 2019-11-28 20:47 | RAD ---
EXAM: CT Head without IV contrast INDICATION: Dizziness. TECHNIQUE: Multi-detector row CT images were obtained of the head without the use of IV contrast. All CT scans performed at this facility utilize dose optimization techniques as appropriate to the exam, including the following: Automated exposure control and adjustment of the mA and/or KV according to patient size (this includes techniques or standardized protocols for targeted exams where dose is indication/reason for exam). COMPARISON: None FINDINGS: BRAIN PARENCHYMA: No evidence of acute intraparenchymal hemorrhage or infarct. Generalized parenchymal volume loss and extensive white matter low density throughout the acuna radiata is present. These are nonspecific but compatible with chronic ischemic microvascular change. VENTRICLES & EXTRA-AXIAL SPACES: Ventricles are within normal limits. Basilar cisterns are patent. No pathologic extra-axial fluid collection or mass. ORBITS: Orbital contents are unremarkable. SINUSES: Visualized paranasal sinuses and mastoid air cells are clear. OSSEOUS & SOFT TISSUES: Calvarium and skull base are intact. IMPRESSION: Generalized atrophy and white matter changes compatible with chronic ischemic microvascular disease. No acute intracranial pathology. Electronically signed by: Lupe Islas MD (11/28/2019 8:44 PM) [facility]
[2019-11-28 21:42] LABS: BILIRUBIN,URINE NEGATIVE (NEG); CLARITY,URINE CLEAR; COLOR,URINE OTHER; NITRITE,URINE NEGATIVE (NEG); PROTEIN,URINE NEGATIVE (NEG-TRACE); UROBILINOGEN,URINE 0.2 mg/dL (0.2 mg/dL)
[2019-11-28 21:52] LABS: BACTERIA,URINE FEW /HPF (0-FEW); SQUAMOUS EPITHELIAL CELL,UR OCC /LPF
--- NOTE | 2019-11-28 22:18 | PHYS DOC ---
Past Medical History Past Medical History: Cancer, Constipation, Dementia, Diabetes-Type I, Diabetes-Type II, Hypertension, Other Additional Past Medical Histor: breast cancer Past Surgical History: Coronary Bypass Surgery, Other Additional Past Surgical Histo: triple bypass, mastectomy R. Smoking Status: Former Smoker Alcohol Use: None Drug Use: None General Adult EDM: Chief Complaint: DIZZY/LIGHT HEADED HPI: HPI: Patient is a 79 year old female who arrives via EMS with report of dizziness and generalized weakness. Patient states that she had gotten up to go to the bathroom and she became dizzy and just did not feel right. She denies any chest pain or shortness of breath. She indicates that she did feel little bit nauseated but did not have any vomiting. Patient has had no fever. [] Review of Systems: Review of Systems: Constitutional: Denies fever or chills. [] Respiratory: Denies cough or shortness of breath. [] Cardiovascular: Denies chest pain or edema. [] GI: Denies abdominal pain, vomiting or diarrhea. [] Neurologic: Denies headache, focal weakness or sensory changes. Complains of d izziness. [] A full 10 point review of systems has been reviewed and is otherwise negative. Heart Score: Risk Factors: Risk Factors: DM, Current or recent (<one month) smoker, HTN, HLP, family history of CAD, obesity. Risk Scores: Score 0 - 3: 2.5% MACE over next 6 weeks - Discharge Home Score 4 - 6: 20.3% MACE over next 6 weeks - Admit for Clinical Observation Score 7 - 10: 72.7% MACE over next 6 weeks - Early Invasive Strategies Current Medications: Current Medications Medications (Trade) Dose Ordered Sig/Shakeel Start Time Stop Time Status Last Admin Dose Admin Meclizine HCl (Antivert) 25 mg 1X ONCE 11/28/19 20:15 11/28/19 20:16 DC 11/28/19 20:06 25 MG Ondansetron HCl (Zofran) 4 mg 1X ONCE 11/28/19 20:15 11/28/19 20:16 DC Sodium Chloride 1,000 ml @ 1,000 mls/hr Q1H 11/28/19 20:06 11/28/19 21:05 DC 11/28/19 20:06 1,000 MLS/HR Allergies: Allergies: Allergies Coded Allergies Type Severity Reaction Last Updated Verified Penicillins Allergy Intermediate hives 07/10/17 Yes Sulfa (Sulfonamide Antibiotics) Allergy Intermediate UN 11/16/19 Yes chocolate flavor Allergy Intermediate UN 11/16/19 Yes rosuvastatin Allergy Intermediate UN 11/16/19 Yes celecoxib Adverse Reaction Intermediate "makes me crazy" 07/10/17 Yes Physical Exam: PE: Constitutional: Well developed, well nourished, no acute distress, non-toxic appearance. [] HENT: Normocephalic, atraumatic, bilateral external ears normal, oropharynx moist, no oral exudates, nose normal. [] Eyes: PERRLA, EOMI, conjunctiva normal, no discharge. [] Neck: Normal range of motion, no tenderness, supple. [] Cardiovascular: Regular rate and rhythm [] Lungs & Thorax: Bilateral breath sounds clear to auscultation [] Abdomen: Bowel sounds normal, soft, no tenderness. [] Skin: Warm, dry, no erythema, no rash. [] Extremities: No tenderness, no cyanosis, no clubbing, ROM intact. [] Neurologic: Alert and oriented X 3, no focal deficits noted. [] Current Patient Data: Labs: Laboratory Tests Test 11/28/19 20:00 11/28/19 21:20 White Blood Count 13.7 x10^3/uL (4.0-11.0) H Red Blood Count 4.98 x10^6/uL (3.50-5.40) Hemoglobin 15.2 g/dL (12.0-15.5) Hematocrit 44.7 % (36.0-47.0) Mean Corpuscular Volume 90 fL (79-100) Mean Corpuscular Hemoglobin 30 pg (25-35) Mean Corpuscular Hemoglobin Concent 34 g/dL (31-37) Red Cell Distribution Width 14.1 % (11.5-14.5) Platelet Count 222 x10^3/uL (140-400) Neutrophils (%) (Auto) 65 % (31-73) Lymphocytes (%) (Auto) 26 % (24-48) Monocytes (%) (Auto) 6 % (0-9) Eosinophils (%) (Auto) 2 % (0-3) Basophils (%) (Auto) 1 % (0-3) Neutrophils # (Auto) 8.8 x10^3/uL (1.8-7.7) H Lymphocytes # (Auto) 3.6 x10^3/uL (1.0-4.8) Monocytes # (Auto) 0.9 x10^3/uL (0.0-1.1) Eosinophils # (Auto) 0.3 x10^3/uL (0.0-0.7) Basophils # (Auto) 0.1 x10^3/uL (0.0-0.2) Sodium Level 142 mmol/L (136-145) Potassium Level 3.8 mmol/L (3.5-5.1) Chloride Level 105 mmol/L (98-107) Carbon Dioxide Level 28 mmol/L (21-32) Anion Gap 9 (6-14) Blood Urea Nitrogen 12 mg/dL (7-20) Creatinine 0.8 mg/dL (0.6-1.0) Estimated GFR (Cockcroft-Gault) 84.2 BUN/Creatinine Ratio 15 (6-20) Glucose Level 153 mg/dL (70-99) H Calcium Level 9.8 mg/dL (8.5-10.1) Magnesium Level 2.1 mg/dL (1.8-2.4) Total Bilirubin 0.2 mg/dL (0.2-1.0) Aspartate Amino Transferase (AST) 29 U/L (15-37) Alanine Aminotransferase (ALT) 44 U/L (14-59) Alkaline Phosphatase 115 U/L (46-116) Troponin I Quantitative 0.027 ng/mL (0.000-0.055) Total Protein 7.9 g/dL (6.4-8.2) Albumin 3.8 g/dL (3.4-5.0) Albumin/Globulin Ratio 0.9 (1.0-1.7) L Thyroid Stimulating Hormone (TSH) 4.484 uIU/mL (0.358-3.74) H Urine Collection Type Unknown Urine Color Other Urine Clarity Clear Urine pH 7.0 (<5.0-8.0) Urine Specific [place] <=1.005 (1.000-1.030) Urine Protein Negative mg/dL (NEG-TRACE) Urine Glucose (UA) Negative mg/dL (NEG) Urine Ketones (Stick) Negative mg/dL (NEG) Urine Blood Negative (NEG) Urine Nitrite Negative (NEG) Urine Bilirubin Negative (NEG) Urine Urobilinogen Dipstick 0.2 mg/dL (0.2 mg/dL) Urine Leukocyte Esterase Trace (NEG) Urine RBC 1-2 /HPF (0-2) Urine WBC 5-10 /HPF (0-4) Urine Squamous Epithelial Cells Occ /LPF Urine Bacteria Few /HPF (0-FEW) Laboratory Tests 11/28/19 20:00 Laboratory Tests 11/28/19 20:00 Vital Signs: Vital Signs Date Time Temp Pulse Resp B/P (MAP) Pulse Ox O2 Delivery O2 Flow Rate FiO2 11/28/19 19:46 98.7 96 18 195/94 (127) 96 Room Air 98.7 EKG: EKG: [] Radiology/Procedures: Radiology/Procedures: [] Impression: PROCEDURE: CT HEAD WO CONTRAST EXAM: CT Head without IV contrast INDICATION: Dizziness. TECHNIQUE: Multi-detector row CT images were obtained of the head without the use of IV contrast. All CT scans performed at this facility utilize dose optimization techniques as appropriate to the exam, including the following: Automated exposure control and adjustment of the mA and/or KV according to patient size (this includes techniques or standardized protocols for targeted exams where dose is indication/reason for exam). COMPARISON: None FINDINGS: BRAIN PARENCHYMA: No evidence of acute intraparenchymal hemorrhage or infarct. Generalized parenchymal volume loss and extensive white matter low density throughout the acuna radiata is present. These are nonspecific but compatible with chronic ischemic microvascular change. VENTRICLES & EXTRA-AXIAL SPACES: Ventricles are within normal limits. Basilar cisterns are patent. No pathologic extra-axial fluid collection or mass. ORBITS: Orbital contents are unremarkable. SINUSES: Visualized paranasal sinuses and mastoid air cells are clear. OSSEOUS & SOFT TISSUES: Calvarium and skull base are intact. IMPRESSION: Generalized atrophy and white matter changes compatible with chronic ischemic microvascular disease. No acute intracranial pathology. Electronically signed by: Lupe Islas MD (11/28/2019 8:44 PM) [facility] Course & Med Decision Making: Course & Med Decision Making Pertinent Labs and Imaging studies reviewed. (See chart for details) [] Dragon Disclaimer: Dragon Disclaimer: This electronic medical record was generated, in whole or in part, using a voice recognition dictation system. Departure Departure Impression: Primary Impression: Dizziness Disposition: 01 HOME, SELF-CARE Condition: STABLE Referrals: LUCIAN HERNANDEZ D.O. (PCP) Patient Instructions: Dizziness Scripts Meclizine Hcl (MECLIZINE HCL) 25 Mg Tablet 25 MG PO PRN TID PRN for DIZZINESS, #30 TAB dizziness Prov: WINSTON PARK Jr. DO 11/28/19 WINSTON PARK Jr. DO November 28, 2019 22:18
[2019-11-28 23:23] VITALS: BP 175/75
[2019-11-28] MEDS ORDERED: MECL-75 PO (23:38)
--- NOTE | 2019-11-30 06:58 | EKG ---
[facility] [address] [place] [address] Test Date: 2019-11-28 Test Time: 20:03:48 Pat Name: PAVAN SHARP Department: Room: Gender: F Management Architect: : 1940 Requested By: WINSTON PARK Order Number: [id number] Reading MD: Sebas Dickey MD Measurements Intervals [place] Rate: 88 P: 48 MA: 150 QRS: -14 QRSD: 90 T: 93 QT: 348 QTc: 424 Interpretive Statements SINUS RHYTHM Electronically Signed On 11-30-2019 9:23:25 CDT by Sebas Dickey MD
== END 2019-11-28 23:45 | disposition home or self-care (01) ==
LOC: ER 19:46
DX: R42 Dizziness and giddiness (principal); R53.1 Weakness; E11.9 Type 2 diabetes mellitus without complications; I10 Essential (primary) hypertension; F03.90 Unspecified dementia, unspecified severity, without behavioral disturbance, psychotic disturbance, mood disturbance, and anxiety; Z87.891 Personal history of nicotine dependence; Z95.1 Presence of aortocoronary bypass graft; Z88.0 Allergy status to penicillin; Z88.2 Allergy status to sulfonamides; Z88.8 Allergy status to other drugs, medicaments and biological substances; Z91.018 Allergy to other foods
CPT/HCPCS: 36415; 70450; 80053; 81001; 83735; 84443; 84484; 85025; 87086; 96360; 99285; J7030; 93005; J8597

== ENCOUNTER → 2020-12-02 | Outpatient (CLI) | payer MEDICARE, OTHER ==
[2020-06-01 14:58] VITALS: BP 141/63
[~2020-12-02] MED LIST changes: +ALPR0.5T6 PO; -CLIN300C8 PO; +CLIN300C9 PO; +DOCU-109 PO; +FAMO40TA4 PO; +MECL-75 PO; +MEMA10TA PO; +OMEG1CAP50 PO; +PANT40TA77 PO; -POLY17PO28 PO; +POLY17PO52 PO; +QUET25TA PO; +SENN-189 PO; -SENN1TAB50 PO
--- NOTE | 2020-12-02 17:45 | CARD ---
MR#: [id number] Date of Study: 12/02/2020 Ordering Physician: TAYLOR BROWN, Referring Physician: TAYLOR BROWN Tech: Maryan Barr [facility] APPROVED REPORT EXAM: Two-dimensional and M-mode echocardiogram with Doppler and color Doppler. Other Information Quality : AverageHR: 95bpm Rhythm : NSR INDICATION Dyspnea RISK FACTORS Hypertension Obesity Hyperlipidemia 2D DIMENSIONS RVDd2.7 (2.9-3.5cm)Left Atrium(2D)2.9 (1.6-4.0cm) IVSd1.1 (0.7-1.1cm)Aortic Root(2D)2.5 (2.0-3.7cm) LVDd3.6 (3.9-5.9cm)LVOT Diameter1.9 (1.8-2.4cm) PWd0.8 (0.7-1.1cm)LVDs2.5 (2.5-4.0cm) FS (%) 30.7 %SV33.2 ml LVEF(%)59.1 (>50%) Aortic Valve AoV Peak Raymond.291.1cm/sAoV VTI60.8cm AO Peak GR.33.9mmHgLVOT Peak Raymond.85.1cm/s AO Mean GR.20mmHg Mitral Valve MV E Usabfcuz544.9cm/sMV DECEL ODRU497fl MV A Oodznqgm428.7cm/sE/A Ratio0.7 Pulmonary Valve PV Peak Rhcafujr849.8cm/s Tricuspid Valve TR P. Ujseoziu912lj/sTR Peak Gr.20mmHg Pulmonary Vein S1 Caktuyep28.7cm/sD2 Rwteuyqn14.1cm/s LEFT VENTRICLE The left ventricle is normal size. Asymentric septal hypertrophy. The left ventricular systolic funct ion is normal. Estimated ejjection fraction 55-60%. There is normal LV segmental wall motion. Transm itral Doppler flow pattern is Grade I-abnormal relaxation pattern. RIGHT VENTRICLE The right ventricle is normal size. There is normal right ventricular wall thickness. The right ventr icular systolic function is normal. ATRIA The left atrium size is normal. The right atrium size is normal. The interatrial septum is intact wit h no evidence for an atrial septal defect or patent foramen ovale as noted on 2-D or Doppler imaging. AORTIC VALVE The aortic valve is calcified and displays decreased opening. Doppler and Color Flow revealed no sign ificant aortic regurgitation. There is mild to moderate valvular aortic stenosis. MITRAL VALVE The mitral valve is calcified but opens well. There is no evidence of mitral valve prolapse. There is no mitral valve stenosis. Doppler and Color-flow revealed trace mitral regurgitation. TRICUSPID VALVE The tricuspid valve is normal in structure and function. Doppler and Color Flow revealed trace tricus pid regurgitation. Estimated PAP 25 mmHg. There is no tricuspid valve stenosis. PULMONIC VALVE The pulmonary valve is normal in structure and function. Doppler and Color Flow revealed mild pulmoni c valvular regurgitation. GREAT VESSELS The aortic root is normal in size. The ascending aorta is normal in size. The IVC is normal in size a nd collapses >50% with inspiration. PERICARDIAL EFFUSION There is no evidence of significant pericardial effusion. Critical Notification Critical Value: No <Conclusion> The left ventricular systolic function is normal. Estimated ejjection fraction 55-60%. There is normal LV segmental wall motion. Transmitral Doppler flow pattern is Grade I-abnormal relaxation pattern. Mild to moderate aortic stenosis. Trace mitral regurgitation. Trace tricuspid regurgitation. Estimated PAP 25 mmHg. There is no evidence of significant pericardial effusion. Signed by : Taylor Brown, Electronically Approved : 12/02/2020 17:44:59
--- NOTE | 2020-12-03 12:27 | RAD ---
MR#: [id number] Date of Study: 12/02/2020 Ordering Physician: TAYLOR BROWN, Referring Physician: TAYLOR BROWN, Tech: Tyshawn May MBA, RDMS, RVT, RDCS, RTR APPROVED REPORT Patient Location: OUT-PATIENT Indications PAD VELOCITY AND DOPPLER WAVEFORM ANALYSIS RIGHT cm/secWaveformSeverity LEFT cm/secWaveform Severity dCFA 135.0BiphasicdCFA 117.0Biphasic Prof Fem Art. 147.0BiphasicProf Fem Art. 58.0Biphasic Fem Art Prox. 121.0BiphasicFem Art Prox. 163.0Biphasic Fem Art Mid. 66.0BiphasicFem Art Mid. 103.0Biphasic Fem Art Dist. 32.0BiphasicFem Art Dist. 78.0Biphasic Pop Art(Fossa) 148.0MonophasicPop Art(AK) 131.0Biphasic ROOM SERVICE ASSOCIATE Prox. 20.0MonophasicPTA Prox. 39.0Biphasic ROOM SERVICE ASSOCIATE Dist. 17.0MonophasicPTA Dist. 47.0Biphasic JN Prox. 27.0MonophasicATA Prox. 41.0Biphasic DPA 23MonophasicDPA 19Monophasic Findings Grayscale images demonstrate diffuse moderate atherosclerotic plaque in the bilateral lower extremiti es. On the right there is likely at least a 50% stenosis involving the right popliteal artery. There are monophasic waveforms distal to this vessel. There is two-vessel runoff with diminished velocities a nd monophasic waveforms in the posterior tibial and anterior tibial arteries consistent with more pro ximal stenosis. On the left side there are biphasic waveforms throughout the lower extremity arterial course. There is likely less than 50% stenosis involving the distal SFA popliteal junction. Below the knee there i s two-vessel runoff with slightly diminished velocities but a biphasic wave pattern. Overall consist ent with less than 50% stenosis. Critical Notification Critical Value: No <Conclusion> 1. Probable greater than 50% stenosis involving the right popliteal artery. 2. No significant left lower extremity arterial disease. 3. Bilateral two-vessel runoff below the knee. Signed by : Sebas Dickey, Electronically Approved : 12/03/2020 12:27:15
== END ==
LOC: US 12:59
PROVIDERS: ATTEND Internal Medicine Cardiovascular Disease
DX: I08.8 Other rheumatic multiple valve diseases (principal); I70.203 Unspecified atherosclerosis of native arteries of extremities, bilateral legs; I25.10 Atherosclerotic heart disease of native coronary artery without angina pectoris
CPT/HCPCS: 93306; 93925

== ENCOUNTER 2021-04-13 19:44 | Emergency (ER) | payer MEDICARE, OTHER ==
[~2021-04-13] VITALS: Ht 162.6 cm; Wt 75.0 kg
[~2021-04-13 19:44] MED LIST changes: +ACET325T9 PO; +AMIT50TA PO; +AMLO-187 PO; +AMOX1TAB61 PO; +CLIN-94 PO; -CLIN300C9 PO; +DIVA-53 PO; +LISI-130 PO; +LISI1TAB37 PO; +LOPE2TAB27 PO; +PANT40TA6 PO; +POTA-121 PO; -QUET25TA PO; +QUET25TA3 PO; +RIVA1PAT12 TP
[2021-04-13 20:09] VITALS: BP 186/81
--- NOTE | 2021-04-13 21:21 | RAD ---
Exam: CT head and cervical spine INDICATION: Fall, neck pain, back pain TECHNIQUE: Sequential axial images through the head and cervical spine were obtained without the admi nistration of IV contrast. Exposure: One or more of the following in the visualized dose reduction techniques were utilized for this examination: 1. Automated exposure control 2. Adjustment of the MA and/or KV according to patient size 3. Use of iterative of reconstructive technique Comparisons: 03/08/2021 FINDINGS: Head: No focal parenchymal lesion or hemorrhage is identified. There is no midline shift or sulcal effaceme nt. Confluent hypodensities in the periventricular and deep white matter. No acute vascular territory inf arction is identified. Espinoza-white distinction is preserved. The ventricular system is within normal limits without compression hydrocephalus. The basal cisterns are well maintained. The visualized portions of the paranasal sinuses and mastoid air cells are well-pneumatized. No acute fractures. Cervical spine: Mild reversal of normal cervical lordosis which may be positional. Vertebral body heights are well-ma intained. Fracture to the cervical spine is not identified. Multilevel spondylotic change in cervical spine with degenerative disc disease greatest at C5-C6, C6- C7 and C7-T1. Mild bilateral facet arthropathy is also noted cervical spine. This is not significantl y changed from the prior exam. Visualized paraspinal soft tissues are unremarkable. IMPRESSION: 1. Chronic changes without acute intracranial abnormality. 2. Negative CT C-spine for acute traumatic injury. Electronically signed by: Elyssa Rincon MD (04/13/2021 9:19 PM) [facility]
--- NOTE | 2021-04-13 21:25 | RAD ---
CT LUMBAR SPINE WO History:Reason: fall, neck pain, back pain / Spl. Instructions: / History: Technique: Noncontrast CT was performed of the lumbar spine. Multiplanar reconstructions were perform ed. Exposure: One or more of the following individualized dose reduction techniques were utilized for thi s examination: 1. Automated exposure control 2. Adjustment of the mA and/or kV according to patient size 3. Use of iterative reconstruction technique. Comparison: None Findings: Grade 2 anterolisthesis L5 on S1. Normal vertebral body height. No acute fracture. Extensive vascular calcifications. Left extrarenal pelvis. T12-L1: Minimal disc bulge. No canal or neuroforaminal narrowing. L1-L2: Minimal disc bulge. No canal or neuroforaminal narrowing. L2-L3: Small disc bulge. Mild facet arthropathy. No canal narrowing. Mild subarticular recess narrow ing. No neuroforaminal narrowing. L3-L4: Small disc bulge. Moderate facet arthropathy. No canal narrowing. Ligament of flavum thickeni ng. Subarticular recess narrowing. Mild right neuroforaminal narrowing. L4-L5: Broad-based disc bulge. Mild facet arthropathy. Ligament of flavum thickening. No canal narro wing. Subarticular recess narrowing. Mild bilateral neuroforaminal narrowing. L5-S1: Anterolisthesis. Advanced facet arthropathy. Disc uncovering. Mild canal narrowing. Subarticu lar recess narrowing. Severe bilateral neuroforaminal narrowing. Impression: 1. No acute fracture of the lumbar spine. 2. Grade 2 anterolisthesis L5 on S1 due to advanced facet arthropathy contributing to severe neurofo raminal narrowing. Electronically signed by: Rob Carpenter DO (04/13/2021 9:23 PM) [facility]
--- NOTE | 2021-04-13 21:56 | PHYS DOC ---
Past Medical History Past Medical History: Cancer, Constipation, Dementia, Diabetes-Type I, Di abetes-Type II, Hypertension, Other Additional Past Medical Histor: breast cancer Past Surgical History: Other Additional Past Surgical Histo: unknown Smoking Status: Unknown if ever smoked Alcohol Use: None Drug Use: None General Adult EDM: Chief Complaint: MECHANICAL FALL HPI: HPI: Patient is a 81 year old female with history of dementia who presents from her shelter after a fall from approximately 18 feet height from a low level bed. Reportedly landed on her bottom. Is complaining of neck pain, low back pain. Unsure if she hit her head. Unsure of LOC. Is now mostly comfortable aside from the above complaints. She denies any other acute complaints. Review of Systems: Review of Systems: Constitutional: Denies fever or chills. [] Eyes: Denies change in visual acuity. [] HENT: Denies nasal congestion or sore throat. [] Respiratory: Denies cough or shortness of breath. [] Cardiovascular: Denies chest pain or edema. [] GI: Denies abdominal pain, nausea, vomiting, bloody stools or diarrhea. [] : Denies dysuria. [] Musculoskeletal: Reports neck pain, low back pain Integument: Denies rash. [] Neurologic: Denies headache, focal weakness or sensory changes. [] Endocrine: Denies polyuria or polydipsia. [] Lymphatic: Denies swollen glands. [] Psychiatric: Denies depression or anxiety. [] Heart Score: C/O Chest Pain: No Risk Factors: Risk Factors: DM, Current or recent (<one month) smoker, HTN, HLP, family history of CAD, obesity. Risk Scores: Score 0 - 3: 2.5% MACE over next 6 weeks - Discharge Home Score 4 - 6: 20.3% MACE over next 6 weeks - Admit for Clinical Observation Score 7 - 10: 72.7% MACE over next 6 weeks - Early Invasive Strategies Allergies: Allergies: Allergies Coded Allergies Type Severity Reaction Last Updated Verified Penicillins Allergy Intermediate hives 04/13/21 Yes Sulfa (Sulfonamide Antibiotics) Allergy Intermediate UN 04/13/21 Yes chocolate flavor Allergy Intermediate UN 04/13/21 Yes rosuvastatin Allergy Intermediate UN 04/13/21 Yes I S O L A T I O N *CONTACT* Allergy Unknown 03/14/21 Yes celecoxib Adverse Reaction Intermediate "makes me crazy" 04/13/21 Yes Physical Exam: PE: Constitutional: Well developed, well nourished, no acute distress, non-toxic appearance. [] HENT: Normocephalic, atraumatic, bilateral external ears normal, oropharynx moist, no oral exudates, nose normal. [] Eyes: PERRLA, EOMI, conjunctiva normal, no discharge. [] Neck: Lower cervical midline TTP [] Cardiovascular:Heart rate regular rhythm, no murmur [] Lungs & Thorax: No tenderness of chest wall. Bilateral breath sounds clear to auscultation [] Abdomen: Bowel sounds normal, soft, no tenderness, no masses, no pulsatile masses. [] Skin: Warm, dry, no erythema, no rash. [] Back: Low lumbar midline TTP Extremities: No tenderness, no cyanosis, no clubbing, ROM intact, no edema. [] Neurologic: Confused at times, oriented to self and at times to place, not to time. Speech normal. CN intact. Normal motor function, normal sensory function, no focal deficits noted. [] Psychologic: Affect normal, judgement normal, mood normal. [] Current Patient Data: Vital Signs: Vital Signs Date Time Temp Pulse Resp B/P (MAP) Pulse Ox O2 Delivery O2 Flow Rate FiO2 04/13/21 20:09 98.5 104 17 186/81 (116) 100 98.5 EKG: EKG: [] Radiology/Procedures: Radiology/Procedures: [] Impression: [facility] [address] [place], [place] [id number] IMAGING REPORT Signed PATIENT: PAVAN SHARP EACCOUNT: [id number] : 1940 LOCATION: ER AGE: 81 SEX: F EXAM STATUS: REG ER ORD. PHYSICIAN: REMY HOBBS MD REASON: fall, neck pain, back pain PROCEDURE: CT LUMBAR SPINE WO CONTRAST CT LUMBAR SPINE WO History:Reason: fall, neck pain, back pain / Spl. Instructions: / History: Technique: Noncontrast CT was performed of the lumbar spine. Multiplanar reconstructions were performed. Exposure: One or more of the following individualized dose reduction techniques were utilized for this examination: 1. Automated exposure control 2. Adjustment of the mA and/or kV according to patient size 3. Use of iterative reconstruction technique. Comparison: None Findings: Grade 2 anterolisthesis L5 on S1. Normal vertebral body height. No acute fracture. Extensive vascular calcifications. Left extrarenal pelvis. T12-L1: Minimal disc bulge. No canal or neuroforaminal narrowing. L1-L2: Minimal disc bulge. No canal or neuroforaminal narrowing. L2-L3: Small disc bulge. Mild facet arthropathy. No canal narrowing. Mild subarticular recess narrowing. No neuroforaminal narrowing. L3-L4: Small disc bulge. Moderate facet arthropathy. No canal narrowing. Ligament of flavum thickening. Subarticular recess narrowing. Mild right neuroforaminal narrowing. L4-L5: Broad-based disc bulge. Mild facet arthropathy. Ligament of flavum thickening. No canal narrowing. Subarticular recess narrowing. Mild bilateral neuroforaminal narrowing. L5-S1: Anterolisthesis. Advanced facet arthropathy. Disc uncovering. Mild canal narrowing. Subarticular recess narrowing. Severe bilateral neuroforaminal narrowing. Impression: 1. No acute fracture of the lumbar spine. 2. Grade 2 anterolisthesis L5 on S1 due to advanced facet arthropathy contributing to severe neuroforaminal narrowing. Electronically signed by: Rob Carpenter DO (04/13/2021 9:23 PM) [facility] DICTATED and SIGNED BY: ROB CARPENTER DO DATE: 04/13/21 [id number] 0 [facility] [address] [place] [address] IMAGING REPORT Signed PATIENT: PAVAN SHARP EACCOUNT: [id number] : 1940 LOCATION: ER AGE: 81 SEX: F EXAM STATUS: REG ER ORD. PHYSICIAN: REMY HOBBS MD REASON: fall, neck pain, back pain PROCEDURE: CT HEAD AND CERVICAL SPINE WO Exam: CT head and cervical spine INDICATION: Fall, neck pain, back pain TECHNIQUE: Sequential axial images through the head and cervical spine were obtained without the administration of IV contrast. Exposure: One or more of the following in the visualized dose reduction techniques were utilized for this examination: 1. Automated exposure control 2. Adjustment of the MA and/or KV according to patient size 3. Use of iterative of reconstructive technique Comparisons: 03/08/2021 FINDINGS: Head: No focal parenchymal lesion or hemorrhage is identified. There is no midline shift or sulcal effacement. Confluent hypodensities in the periventricular and deep white matter. No acute vascular territory infarction is identified. Espinoza-white distinction is preserved. The ventricular system is within normal limits without compression hydrocephalus. The basal cisterns are well maintained. The visualized portions of the paranasal sinuses and mastoid air cells are well- pneumatized. No acute fractures. Cervical spine: Mild reversal of normal cervical lordosis which may be positional. Vertebral body heights are well-maintained. Fracture to the cervical spine is not identified. Multilevel spondylotic change in cervical spine with degenerative disc disease greatest at C5-C6, C6-C7 and C7-T1. Mild bilateral facet arthropathy is also noted cervical spine. This is not significantly changed from the prior exam. Visualized paraspinal soft tissues are unremarkable. IMPRESSION: 1. Chronic changes without acute intracranial abnormality. 2. Negative CT C-spine for acute traumatic injury. Electronically signed by: Elyssa Mccurdy MD (04/13/2021 9:19 PM) [facility] DICTATED and SIGNED BY: ELYSSA MCCURDY MD DATE: 04/13/[id number] 0 Course & Med Decision Making: Course & Med Decision Making Pertinent Labs and Imaging studies reviewed. (See chart for details) Patient is 81-year-old female with history of dementia presents from her nursing facility after a low-level fall onto her bottom. Reports neck and back pain, denies other symptoms. On arrival is afebrile, mildly tachycardic to 100, mildly hypertensive, and satting well on room air. Well-appearing on examination. Did have some midline cervical and lumbar tenderness to palpation. The rest of the trauma examination was negative for acute findings. CT imaging of the head, neck, lumbar spine were negative for acute injury. Daughter does state that she has had low back pain with UTIs in the past, so UA and basic labs were sent. BMP and CBC were unremarkable, aside from hyperglycemia (known insulin-dependent diabetic). Awaiting UA at this time. 2224 Patient is incontinent of urine, patient and patient's daughter are adamant that they do not want a straight catheterization. She is unable to provide a sample at this time. She denies any urgency, dysuria, frequency at this time. I did discuss that we could be missing a mild urinary tract infection, but there does not seem to be evidence of an overwhelming UTI. Daughter is okay with foregoing UA at this time. We will discharge to her facility. We will emphasize that the need to check her blood sugar and give nighttime insulin upon her arrival. [id number] Geoffrey Disclaimer: Geoffrey Disclaimer: This electronic medical record was generated, in whole or in part, using a voice recognition dictation system. Departure Departure Impression: Primary Impression: Back pain Additional Impression: Fall Disposition: HOME / SELF CARE / HOMELESS Condition: STABLE Referrals: MAN FAY APRN (PCP) Additional Instructions: Please check her glucose and give nighttime and corrective insulin as needed tonight. Her medical work-up was reassuring with no evidence of fractures in her neck or lower back. A CT of her head was also reassuring. She had lab work that looked good as well. Please have her follow-up with her PCP your facility physician in the next week. REMY HOBBS MD Apr 13, 2021 21:56
[2021-04-13 22:01] LABS: BASO # 0.1 x10^3/uL (0.0-0.2); BASO % 1 % (0-3); EOS # 0.1 x10^3/uL (0.0-0.7); EOS % 1 % (0-3); HEMATOCRIT 43.7 % (36.0-47.0); HEMOGLOBIN 14.7 g/dL (12.0-15.5); LYMPH % 20 % (24-48); MEAN CORPUSCULAR HEMOGLOBIN 32 pg (25-35); MEAN CORPUSCULAR HGB CONC 34 g/dL (31-37); MEAN CORPUSCULAR VOLUME 95 fL (79-100); MONO # 0.9 x10^3/uL (0.0-1.1); MONO % 9 % (0-9); NEUT % 69 % (31-73); PLATELET COUNT 179 x10^3/uL (140-400); RED BLOOD COUNT 4.58 x10^6/uL (3.50-5.40); WHITE BLOOD COUNT 10.1 x10^3/uL (4.0-11.0)
[2021-04-13 22:09] LABS: CALCIUM 9.6 mg/dL (8.5-10.1); GFR 64.7; POTASSIUM 3.5 mmol/L (3.5-5.1)
== END 2021-04-13 23:00 | disposition home or self-care (01) ==
LOC: ER 19:44
DX: M54.2 Cervicalgia (principal); M54.5 Low back pain; F03.90 Unspecified dementia, unspecified severity, without behavioral disturbance, psychotic disturbance, mood disturbance, and anxiety; E11.9 Type 2 diabetes mellitus without complications; I10 Essential (primary) hypertension; Z88.0 Allergy status to penicillin; Z88.2 Allergy status to sulfonamides; Z91.018 Allergy to other foods; Z88.8 Allergy status to other drugs, medicaments and biological substances; W17.89XA Other fall from one level to another, initial encounter; Y93.89 Activity, other specified; Y92.89 Other specified places as the place of occurrence of the external cause; Y99.8 Other external cause status
CPT/HCPCS: 36415; 70450; 72125; 72131; 80048; 85025; 99285-25

== ENCOUNTER 2021-04-29 15:45 | Emergency (ER) | payer MEDICARE, OTHER ==
[~2021-04-29] VITALS: Ht 165.1 cm; Wt 65.0 kg
--- NOTE | 2021-04-29 16:40 | RAD ---
Exam: CT head and cervical spine INDICATION: Fall, pain TECHNIQUE: Sequential axial images through the head and cervical spine were obtained without the admi nistration of IV contrast. Exposure: One or more of the following in the visualized dose reduction techniques were utilized for this examination: 1. Automated exposure control 2. Adjustment of the MA and/or KV according to patient size 3. Use of iterative of reconstructive technique Comparisons: None FINDINGS: Head: No focal parenchymal lesion or hemorrhage is identified. There is no midline shift or sulcal effaceme nt. No acute vascular territory infarction is identified. Espinoza-white distinction is preserved. The ventricular system is within normal limits without compression hydrocephalus. The basal cisterns are well maintained. The visualized portions of the paranasal sinuses and mastoid air cells are well-pneumatized. No acute fractures. Cervical spine: Straightening of the cervical spine which may positional. Vertebral body heights are well-maintained. Fracture to the cervical spine is not identified. Multilevel spondylotic change in cervical spine with degenerative disc disease greatest at C5-C6, C6- C7 and C7-T1. Visualized paraspinal soft tissues are unremarkable. IMPRESSION: 1. No acute intracranial abnormality. 2. Negative CT C-spine for acute traumatic injury. Electronically signed by: Elyssa Rincon MD (04/29/2021 4:38 PM) [facility]
--- NOTE | 2021-04-29 17:10 | PHYS DOC ---
Past Medical History Past Medical History: Cancer, Constipation, Dementia, Diabetes-Type I, Di abetes-Type II, Hypertension, Other Additional Past Medical Histor: breast cancer (DAVI WASHBURN FRONT END ARCHITECT) Past Surgical History: Other Additional Past Surgical Histo: unable to obtain (DAVI WASHBURN FRONT END ARCHITECT) Smoking Status: Unknown if ever smoked Alcohol Use: None Drug Use: None (DAVI WASHBURN FRONT END ARCHITECT) General Adult EDM: Chief Complaint: MECHANICAL FALL HPI: HPI: Patient is a 81 year old female with history of dementia, diabetes type 2, hypertension, who presents to the ED today from [facility]. Patient was found laying on the floor next to her wheelchair. This was unwitnessed fall. Patient states she had no loss of consciousness. Patient is complaining of a headache and low back pain. She is a poor historian though Due to dementia. (DAVI WASHBURN FRONT END ARCHITECT) Review of Systems: Review of Systems: Constitutional: Denies fever or chills. [] Eyes: Denies change in visual acuity. [] HENT: Denies nasal congestion or sore throat. [] Respiratory: Denies cough or shortness of breath. [] Cardiovascular: Denies chest pain or edema. [] GI: Denies abdominal pain, nausea, vomiting, bloody stools or diarrhea. [] : Denies dysuria. [] Musculoskeletal: Reports low back pain Integument: Denies rash. [] Neurologic: Reports head pain, denies focal weakness or sensory changes. [] ] Psychiatric: Denies depression or anxiety. [] (DAVI WASHBURN FRONT END ARCHITECT) Heart Score: C/O Chest Pain: N/A Risk Factors: Risk Factors: DM, Current or recent (<one month) smoker, HTN, HLP, family history of CAD, obesity. Risk Scores: Score 0 - 3: 2.5% MACE over next 6 weeks - Discharge Home Score 4 - 6: 20.3% MACE over next 6 weeks - Admit for Clinical Observation Score 7 - 10: 72.7% MACE over next 6 weeks - Early Invasive Strategies (DAVI WASHBURN FRONT END ARCHITECT) Allergies: Allergies: Allergies Coded Allergies Type Severity Reaction Last Updated Verified Penicillins Allergy Intermediate hives 04/29/21 Yes Sulfa (Sulfonamide Antibiotics) Allergy Intermediate UN 04/29/21 Yes chocolate flavor Allergy Intermediate UN 04/29/21 Yes rosuvastatin Allergy Intermediate UN 04/29/21 Yes I S O L A T I O N *CONTACT* Allergy Unknown 03/14/21 Yes celecoxib Adverse Reaction Intermediate "makes me crazy" 04/29/21 Yes (WUDAVI FRONT END ARCHITECT) Physical Exam: PE: Constitutional: Well developed, well nourished, no acute distress, non-toxic appearance. [] HENT: Normocephalic, atraumatic, bilateral external ears normal, oropharynx moist, no oral exudates, nose normal. [] Eyes: PERRLA, EOMI, conjunctiva normal, no discharge. [] Neck: Patient is in a c-collar. Normal range of motion, diffuse paraspinal muscle tenderness to posterior cervical spine, no midline cervical spine tenderness, supple, no stridor. [] Cardiovascular:Heart rate regular rhythm, no murmur [] Lungs & Thorax: Bilateral breath sounds clear to auscultation [] Abdomen: Bowel sounds normal, soft, no tenderness, no masses, no pulsatile masses. [] Skin: Warm, dry, no erythema, no rash. [] Back: No tenderness, no CVA tenderness. [] Extremities: Diffuse paraspinal muscle tenderness bilateral lumbar spine, no midline lumbar spine tenderness, no cyanosis, no clubbing, ROM intact, no edema. [] Neurologic: Alert and oriented X 3, normal motor function, normal sensory function, no focal deficits noted. Cranial nerves II through XII intact patient is in a c-collar. Psychologic: Affect normal, judgement normal, mood normal. [] (DAVI WASHBURN FRONT END ARCHITECT) Current Patient Data: Vital Signs: Vital Signs Date Time Temp Pulse Resp B/P (MAP) Pulse Ox O2 Delivery O2 Flow Rate FiO2 04/29/21 15:56 98.1 110 15 166/80 (108) 96 Room Air 98.1 (DAVI WASHBURN FRONT END ARCHITECT) EKG: EKG: [] (DAVI WASHBURN FRONT END ARCHITECT) Radiology/Procedures: Radiology/Procedures: []PROCEDURE: CT HEAD AND CERVICAL SPINE WO Exam: CT head and cervical spine INDICATION: Fall, pain TECHNIQUE: Sequential axial images through the head and cervical spine were obtained without the administration of IV contrast. Exposure: One or more of the following in the visualized dose reduction techniques were utilized for this examination: 1. Automated exposure control 2. Adjustment of the MA and/or KV according to patient size 3. Use of iterative of reconstructive technique Comparisons: None FINDINGS: Head: No focal parenchymal lesion or hemorrhage is identified. There is no midline shift or sulcal effacement. No acute vascular territory infarction is identified. Espinoza-white distinction is preserved. The ventricular system is within normal limits without compression hydrocephalus. The basal cisterns are well maintained. The visualized portions of the paranasal sinuses and mastoid air cells are well- pneumatized. No acute fractures. Cervical spine: Straightening of the cervical spine which may positional. Vertebral body heights are well-maintained. Fracture to the cervical spine is not identified. Multilevel spondylotic change in cervical spine with degenerative disc disease greatest at C5-C6, C6-C7 and C7-T1. Visualized paraspinal soft tissues are unremarkable. IMPRESSION: 1. No acute intracranial abnormality. 2. Negative CT C-spine for acute traumatic injury. Electronically signed by: Elyssa Mccurdy MD (04/29/2021 4:38 PM) [facility] DICTATED and SIGNED BY: ELYSSA MCCURDY MD DATE: 04/29/21 [id number] PROCEDURE: THORACIC SPINE 3V Exam: Thoracic spine 3 views. Lumbar spine 3 views INDICATION: Fall, pain TECHNIQUE: Frontal and lateral views of the thoracic spine with spot magnification swimmer's view. Frontal and lateral views lumbar spine with spot magnification view of the lumbosacral junction Comparisons: None FINDINGS: Thoracic spine: Vertebral body heights and alignment are well-maintained. No significant spondylotic change in the thoracic spine. Sternotomy wires are noted. Visualized soft tissues are otherwise unremarkable. Lumbar spine: Vertebral body heights are well-maintained. Grade 1/2 anterolisthesis of L5 on S1. Bilateral facet arthropathy is noted in the lower lumbar spine. Visualized paraspinal soft tissues are unremarkable. IMPRESSION: 1. Unremarkable thoracic spine radiographs. 2. Spondylotic change in the lumbar spine. Electronically signed by: Elyssa Mccurdy MD (04/29/2021 5:23 PM) [facility] DICTATED and SIGNED BY: ELYSSA MCCURDY MD DATE: 04/29/21 [id number] (DAVI WASHBURN APRN) Course & Med Decision Making: Course & Med Decision Making Pertinent Labs and Imaging studies reviewed. (See chart for details) This is a 81-year-old female patient with dementia presenting today for e valuated after falling. Patient is complaining of low back pain and headache. CT of the head and cervical spine are negative for any acute findings. X-rays of thoracic and lumbar spine are negative for any acute findings. Discharge back to the shelter. (DAVI WASHBURN APRN) Dragon Disclaimer: Dragon Disclaimer: This electronic medical record was generated, in whole or in part, using a voice recognition dictation system. (DAVI WASHBURN APRN) Departure Departure Impression: Primary Impression: Fall Qualified Codes: W19.XXXA - Unspecified fall, initial encounter Additional Impressions: Cervical spine pain Low back pain Qualified Codes: M54.50 - Low back pain, unspecified Disposition: 01 HOME / SELF CARE / HOMELESS Condition: STABLE Referrals: MAN FAY APRN (PCP) follow up next week Patient Instructions: Back Pain, Adult, [id number], Cervical Sprain Additional Instructions: You were evaluated in the emergency room after falling, your CT of the head, cervical spine and x-rays of thoracic and lumbar spine were negative for any acute findings. Please follow-up with your own doctor in 1 to 2 weeks. Attending Signature Attending Signature I have reviewed the PA/NOUGAT CANDY MAKER HELPER's note and plan of care. I was available for consultation as needed during the patient's visit in the emergency department. I agree with the clinical impression, plan, and disposition. (AQUILINO CERON DO) DAVI WASHBURN APRN Apr 29, 2021 17:10 AQUILINO CERON DO Apr 30, 2021 07:14
--- NOTE | 2021-04-29 17:26 | RAD ---
Exam: Thoracic spine 3 views. Lumbar spine 3 views INDICATION: Fall, pain TECHNIQUE: Frontal and lateral views of the thoracic spine with spot magnification swimmer's view. Fr ontal and lateral views lumbar spine with spot magnification view of the lumbosacral junction Comparisons: None FINDINGS: Thoracic spine: Vertebral body heights and alignment are well-maintained. No significant spondylotic change in the thoracic spine. Sternotomy wires are noted. Visualized soft tissues are otherwise unremarkable. Lumbar spine: Vertebral body heights are well-maintained. Grade 1/2 anterolisthesis of L5 on S1. Bilateral facet arthropathy is noted in the lower lumbar spine. Visualized paraspinal soft tissues are unremarkable. IMPRESSION: 1. Unremarkable thoracic spine radiographs. 2. Spondylotic change in the lumbar spine. Electronically signed by: Elyssa Rincon MD (04/29/2021 5:23 PM) [facility]
[2021-04-29 18:05] VITALS: BP 146/87
== END 2021-04-29 18:20 | disposition home or self-care (01) ==
LOC: ER 15:45
DX: M54.2 Cervicalgia (principal); G89.11 Acute pain due to trauma; M54.50 Low back pain, unspecified; R51.9 Headache, unspecified; F03.90 Unspecified dementia, unspecified severity, without behavioral disturbance, psychotic disturbance, mood disturbance, and anxiety; E11.9 Type 2 diabetes mellitus without complications; I10 Essential (primary) hypertension; Z88.0 Allergy status to penicillin; Z88.2 Allergy status to sulfonamides; Z88.8 Allergy status to other drugs, medicaments and biological substances; Z91.041 Radiographic dye allergy status; W18.39XA Other fall on same level, initial encounter; Y93.89 Activity, other specified; Y92.89 Other specified places as the place of occurrence of the external cause; Y99.8 Other external cause status
CPT/HCPCS: 70450; 72072; 72100; 72125; 99285-25

== ENCOUNTER 2021-06-03 17:31 | Inpatient (IN) | payer MEDICARE, OTHER ==
[~2021-06-03] VITALS: Ht 160 cm; Wt 57.3 kg
[~2021-06-03 17:31] MED LIST changes: -LISI1TAB20 PO; +LISI1TAB39 PO
--- NOTE | 2021-06-03 18:21 | PHYS DOC ---
Past Medical History Past Medical History: Cancer, Constipation, Dementia, Diabetes-Type I, Di abetes-Type II, Hypertension, Other Additional Past Medical Histor: breast cancer (TOMMY HUITRON SAP ABAP PROGRAMMER) Past Surgical History: Other Additional Past Surgical Histo: unable to obtain (TOMMY HUITRON SAP ABAP PROGRAMMER) Smoking Status: Unknown if ever smoked Alcohol Use: None Drug Use: None (TOMMY HUITRON SAP ABAP PROGRAMMER) General Adult EDM: Chief Complaint: ALTERED MENTAL STATUS HPI: HPI: Patient is a 81 year old female who presents with here from [facility] after 3 weeks of altered mental status and not wanting to eat. Patient's daughter states that 3 weeks ago she began to be slightly altered but was still awake and talking and eating. She states she brought this up to nursing staff at [facility] and they kept telling her that it was from the Covid vaccine. Then 2 weeks ago patient became very altered and sleeping. Daughter states she can wake her but her mother is not talking to her and up and moving like usual and she brought this up again and they again said that they checked her for a UTI but they think it is from the Covid vaccine. Patient's daughter states it was getting concerning because they stated that they were giving her her medications but patient was never awake and so she cannot see how they are giving her any medications or the patient is even eating or drinking. Daughter states patient is here today because she continues to be altered, not eating and appears dehydrated. She states that ever been told her today that the patient had pneumonia and they had been giving her antibiotic of which she knew nothing about. She states that they state they give her antibiotic but she is unsure of how they are giving her antibiotic as her mother is "very altered and not waking up to eat, drink and let alone swallow." She states that when she was having her brief change she noticed that there was dried stool. She states her mother is moving around in the bed very often as if she is not very comfortable. She has a history of dementia, breast cancer, diabetes, hypertension, CAD, peripheral vascular disease. (TOMMY HUITRON SAP ABAP PROGRAMMER) Review of Systems: Review of Systems: Constitutional: Denies fever or chills. [] Eyes: Denies change in visual acuity. [] HENT: Denies nasal congestion or sore throat. [] Respiratory: + cough or denies shortness of breath. [] Cardiovascular: Denies chest pain or edema. [] GI: Denies abdominal pain, nausea, vomiting, bloody stools or diarrhea. +lack of appetite[] : Denies dysuria. [] Musculoskeletal: Denies back pain or joint pain. [] Integument: Denies rash. [] Neurologic: Denies headache, focal weakness or sensory changes. +AMS [] Endocrine: Denies polyuria or polydipsia. [] Lymphatic: Denies swollen glands. [] Psychiatric: Denies depression or anxiety. [] ([facility] Heart Score: C/O Chest Pain: No HEART Score for Chest Pain: HEART Score for Chest Pain Response (Comments) Value History Slighlty/Non-Suspicious 0 ECG Normal 0 Age > 65 2 Risk Factors >3 Risk Factors or Hx CAD 2 Troponin < Normal Limit 0 Total 4 ([facility] Allergies: Allergies: Allergies Coded Allergies Type Severity Reaction Last Updated Verified Penicillins Allergy Intermediate hives 04/29/21 Yes Sulfa (Sulfonamide Antibiotics) Allergy Intermediate UN 04/29/21 Yes chocolate flavor Allergy Intermediate UN 04/29/21 Yes rosuvastatin Allergy Intermediate UN 04/29/21 Yes I S O L A T I O N *CONTACT* Allergy Unknown 03/14/21 Yes celecoxib Adverse Reaction Intermediate "makes me crazy" 04/29/21 Yes ([facility] Physical Exam: PE: Constitutional: Well developed, well nourished, no acute distress, non-toxic appearance. [] HENT: Normocephalic, atraumatic, bilateral external ears normal, oropharynx moist, no oral exudates, nose normal. [] Eyes: PERRLA, EOMI, conjunctiva normal, no discharge. [] Neck: Normal range of motion, no tenderness, supple, no stridor. [] Cardiovascular:Heart rate regular rhythm, no murmur [] Lungs & Thorax: Bilateral breath sounds clear to auscultation [] Abdomen: Bowel sounds normal, soft, no tenderness, no masses, no pulsatile masses. [] Skin: Warm, dry, no erythema, no rash. [] Back: No tenderness, no CVA tenderness. [] Extremities: No tenderness, no cyanosis, no clubbing, ROM intact, no edema. [] Neurologic: Alert and oriented X 3, normal motor function, normal sensory function, no focal deficits noted. [] Psychologic: Affect normal, judgement normal, mood normal. [] (TOMMY HUITRON APRN) Current Patient Data: Vital Signs: Vital Signs Date Time Temp Pulse Resp B/P (MAP) Pulse Ox O2 Delivery O2 Flow Rate FiO2 06/03/21 17:45 97.8 100 16 141/66 (91) 95 Room Air 97.8 (TOMMY HUITRON APRN) EKG: EK and read by Dr. Keys is sinus rhythm and no STEMI (TOMMY HUITRON APRN) Radiology/Procedures: Radiology/Procedures: [] Impression: [facility] [address] [place], [place] [id number] IMAGING REPORT Signed PATIENT: PAVAN SHARP EACCOUNT: [id number] : 1940 LOCATION: ER AGE: 81 SEX: F EXAM STATUS: REG ER ORD. PHYSICIAN: TOMMY HUITRON APRN REASON: AMS PROCEDURE: CT HEAD WO CONTRAST STUDY: CT head without contrast INDICATION: Altered mental status. COMPARISON: 04/29/2021 TECHNIQUE: Axial CT imaging through the head without the use of intravenous contrast. Sagittal and coronal reformats were obtained. One or more of the following individualized dose reduction techniques were utilized for this examination: 1. Automated exposure control 2. Adjustment of the mA and/or kV according to patient size 3. Use of iterative reconstruction technique. FINDINGS: No acute intracranial hemorrhage. No large area of rosenbaum-white matter differentiation loss. No localized mass effect or midline shift. Redemonstration of confluent hypoattenuation within portions of the bihemispheric subcortical white matter which is most frequently secondary to advanced chronic microvascular ischemic change. Generalized parenchymal volume loss and ex vacuo ventriculomegaly. Severe intracranial calcific atherosclerosis involving both the carotid and vertebral arteries. Unchanged calvarium. Prominent amount of cerumen within both external auditory canals. IMPRESSION: No acute intracranial abnormality by CT. Multiple chronic/senescent findings described above and unchanged from 04/29/2021. Electronically signed by: FRANCY MANCUSO MD (06/03/2021 7:57 PM) [facility] DICTATED and SIGNED BY: FRANCY MANCUSO MD DATE: 06/03/[id number] 0 [facility] [address] [place] [address] IMAGING REPORT Signed PATIENT: PAVAN SHARP EACCOUNT: [id number] : 1940 LOCATION: ER AGE: 81 SEX: F EXAM STATUS: REG ER ORD. PHYSICIAN: TOMMY HUITRON APRN REASON: ams, cough PROCEDURE: PORTABLE CHEST 1V AP chest. HISTORY: Altered mental status, cough AP view was taken of the chest. Patient rotated to the left. Patient previous bypass surgery. There is no effusion. There are no acute infiltrates. Allowing for changes in positioning there has been no definite change from the prior exam. IMPRESSION: 1. No acute infiltrates. Electronically signed by: Peter Morales MD (06/03/2021 8:10 PM) [facility] DICTATED and SIGNED BY: PETER MORALES MD DATE: 06/03/[id number] 0 (TOMMY HUITRON APRN) Course & Med Decision Making: Course & Med Decision Making Pertinent Labs and Imaging studies reviewed. (See chart for details) See HPI. Patient will slightly open her eyes move around in bed but she does not speak or respond to us calling her name or her daughter calling her name. Her daughter states this is not like her at all. No extremity swelling. Lungs are clear in upper lobes but diminished in lower lobes. Abdomen is soft and non tender. Patient is moving all 4 extremities and is moving around in the bed trying to get comfortable. Mucous membranes are dry and skin appears to be dry but warm and pink. 2005: White count is elevated. Troponin is on the higher side normal at 49. CT of the head shows chronic findings and nothing acute. Still awaiting urinalysis and chest x-ray read. Nursing staff states that they tried to straight cath the patient and got no urine return. Full CMP is also not back. Patient has gotten a total of 500 mL of normal saline and I have ordered another 500 mL bolus of normal saline. Kidney function elevated. Patient is very dehydrated. Chest x-ray shows no infection. Still waiting the urine. Patient admitted to the hospitalist. [] (TOMMY UHITRON APRN) Course & Med Decision Making This patient was initially treated by the nurse practitioner. She was admitted to the hospital service prior to her leaving her shift. I was reviewing the patient's chart, and I noticed that the patient had altered mental status, leukocytosis, evidence of relatively significant dehydration, acute kidney injury. UA was not able to be obtained. IV fluids were given in the ER. They were continued with maintenance fluids on the floor. I did notice that blood cultures were not ordered, and no antibiotics were ordered. I contacted the floor nurse taking care of the patient, and I instructed her that I would be ordering blood cultures and a dose of IV cefepime. The patient is still not produced a urine for them. I told her to continue maintenance fluids. I recommended bladder scanning the patient in trying to obtain a UA as soon as possible. Further care should be directed by the hospital service. (HUMPHREY KEYS DO) Dragon Disclaimer: Dragon Disclaimer: This electronic medical record was generated, in whole or in part, using a voice recognition dictation system. (TOMMY HUITRON APRN) Departure Departure Impression: Primary Impression: AMS (altered mental status) Qualified Codes: R41.82 - Altered mental status, unspecified Additional Impressions: Acute kidney failure Qualified Codes: N17.9 - Acute kidney failure, unspecified Dehydration Hypernatremia Leukocytosis Qualified Codes: D72.829 - Elevated white blood cell count, unspecified Hyperchloremia Disposition: ADMITTED INPATIENT Admitting Physician: ANGELA (TOMMY HUITRON APRN) Condition: STABLE Referrals: MAN FAY APRN (PCP) TOMMY HUITRON APRN Jun 03, 2021 18:21 HUMPHREY KEYS DO Jun 04, 2021 01:30
[2021-06-03] MEDS ORDERED: IV NORMAL SALINE 500ML BAG 500 ML IV ONE ×2 (18:45→19:45)
[2021-06-03 19:27] LABS: BASO % 0 % (0-3); EOS % 0 % (0-3); HEMATOCRIT 48.1 % (36.0-47.0); LYMPH # 1.9 x10^3/uL (1.0-4.8); LYMPH % 11 % (24-48); MEAN CORPUSCULAR HEMOGLOBIN 32 pg (25-35); MEAN CORPUSCULAR HGB CONC 33 g/dL (31-37); MEAN CORPUSCULAR VOLUME 95 fL (79-100); MONO # 1.2 x10^3/uL (0.0-1.1); MONO % 7 % (0-9); NEUT # 14.6 x10^3/uL (1.8-7.7); NEUT % 83 % (31-73); PLATELET COUNT 178 x10^3/uL (140-400); RED BLOOD COUNT 5.06 x10^6/uL (3.50-5.40); RED CELL DISTRIBUTION WIDTH 13.6 % (11.5-14.5); WHITE BLOOD COUNT 17.7 x10^3/uL (4.0-11.0)
--- NOTE | 2021-06-03 19:59 | RAD ---
STUDY: CT head without contrast INDICATION: Altered mental status. COMPARISON: 04/29/2021 TECHNIQUE: Axial CT imaging through the head without the use of intravenous contrast. Sagittal and co leticia reformats were obtained. One or more of the following individualized dose reduction techniques were utilized for this examinat ion: 1. Automated exposure control 2. Adjustment of the mA and/or kV according to patient size 3. Use of iterative reconstruction technique. FINDINGS: No acute intracranial hemorrhage. No large area of rosenbaum-white matter differentiation loss. No localiz ed mass effect or midline shift. Redemonstration of confluent hypoattenuation within portions of the bihemispheric subcortical white m atter which is most frequently secondary to advanced chronic microvascular ischemic change. Generaliz ed parenchymal volume loss and ex vacuo ventriculomegaly. Severe intracranial calcific atherosclerosi s involving both the carotid and vertebral arteries. Unchanged calvarium. Prominent amount of cerumen within both external auditory canals. IMPRESSION: No acute intracranial abnormality by CT. Multiple chronic/senescent findings described above and unch anged from 04/29/2021. Electronically signed by: FRANCY MANCUSO MD (06/03/2021 7:57 PM) [facility]
[2021-06-03 20:10] LABS: TOTAL PROTEIN 7.9 g/dL (6.4-8.2)
[2021-06-03 20:11] LABS: ALBUMIN/GLOBULIN RATIO 0.6 (1.0-1.7); CALCIUM 10.9 mg/dL (8.5-10.1); CREATININE 1.4 mg/dL (0.6-1.0); GFR 43.9; TOTAL BILIRUBIN 0.3 mg/dL (0.2-1.0)
[2021-06-03 20:12] LABS: MAGNESIUM 2.9 mg/dL (1.8-2.4); POTASSIUM 4.3 mmol/L (3.5-5.1)
--- NOTE | 2021-06-03 20:12 | RAD ---
AP chest. HISTORY: Altered mental status, cough AP view was taken of the chest. Patient rotated to the left. Patient previous bypass surgery. There i s no effusion. There are no acute infiltrates. Allowing for changes in positioning there has been no definite change from the prior exam. IMPRESSION: 1. No acute infiltrates. Electronically signed by: Peter Morales MD (06/03/2021 8:10 PM) [facility]
[2021-06-03 20:20] LABS: % BANDS 1 % (0-9); % LYMPHS 14 % (24-48); % MONOS 4 % (0-10); % SEGS 81 % (35-66); PLT ESTIMATE ADEQUATE (ADEQUATE)
[2021-06-03] MEDS ORDERED: IV 1/2 NORMAL SALINE 1,000 ML IV ONE (20:30)
--- NOTE | 2021-06-03 22:51 | NUR ---
Betty arrived around 2144 via bed from ED w/ AMS and LORE. She is A/O x 1 and has not made any needs known.
[2021-06-03 23:00] VITALS: BP 149/54
--- NOTE | 2021-06-04 00:20 | EKG ---
[facility] [address] [place] [address] Test Date: 2021-06-03 Test Time: 18:47:10 Pat Name: PAVAN SHARP Department: Room: 4 Gender: F [employer]: : 1940 Requested By: TOMMY HUITRON Order Number: [id number] Reading MD: Ayan Rawls Measurements Intervals [place] Rate: 96 P: 56 MA: 116 QRS: 0 QRSD: 84 T: 85 QT: 324 QTc: 410 Interpretive Statements SINUS RHYTHM LEFT ATRIAL ABNORMALITY LEFTWARD AXIS T ABNORMALITY IN HIGH LATERAL LEADS ABNORMAL ECG Electronically Signed On 06-04-2021 7:13:29 TV HOST by Ayan Rawls
[2021-06-04] MEDS ORDERED: CEFEPIME HCL IV Push 1 GM VIAL. IVP ONE (02:00)
[2021-06-04 03:00] VITALS: BP 167/90
--- NOTE | 2021-06-04 05:43 | NUR ---
At 0531 lab called w/ an elevated Troponin of [address] Smith's answering service paged him @ [address] Smith @ 4017. Pt. is stable and asymptomatic. NNO. Will see her later today. Continue to monitor.
--- NOTE | 2021-06-04 05:46 | NUR ---
Attempted to put tele monitor back on pt. Keeps pulling it off. Being combative and hitting. Will try mitts.
[2021-06-04] MEDS ORDERED: ARIP10TA9 PO (06:31)
[2021-06-04 07:00] VITALS: BP 154/70
[2021-06-04 11:00] VITALS: BP 126/66
--- NOTE | 2021-06-04 13:04 | CONS ---
DATE OF CONSULTATION: 06/04/2021 REQUESTING PHYSICIAN: Hospitalist. REASON FOR CONSULTATION: Renal failure. HISTORY OF PRESENT ILLNESS: This is a 81-year-old female brought to the hospital from [place] after 3 weeks of altered mentation and poor oral intake. The patient has history of diabetes mellitus, hypertension, breast cancer and dementia. Laboratory assessment reveals sodium of 151, BUN 42, creatinine 1.4, GFR is 43.9. In this setting, nephrology evaluation requested. The patient unable to provide further information due to her confusion. PAST MEDICAL HISTORY: Diabetes mellitus, hypertension, dementia, peripheral vascular disease, coronary artery disease. ALLERGIES: PENICILLIN, SULFA, CELECOXIB, CHOCOLATE FLAVOR. MEDICATIONS: Reviewed per med list. FAMILY HISTORY: Noncontributory. SOCIAL HISTORY: The patient resides at [facility]. REVIEW OF SYSTEMS: Unobtainable from the patient due to her dementia. PHYSICAL EXAMINATION: GENERAL APPEARANCE: The patient appears chronically ill. HEENT: Bitemporal wasting. Eyes are sunken. LUNGS: Clear. CARDIAC: Without S3 or rub. ABDOMEN: Soft, nontender. EXTREMITIES: No edema. NEUROPSYCHIATRIC: The patient looks around, is noted to be confused. LABORATORY DATA: Sodium 151, potassium 4.3, chloride 112, CO2 of 29, BUN 42, creatinine 1.4, GFR is 43.9. Hemoglobin 16, hematocrit 48, white count 17.7, platelets 178. IMPRESSION: 1. Renal failure - likely underlying chronic kidney disease on the basis of diabetes mellitus, hypertension and nephron loss of age. Also, likely component of acute prerenal state secondary to dehydration. 2. Dehydration - secondary to poor oral intake, does not appear to have enhanced gastrointestinal or urinary losses. RECOMMENDATIONS: 1. IV fluid administration for hydration. 2. Trend labs. We will follow. MACRINA DR: Weston TID: [id number]
[2021-06-04] MEDS: IV 1/2 NORMAL SALINE 1,000 ML IV SCH ×2 (13:13→21:12)
[2021-06-04] MEDS ORDERED: LOPERAMIDE 2 MG CAPSULE PO PRN (13:30)
[2021-06-04] MEDS ORDERED: IBUPROFEN 200 MG TABLET. PO PRN (13:30)
--- NOTE | 2021-06-04 13:41 | HP ---
DATE OF SERVICE: 06/04/2021 ADMIT DATE: 06/03/2021 CHIEF COMPLAINT: Mental status change. HISTORY OF PRESENT ILLNESS: The patient is a pleasant 81-year-old female who has dementia. She presented to the ER pleasantly confused. She actually is somewhat agitated. We had to put mitts on her. Her labs are showing dehydration with a BUN of 42 and creatinine 1.4. She is also hypernatremic with a sodium of 151. White count is also 18,000. I suspect she has a UTI or some other infection. I discussed the case with the ER physician. We started antibiotics and fluids. She has been admitted to the medical floor. PAST MEDICAL HISTORY: Dementia, constipation, diabetes, hypertension, breast cancer. ALLERGIES: PENICILLIN AND SULFA, CHOCOLATE FLAVOR AND STATINS. FAMILY HISTORY: Diabetes. SOCIAL HISTORY: I think she lives at a facility, [facility]. She must be in the memory care unit. Does not drink, smoke or take drugs according to the record. MEDICATIONS: Reviewed, please refer to the MRAD. REVIEW OF SYSTEMS: Unable to obtain. She is too confused. PHYSICAL EXAMINATION: VITALS: Within normal limits and are stable. GENERAL: She is pleasantly confused, combative at times, but then starts crying. She has mitts on for the patient's safety. HEENT: Normal cephalic atraumatic, external auditory canals are patent. Eyes: Extraocular muscles are intact, pupils are equally round and reactive to light and accommodation. MUSCULOSKELETAL: Well developed, well nourished, good range of motion. ENDOCRINE: No thyromegaly was palpated. LYMPHATICS: No cervical chain or axillary nodes were noted. HEMATOPOIETIC: No bruising. NECK: Supple, no JVD, no thyromegaly was noted. LUNGS: Clear to auscultation in all lung vazquez without rhonchi or wheezing. HEART: RRR, S1, S2 present. Peripheral pulses intact, no obvious murmurs were noted. ABDOMEN: Soft, nontender. Positive bowel sounds no organomegaly, normal bowel sounds. EXTREMITIES: She has mitts on. NEUROLOGIC: She is pleasantly confused, combative at times, but then starts crying. She has mitts on for the patient's safety. PSYCHIATRIC: She is pleasantly confused, combative at times, but then starts crying. She has mitts on for the patient's safety. SKIN: No ulcerations or rashes, good skin turgor, no jaundice. VASCULAR: Good capillary refill, neurovascular bundle appears to be intact. LABORATORY DATA: White count 18, hemoglobin 16, platelets 178. Electrolytes: Sodium 151, potassium 4.3, chloride 112, bicarbonate 29, BUN 42, creatinine 1.4, glucose 187. Troponin high at 55. Urinalysis is pending. ASSESSMENT AND PLAN: Mental status change, suspect occult infection. We started IV antibiotics and fluids. We consulted Nephrology regarding the chronic renal insufficiency. Her troponin is slightly high, it was 49 and now it is 55, we will watch that carefully. Cardiac monitoring. Home meds. DVT prophylaxis. Full code. Prognosis guarded. PEPE/SHARON DR: Wayne TID: [id number]
[2021-06-04 15:00] VITALS: BP 129/64
[2021-06-04] MEDS: PANTOPRAZOLE 40 MG TABLET.DR. PO SCH (16:40)
[2021-06-04] MEDS: MEMANTINE 10 MG TABLET. PO SCH ×2 (16:40→21:10)
[2021-06-04] MEDS: ARIPiprazole 5 MG TABLET PO SCH (16:40)
[2021-06-04] MEDS: DIVALPROEX DELAYED RELEASE 500 MG TABLET.DR. PO SCH ×2 (16:41→21:10)
[2021-06-04] MEDS: ACETAMINOPHEN 325 MG TABLET. PO PRN (16:47)
[2021-06-04] MEDS: INSULIN LISPRO 300 UNITS/3 ML VIAL. SQ SCH (17:00)
[2021-06-04] MEDS: RIVASTIGMINE 9.5MG PATCH. TD SCH (17:01)
[2021-06-04 19:00] VITALS: BP 110/67
--- NOTE | 2021-06-04 19:20 | NUR ---
Nurse's note: This nurse was unable to perform straight catheterization for urine sample collection. The patient was combative and uncooperative.Patient's daughter was at the bedside and aware of her condition.
[2021-06-04] MEDS ORDERED: INSULIN GLARGINE SYRINGE. SQ SCH (21:00)
[2021-06-04] MEDS ORDERED: AMITRIPTYLINE HCL 25 MG TABLET. PO SCH (21:00)
[2021-06-04] MEDS: LACTOBACILLUS RHAMNOSUS GG 1 CAPSULE. PO SCH (21:10)
[2021-06-04] MEDS: FAMOTIDINE 20 MG TABLET. PO SCH (21:10)
[2021-06-04 23:00] VITALS: BP 120/57
[2021-06-05 03:00] VITALS: BP 114/57
[2021-06-05 05:36] LABS: BASO # 0.1 x10^3/uL (0.0-0.2); BASO % 0 % (0-3); EOS # 0.2 x10^3/uL (0.0-0.7); EOS % 1 % (0-3); HEMATOCRIT 45.7 % (36.0-47.0); HEMOGLOBIN 15.3 g/dL (12.0-15.5); LYMPH # 3.4 x10^3/uL (1.0-4.8); LYMPH % 22 % (24-48); MEAN CORPUSCULAR HEMOGLOBIN 32 pg (25-35); MEAN CORPUSCULAR HGB CONC 34 g/dL (31-37); MEAN CORPUSCULAR VOLUME 94 fL (79-100); MONO # 0.8 x10^3/uL (0.0-1.1); MONO % 5 % (0-9); NEUT # 11.1 x10^3/uL (1.8-7.7); NEUT % 71 % (31-73); PLATELET COUNT 145 x10^3/uL (140-400); RED BLOOD COUNT 4.85 x10^6/uL (3.50-5.40); RED CELL DISTRIBUTION WIDTH 13.8 % (11.5-14.5); WHITE BLOOD COUNT 15.6 x10^3/uL (4.0-11.0)
[2021-06-05 06:07] LABS: ALBUMIN 2.6 g/dL (3.4-5.0); ALBUMIN/GLOBULIN RATIO 0.6 (1.0-1.7); CALCIUM 9.6 mg/dL (8.5-10.1); CREATININE 0.7 mg/dL (0.6-1.0); GFR 97.7; POTASSIUM 3.6 mmol/L (3.5-5.1); TOTAL BILIRUBIN 0.3 mg/dL (0.2-1.0)
--- NOTE | 2021-06-05 06:19 | NUR ---
IP: Pt has a hx of ESBL in urine on 03/08/21. Pt to be in contact precautions until there are 2 negative urine cultures 7 days apart without antibiotics.
[2021-06-05 06:50] LABS: BILIRUBIN,URINE NEGATIVE (NEG); CLARITY,URINE CLEAR; COLOR,URINE YELLOW; NITRITE,URINE NEGATIVE (NEG); PH,URINE 6.5 (<5.0-8.0); PROTEIN,URINE NEGATIVE (NEG-TRACE)
[2021-06-05 07:00] VITALS: BP 103/61
[2021-06-05 07:26] LABS: BACTERIA,URINE 0 /HPF (0-FEW); WBC,URINE OCC /HPF (0-4)
[2021-06-05] MEDS: INSULIN LISPRO 300 UNITS/3 ML VIAL. SQ SCH ×3 (08:00→17:05)
[2021-06-05] MEDS ORDERED: LISINOPRIL 20 MG TABLET PO SCH (09:00)
[2021-06-05] MEDS ORDERED: hydroCHLOROthiazide 12.5 MG CAPSULE PO SCH (09:00)
--- NOTE | 2021-06-05 09:00 | NUR ---
Wound Care Wound Type/Assessment: patient seen per wound care consult. see wound assessment. patient has a stage 2 pressure ulcer on the coccyx area, the wound was cleaned and redressed with recommendations of Calazime cream, prn. Treatment Recommendations/Plan: Recommendations of Calazime cream, prn to the coccyx area Offloading surface/device: Wedge, Pillows, Turn Q2 hours Patient turned to the right side at this time Discharge Recommendations for dressings: Continue with the Calazime cream, prn. Wound Care will continue to f/u for changes.
--- NOTE | 2021-06-05 09:40 | RAD ---
EXAMINATION: US RENAL BILAT INDICATION: 81 years, Female, acute renal failure. COMPARISON: 05/16/2018 TECHNIQUE: Grayscale and limited color Doppler evaluation of the kidneys and bladder was performed. FINDINGS: Technical difficult scanning due to excessive bowel gas and patient's condition. RIGHT KIDNEY: MEASURES: 9.1 x 4.1 x 3.1 cm. MORPHOLOGY/PARENCHYMA: Normal corticomedullary differentiation. There is a 1.[address] in the interpolar kidney. No shadowing calculus. COLLECTING SYSTEM: No hydronephrosis. LEFT KIDNEY: MEASURES: 10.0 x 4.7 x 3.9 cm. MORPHOLOGY/PARENCHYMA: Normal corticomedullary differentiation with no shadowing calculus or discrete masses. COLLECTING SYSTEM: No hydronephrosis. URINARY BLADDER: Unremarkable. Partially imaged liver demonstrates steatosis. IMPRESSION: Technical difficult scan due to excessive bowel gas and patient's condition. 1. No hydronephrosis in either kidney. 2. Simple appearing 1.6 cm right renal cyst, essentially unchanged since 2018. 3. Partially imaged liver demonstrates steatosis. Electronically signed by: Steven Stanley MD (06/05/2021 9:38 AM) [id number]
[2021-06-05 10:27] VITALS: BP 98/47
[2021-06-05] MEDS: CEFEPIME HCL IV Push 1 GM VIAL. IVP SCH (10:31)
[2021-06-05] MEDS: POLYETHYLENE GLYCOL 3350 17 GM PACKET. PO SCH (10:31)
[2021-06-05] MEDS: MEMANTINE 10 MG TABLET. PO SCH ×2 (10:32→21:10)
[2021-06-05] MEDS: VITAMIN B COMPLEX TABLET. PO SCH (10:32)
[2021-06-05] MEDS: ARIPiprazole 5 MG TABLET PO SCH (10:32)
[2021-06-05] MEDS: PANTOPRAZOLE 40 MG TABLET.DR. PO SCH (10:33)
[2021-06-05] MEDS: DIVALPROEX DELAYED RELEASE 500 MG TABLET.DR. PO SCH ×3 (10:33→21:10)
[2021-06-05] MEDS: MULTIVITAMIN with MINERAL TABLET. PO SCH (10:33)
[2021-06-05] MEDS: POTASSIUM CHLORIDE 20 MEQ TABLET.ER. PO SCH (10:35)
[2021-06-05] MEDS: LACTOBACILLUS RHAMNOSUS GG 1 CAPSULE. PO SCH ×2 (10:35→21:10)
[2021-06-05] MEDS ORDERED: DEXTROSE 50% 25 GM / 50ML DISP.SYRIN. IV PRN (10:45)
[2021-06-05] MEDS ORDERED: ONDANSETRON PF 4 MG/2 ML VIAL. IVP PRN (10:45)
[2021-06-05] MEDS: RIVASTIGMINE 9.5MG PATCH. TD SCH (10:50)
--- NOTE | 2021-06-05 10:50 | PDOC ---
[employer] PROGRESS NOTE Date of Service DOS: DATE: 06/05/21 TIME: 10:41 Chief Complaint Chief Complaint Acute encephalopathy - likely metabolic with hypernatremia. Confusion on chronic dementia Acute renal failure - Cr improved with hydration Decreased PO intake Hypernatremia - due to free fluid deficit Leukocytosis dm2, htn H/o breast Cancer s/p right mastectomy CAD s/p CABG Failure to thrive Severe protein calorie malnutrition History of Present Illness History of Present Illness Ms. Mederos, is a 81 year old female w/ PMHx CAD s/p CABG, breast cancer in remission, dementia, HTN who arrives from SNF with chief complaint of altered mental status and decreased PO intake. No pain, she is very weak. Some agitation, redirection and mitts help. Notable with dehydration with a BUN of 42 and creatinine 1.4. She is also hypernatremic witha sodium of 151. White count is also 18,000. Started on cefepime and empiric fluids with nephrology consultation, admitted for further care. Current and improved to 0.7 sodium still 150. Still difficult to redirect today. Blood pressure on the low side. She is complaining of being cold. Oriented to person only Vitals/I&O Vitals/I&O: Vital Signs Date Time Temp Pulse Resp B/P (MAP) Pulse Ox O2 Delivery O2 Flow Rate FiO2 06/05/21 10:27 96.4 69 17 98/47 (64) 100 Room Air 96.4 I & O 06/04/21 06/04/21 06/05/21 15:00 23:00 07:00 Intake Total 800 ml 240 ml 930 ml Balance 800 ml 240 ml 930 ml Physical Exam Lungs: Clear Labs Labs: Laboratory Tests Test 06/04/21 17:20 06/04/21 20:23 06/05/21 04:25 06/05/21 05:35 Glucose (Fingerstick) 252 mg/dL (70-99) 234 mg/dL (70-99) White Blood Count 15.6 x10^3/uL (4.0-11.0) Red Blood Count 4.85 x10^6/uL (3.50-5.40) Hemoglobin 15.3 g/dL (12.0-15.5) Hematocrit 45.7 % (36.0-47.0) Mean Corpuscular Volume 94 fL (79-100) Mean Corpuscular Hemoglobin 32 pg (25-35) Mean Corpuscular Hemoglobin Concent 34 g/dL (31-37) Red Cell Distribution Width 13.8 % (11.5-14.5) Platelet Count 145 x10^3/uL (140-400) Neutrophils (%) (Auto) 71 % (31-73) Lymphocytes (%) (Auto) 22 % (24-48) Monocytes (%) (Auto) 5 % (0-9) Eosinophils (%) (Auto) 1 % (0-3) Basophils (%) (Auto) 0 % (0-3) Neutrophils # (Auto) 11.1 x10^3/uL (1.8-7.7) Lymphocytes # (Auto) 3.4 x10^3/uL (1.0-4.8) Monocytes # (Auto) 0.8 x10^3/uL (0.0-1.1) Eosinophils # (Auto) 0.2 x10^3/uL (0.0-0.7) Basophils # (Auto) 0.1 x10^3/uL (0.0-0.2) Sodium Level 150 mmol/L (136-145) Potassium Level 3.6 mmol/L (3.5-5.1) Chloride Level 111 mmol/L (98-107) Carbon Dioxide Level 28 mmol/L (21-32) Anion Gap 11 (6-14) Blood Urea Nitrogen 19 mg/dL (7-20) Creatinine 0.7 mg/dL (0.6-1.0) Estimated GFR (Cockcroft-Gault) 97.7 BUN/Creatinine Ratio 27 (6-20) Glucose Level 139 mg/dL (70-99) Calcium Level 9.6 mg/dL (8.5-10.1) Total Bilirubin 0.3 mg/dL (0.2-1.0) Aspartate Amino Transf (AST/SGOT) 32 U/L (15-37) Alanine Aminotransferase (ALT/SGPT) 36 U/L (14-59) Alkaline Phosphatase 96 U/L (46-116) Total Protein 7.0 g/dL (6.4-8.2) Albumin 2.6 g/dL (3.4-5.0) Albumin/Globulin Ratio 0.6 (1.0-1.7) Urine Collection Type Unknown Urine Color Yellow Urine Clarity Clear Urine pH 6.5 (<5.0-8.0) Urine Specific [place] 1.020 (1.000-1.030) Urine Protein Negative mg/dL (NEG-TRACE) Urine Glucose (UA) 500 mg/dL (NEG) Urine Ketones (Stick) Trace mg/dL (NEG) Urine Blood Negative (NEG) Urine Nitrite Negative (NEG) Urine Bilirubin Negative (NEG) Urine Urobilinogen Dipstick 1.0 mg/dL (0.2 mg/dL) Urine Leukocyte Esterase Trace (NEG) Urine RBC 1-2 /HPF (0-2) Urine WBC Occ /HPF (0-4) Urine Squamous Epithelial Cells Few /LPF Urine Bacteria 0 /HPF (0-FEW) Urine Mucus Slight /LPF Test 06/05/21 08:23 Glucose (Fingerstick) 88 mg/dL (70-99) Assessment and Plan Assessmemt and Plan Problems Medical Problems: (1) Acute kidney failure Status: Acute (2) Dehydration Status: Acute (3) Hyperchloremia Status: Acute (4) Hypernatremia Status: Acute (5) Leukocytosis Status: Acute Comment Review of Relevant I have reviewed the following items moriah (where applicable) has been applied. Medications: Current Medications Medications (Trade) Dose Ordered Sig/Shakeel Route PRN Reason Start Time Stop Time Status Last Admin Dose Admin Sodium Chloride 1,000 ml @ 75 mls/hr [id number] IV 06/04/21 12:30 06/04/21 21:12 Cefepime HCl (Maxipime) 1 gm DAILY IVP 06/05/21 09:00 06/05/21 10:31 Acetaminophen (Tylenol) 650 mg PRN Q6HRS PRN PO PAIN 06/04/21 13:30 06/04/21 16:47 Amlodipine Besylate (Norvasc) 10 mg DAILY PO 06/04/21 14:00 06/04/21 16:41 Divalproex Sodium (Depakote) 500 mg TID PO 06/04/21 14:00 06/05/21 10:33 Memantine (Namenda) 10 mg BID PO 06/04/21 14:00 06/05/21 10:32 Pantoprazole Sodium (Protonix) 40 mg DAILY PO 06/04/21 14:00 06/05/21 10:33 Polyethylene Glycol (miraLAX PACKET) 17 gm DAILY PO 06/05/21 09:00 06/05/21 10:31 Potassium Chloride (Klor-Con) 20 meq DAILY PO 06/05/21 09:00 06/05/21 10:35 Rivastigmine (Exelon) 1 patch DAILY TD 06/04/21 14:00 06/04/21 17:01 Amitriptyline HCl (Elavil) 50 mg QHS PO 06/04/21 21:00 06/05/21 10:40 DC 06/04/21 21:10 Aripiprazole (Abilify) 10 mg DAILY PO 06/04/21 14:00 06/05/21 10:32 Famotidine (Pepcid) 20 mg HS PO 06/04/21 21:00 06/04/21 21:10 Insulin Glargine (Lantus Syringe) 40 unit QHS SQ 06/04/21 21:00 06/04/21 21:41 Multivitamins (Thera M Plus) 1 tab DAILY PO 06/05/21 09:00 06/05/21 10:33 Vitamin B Complex (Wade B) 1 tab DAILY PO 06/05/21 09:00 06/05/21 10:32 Lactobacillus Rhamnosus (Culturelle) 1 cap BID PO 06/04/21 21:00 06/05/21 10:35 Justifications for Admission Other Justification GRISELDA WHITING MD Jun 05, 2021 10:49
--- NOTE | 2021-06-05 11:35 | PDOC ---
Renal-Progress Notes Subjective Notes Notes NO NEW COMPLAINTS History of Present Illness Hx of present illness REMAINS CONFUSED Vitals Vitals Vital Signs Date Time Temp Pulse Resp B/P (MAP) Pulse Ox O2 Delivery O2 Flow Rate FiO2 06/05/21 10:27 96.4 69 17 98/47 (64) 100 Room Air 96.4 Weight Weight [ ] I.O. Intake and Output Intake and Output 06/05/21 07:00 Intake Total 1970 ml Balance 1970 ml Intake Oral 270 ml IV Total 1700 ml # Voids 2 Labs Labs Laboratory Tests Test 06/04/21 17:20 06/04/21 20:23 06/05/21 04:25 06/05/21 05:35 Glucose (Fingerstick) 252 mg/dL (70-99) 234 mg/dL (70-99) White Blood Count 15.6 x10^3/uL (4.0-11.0) Red Blood Count 4.85 x10^6/uL (3.50-5.40) Hemoglobin 15.3 g/dL (12.0-15.5) Hematocrit 45.7 % (36.0-47.0) Mean Corpuscular Volume 94 fL (79-100) Mean Corpuscular Hemoglobin 32 pg (25-35) Mean Corpuscular Hemoglobin Concent 34 g/dL (31-37) Red Cell Distribution Width 13.8 % (11.5-14.5) Platelet Count 145 x10^3/uL (140-400) Neutrophils (%) (Auto) 71 % (31-73) Lymphocytes (%) (Auto) 22 % (24-48) Monocytes (%) (Auto) 5 % (0-9) Eosinophils (%) (Auto) 1 % (0-3) Basophils (%) (Auto) 0 % (0-3) Neutrophils # (Auto) 11.1 x10^3/uL (1.8-7.7) Lymphocytes # (Auto) 3.4 x10^3/uL (1.0-4.8) Monocytes # (Auto) 0.8 x10^3/uL (0.0-1.1) Eosinophils # (Auto) 0.2 x10^3/uL (0.0-0.7) Basophils # (Auto) 0.1 x10^3/uL (0.0-0.2) Sodium Level 150 mmol/L (136-145) Potassium Level 3.6 mmol/L (3.5-5.1) Chloride Level 111 mmol/L (98-107) Carbon Dioxide Level 28 mmol/L (21-32) Anion Gap 11 (6-14) Blood Urea Nitrogen 19 mg/dL (7-20) Creatinine 0.7 mg/dL (0.6-1.0) Estimated GFR (Cockcroft-Gault) 97.7 BUN/Creatinine Ratio 27 (6-20) Glucose Level 139 mg/dL (70-99) Calcium Level 9.6 mg/dL (8.5-10.1) Total Bilirubin 0.3 mg/dL (0.2-1.0) Aspartate Amino Transf (AST/SGOT) 32 U/L (15-37) Alanine Aminotransferase (ALT/SGPT) 36 U/L (14-59) Alkaline Phosphatase 96 U/L (46-116) Total Protein 7.0 g/dL (6.4-8.2) Albumin 2.6 g/dL (3.4-5.0) Albumin/Globulin Ratio 0.6 (1.0-1.7) Urine Collection Type Unknown Urine Color Yellow Urine Clarity Clear Urine pH 6.5 (<5.0-8.0) Urine Specific [place] 1.020 (1.000-1.030) Urine Protein Negative mg/dL (NEG-TRACE) Urine Glucose (UA) 500 mg/dL (NEG) Urine Ketones (Stick) Trace mg/dL (NEG) Urine Blood Negative (NEG) Urine Nitrite Negative (NEG) Urine Bilirubin Negative (NEG) Urine Urobilinogen Dipstick 1.0 mg/dL (0.2 mg/dL) Urine Leukocyte Esterase Trace (NEG) Urine RBC 1-2 /HPF (0-2) Urine WBC Occ /HPF (0-4) Urine Squamous Epithelial Cells Few /LPF Urine Bacteria 0 /HPF (0-FEW) Urine Mucus Slight /LPF Test 06/05/21 08:23 06/05/21 11:27 Glucose (Fingerstick) 88 mg/dL (70-99) 105 mg/dL (70-99) Micro Micro Microbiology 06/04/21 Blood Culture - Preliminary, Resulted NO GROWTH AFTER 1 DAY Review of Systems Constitutional: yes: other ( CONFUSED) Physical Exam General Appearance: no apparent distress Skin: warm Respiratory: decreased breath sounds Heart: S1S2 Abdomen: soft, bowel sounds present Genitourinary: bladder flat Extremities: pulses present Neurology: alert, confused Musculoskeletal: Osteoarthritis Assessment Assessment IMP [id number] NL EXTRACELLULAR VOLUME DEPLETION HYPERNATREMIA WITH FREE WATER DEFICIT ACUTE ENCEPHALOPATHY CHRONIC DEMENTIA DM II HTN PLAN NEEDS MORE FREE WATER REPLACEMENT LABS IN AM WILL FOLLOW ROSALIO HOANG MD Jun 05, 2021 11:35
[2021-06-05] MEDS: IV DEXTROSE 5% 1,000 ML IV SCH ×2 (11:53→21:21)
[2021-06-05 14:46] VITALS: BP 133/65
[2021-06-05 19:00] VITALS: BP 129/42
[2021-06-05] MEDS ORDERED: INSULIN GLARGINE SYRINGE. SQ SCH (21:00)
[2021-06-05] MEDS: FAMOTIDINE 20 MG TABLET. PO SCH (21:10)
[2021-06-05 23:00] VITALS: BP 125/51
[2021-06-06 03:00] VITALS: BP 147/64
[2021-06-06 07:00] VITALS: BP 142/58
[2021-06-06 07:57] LABS: BASO % 0 % (0-3); EOS # 0.3 x10^3/uL (0.0-0.7); EOS % 2 % (0-3); HEMATOCRIT 47.1 % (36.0-47.0); HEMOGLOBIN 15.4 g/dL (12.0-15.5); LYMPH # 2.6 x10^3/uL (1.0-4.8); LYMPH % 19 % (24-48); MEAN CORPUSCULAR HEMOGLOBIN 31 pg (25-35); MEAN CORPUSCULAR HGB CONC 33 g/dL (31-37); MEAN CORPUSCULAR VOLUME 93 fL (79-100); MONO # 0.7 x10^3/uL (0.0-1.1); MONO % 6 % (0-9); NEUT # 9.7 x10^3/uL (1.8-7.7); NEUT % 73 % (31-73); PLATELET COUNT 117 x10^3/uL (140-400); RED BLOOD COUNT 5.04 x10^6/uL (3.50-5.40); RED CELL DISTRIBUTION WIDTH 13.5 % (11.5-14.5); WHITE BLOOD COUNT 13.3 x10^3/uL (4.0-11.0)
[2021-06-06 08:21] LABS: CALCIUM 8.9 mg/dL (8.5-10.1); CREATININE 0.7 mg/dL (0.6-1.0); GFR 97.7; POTASSIUM 3.2 mmol/L (3.5-5.1)
[2021-06-06] MEDS: IV DEXTROSE 5% 1,000 ML IV SCH (08:41)
[2021-06-06] MEDS: INSULIN LISPRO 300 UNITS/3 ML VIAL. SQ SCH ×3 (08:42→16:47)
[2021-06-06] MEDS: CEFEPIME HCL IV Push 1 GM VIAL. IVP SCH (09:27)
[2021-06-06] MEDS: DIVALPROEX DELAYED RELEASE 500 MG TABLET.DR. PO SCH ×3 (09:30→21:00)
[2021-06-06] MEDS: VITAMIN B COMPLEX TABLET. PO SCH (09:30)
[2021-06-06] MEDS: PANTOPRAZOLE 40 MG TABLET.DR. PO SCH (09:30)
[2021-06-06] MEDS: POTASSIUM CHLORIDE 20 MEQ TABLET.ER. PO SCH (09:30)
[2021-06-06] MEDS: LACTOBACILLUS RHAMNOSUS GG 1 CAPSULE. PO SCH ×2 (09:30→21:00)
[2021-06-06] MEDS: ARIPiprazole 5 MG TABLET PO SCH (09:30)
[2021-06-06] MEDS: MULTIVITAMIN with MINERAL TABLET. PO SCH (09:30)
[2021-06-06] MEDS: MEMANTINE 10 MG TABLET. PO SCH ×2 (09:30→21:00)
[2021-06-06] MEDS: POLYETHYLENE GLYCOL 3350 17 GM PACKET. PO SCH (09:30)
[2021-06-06] MEDS: RIVASTIGMINE 9.5MG PATCH. TD SCH (09:31)
--- NOTE | 2021-06-06 09:53 | PDOC ---
[employer] PROGRESS NOTE Date of Service DOS: DATE: 06/06/21 TIME: 09:51 Chief Complaint Chief Complaint Acute encephalopathy - likely metabolic with hypernatremia. Confusion on chronic dementia Acute renal failure - Cr improved with hydration Decreased PO intake Hypernatremia - due to free fluid deficit Leukocytosis - improving, no clear infectious source. Will observe off antibiotics dm2, htn H/o breast Cancer s/p right mastectomy CAD s/p CABG Failure to thrive Severe protein calorie malnutrition 37 MIN PT exam, chart review, > 50% of time spent with exam, chart review, pt care coordination. History of Present Illness History of Present Illness Ms. Mederos, is a 81 year old female w/ PMHx CAD s/p CABG, breast cancer in remission, dementia, HTN who arrives from SNF with chief complaint of altered mental status and decreased PO intake. No pain, she is very weak. Some agitation, redirection and mitts help. Notable with dehydration with a BUN of 42 and creatinine 1.4. She is also hypernatremic witha sodium of 151. White count is also 18,000. Started on cefepime and empiric fluids with nephrology consultation, admitted for further care. 06/05: Afebrile currently. Cr improved to 0.7 sodium still 150. Still difficult to redirect today. Blood pressure on the low side. She is complaining of being cold. Oriented to person only 06/06:. Sodium improved 135 on D5 infusion. Still difficult to redirect. Confused. Urine culture with no growth. Gluteal wound addressed by wound care. No complaints today. Vitals/I&O Vitals/I&O: Vital Signs Date Time Temp Pulse Resp B/P (MAP) Pulse Ox O2 Delivery O2 Flow Rate FiO2 06/06/21 09:31 68 142/58 06/06/21 07:20 Room Air 06/06/21 07:00 97.7 16 96 97.7 I & O 06/05/21 06/05/21 06/06/21 15:00 23:00 07:00 Intake Total 660 ml 90 ml Balance 660 ml 90 ml Physical Exam Lungs: Clear Labs Labs: Laboratory Tests Test 06/05/21 11:27 06/05/21 16:31 06/05/21 19:35 06/05/21 21:22 Glucose (Fingerstick) 105 mg/dL (70-99) 297 mg/dL (70-99) 258 mg/dL (70-99) SARS-CoV-2 RNA (OSEAS) Negative (Negative) Test 06/06/21 06:25 06/06/21 07:24 White Blood Count 13.3 x10^3/uL (4.0-11.0) Red Blood Count 5.04 x10^6/uL (3.50-5.40) Hemoglobin 15.4 g/dL (12.0-15.5) Hematocrit 47.1 % (36.0-47.0) Mean Corpuscular Volume 93 fL (79-100) Mean Corpuscular Hemoglobin 31 pg (25-35) Mean Corpuscular Hemoglobin Concent 33 g/dL (31-37) Red Cell Distribution Width 13.5 % (11.5-14.5) Platelet Count 117 x10^3/uL (140-400) Neutrophils (%) (Auto) 73 % (31-73) Lymphocytes (%) (Auto) 19 % (24-48) Monocytes (%) (Auto) 6 % (0-9) Eosinophils (%) (Auto) 2 % (0-3) Basophils (%) (Auto) 0 % (0-3) Neutrophils # (Auto) 9.7 x10^3/uL (1.8-7.7) Lymphocytes # (Auto) 2.6 x10^3/uL (1.0-4.8) Monocytes # (Auto) 0.7 x10^3/uL (0.0-1.1) Eosinophils # (Auto) 0.3 x10^3/uL (0.0-0.7) Basophils # (Auto) 0.0 x10^3/uL (0.0-0.2) Sodium Level 135 mmol/L (136-145) Potassium Level 3.2 mmol/L (3.5-5.1) Chloride Level 102 mmol/L (98-107) Carbon Dioxide Level 24 mmol/L (21-32) Anion Gap 9 (6-14) Blood Urea Nitrogen 9 mg/dL (7-20) Creatinine 0.7 mg/dL (0.6-1.0) Estimated GFR (Cockcroft-Gault) 97.7 Glucose Level 268 mg/dL (70-99) Calcium Level 8.9 mg/dL (8.5-10.1) Glucose (Fingerstick) 257 mg/dL (70-99) Assessment and Plan Assessmemt and Plan Problems Medical Problems: (1) Acute kidney failure Status: Acute (2) Dehydration Status: Acute (3) Hyperchloremia Status: Acute (4) Hypernatremia Status: Acute (5) Leukocytosis Status: Acute Comment Review of Relevant I have reviewed the following items moriah (where applicable) has been applied. Medications: Current Medications Medications (Trade) Dose Ordered Sig/Shakeel Route PRN Reason Start Time Stop Time Status Last Admin Dose Admin Insulin Glargine (Lantus Syringe) 15 unit QHS SQ 06/05/21 21:00 06/05/21 21:25 Insulin Human Lispro (HumaLOG) 0-9 UNITS TIDWMEALS SQ 06/05/21 12:00 06/06/21 08:42 Dextrose 1,000 ml @ 100 mls/hr Q10H IV 06/05/21 11:45 06/06/21 08:41 Justifications for Admission Other Justification GRISELDA WHITING MD Jun 06, 2021 09:53
[2021-06-06 11:00] VITALS: BP 109/39
--- NOTE | 2021-06-06 11:08 | PDOC ---
Renal-Progress Notes Subjective Notes Notes NO NEW COMPLAINTS History of Present Illness Hx of present illness STABLE Vitals Vitals Vital Signs Date Time Temp Pulse Resp B/P (MAP) Pulse Ox O2 Delivery O2 Flow Rate FiO2 06/06/21 09:31 68 142/58 06/06/21 07:20 Room Air 06/06/21 07:00 97.7 16 96 97.7 Weight Weight [ ] I.O. Intake and Output Intake and Output 06/06/21 07:00 Intake Total 750 ml Balance 750 ml Intake Oral 150 ml IV Total 600 ml # Voids 5 # Bowel Movements 1 Labs Labs Laboratory Tests Test 06/05/21 11:27 06/05/21 16:31 06/05/21 19:35 06/05/21 21:22 Glucose (Fingerstick) 105 mg/dL (70-99) 297 mg/dL (70-99) 258 mg/dL (70-99) SARS-CoV-2 RNA (OSEAS) Negative (Negative) Test 06/06/21 06:25 06/06/21 07:24 White Blood Count 13.3 x10^3/uL (4.0-11.0) Red Blood Count 5.04 x10^6/uL (3.50-5.40) Hemoglobin 15.4 g/dL (12.0-15.5) Hematocrit 47.1 % (36.0-47.0) Mean Corpuscular Volume 93 fL (79-100) Mean Corpuscular Hemoglobin 31 pg (25-35) Mean Corpuscular Hemoglobin Concent 33 g/dL (31-37) Red Cell Distribution Width 13.5 % (11.5-14.5) Platelet Count 117 x10^3/uL (140-400) Neutrophils (%) (Auto) 73 % (31-73) Lymphocytes (%) (Auto) 19 % (24-48) Monocytes (%) (Auto) 6 % (0-9) Eosinophils (%) (Auto) 2 % (0-3) Basophils (%) (Auto) 0 % (0-3) Neutrophils # (Auto) 9.7 x10^3/uL (1.8-7.7) Lymphocytes # (Auto) 2.6 x10^3/uL (1.0-4.8) Monocytes # (Auto) 0.7 x10^3/uL (0.0-1.1) Eosinophils # (Auto) 0.3 x10^3/uL (0.0-0.7) Basophils # (Auto) 0.0 x10^3/uL (0.0-0.2) Sodium Level 135 mmol/L (136-145) Potassium Level 3.2 mmol/L (3.5-5.1) Chloride Level 102 mmol/L (98-107) Carbon Dioxide Level 24 mmol/L (21-32) Anion Gap 9 (6-14) Blood Urea Nitrogen 9 mg/dL (7-20) Creatinine 0.7 mg/dL (0.6-1.0) Estimated GFR (Cockcroft-Gault) 97.7 Glucose Level 268 mg/dL (70-99) Calcium Level 8.9 mg/dL (8.5-10.1) Glucose (Fingerstick) 257 mg/dL (70-99) Micro Micro Microbiology 06/05/21 Urine Culture - Final, Complete 06/04/21 Blood Culture - Preliminary, Resulted NO GROWTH AFTER 2 DAYS Review of Systems Constitutional: yes: other ( CONFUSED) Physical Exam General Appearance: no apparent distress Skin: warm Respiratory: decreased breath sounds Heart: S1S2 Abdomen: soft, bowel sounds present Genitourinary: bladder flat Extremities: pulses present Neurology: alert, confused Musculoskeletal: Osteoarthritis Assessment Assessment IMP [id number] NL EXTRACELLULAR VOLUME DEPLETION HYPERNATREMIA - RESOLVED HYPOKALEMIA ACUTE ENCEPHALOPATHY CHRONIC DEMENTIA DM II HTN PLAN STOP D5W REPLACE K LABS IN AM WILL FOLLOW ROSALIO HOANG MD Jun 06, 2021 11:08
[2021-06-06] MEDS ORDERED: POTASSIUM CHLORIDE 20 MEQ TABLET.ER. PO ONE (11:15)
[2021-06-06 15:00] VITALS: BP 134/53
[2021-06-06] MEDS: ACETAMINOPHEN 325 MG TABLET. PO PRN (15:33)
[2021-06-06 19:00] VITALS: BP 110/49
[2021-06-06] MEDS: FAMOTIDINE 20 MG TABLET. PO SCH (21:00)
[2021-06-06] MEDS ORDERED: INSULIN GLARGINE SYRINGE. SQ SCH (21:00)
--- NOTE | 2021-06-06 21:36 | NUR ---
Entering room to administer patients hs medications, she is a bit agitated right now, will attempt again this evening.
[2021-06-06 23:00] VITALS: BP 137/67
--- NOTE | 2021-06-07 05:12 | NUR ---
Patient continues to be combative and name calling, refuses lab draw, the hs meds that were pulled in hopes to administer if/when patient is more agreeable, is returnedd back to the [facility].
[2021-06-07] MEDS: INSULIN LISPRO 300 UNITS/3 ML VIAL. SQ SCH (08:00)
[2021-06-07] MEDS: ARIPiprazole 5 MG TABLET PO SCH (10:10)
[2021-06-07] MEDS: PANTOPRAZOLE 40 MG TABLET.DR. PO SCH (10:10)
[2021-06-07] MEDS: MULTIVITAMIN with MINERAL TABLET. PO SCH (10:10)
[2021-06-07] MEDS: VITAMIN B COMPLEX TABLET. PO SCH (10:10)
[2021-06-07] MEDS: POTASSIUM CHLORIDE 20 MEQ TABLET.ER. PO SCH (10:10)
[2021-06-07] MEDS: LACTOBACILLUS RHAMNOSUS GG 1 CAPSULE. PO SCH (10:11)
[2021-06-07] MEDS: DIVALPROEX DELAYED RELEASE 500 MG TABLET.DR. PO SCH (10:11)
[2021-06-07] MEDS: MEMANTINE 10 MG TABLET. PO SCH (10:11)
[2021-06-07] MEDS: POLYETHYLENE GLYCOL 3350 17 GM PACKET. PO SCH (10:14)
[2021-06-07] MEDS: RIVASTIGMINE 9.5MG PATCH. TD SCH (10:14)
[2021-06-07 11:19] VITALS: BP 126/64
[2021-06-07 11:30] VITALS: BP 126/64
--- NOTE | 2021-06-07 11:34 | SNU/HH DC ---
DISCHARGE ORDERS DISCHARGE INFORMATION: FINAL DIAGNOSIS Problems Medical Problems: (1) Acute kidney failure Status: Acute (2) Dehydration Status: Acute (3) Hyperchloremia Status: Acute (4) Hypernatremia Status: Acute (5) Leukocytosis Status: Acute CONDITION ON DISCHARGE: Stable CODE STATUS: Code Status: Full LONGTERM: SNF STAY <30 DAYS: No HOSPICE: HOSPICE: No HOSPICE EVAL & TREAT: No LTAC: ADMIT TO LTAC: No POST DISCHARGE ORDERS: ACTIVITY ORDERS: Activity as tolerated WEIGHT BEARING STATUS: As tolerated BATHING ORDERS: Shower-keep dressing dry DIET AFTER DISCHARGE: ADA CHECKS AFTER DISCHARGE: CHECKS AFTER DISCHARGE: Check blood press - daily, Check blood sugar, ac/hs TREATMENT/EQUIPMENT ORDERS: ADAPTIVE EQUIPMENT NEEDED: Walker, Wheelchair DISCHARGE MEDICATIONS: Home Meds Active Scripts Polyethylene Glycol 3350 (POLYETHYLENE GLYCOL 3350) 17 Gm Powd.pack, 17 GM PO DAILY for prevent constipation for 30 Days, #30 PKT Prov:ROSEMARY LENZ MD 10/27/18 Reported Medications Aripiprazole (ABILIFY) 10 Mg Tablet, 1 TAB PO DAILY for . for 30 Days, #30 TAB 0 Refills 06/04/21 Pantoprazole Sodium (Pantoprazole Sodium) 40 Mg Tablet.dr, 1 TAB PO DAILY for GERD 03/09/21 Amlodipine Besylate (AMLODIPINE BESYLATE) 10 Mg Tablet, 1 TAB PO DAILY for HTN 03/09/21 Loperamide Hcl (LOPERAMIDE) 2 Mg Tablet, 2 MG PO PRN PRN for DIARRHEA, TAB 03/09/21 Divalproex Sodium (DIVALPROEX SODIUM) 500 Mg Tablet.dr, 1 TAB PO TID for seizure 03/09/21 Lisinopril/Hydrochlorothiazide (LISINOPRIL-HCTZ 20-12.5 MG TAB) 1 Each Tablet, 1 TAB PO DAILY for HTN 03/09/21 Amitriptyline Hcl (AMITRIPTYLINE HCL) 50 Mg Tablet, 1 TAB PO QHS for mood 03/09/21 Acetaminophen (TYLENOL) 325 Mg Tablet, 650 MG PO PRN Q6HRS PRN for PAIN, TAB 03/09/21 Rivastigmine (Rivastigmine) 1 Each Patch.td24, 1 PATCH TP DAILY for dementia 03/09/21 Famotidine (FAMOTIDINE) 40 Mg Tablet, 40 MG PO HS for indigestion, TAB 05/26/20 Memantine Hcl (NAMENDA) 10 Mg Tablet, 10 MG PO BID for dementia, TAB 05/26/20 Insulin Lispro (HUMALOG) 100 Unit/1 Ml Cartridge, 10 UNIT SQ TIDAC for diabetic, EACH 10/25/18 Insulin Glargine,Hum.rec.anlog (LANTUS SOLOSTAR) 100 Unit/1 Ml Insuln.pen, 40 UNIT SQ QHS for diabetic, #15 ML 3 Refills 10/25/18 Potassium Chloride (KLOR-CON M20) 20 Meq Tab.er.prt, 1 TAB PO DAILY 01/21/18 Ibuprofen (Ibuprofen) 600 Mg Tablet, 1 TAB PO PRN Q8HRS PRN for PAIN 01/21/18 Vitamin B Complex & Vit C No.3 (B COMPLEX WITH VITAMIN C) 1 Each Capsule, 1 EACH PO DAILY, CAP 12/11/16 Multivits-Min/Fa/Lycopene/Lut (CENTRUM SILVER TABLET) 1 Each Tablet, 1 EACH PO DAILY 09/03/13 REECE WEISS III DO Jun 07, 2021 11:34
--- NOTE | 2021-06-07 11:35 | PDOC ---
Renal-Progress Notes Subjective Notes Notes NO NEW COMPLAINTS History of Present Illness Hx of present illness STABLE Vitals Vitals Vital Signs Date Time Temp Pulse Resp B/P (MAP) Pulse Ox O2 Delivery O2 Flow Rate FiO2 06/07/21 11:19 96.7 85 16 126/64 (84) 95 Room Air 96.7 Weight Weight [ ] I.O. Intake and Output Intake and Output 06/07/21 07:00 Intake Total 1242.8 ml Output Total 0 ml Balance 1242.8 ml Intake Oral 0 ml IV Total 1242.8 ml Output Urine Total 0 ml # Voids 3 # Bowel Movements 2 Labs Labs Laboratory Tests Test 06/06/21 16:40 06/06/21 20:47 06/07/21 10:12 Glucose (Fingerstick) 89 mg/dL (70-99) 102 mg/dL (70-99) 134 mg/dL (70-99) Micro Micro Microbiology 06/05/21 Urine Culture - Final, Complete 06/04/21 Blood Culture - Preliminary, Resulted NO GROWTH AFTER 3 DAYS Review of Systems Constitutional: yes: other ( CONFUSED) Physical Exam General Appearance: no apparent distress Skin: warm Respiratory: decreased breath sounds Heart: S1S2 Abdomen: soft, bowel sounds present Genitourinary: bladder flat Extremities: pulses present Neurology: alert, confused Musculoskeletal: Osteoarthritis Assessment Assessment IMP LORE-RESOLVED EXTRACELLULAR VOLUME DEPLETION HYPERNATREMIA - RESOLVED HYPOKALEMIA-REPLACED ACUTE ENCEPHALOPATHY CHRONIC DEMENTIA DM II HTN PLAN D/C PLANS NOTED RENAL FXN STABLE WILL SIGN OFF ROSALIO HOANG MD Jun 07, 2021 11:35
[2021-06-07] MEDS: ACETAMINOPHEN 325 MG TABLET. PO PRN (12:06)
--- NOTE | 2021-06-07 12:20 | DS ---
DATE OF DISCHARGE: 06/07/2021 ADMISSION DIAGNOSES: Metabolic encephalopathy, probable occult infection, chronic renal insufficiency. DISCHARGE DIAGNOSES: Resolving metabolic encephalopathy; resolving occult infection; chronic renal insufficiency, resolving; resolving hypernatremia; resolving hypokalemia; chronic dementia; diabetes and hypertension. HOSPITAL COURSE: The patient is a pleasant elderly female who came from a longterm with metabolic encephalopathy and probably an occult infection. I admitted her, consulted Dr. España. We gave her fluids and IV antibiotics. Over the past couple days, she has returned back to her baseline. I saw and examined her this morning. We plan to discharge back to [facility]. DISPOSITION: [facility]. ACTIVITY: As tolerated. DIET: Low sodium. DISCHARGE MEDICATIONS: Please see the MRAD. P.r.n. Tylenol, amitriptyline 50 at bedtime, amlodipine 10 daily, Abilify 10 daily, divalproex 500 t.i.d., famotidine 40 a day, ibuprofen p.r.n., insulin Lantus 40 at bedtime and 10 of NovoLog with meals, lisinopril 20 a day, hydrochlorothiazide 12.5 a day, loperamide p.r.n., Namenda 10 a day, vitamins, Protonix 40 a day, polyethylene glycol, Klor-Con 20 a day, rivastigmine patch 1 patch daily. TOTAL TIME: [address]: Wayne TID: [id number]
--- NOTE | 2021-06-07 13:06 | NUR ---
Discharge Note: PAVAN SHARP [address] Discharge instructions and discharge home medications reviewed with Dilcia PACHECO of [facility] facility and a copy given to the transport personnel. All questions have been answered and understanding verbalized. The following instructions and handouts were given: Home meds as directed Fall precautions, swallowing precautions Reviewed labs Follo up with PCP in facility Jazmin (SHERI)notified Discontinued lines and drains:peripheral IV intact, patient tolerated removal, no ocmplications noted Patient discharged to [facility] via gurney on RA at 1254 accompanied by transport personnel
== END 2021-06-07 12:56 | DRG 70 ==
LOC: ER 17:31 → 5 SOUTH 19:31
PROVIDERS: ADMIT Internal Medicine; ATTEND Internal Medicine
DX: G93.41 Metabolic encephalopathy (principal); E43 Unspecified severe protein-calorie malnutrition; N17.9 Acute kidney failure, unspecified; E87.0 Hyperosmolality and hypernatremia; E10.22 Type 1 diabetes mellitus with diabetic chronic kidney disease; E10.51 Type 1 diabetes mellitus with diabetic peripheral angiopathy without gangrene; E86.0 Dehydration; E87.6 Hypokalemia; E87.8 Other disorders of electrolyte and fluid balance, not elsewhere classified; F03.90 Unspecified dementia, unspecified severity, without behavioral disturbance, psychotic disturbance, mood disturbance, and anxiety; N18.9 Chronic kidney disease, unspecified; I12.9 Hypertensive chronic kidney disease with stage 1 through stage 4 chronic kidney disease, or unspecified chronic kidney disease; I25.10 Atherosclerotic heart disease of native coronary artery without angina pectoris; R62.7 Adult failure to thrive; Z79.4 Long term (current) use of insulin; Z83.3 Family history of diabetes mellitus; Z85.3 Personal history of malignant neoplasm of breast; Z90.11 Acquired absence of right breast and nipple; Z95.1 Presence of aortocoronary bypass graft; Z88.0 Allergy status to penicillin; Z88.2 Allergy status to sulfonamides; Z68.22 Body mass index [BMI] 22.0-22.9, adult; Z88.8 Allergy status to other drugs, medicaments and biological substances
CPT/HCPCS: 36415; 70450; 71045; 76770; 80048; 80053; 81001; 82962; 83605; 83735; 83880; 84484; 85007; 85025; 87040; 87086; 93005; J0692; J1815; J3490; J7040; J7060; U0003; U0005; 92526-GN; 92610-GN; 99285-25; G0378

== ENCOUNTER 2021-09-18 07:14 | Inpatient (IN) | payer MEDICARE, OTHER ==
[~2021-09-18] VITALS: Ht 167.6 cm; Wt 70.0 kg
[~2021-09-18 07:14] MED LIST changes: +ARIP10TA9 PO
--- NOTE | 2021-09-18 07:18 | PHYS DOC ---
Past Medical History Past Medical History: Cancer, Constipation, Dementia, Diabetes-Type I, Di abetes-Type II, Hypertension, Other Additional Past Medical Histor: breast cancer Past Surgical History: Other Additional Past Surgical Histo: unable to obtain Smoking Status: Unknown if ever smoked Alcohol Use: None Drug Use: None General Adult HPI: HPI: Patient is a 81 year old female brought in by EMS from her group home fa cility for reported weakness. According to EMS, the night nurse reported no problems overnight, did not notice any acute alteration in mental status or acute behavioral changes. The dayshift nurse apparently thought that the patient was "unresponsive" and was leaning to the left side. EMS did not note any hemiparesis, leaning or unresponsiveness, the patient has been awake, alert, conversant and has been asking for her breakfast. She is asking for orange juice to drink on arrival. The patient does report that she has pain in her "chest" and she points to her epigastrium area. She denies shortness of breath. She reported that she felt nauseated earlier this morning, but she denies any nausea now. According to EMS, the patient was lying against her bed rail, with an emesis basin, lying on her left side, because the patient had reportedly complained of nausea earlier. EMS reports that it appeared that the awake overnight counselor nurse and dayshift nurse may have been arguing over their perception of the patient's chronic versus acute conditions. The patient denies any numbness or tingling. The patient denies any feeling any focal weakness. She denies headache or dizziness. No reported fall or injury. Review of Systems: Review of Systems: Constitutional: Denies fever or chills. [] Eyes: Denies acute vision loss. HENT: Denies nasal congestion or sore throat. [] Respiratory: Denies cough or shortness of breath. [] Cardiovascular: Denies chest pain or edema. [] GI: Denies abdominal pain. She reports having some nausea earlier, though she denies it currently. She denies bowel habit changes : Denies any subjective acute urinary symptoms, though she is chronically incontinent of urine. No gross hematuria reported. Musculoskeletal: Denies back pain or joint pain. [] Integument: Denies rash or open wounds. Neurologic: Denies headache, numbness or tingling, denies focal motor weakness, denies head injury, syncope Psychiatric: Denies depression or anxiety. [] Heart Score: C/O Chest Pain: No Risk Factors: Risk Factors: DM, Current or recent (<one month) smoker, HTN, HLP, family history of CAD, obesity. Risk Scores: Score 0 - 3: 2.5% MACE over next 6 weeks - Discharge Home Score 4 - 6: 20.3% MACE over next 6 weeks - Admit for Clinical Observation Score 7 - 10: 72.7% MACE over next 6 weeks - Early Invasive Strategies Allergies: Allergies: Allergies Coded Allergies Type Severity Reaction Last Updated Verified Penicillins Allergy Intermediate hives 04/29/21 Yes Sulfa (Sulfonamide Antibiotics) Allergy Intermediate UN 04/29/21 Yes chocolate flavor Allergy Intermediate UN 04/29/21 Yes rosuvastatin Allergy Intermediate UN 04/29/21 Yes I S O L A T I O N *CONTACT* Allergy Unknown 03/14/21 Yes celecoxib Adverse Reaction Intermediate "makes me crazy" 04/29/21 Yes Physical Exam: PE: Constitutional: Well developed, well nourished, no acute distress, non-toxic appearance. [] HENT: Normocephalic, atraumatic, bilateral external ears normal, oropharynx moist, no oral exudates, nose normal. [] Eyes: PERRLA, EOMI, conjunctiva normal, no discharge. [] Neck: Normal range of motion, no tenderness, supple, no stridor. [] Cardiovascular:Heart rate regular rhythm, no murmur [] Lungs & Thorax: Bilateral breath sounds clear to auscultation [] Abdomen: Bowel sounds normal, soft, no tenderness, no masses, no pulsatile masses. [] Skin: Warm, dry, no erythema, no rash. [] Back: No tenderness, no CVA tenderness. [] Extremities: No tenderness, no cyanosis, no clubbing, ROM intact, no edema. [] Neurologic: Alert and oriented X 3, normal motor function, normal sensory function, no focal deficits noted. [] Psychologic: Affect normal, judgement normal, mood normal. [] EKG: EKG: EKG is interpreted at 0742 Rhythm is sinus tachycardia Rate is 108 bpm [place] is normal No STEMI Radiology/Procedures: Radiology/Procedures: IMAGING REPORT Signed PATIENT: PAVAN SHARP EACCOUNT: [id number] : 1940 LOCATION: ER AGE: 81 SEX: F EXAM STATUS: REG ER ORD. PHYSICIAN: HUMPHREY KEYS DO REASON: weakness PROCEDURE: CT HEAD WO CONTRAST CT HEAD INDICATION: Weakness COMPARISON: 04/29/2021. Exposure: One or more of the following individualized dose reduction techniques were utilized for this examination: 1. Automated exposure control 2. Adjustment of the mA and/or kV according to patient size 3. Use of iterative reconstruction technique TECHNIQUE: 5 mm contiguous axial images were obtained from the skull base to the vertex in both bone and soft tissue algorithm. FINDINGS: Moderate bilateral periventricular white matter hypodensities likely chronic small vessel ischemic disease. No evidence of acute intracranial hemorrhage. No extra-axial fluid collections. No mass effect or midline shift. Ventricular size is appropriate. Basal cisterns are patent. No fractures identified.Espinoza-white differentiation is preserved.Globes and orbits are within normal limits. Paranasal sinuses and mastoid air cells are clear. Arterial atherosclerotic calcifications identified. IMPRESSION: 1. No acute intracranial findings. 2. Moderate bilateral periventricular white matter hypodensities likely chronic small vessel ischemic disease. Electronically signed by: Kishor De Los Santos MD (09/18/2021 8:11 AM) [id number] DICTATED and SIGNED BY: KISHOR DE LOS SANTOS MD DATE: 09/18/21 [id number] IMAGING REPORT Signed PATIENT: PAVAN SHARP EACCOUNT: [id number] : 1940 LOCATION: ER AGE: 81 SEX: F EXAM STATUS: REG ER ORD. PHYSICIAN: HUMPHREY KEYS DO REASON: chest pain, weakness PROCEDURE: PORTABLE CHEST 1V Exam Date: 09/18/2021 7:31 AM XR CHEST 1V Indication: Reason: chest pain, weakness / Spl. Instructions: / History: . Comparison: June 03, 2021 FINDINGS/ IMPRESSION: The aorta is calcified. Postoperative changes are again seen. The cardiac silhouette and pulmonary vasculature are within normal limits. There is no focal consolidation, pleural effusion or pneumothorax. The visualized osseous structures are intact. Electronically signed by: Haris John MD (09/18/2021 8:18 AM) [id number] DICTATED and SIGNED BY: HARIS JOHN MD DATE: 09/18/21 [id number] Course & Med Decision Making: Course & Med Decision Making Pertinent Labs and Imaging studies reviewed. (See chart for details) The patient is given IV fluids and IV Rocephin for empiric treatment of urinary tract infection. Blood cultures are obtained. I had a lengthy discussion with the patient and her daughter about the findings, differential diagnosis and plan of care. I have recommended hospitalization for continued supportive care, antibiotic treatment, awaiting urine and blood cultures. The patient's daughter is very unhappy with her care at her current group home facility. I explained that social media marketing specialist may be able to be consulted and assist in this matter. I contacted Dr. Smith for hospitalization admission, he accepts her, I explained to the patient will require social media marketing specialist consult as well. Dragon Disclaimer: Draghuan Disclaimer: This electronic medical record was generated, in whole or in part, using a voice recognition dictation system. Departure Departure Impression: Primary Impression: UTI (urinary tract infection) Additional Impressions: Generalized weakness Lactic acidosis Disposition: ADMITTED INPATIENT Admitting Physician: [facility] (Dr. Smith) Condition: STABLE Referrals: MAN FAY APRN (PCP) HUMPHREY KEYS DO Sep 18, 2021 07:18
[2021-09-18] MEDS ORDERED: IV NORMAL SALINE 1000ML BAG 1,000 ML IV ONE ×2 (07:30→09:00)
[2021-09-18 08:05] LABS: BASO # 0.1 x10^3/uL (0.0-0.2); BASO % 0 % (0-3); EOS # 0.2 x10^3/uL (0.0-0.7); EOS % 1 % (0-3); HEMATOCRIT 48.8 % (36.0-47.0); HEMOGLOBIN 15.9 g/dL (12.0-15.5); LYMPH # 1.5 x10^3/uL (1.0-4.8); LYMPH % 8 % (24-48); MEAN CORPUSCULAR HEMOGLOBIN 30 pg (25-35); MEAN CORPUSCULAR HGB CONC 33 g/dL (31-37); MEAN CORPUSCULAR VOLUME 91 fL (79-100); MONO % 5 % (0-9); NEUT # 17.9 x10^3/uL (1.8-7.7); NEUT % 86 % (31-73); PLATELET COUNT 208 x10^3/uL (140-400); RED BLOOD COUNT 5.38 x10^6/uL (3.50-5.40); RED CELL DISTRIBUTION WIDTH 12.8 % (11.5-14.5); WHITE BLOOD COUNT 20.7 x10^3/uL (4.0-11.0)
--- NOTE | 2021-09-18 08:14 | RAD ---
CT HEAD INDICATION: Weakness COMPARISON: 04/29/2021. Exposure: One or more of the following individualized dose reduction techniques were utilized for thi s examination: 1. Automated exposure control 2. Adjustment of the mA and/or kV according to patient size 3. Use of iterative reconstruction technique TECHNIQUE: 5 mm contiguous axial images were obtained from the skull base to the vertex in both bone and soft tissue algorithm. FINDINGS: Moderate bilateral periventricular white matter hypodensities likely chronic small vessel ischemic di sease. No evidence of acute intracranial hemorrhage. No extra-axial fluid collections. No mass effect or midline shift. Ventricular size is appropriate. Basal cisterns are patent. No fractures identified.Espinoza-white differentiation is preserved.Globes and orbits are within normal l imits. Paranasal sinuses and mastoid air cells are clear. Arterial atherosclerotic calcifications i dentified. IMPRESSION: 1. No acute intracranial findings. 2. Moderate bilateral periventricular white matter hypodensities likely chronic small vessel ischemi c disease. Electronically signed by: Kishor De Los Santos MD (09/18/2021 8:11 AM) [id number]
--- NOTE | 2021-09-18 08:21 | RAD ---
Exam Date: 09/18/2021 7:31 AM XR CHEST 1V Indication: Reason: chest pain, weakness / Spl. Instructions: / History: . Comparison: June 03, 2021 FINDINGS/ IMPRESSION: The aorta is calcified. Postoperative changes are again seen. The cardiac silhouette and pulmonary vasculature are within normal limits. There is no focal consolidation, pleural effusion or pneumothorax. The visualized osseous structures are intact. Electronically signed by: Anthony John MD (09/18/2021 8:18 AM) [id number]
[2021-09-18 08:26] LABS: CALCIUM 9.7 mg/dL (8.5-10.1); CREATININE 1.1 mg/dL (0.6-1.0)
[2021-09-18 08:29] LABS: ALBUMIN 3.5 g/dL (3.4-5.0); ALBUMIN/GLOBULIN RATIO 0.8 (1.0-1.7); PHOSPHORUS 2.9 mg/dL (2.6-4.7); TOTAL BILIRUBIN 0.4 mg/dL (0.2-1.0); TOTAL PROTEIN 7.9 g/dL (6.4-8.2)
[2021-09-18 08:36] LABS: BILIRUBIN,URINE NEGATIVE (NEG); CLARITY,URINE TURBID; COLOR,URINE YELLOW; PH,URINE 6.5 (<5.0-8.0); PROTEIN,URINE 30 mg/dL (NEG-TRACE)
[2021-09-18 08:37] LABS: BACTERIA,URINE MANY /HPF (0-FEW); NITRITE,URINE NEGATIVE (NEG); RBC,URINE 0 /HPF (0-2); WBC,URINE TNTC /HPF (0-4)
[2021-09-18] MEDS ORDERED: cefTRIAXone IV Push 1 GM VIAL. IVP ONE (08:45)
[2021-09-18 08:51] LABS: % BANDS 2 % (0-9); % LYMPHS 7 % (24-48); % MONOS 3 % (0-10); % SEGS 88 % (35-66); PLT ESTIMATE ADEQUATE (ADEQUATE)
[2021-09-18] MEDS ORDERED: PROCHLORPERAZINE 10 MG/2 ML VIAL. IV PRN (13:00)
[2021-09-18] MEDS ORDERED: ONDANSETRON PF 4 MG/2 ML VIAL. IVP PRN (13:00)
[2021-09-18] MEDS ORDERED: ZOLPIDEM 5 MG TABLET. PO PRN (13:00)
[2021-09-18] MEDS ORDERED: DEXTROSE 50% 25 GM / 50ML DISP.SYRIN. IV PRN (13:00)
[2021-09-18] MEDS ORDERED: LORazepam 0.5 MG TABLET PO PRN (13:00)
[2021-09-18] MEDS ORDERED: ACETAMINOPHEN 325 MG TABLET. PO PRN (13:00)
[2021-09-18] MEDS ORDERED: diphenhydrAMINE 50 MG/ML VIAL IVP PRN (13:00)
[2021-09-18] MEDS ORDERED: SENNOSIDES 8.6 MG TABLET PO PRN (13:00)
[2021-09-18] MEDS ORDERED: diphenhydrAMINE HCL 25 MG CAPSULE PO PRN ×2 (13:00)
[2021-09-18] MEDS ORDERED: DOCUSATE SODIUM 100 MG CAPSULE. PO PRN (13:00)
--- NOTE | 2021-09-18 13:08 | PDOC1 ---
History and Physical Date of Service: DOS: DATE: 09/18/21 TIME: 12:39 Chief Complaint: Chief Complain: Altered mental status. History of Present Illness: HPI: History obtained from discussion with the daughter, ED physician and chart review: 81-year-old female with past medical history of dementia, diabetes mellitus, hypertension, constipation who was brought in from [facility] for altered mental status and reported weakness. According to the EMS patient did not have any hemiparesis. The day nurse thought that the patient was unresponsive. During breakfast today patient was conversant and states that she might have some epigastric discomfort. She also reported some nausea earlier this morning. EMS did actually see the patient leaning to 1 side with emesis b asin next to her. There have some point discussion going on with the nurses at the [facility] whether her current presentation may be related to acute versus chronic conditions. Upon my encounter, patient was able to follow commands but was closed due to being nonverbal. Was able to respond with one- word sentences. Past Medical/Surgical History: PMH/PSH: Past Medical History: Constipation, Dementia, Diabetes-Type I, Diabetes-Type II, Hypertension breast cancer Past Surgical History: Other Additional Past Surgical Histo: unable to obtain Allergies: Allergies: Coded Allergies: Penicillins (Verified Allergy, Intermediate, hives, 04/29/21) Sulfa (Sulfonamide Antibiotics) (Verified Allergy, Intermediate, UN, 04/29/21) chocolate flavor (Verified Allergy, Intermediate, UN, 04/29/21) rosuvastatin (Verified Allergy, Intermediate, UN, 04/29/21) I S O L A T I O N *CONTACT* (Verified Allergy, Unknown, 03/14/21) ESBL celecoxib (Verified Adverse Reaction, Intermediate, "makes me crazy", 04/29/21) Family History: Family History: Reviewed with no relative findings in the chart Social History: Social History: No history of alcohol, drug or tobacco abuse Current Medications: Current Medications Current Medications Sodium Chloride 1,000 ml @ 1,000 mls/hr 1X ONCE IV Last administered on 09/18/21at 08:54; Start 09/18/21 at 07:30; Stop 09/18/21 at 08:29; Status DC Ceftriaxone Sodium (Rocephin) 1 gm 1X ONCE IVP Last administered on 09/18/21at 10:49; Start 09/18/21 at 08:45; Stop 09/18/21 at 08:48; Status DC Sodium Chloride 1,000 ml @ 1,000 mls/hr 1X ONCE IV ; Start 09/18/21 at 09:00; Stop 09/18/21 at 09:59; Status DC Active Scripts Active Polyethylene Glycol 3350 17 Gm Powd.pack 17 Gm PO DAILY 30 Days Reported Abilify (Aripiprazole) 10 Mg Tablet 1 Tab PO DAILY 30 Days Pantoprazole Sodium 40 Mg Tablet.dr 1 Tab PO DAILY Amlodipine Besylate 10 Mg Tablet 1 Tab PO DAILY Loperamide (Loperamide Hcl) 2 Mg Tablet 2 Mg PO PRN PRN Divalproex Sodium 500 Mg Tablet.dr 1 Tab PO TID Lisinopril-Hctz 20-12.5 Mg Tab (Lisinopril/Hydrochlorothiazide) 1 Each Tablet 1 Tab PO DAILY Amitriptyline Hcl 50 Mg Tablet 1 Tab PO QHS Tylenol (Acetaminophen) 325 Mg Tablet 650 Mg PO PRN Q6HRS PRN Rivastigmine 1 Each Patch.td24 1 Patch TP DAILY Famotidine 40 Mg Tablet 40 Mg PO HS Namenda (Memantine Hcl) 10 Mg Tablet 10 Mg PO BID Humalog (Insulin Lispro) 100 Unit/1 Ml Cartridge 10 Unit SQ TIDAC Lantus Solostar (Insulin Glargine,Hum.rec.anlog) 100 Unit/1 Ml Insuln.pen 40 Unit SQ QHS Klor-Con M20 (Potassium Chloride) 20 Meq Tab.er.prt 1 Tab PO DAILY Ibuprofen 600 Mg Tablet 1 Tab PO PRN Q8HRS PRN B Complex With Vitamin C (Vitamin B Complex & Vit C No.3) 1 Each Capsule 1 Each PO DAILY Centrum Silver Tablet (Multivits-Min/Fa/Lycopene/Lut) 1 Each Tablet 1 Each PO DAILY ROS: Review of Systems Review of System Limited due to dementia and altered mental status. Physical Exam: Vital Signs: Vital Signs Date Time Temp Pulse Resp B/P (MAP) Pulse Ox O2 Delivery O2 Flow Rate FiO2 09/18/21 10:43 110 16 146/69 (94) 98 09/18/21 07:20 97.8 Room Air 97.8 Physcial Exam: General: Well developed, well nourished, no acute distress, well appearing HEENT: Pupils equally round and reactive to light, EOMI, no discharge, normal conjunctiva. Dry mucous membranes Neck: Supple, no nuchal rigidity, no JVD, trachea midline, no tenderness Cardiac: RRR, no murmurs, no gallops, no rubs Chest/Lungs: CTAB, no wheeze, no rhonchi, no crackles Abdomen: soft, non-distended, no guarding, no peritoneal signs, non-tender Back: No tenderness Extremities: no edema, pulses intact, non-tender,capillary refill <3 sec bilateral upper and lower extremities, onychomycosis Neuro: Alert and oriented x 4, no focal deficits, normal speech Labs: Labs: Laboratory Tests Test 09/18/21 07:55 09/18/21 08:15 White Blood Count 20.7 x10^3/uL (4.0-11.0) Red Blood Count 5.38 x10^6/uL (3.50-5.40) Hemoglobin 15.9 g/dL (12.0-15.5) Hematocrit 48.8 % (36.0-47.0) Mean Corpuscular Volume 91 fL (79-100) Mean Corpuscular Hemoglobin 30 pg (25-35) Mean Corpuscular Hemoglobin Concent 33 g/dL (31-37) Red Cell Distribution Width 12.8 % (11.5-14.5) Platelet Count 208 x10^3/uL (140-400) Neutrophils (%) (Auto) 86 % (31-73) Lymphocytes (%) (Auto) 8 % (24-48) Monocytes (%) (Auto) 5 % (0-9) Eosinophils (%) (Auto) 1 % (0-3) Basophils (%) (Auto) 0 % (0-3) Neutrophils # (Auto) 17.9 x10^3/uL (1.8-7.7) Lymphocytes # (Auto) 1.5 x10^3/uL (1.0-4.8) Monocytes # (Auto) 1.0 x10^3/uL (0.0-1.1) Eosinophils # (Auto) 0.2 x10^3/uL (0.0-0.7) Basophils # (Auto) 0.1 x10^3/uL (0.0-0.2) Segmented Neutrophils % 88 % (35-66) Band Neutrophils % 2 % (0-9) Lymphocytes % 7 % (24-48) Monocytes % 3 % (0-10) Platelet Estimate Adequate (ADEQUATE) Sodium Level 138 mmol/L (136-145) Potassium Level 4.0 mmol/L (3.5-5.1) Chloride Level 103 mmol/L (98-107) Carbon Dioxide Level 24 mmol/L (21-32) Anion Gap 11 (6-14) Blood Urea Nitrogen 10 mg/dL (7-20) Creatinine 1.1 mg/dL (0.6-1.0) Estimated GFR (Cockcroft-Gault) 58.0 BUN/Creatinine Ratio 9 (6-20) Glucose Level 330 mg/dL (70-99) Lactic Acid Level 3.3 mmol/L (0.4-2.0) Calcium Level 9.7 mg/dL (8.5-10.1) Phosphorus Level 2.9 mg/dL (2.6-4.7) Magnesium Level 2.0 mg/dL (1.8-2.4) Total Bilirubin 0.4 mg/dL (0.2-1.0) Aspartate Amino Transf (AST/SGOT) 10 U/L (15-37) Alanine Aminotransferase (ALT/SGPT) 19 U/L (14-59) Alkaline Phosphatase 99 U/L (46-116) Creatine Kinase 50 U/L (26-192) Troponin I High Sensitivity 50 ng/L (4-50) Total Protein 7.9 g/dL (6.4-8.2) Albumin 3.5 g/dL (3.4-5.0) Albumin/Globulin Ratio 0.8 (1.0-1.7) Lipase 56 U/L (73-393) Urine Collection Type U cath Urine Color Yellow Urine Clarity Turbid Urine pH 6.5 (<5.0-8.0) Urine Specific [place] 1.025 (1.000-1.030) Urine Protein 30 mg/dL (NEG-TRACE) Urine Glucose (UA) >=1000 mg/dL (NEG) Urine Ketones (Stick) Negative mg/dL (NEG) Urine Blood Small (NEG) Urine Nitrite Negative (NEG) Urine Bilirubin Negative (NEG) Urine Urobilinogen Dipstick 1.0 mg/dL (0.2 mg/dL) Urine Leukocyte Esterase Small (NEG) Urine RBC 0 /HPF (0-2) Urine WBC Tntc /HPF (0-4) Urine Bacteria Many /HPF (0-FEW) Laboratory Tests Test 09/18/21 07:55 09/18/21 08:15 White Blood Count 20.7 x10^3/uL (4.0-11.0) Red Blood Count 5.38 x10^6/uL (3.50-5.40) Hemoglobin 15.9 g/dL (12.0-15.5) Hematocrit 48.8 % (36.0-47.0) Mean Corpuscular Volume 91 fL (79-100) Mean Corpuscular Hemoglobin 30 pg (25-35) Mean Corpuscular Hemoglobin Concent 33 g/dL (31-37) Red Cell Distribution Width 12.8 % (11.5-14.5) Platelet Count 208 x10^3/uL (140-400) Neutrophils (%) (Auto) 86 % (31-73) Lymphocytes (%) (Auto) 8 % (24-48) Monocytes (%) (Auto) 5 % (0-9) Eosinophils (%) (Auto) 1 % (0-3) Basophils (%) (Auto) 0 % (0-3) Neutrophils # (Auto) 17.9 x10^3/uL (1.8-7.7) Lymphocytes # (Auto) 1.5 x10^3/uL (1.0-4.8) Monocytes # (Auto) 1.0 x10^3/uL (0.0-1.1) Eosinophils # (Auto) 0.2 x10^3/uL (0.0-0.7) Basophils # (Auto) 0.1 x10^3/uL (0.0-0.2) Segmented Neutrophils % 88 % (35-66) Band Neutrophils % 2 % (0-9) Lymphocytes % 7 % (24-48) Monocytes % 3 % (0-10) Platelet Estimate Adequate (ADEQUATE) Sodium Level 138 mmol/L (136-145) Potassium Level 4.0 mmol/L (3.5-5.1) Chloride Level 103 mmol/L (98-107) Carbon Dioxide Level 24 mmol/L (21-32) Anion Gap 11 (6-14) Blood Urea Nitrogen 10 mg/dL (7-20) Creatinine 1.1 mg/dL (0.6-1.0) Estimated GFR (Cockcroft-Gault) 58.0 BUN/Creatinine Ratio 9 (6-20) Glucose Level 330 mg/dL (70-99) Lactic Acid Level 3.3 mmol/L (0.4-2.0) Calcium Level 9.7 mg/dL (8.5-10.1) Phosphorus Level 2.9 mg/dL (2.6-4.7) Magnesium Level 2.0 mg/dL (1.8-2.4) Total Bilirubin 0.4 mg/dL (0.2-1.0) Aspartate Amino Transf (AST/SGOT) 10 U/L (15-37) Alanine Aminotransferase (ALT/SGPT) 19 U/L (14-59) Alkaline Phosphatase 99 U/L (46-116) Creatine Kinase 50 U/L (26-192) Troponin I High Sensitivity 50 ng/L (4-50) Total Protein 7.9 g/dL (6.4-8.2) Albumin 3.5 g/dL (3.4-5.0) Albumin/Globulin Ratio 0.8 (1.0-1.7) Lipase 56 U/L (73-393) Urine Collection Type U cath Urine Color Yellow Urine Clarity Turbid Urine pH 6.5 (<5.0-8.0) Urine Specific [place] 1.025 (1.000-1.030) Urine Protein 30 mg/dL (NEG-TRACE) Urine Glucose (UA) >=1000 mg/dL (NEG) Urine Ketones (Stick) Negative mg/dL (NEG) Urine Blood Small (NEG) Urine Nitrite Negative (NEG) Urine Bilirubin Negative (NEG) Urine Urobilinogen Dipstick 1.0 mg/dL (0.2 mg/dL) Urine Leukocyte Esterase Small (NEG) Urine RBC 0 /HPF (0-2) Urine WBC Tntc /HPF (0-4) Urine Bacteria Many /HPF (0-FEW) Images: Images PROCEDURE: CT HEAD WO CONTRAST CT HEAD INDICATION: Weakness COMPARISON: 04/29/2021. Exposure: One or more of the following individualized dose reduction techniques were utilized for this examination: 1. Automated exposure control 2. Adjustment of the mA and/or kV according to patient size 3. Use of iterative reconstruction technique TECHNIQUE: 5 mm contiguous axial images were obtained from the skull base to the vertex in both bone and soft tissue algorithm. FINDINGS: Moderate bilateral periventricular white matter hypodensities likely chronic small vessel ischemic disease. No evidence of acute intracranial hemorrhage. No extra-axial fluid collections. No mass effect or midline shift. Ventricular size is appropriate. Basal cisterns are patent. No fractures identified.Espinoza-white differentiation is preserved.Globes and orbits are within normal limits. Paranasal sinuses and mastoid air cells are clear. Arterial atherosclerotic calcifications identified. IMPRESSION: 1. No acute intracranial findings. 2. Moderate bilateral periventricular white matter hypodensities likely chronic small vessel ischemic disease. PROCEDURE: PORTABLE CHEST 1V Exam Date: 09/18/2021 7:31 AM XR CHEST 1V Indication: Reason: chest pain, weakness / Spl. Instructions: / History: . Comparison: June 03, 2021 FINDINGS/ IMPRESSION: The aorta is calcified. Postoperative changes are again seen. The cardiac silhouette and pulmonary vasculature are within normal limits. There is no focal consolidation, pleural effusion or pneumothorax. The visualized osseous structures are intact. Assessment/Plan Assessment/Plan Acute metabolic encephalopathy Hypertensive urgency Acute UTI Dehydration Reactive leukocytosis LORE due to vasomotor nephropathy Hyperglycemia Lactic acidemia History of diabetes mellitus type 2 History of hypertension Admit to hospitalist service for further management Delirium prevention protocols Constant redirection IV antihypertensive regimens with inpatient systolic blood pressure goals between 140-180 Continue empiric IV antibiotics Pending urine cultures Monitor urine output Continue IV fluids Daily orthostatic vital signs Strict I/O Avoid nephrotoxic agents R ISS and Accu-Cheks Repeat lactic acids Heparin for DVT prophylaxis ADA diet CODE STATUS assumed full code Discussed with RN and SW Disposition inpatient management as above DPOA: Daughter In addition to my E/M visit, advance care planning done with A total time of 20 minutes was spent from 1230 to 1250 face to face in discussion regarding the patient's goals of care, CODE STATUS. Justifications for Admission Other Justification DARRIUS AGUILAR MD Sep 18, 2021 13:08
[2021-09-18] MEDS ORDERED: LABETALOL 20 MG/4 ML DISP.SYRIN. IVP PRN (13:15)
[2021-09-18] MEDS ORDERED: hydrALAZINE 20 MG/ML VIAL. IVP PRN (13:15)
[2021-09-18] MEDS: IV NORMAL SALINE 1000ML BAG 1,000 ML IV SCH (14:30)
[2021-09-18 14:45] VITALS: BP 146/68
[2021-09-18] MEDS: INSULIN LISPRO 300 UNITS/3 ML VIAL. SQ SCH (18:14)
[2021-09-18 19:00] VITALS: BP 157/78
[2021-09-18] MEDS ORDERED: TERB30CR TP (19:38)
[2021-09-18] MEDS ORDERED: BISA10SU55 RC (19:38)
[2021-09-18] MEDS ORDERED: MAGN400O7 PO (19:38)
[2021-09-18] MEDS ORDERED: NA P133E2 RC (19:38)
[2021-09-18] MEDS ORDERED: ONDA-84 PO (19:38)
[2021-09-18] MEDS: HEPARIN for SUB-Q USE 5,000 UNIT/ML VIAL. SQ SCH (21:54)
[2021-09-18 23:23] VITALS: BP 167/74
[2021-09-19] MEDS: IV NORMAL SALINE 1000ML BAG 1,000 ML IV SCH ×3 (02:01→20:56)
[2021-09-19 03:19] VITALS: BP 170/77
[2021-09-19 07:00] VITALS: BP 162/67
[2021-09-19 07:48] LABS: BASO % 0 % (0-3); EOS % 0 % (0-3); HEMATOCRIT 42.5 % (36.0-47.0); HEMOGLOBIN 14.1 g/dL (12.0-15.5); LYMPH # 0.4 x10^3/uL (1.0-4.8); LYMPH % 5 % (24-48); MEAN CORPUSCULAR HEMOGLOBIN 30 pg (25-35); MEAN CORPUSCULAR HGB CONC 33 g/dL (31-37); MEAN CORPUSCULAR VOLUME 91 fL (79-100); MONO # 0.5 x10^3/uL (0.0-1.1); MONO % 6 % (0-9); NEUT # 7.9 x10^3/uL (1.8-7.7); NEUT % 90 % (31-73); PLATELET COUNT 191 x10^3/uL (140-400); RED BLOOD COUNT 4.65 x10^6/uL (3.50-5.40); RED CELL DISTRIBUTION WIDTH 12.8 % (11.5-14.5); WHITE BLOOD COUNT 8.8 x10^3/uL (4.0-11.0)
[2021-09-19] MEDS: INSULIN LISPRO 300 UNITS/3 ML VIAL. SQ SCH ×3 (08:00→17:53)
[2021-09-19 08:15] LABS: CREATININE 0.8 mg/dL (0.6-1.0); GFR 83.7; MAGNESIUM 1.9 mg/dL (1.8-2.4); PHOSPHORUS 2.6 mg/dL (2.6-4.7); POTASSIUM 3.2 mmol/L (3.5-5.1)
[2021-09-19] MEDS: HEPARIN for SUB-Q USE 5,000 UNIT/ML VIAL. SQ SCH ×2 (09:22→20:57)
[2021-09-19] MEDS: cefTRIAXone IV Push 1 GM VIAL. IVP SCH (10:48)
--- NOTE | 2021-09-19 11:01 | PDOC ---
[employer] PROGRESS NOTE Date of Service DOS: DATE: 09/19/21 TIME: 10:59 Chief Complaint Chief Complaint Assessment/Plan Acute metabolic encephalopathy Hypertensive urgency Acute UTI Dehydration Reactive leukocytosis LORE due to vasomotor nephropathy Hyperglycemia Lactic acidemia History of diabetes mellitus type 2 History of hypertension History of Present Illness History of Present Illness 09/19/2021 Patient seen and examined extent discussed with RN Chart reviewed Discussed with case management Patient has IV Rocephin and IV fluids hanging Still encephalopathic Vitals/I&O Vitals/I&O: Vital Signs Date Time Temp Pulse Resp B/P (MAP) Pulse Ox O2 Delivery O2 Flow Rate FiO2 09/19/21 08:00 Room Air 09/19/21 07:00 97.9 102 18 162/67 (98) 96 97.9 I & O 09/18/21 09/18/21 09/19/21 15:00 23:00 07:00 Intake Total 200 ml 0 ml Balance 200 ml 0 ml Physical Exam General: No acute distress, Other (Confused) Heart: Regular rate Lungs: Clear Abdomen: Normal bowel sounds Extremities: No clubbing Skin: No rashes Labs Labs: Laboratory Tests Test 09/18/21 14:00 09/18/21 18:09 09/18/21 19:28 09/19/21 06:55 Lactic Acid Level 1.7 mmol/L (0.4-2.0) Glucose (Fingerstick) 245 mg/dL (70-99) 273 mg/dL (70-99) White Blood Count 8.8 x10^3/uL (4.0-11.0) Red Blood Count 4.65 x10^6/uL (3.50-5.40) Hemoglobin 14.1 g/dL (12.0-15.5) Hematocrit 42.5 % (36.0-47.0) Mean Corpuscular Volume 91 fL (79-100) Mean Corpuscular Hemoglobin 30 pg (25-35) Mean Corpuscular Hemoglobin Concent 33 g/dL (31-37) Red Cell Distribution Width 12.8 % (11.5-14.5) Platelet Count 191 x10^3/uL (140-400) Neutrophils (%) (Auto) 90 % (31-73) Lymphocytes (%) (Auto) 5 % (24-48) Monocytes (%) (Auto) 6 % (0-9) Eosinophils (%) (Auto) 0 % (0-3) Basophils (%) (Auto) 0 % (0-3) Neutrophils # (Auto) 7.9 x10^3/uL (1.8-7.7) Lymphocytes # (Auto) 0.4 x10^3/uL (1.0-4.8) Monocytes # (Auto) 0.5 x10^3/uL (0.0-1.1) Eosinophils # (Auto) 0.0 x10^3/uL (0.0-0.7) Basophils # (Auto) 0.0 x10^3/uL (0.0-0.2) Sodium Level 142 mmol/L (136-145) Potassium Level 3.2 mmol/L (3.5-5.1) Chloride Level 106 mmol/L (98-107) Carbon Dioxide Level 24 mmol/L (21-32) Anion Gap 12 (6-14) Blood Urea Nitrogen 10 mg/dL (7-20) Creatinine 0.8 mg/dL (0.6-1.0) Estimated GFR (Cockcroft-Gault) 83.7 Glucose Level 243 mg/dL (70-99) Calcium Level 9.0 mg/dL (8.5-10.1) Phosphorus Level 2.6 mg/dL (2.6-4.7) Magnesium Level 1.9 mg/dL (1.8-2.4) Test 09/19/21 07:43 Glucose (Fingerstick) 219 mg/dL (70-99) Assessment and Plan Assessmemt and Plan Problems Medical Problems: (1) Generalized weakness Status: Acute (2) Lactic acidosis Status: Acute (3) UTI (urinary tract infection) Status: Acute Assessment/Plan Acute metabolic encephalopathy Hypertensive urgency Acute UTI Dehydration Reactive leukocytosis LORE due to vasomotor nephropathy Hyperglycemia Lactic acidemia History of diabetes mellitus type 2 History of hypertension Plan IV antibiotics IV fluids Trend labs Encourage p.o. intake PT OT if possible As needed antihypertensives Delivery prevention protocols Cardiac monitoring I's and O's Orthostatics Accu-Cheks DVT prophylaxis Full code DPOA daughter Comment Review of Relevant I have reviewed the following items moriah (where applicable) has been applied. Medications: Current Medications Medications (Trade) Dose Ordered Sig/Shakeel Route PRN Reason Start Time Stop Time Status Last Admin Dose Admin Insulin Human Lispro (HumaLOG) 0-7 UNITS TIDWMEALS SQ 09/18/21 17:00 09/18/21 18:14 Sodium Chloride 1,000 ml @ 100 mls/hr Q10H IV 09/18/21 14:00 09/19/21 10:48 Heparin Sodium (Porcine) (Heparin Sodium) 5,000 unit Q12HR SQ 09/18/21 21:00 09/19/21 09:22 Ceftriaxone Sodium (Rocephin) 1 gm Q24H IVP 09/19/21 11:00 09/19/21 10:48 Justifications for Admission Other Justification Altered mental status and UTI REECE WEISS III DO Sep 19, 2021 11:01
--- NOTE | 2021-09-19 11:15 | NUR ---
SW following. Discussed with RN. [facility] verified pt is [facility], room air, ada diet. PT/OT ordered. Wound Care following. [facility] will continue to follow.
[2021-09-19 15:00] VITALS: BP 155/71
[2021-09-19] MEDS ORDERED: POTASSIUM CHLORIDE 20 MEQ TABLET.ER. PO ONE (15:00)
[2021-09-19 19:00] VITALS: BP 157/70
[2021-09-19] MEDS: INSULIN GLARGINE SYRINGE. SQ SCH (20:58)
[2021-09-19 22:42] VITALS: BP 150/68
[2021-09-20 03:07] VITALS: BP 156/73
[2021-09-20] MEDS: IV NORMAL SALINE 1000ML BAG 1,000 ML IV SCH ×2 (06:00→16:10)
[2021-09-20 07:00] VITALS: BP 189/83
[2021-09-20 07:28] LABS: BASO % 0 % (0-3); EOS # 0.1 x10^3/uL (0.0-0.7); EOS % 1 % (0-3); HEMATOCRIT 46.6 % (36.0-47.0); HEMOGLOBIN 15.2 g/dL (12.0-15.5); LYMPH # 1.3 x10^3/uL (1.0-4.8); LYMPH % 16 % (24-48); MEAN CORPUSCULAR HEMOGLOBIN 30 pg (25-35); MEAN CORPUSCULAR HGB CONC 33 g/dL (31-37); MEAN CORPUSCULAR VOLUME 92 fL (79-100); MONO # 0.6 x10^3/uL (0.0-1.1); MONO % 8 % (0-9); NEUT % 75 % (31-73); PLATELET COUNT 185 x10^3/uL (140-400); RED BLOOD COUNT 5.06 x10^6/uL (3.50-5.40); RED CELL DISTRIBUTION WIDTH 12.6 % (11.5-14.5)
[2021-09-20 07:47] LABS: CALCIUM 9.3 mg/dL (8.5-10.1); CREATININE 0.7 mg/dL (0.6-1.0); GFR 97.7; MAGNESIUM 1.9 mg/dL (1.8-2.4); POTASSIUM 3.2 mmol/L (3.5-5.1)
[2021-09-20] MEDS: HEPARIN for SUB-Q USE 5,000 UNIT/ML VIAL. SQ SCH ×2 (08:42→20:52)
[2021-09-20] MEDS: INSULIN LISPRO 300 UNITS/3 ML VIAL. SQ SCH ×3 (08:42→16:52)
--- NOTE | 2021-09-20 09:00 | PDOC ---
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" Normal saline running at 75 cc an hour 09/19/2021 Patient seen and examined extent discussed with RN Chart reviewed Discussed with case management Patient has IV Rocephin and IV fluids hanging Still encephalopathic Vitals/I&O Vitals/I&O: Vital Signs Date Time Temp Pulse Resp B/P (MAP) Pulse Ox O2 Delivery O2 Flow Rate FiO2 09/20/21 07:00 98.0 102 20 189/83 (118) 94 98.0 09/20/21 03:07 Room Air Physical Exam General: No acute distress, Other (Confused) Heart: Regular rate Lungs: Clear Abdomen: Normal bowel sounds Extremities: No clubbing Skin: No rashes Labs Labs: Laboratory Tests Test 09/19/21 11:27 09/19/21 17:14 09/19/21 18:32 09/20/21 06:00 Glucose (Fingerstick) 237 mg/dL (70-99) 215 mg/dL (70-99) 214 mg/dL (70-99) White Blood Count 8.0 x10^3/uL (4.0-11.0) Red Blood Count 5.06 x10^6/uL (3.50-5.40) Hemoglobin 15.2 g/dL (12.0-15.5) Hematocrit 46.6 % (36.0-47.0) Mean Corpuscular Volume 92 fL (79-100) Mean Corpuscular Hemoglobin 30 pg (25-35) Mean Corpuscular Hemoglobin Concent 33 g/dL (31-37) Red Cell Distribution Width 12.6 % (11.5-14.5) Platelet Count 185 x10^3/uL (140-400) Neutrophils (%) (Auto) 75 % (31-73) Lymphocytes (%) (Auto) 16 % (24-48) Monocytes (%) (Auto) 8 % (0-9) Eosinophils (%) (Auto) 1 % (0-3) Basophils (%) (Auto) 0 % (0-3) Neutrophils # (Auto) 6.0 x10^3/uL (1.8-7.7) Lymphocytes # (Auto) 1.3 x10^3/uL (1.0-4.8) Monocytes # (Auto) 0.6 x10^3/uL (0.0-1.1) Eosinophils # (Auto) 0.1 x10^3/uL (0.0-0.7) Basophils # (Auto) 0.0 x10^3/uL (0.0-0.2) Sodium Level 136 mmol/L (136-145) Potassium Level 3.2 mmol/L (3.5-5.1) Chloride Level 100 mmol/L (98-107) Carbon Dioxide Level 23 mmol/L (21-32) Anion Gap 13 (6-14) Blood Urea Nitrogen 6 mg/dL (7-20) Creatinine 0.7 mg/dL (0.6-1.0) Estimated GFR (Cockcroft-Gault) 97.7 Glucose Level 244 mg/dL (70-99) Calcium Level 9.3 mg/dL (8.5-10.1) Magnesium Level 1.9 mg/dL (1.8-2.4) Test 09/20/21 07:44 Glucose (Fingerstick) 237 mg/dL (70-99) Assessment and Plan Assessmemt and Plan Problems Medical Problems: (1) Generalized weakness Status: Acute (2) Lactic acidosis Status: Acute (3) UTI (urinary tract infection) Status: Acute Acute metabolic encephalopathy Hypertensive urgency Acute UTI Dehydration Reactive leukocytosis LORE due to vasomotor nephropathy Hyperglycemia Lactic acidemia History of diabetes mellitus type 2 History of hypertension Plan IV antibiotics IV fluids Trend labs Encourage p.o. intake PT OT if possible As needed antihypertensives Delivery prevention protocols Cardiac monitoring I's and O's Orthostatics Accu-Cheks DVT prophylaxis Full code DPOA daughter Comment Review of Relevant I have reviewed the following items moriah (where applicable) has been applied. Medications: Current Medications Medications (Trade) Dose Ordered Sig/Shakeel Route PRN Reason Start Time Stop Time Status Last Admin Dose Admin Ceftriaxone Sodium (Rocephin) 1 gm Q24H IVP 09/19/21 11:00 09/19/21 10:48 Insulin Glargine (Lantus Syringe) 10 unit QHS SQ 09/19/21 21:00 09/19/21 20:58 Potassium Chloride (Klor-Con) 40 meq 1X ONCE PO 09/19/21 15:00 09/19/21 15:01 DC 09/19/21 15:38 Justifications for Admission Other Justification Altered mental status and UTI REECE WEISS III DO Sep 20, 2021 09:00
[2021-09-20 11:00] VITALS: BP 173/62
[2021-09-20] MEDS: cefTRIAXone IV Push 1 GM VIAL. IVP SCH (11:05)
[2021-09-20 15:00] VITALS: BP 148/53
--- NOTE | 2021-09-20 16:58 | NUR ---
Wound/Ostomy Care Wound Type/Assessment: Patient seen per wound care consult. See wound assessment. Patient has a stage II PU on coccyx, skin is macerated and built up and peeling. Wound cleansed and assessed. Patient brief and chux changed at this time as patient is saturated. Treatment Recommendations/Plan: Recommendations for calazime cream to be applied BID and PRN. Turn every 2 hours use wedge. Education provided: Patient educated on wound care, PU treatment and management. Offloading surface/device: Bilateral heels elevated using pillows and wedge in room. Recommended Referrals/Tests: N/A Discharge Recommendations for dressings: Dressing change instructions left in room. No other wounds noted. Wound care will follow up on 09/27/21. bed lowered and call light in reach and bed alarm in place.
[2021-09-20 19:00] VITALS: BP 176/85
[2021-09-20] MEDS: INSULIN GLARGINE SYRINGE. SQ SCH (20:53)
[2021-09-20] MEDS: LACTOBACILLUS RHAMNOSUS GG 1 CAPSULE. PO SCH (21:00)
[2021-09-20 23:10] VITALS: BP 159/77
[2021-09-21 03:45] VITALS: BP 133/65
[2021-09-21 07:44] LABS: BASO % 0 % (0-3); EOS # 0.2 x10^3/uL (0.0-0.7); EOS % 3 % (0-3); HEMATOCRIT 44.8 % (36.0-47.0); HEMOGLOBIN 15.3 g/dL (12.0-15.5); LYMPH % 31 % (24-48); MEAN CORPUSCULAR HEMOGLOBIN 31 pg (25-35); MEAN CORPUSCULAR HGB CONC 34 g/dL (31-37); MEAN CORPUSCULAR VOLUME 91 fL (79-100); MONO # 0.6 x10^3/uL (0.0-1.1); MONO % 10 % (0-9); NEUT # 3.6 x10^3/uL (1.8-7.7); NEUT % 57 % (31-73); PLATELET COUNT 180 x10^3/uL (140-400); RED BLOOD COUNT 4.92 x10^6/uL (3.50-5.40); WHITE BLOOD COUNT 6.4 x10^3/uL (4.0-11.0)
[2021-09-21 07:59] LABS: CALCIUM 9.2 mg/dL (8.5-10.1); CREATININE 0.7 mg/dL (0.6-1.0); GFR 97.7; MAGNESIUM 2.2 mg/dL (1.8-2.4); POTASSIUM 3.6 mmol/L (3.5-5.1)
[2021-09-21] MEDS: INSULIN LISPRO 300 UNITS/3 ML VIAL. SQ SCH (08:00)
[2021-09-21 08:30] VITALS: BP 157/80
--- NOTE | 2021-09-21 08:30 | EKG ---
[facility] [address] [place] [address] Test Date: 2021-09-18 Test Time: 07:41:01 Pat Name: PAVAN SHARP Department: Room: 536 1 Gender: F [employer]: : 1940 Requested By: HUMPHREY KEYS Order Number: [id number] Reading MD: Ayan Rawls Measurements Intervals [place] Rate: 108 P: 26 CT: 108 QRS: 79 QRSD: 86 T: -23 QT: 316 QTc: 427 Interpretive Statements SINUS TACHYCARDIA LEFT ATRIAL ABNORMALITY T ABNORMALITY IN INFERIOR LEADS ABNORMAL ECG Electronically Signed On 09-21-2021 8:55:32 TELEGRAPH OPERATOR by Ayan Rawls
[2021-09-21] MEDS: LACTOBACILLUS RHAMNOSUS GG 1 CAPSULE. PO SCH (08:52)
[2021-09-21] MEDS: HEPARIN for SUB-Q USE 5,000 UNIT/ML VIAL. SQ SCH (08:54)
--- NOTE | 2021-09-21 10:20 | PDOC ---
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" Normal saline running at 75 cc an hour 09/19/2021 Patient seen and examined extent discussed with RN Chart reviewed Discussed with case management Patient has IV Rocephin and IV fluids hanging Still encephalopathic Vitals/I&O Vitals/I&O: Vital Signs Date Time Temp Pulse Resp B/P (MAP) Pulse Ox O2 Delivery O2 Flow Rate FiO2 09/21/21 08:30 97.4 87 14 157/80 (105) 14 Room Air 97.4 Physical Exam General: No acute distress, Other (Confused) Heart: Regular rate Lungs: Clear Abdomen: Normal bowel sounds Extremities: No clubbing Skin: No rashes Labs Labs: Laboratory Tests Test 09/20/21 11:51 09/20/21 16:34 09/20/21 19:45 09/21/21 07:05 Glucose (Fingerstick) 199 mg/dL (70-99) 222 mg/dL (70-99) 178 mg/dL (70-99) White Blood Count 6.4 x10^3/uL (4.0-11.0) Red Blood Count 4.92 x10^6/uL (3.50-5.40) Hemoglobin 15.3 g/dL (12.0-15.5) Hematocrit 44.8 % (36.0-47.0) Mean Corpuscular Volume 91 fL (79-100) Mean Corpuscular Hemoglobin 31 pg (25-35) Mean Corpuscular Hemoglobin Concent 34 g/dL (31-37) Red Cell Distribution Width 13.0 % (11.5-14.5) Platelet Count 180 x10^3/uL (140-400) Neutrophils (%) (Auto) 57 % (31-73) Lymphocytes (%) (Auto) 31 % (24-48) Monocytes (%) (Auto) 10 % (0-9) Eosinophils (%) (Auto) 3 % (0-3) Basophils (%) (Auto) 0 % (0-3) Neutrophils # (Auto) 3.6 x10^3/uL (1.8-7.7) Lymphocytes # (Auto) 2.0 x10^3/uL (1.0-4.8) Monocytes # (Auto) 0.6 x10^3/uL (0.0-1.1) Eosinophils # (Auto) 0.2 x10^3/uL (0.0-0.7) Basophils # (Auto) 0.0 x10^3/uL (0.0-0.2) Sodium Level 143 mmol/L (136-145) Potassium Level 3.6 mmol/L (3.5-5.1) Chloride Level 107 mmol/L (98-107) Carbon Dioxide Level 25 mmol/L (21-32) Anion Gap 11 (6-14) Blood Urea Nitrogen 10 mg/dL (7-20) Creatinine 0.7 mg/dL (0.6-1.0) Estimated GFR (Cockcroft-Gault) 97.7 Glucose Level 171 mg/dL (70-99) Calcium Level 9.2 mg/dL (8.5-10.1) Magnesium Level 2.2 mg/dL (1.8-2.4) Test 09/21/21 08:19 Glucose (Fingerstick) 205 mg/dL (70-99) Assessment and Plan Assessmemt and Plan Problems Medical Problems: (1) Generalized weakness Status: Acute (2) Lactic acidosis Status: Acute (3) UTI (urinary tract infection) Status: Acute Acute metabolic encephalopathy Hypertensive urgency Acute UTI Dehydration Reactive leukocytosis LORE due to vasomotor nephropathy Hyperglycemia Lactic acidemia History of diabetes mellitus type 2 History of hypertension Plan Probable discharge back to [place] today For now continue the following; IV antibiotics IV fluids Trend labs Encourage p.o. intake PT OT if possible As needed antihypertensives Delivery prevention protocols Cardiac monitoring I's and O's Orthostatics Accu-Cheks DVT prophylaxis Full code DPOA daughter Comment Review of Relevant I have reviewed the following items moriah (where applicable) has been applied. Medications: Current Medications Medications (Trade) Dose Ordered Sig/Shakeel Route PRN Reason Start Time Stop Time Status Last Admin Dose Admin Lactobacillus Rhamnosus (Culturelle) 1 cap BID PO 09/20/21 21:00 09/21/21 08:52 Justifications for Admission Other Justification Altered mental status and UTI REECE WEISS III DO Sep 21, 2021 10:20
[2021-09-21] MEDS ORDERED: AMOX1TAB10 PO (10:22)
--- NOTE | 2021-09-21 10:23 | SNU/HH DC ---
DISCHARGE ORDERS DISCHARGE INFORMATION: FINAL DIAGNOSIS Problems Medical Problems: (1) Generalized weakness Status: Acute (2) Lactic acidosis Status: Acute (3) UTI (urinary tract infection) Status: Acute CONDITION ON DISCHARGE: Stable CODE STATUS: Code Status: Full GROUP HOME: SNF STAY <30 DAYS: No HOSPICE: HOSPICE: No HOSPICE EVAL & TREAT: No LTAC: ADMIT TO LTAC: No POST DISCHARGE ORDERS: ACTIVITY ORDERS: Activity as tolerated WEIGHT BEARING STATUS: As tolerated BATHING ORDERS: Shower-keep dressing dry DIET AFTER DISCHARGE: ADA CHECKS AFTER DISCHARGE: CHECKS AFTER DISCHARGE: Check blood press - daily, Check blood sugar, ac/hs TREATMENT/EQUIPMENT ORDERS: ADAPTIVE EQUIPMENT NEEDED: Walker, Wheelchair DISCHARGE MEDICATIONS: Home Meds Active Scripts Amoxicillin/Potassium Clav (AMOX TR-K CLV 500-125 MG TAB) 1 Each Tablet, 1 TAB PO BID for ., #14 TAB Prov:NARESH WEISSL K III DO 09/21/21 Polyethylene Glycol 3350 (POLYETHYLENE GLYCOL 3350) 17 Gm Powd.pack, 17 GM PO DAILY for prevent constipation for 30 Days, #30 PKT Prov:ROSEMARY LENZ MD 10/27/18 Reported Medications Ondansetron Hcl (ONDANSETRON HCL) 4 Mg Tablet, 1 TAB PO PRN Q8HRS PRN for NAUS EA/VOMITING, #10 TAB 1 Refill 09/18/21 Magnesium Hydroxide (MILK OF MAGNESIA) 400 Mg/5 Ml Oral.susp, 30 MG PO PRN DAILY PRN for CONSTIPATION, MISC 09/18/21 Terbinafine Hcl (ANTIFUNGAL) 30 Gm Cream..g., 30 GM TP BID for foot fungus, EACH 09/18/21 Na Phos,M-B/Na Phos,Di-Ba (FLEET ENEMA) 133 Ml Enema, 1 EACH RC PRN DAILY PRN for CONSTIPATION, #1 BOTTLE 09/18/21 Bisacodyl (DULCOLAX) 10 Mg Supp.rect, 1 SUPP RC DAILY PRN for CONSTIPATION for 10 Days, #10 SUPP 0 Refills 09/18/21 Aripiprazole (ABILIFY) 10 Mg Tablet, 1 TAB PO DAILY for . for 30 Days, #30 TAB 0 Refills 06/04/21 Pantoprazole Sodium (Pantoprazole Sodium) 40 Mg Tablet.dr, 1 TAB PO DAILY for GERD 03/09/21 Amlodipine Besylate (AMLODIPINE BESYLATE) 10 Mg Tablet, 1 TAB PO DAILY for HTN 03/09/21 Loperamide Hcl (LOPERAMIDE) 2 Mg Tablet, 2 MG PO PRN PRN for DIARRHEA, TAB 03/09/21 Divalproex Sodium (DIVALPROEX SODIUM) 500 Mg Tablet.dr, 1 TAB PO TID for seizure 03/09/21 Lisinopril/Hydrochlorothiazide (LISINOPRIL-HCTZ 20-12.5 MG TAB) 1 Each Tablet, 1 TAB PO DAILY for HTN 03/09/21 Amitriptyline Hcl (AMITRIPTYLINE HCL) 50 Mg Tablet, 1 TAB PO QHS for mood 03/09/21 Acetaminophen (TYLENOL) 325 Mg Tablet, 650 MG PO PRN Q6HRS PRN for PAIN, TAB 03/09/21 Rivastigmine (Rivastigmine) 1 Each Patch.td24, 1 PATCH TP DAILY for dementia 03/09/21 Famotidine (FAMOTIDINE) 40 Mg Tablet, 40 MG PO HS for indigestion, TAB 05/26/20 Memantine Hcl (NAMENDA) 10 Mg Tablet, 10 MG PO BID for dementia, TAB 05/26/20 Insulin Lispro (HUMALOG) 100 Unit/1 Ml Cartridge, 12 UNIT SQ TIDAC for diabetic, EACH 10/25/18 Insulin Glargine,Hum.rec.anlog (LANTUS SOLOSTAR) 100 Unit/1 Ml Insuln.pen, 40 UNIT SQ QHS for diabetic, #15 ML 3 Refills 10/25/18 Potassium Chloride (KLOR-CON M20) 20 Meq Tab.er.prt, 10 MEQ PO DAILY for supplement 01/21/18 Ibuprofen (Ibuprofen) 600 Mg Tablet, 1 TAB PO PRN Q8HRS PRN for PAIN 01/21/18 Vitamin B Complex & Vit C No.3 (B COMPLEX WITH VITAMIN C) 1 Each Capsule, 1 EACH PO DAILY, CAP 12/11/16 Multivits-Min/Fa/Lycopene/Lut (CENTRUM SILVER TABLET) 1 Each Tablet, 1 EACH PO DAILY 09/03/13 REECE WEISS III DO Sep 21, 2021 10:23
--- NOTE | 2021-09-21 10:52 | SNU/HH DC ---
DISCHARGE ORDERS DISCHARGE INFORMATION: FINAL DIAGNOSIS Problems Medical Problems: (1) Generalized weakness Status: Acute (2) Lactic acidosis Status: Acute (3) UTI (urinary tract infection) Status: Acute CONDITION ON DISCHARGE: Stable CODE STATUS: Code Status: Full LONG-TERM: SNF STAY <30 DAYS: Yes HOSPICE: HOSPICE: No HOSPICE EVAL & TREAT: No LTAC: ADMIT TO LTAC: No POST DISCHARGE ORDERS: ACTIVITY ORDERS: Activity as tolerated WEIGHT BEARING STATUS: As tolerated BATHING ORDERS: Shower-keep dressing dry DIET AFTER DISCHARGE: ADA CHECKS AFTER DISCHARGE: CHECKS AFTER DISCHARGE: Check blood press - daily, Check blood sugar, ac/hs TREATMENT/EQUIPMENT ORDERS: ADAPTIVE EQUIPMENT NEEDED: Walker, Wheelchair Physical Therapy For: Evalulation/Treatment Occupational Therapy For: Evaluation/Treatment DISCHARGE MEDICATIONS: Home Meds Active Scripts Amoxicillin/Potassium Clav (AMOX TR-K CLV 500-125 MG TAB) 1 Each Tablet, 1 TAB PO BID for ., #14 TAB Prov:CASTLE,NIAL K III DO 09/21/21 Polyethylene Glycol 3350 (POLYETHYLENE GLYCOL 3350) 17 Gm Powd.pack, 17 GM PO DAILY for prevent constipation for 30 Days, #30 PKT Prov:ROSEMARY LENZ MD 10/27/18 Reported Medications Ondansetron Hcl (ONDANSETRON HCL) 4 Mg Tablet, 1 TAB PO PRN Q8HRS PRN for NAUSEA/VOMITING, #10 TAB 1 Refill 09/18/21 Magnesium Hydroxide (MILK OF MAGNESIA) 400 Mg/5 Ml Oral.susp, 30 MG PO PRN DAILY PRN for CONSTIPATION, MISC 09/18/21 Terbinafine Hcl (ANTIFUNGAL) 30 Gm Cream..g., 30 GM TP BID for foot fungus, EACH 09/18/21 Na Phos,M-B/Na Phos,Di-Ba (FLEET ENEMA) 133 Ml Enema, 1 EACH RC PRN DAILY PRN for CONSTIPATION, #1 BOTTLE 09/18/21 Bisacodyl (DULCOLAX) 10 Mg Supp.rect, 1 SUPP RC DAILY PRN for CONSTIPATION for 10 Days, #10 SUPP 0 Refills 09/18/21 Aripiprazole (ABILIFY) 10 Mg Tablet, 1 TAB PO DAILY for . for 30 Days, #30 TAB 0 Refills 06/04/21 Pantoprazole Sodium (Pantoprazole Sodium) 40 Mg Tablet.dr, 1 TAB PO DAILY for GERD 03/09/21 Amlodipine Besylate (AMLODIPINE BESYLATE) 10 Mg Tablet, 1 TAB PO DAILY for HTN 03/09/21 Loperamide Hcl (LOPERAMIDE) 2 Mg Tablet, 2 MG PO PRN PRN for DIARRHEA, TAB 03/09/21 Divalproex Sodium (DIVALPROEX SODIUM) 500 Mg Tablet.dr, 1 TAB PO TID for seizure 03/09/21 Lisinopril/Hydrochlorothiazide (LISINOPRIL-HCTZ 20-12.5 MG TAB) 1 Each Tablet, 1 TAB PO DAILY for HTN 03/09/21 Amitriptyline Hcl (AMITRIPTYLINE HCL) 50 Mg Tablet, 1 TAB PO QHS for mood 03/09/21 Acetaminophen (TYLENOL) 325 Mg Tablet, 650 MG PO PRN Q6HRS PRN for PAIN, TAB 03/09/21 Rivastigmine (Rivastigmine) 1 Each Patch.td24, 1 PATCH TP DAILY for dementia 03/09/21 Famotidine (FAMOTIDINE) 40 Mg Tablet, 40 MG PO HS for indigestion, TAB 05/26/20 Memantine Hcl (NAMENDA) 10 Mg Tablet, 10 MG PO BID for dementia, TAB 05/26/20 Insulin Lispro (HUMALOG) 100 Unit/1 Ml Cartridge, 12 UNIT SQ TIDAC for diabetic, EACH 10/25/18 Insulin Glargine,Hum.rec.anlog (LANTUS SOLOSTAR) 100 Unit/1 Ml Insuln.pen, 40 UNIT SQ QHS for diabetic, #15 ML 3 Refills 10/25/18 Potassium Chloride (KLOR-CON M20) 20 Meq Tab.er.prt, 10 MEQ PO DAILY for supplement 01/21/18 Ibuprofen (Ibuprofen) 600 Mg Tablet, 1 TAB PO PRN Q8HRS PRN for PAIN 01/21/18 Vitamin B Complex & Vit C No.3 (B COMPLEX WITH VITAMIN C) 1 Each Capsule, 1 EACH PO DAILY, CAP 12/11/16 Multivits-Min/Fa/Lycopene/Lut (CENTRUM SILVER TABLET) 1 Each Tablet, 1 EACH PO DAILY 09/03/13 REECE WEISS III DO Sep 21, 2021 10:52
[2021-09-21 11:00] VITALS: BP 140/71
--- NOTE | 2021-09-21 11:06 | NUR ---
Discharge Note: PAVAN SHARP [address] Discharge instructions and discharge home medications reviewed with Other facility and a copy given. All questions have been answered and understanding verbalized. The following instructions and handouts were given: post care given to Brianna at [facility] Discontinued lines and drains: IV removed Patient discharged to [facility] via ambulance
--- NOTE | 2021-09-21 11:09 | DS ---
DATE OF DISCHARGE: 09/21/2021 ADMITTING DIAGNOSIS: Weakness and urinary tract infection, metabolic encephalopathy. DISCHARGE DIAGNOSES: Resolving urinary tract infection, resolving metabolic encephalopathy, history of dementia, insomnia, hypertension, depression, anxiety, gastroesophageal reflux disease, diabetes, constipation, history of seizures. HOSPITAL COURSE: The patient is a pleasant elderly female from [facility]. Basically, she presented with a UTI and metabolic encephalopathy. We gave her IV fluids and antibiotics. Today, I saw and examined her. She is back to her baseline. We plan to discharge. I am going to change her to p.o. antibiotics and continue that for another week. DISPOSITION: Back to her skilled nursing. ACTIVITY: As tolerated. DIET: Cardiac. DISCHARGE MEDICATIONS: Please see the MRAD. Augmentin 500 p.o. b.i.d. for 1 more week. We will continue her home Tylenol, amitriptyline 50 at bedtime, amlodipine 10 a day, Abilify 10 a day, Dulcolax, divalproex 500 t.i.d. for seizures, Pepcid 40, p.r.n. ibuprofen, 40 units of Lantus insulin at bedtime, 12 units of NovoLog insulin with meals, lisinopril/hydrochlorothiazide 20/12.5 one a day, loperamide 2 p.r.n., milk of mag, Namenda 10 b.i.d., vitamins, Fleet's enemas, Protonix 40 a day, MiraLax, Klor-Con 10 a day; rivastigmine patch, change daily; terbinafine antifungal topical b.i.d. TOTAL TIME: 34 minutes. PEPE/MICHAEL DR: PEPE/letitia TID: [id number]
== END 2021-09-21 12:10 | DRG 871 ==
LOC: ER 07:14 → 5 NORTH 09:00
PROVIDERS: ADMIT Internal Medicine; ATTEND Internal Medicine
DX: A41.9 Sepsis, unspecified organism (principal); N17.0 Acute kidney failure with tubular necrosis; G93.41 Metabolic encephalopathy; N39.0 Urinary tract infection, site not specified; E86.0 Dehydration; F03.90 Unspecified dementia, unspecified severity, without behavioral disturbance, psychotic disturbance, mood disturbance, and anxiety; I10 Essential (primary) hypertension; I16.0 Hypertensive urgency; I70.0 Atherosclerosis of aorta; Z79.4 Long term (current) use of insulin; Z85.3 Personal history of malignant neoplasm of breast; F32.A Depression, unspecified; F41.9 Anxiety disorder, unspecified; K21.9 Gastro-esophageal reflux disease without esophagitis; E11.65 Type 2 diabetes mellitus with hyperglycemia; Z88.0 Allergy status to penicillin; Z88.2 Allergy status to sulfonamides; Z88.8 Allergy status to other drugs, medicaments and biological substances; Z20.822 Contact with and (suspected) exposure to COVID-19
CPT/HCPCS: 36415; 70450; 71045; 80048; 80053; 81001; 82550; 82962; 83605; 83690; 83735; 84100; 84484; 85007; 85025; 87040; 87077; 87086; 93005; 96361; 96374; J0696; J1644; J1815; J2060; J2405; J7030; U0003; 97530-GP; 97535-GO; 99285-25; G0378

== ENCOUNTER 2021-09-26 18:03 | Emergency (ER) | payer MEDICARE, OTHER ==
[~2021-09-26] VITALS: Ht 162.6 cm; Wt 60.0 kg
[~2021-09-26 18:03] MED LIST changes: +AMOX1TAB10 PO; +BISA10SU55 RC; +MAGN400O7 PO; +NA P133E2 RC; +ONDA-84 PO; +TERB30CR TP
[2021-09-26] MEDS ORDERED: IV NORMAL SALINE 1000ML BAG 1,000 ML IV SCH (18:45)
[2021-09-26 18:58] LABS: BASO # 0.1 x10^3/uL (0.0-0.2); BASO % 0 % (0-3); EOS % 0 % (0-3); HEMATOCRIT 44.4 % (36.0-47.0); HEMOGLOBIN 14.6 g/dL (12.0-15.5); LYMPH # 0.7 x10^3/uL (1.0-4.8); LYMPH % 5 % (24-48); MEAN CORPUSCULAR HEMOGLOBIN 30 pg (25-35); MEAN CORPUSCULAR HGB CONC 33 g/dL (31-37); MEAN CORPUSCULAR VOLUME 91 fL (79-100); MONO # 0.4 x10^3/uL (0.0-1.1); MONO % 3 % (0-9); NEUT # 12.6 x10^3/uL (1.8-7.7); NEUT % 91 % (31-73); PLATELET COUNT 203 x10^3/uL (140-400); RED BLOOD COUNT 4.88 x10^6/uL (3.50-5.40); WHITE BLOOD COUNT 13.8 x10^3/uL (4.0-11.0)
[2021-09-26 19:10] LABS: ANION GAP 13 (6-14); BLOOD UREA NITROGEN 6 mg/dL (7-20); BUN/CREATININE RATIO 6 (6-20); CALCIUM 10.1 mg/dL (8.5-10.1); CARBON DIOXIDE 25 mmol/L (21-32); CHLORIDE 102 mmol/L (98-107); GFR 64.7; GLUCOSE 305 mg/dL (70-99); POTASSIUM 3.7 mmol/L (3.5-5.1); SODIUM 140 mmol/L (136-145)
[2021-09-26 19:12] LABS: ACETAMIN < 2 mcg/ml (10-30)
[2021-09-26 19:22] LABS: ALBUMIN 3.3 g/dL (3.4-5.0); ALBUMIN/GLOBULIN RATIO 0.8 (1.0-1.7); ALK PHOS 94 U/L (46-116); ALT (SGPT) 27 U/L (14-59); AST (SGOT) 17 U/L (15-37); CREATINE KINASE 142 U/L (26-192); LIPASE 41 U/L (73-393); MAGNESIUM 2.1 mg/dL (1.8-2.4); TOTAL BILIRUBIN 0.4 mg/dL (0.2-1.0); TOTAL PROTEIN 7.6 g/dL (6.4-8.2)
[2021-09-26 19:31] LABS: % BANDS 1 % (0-9); % LYMPHS 4 % (24-48); % SEGS 95 % (35-66); PLT ESTIMATE ADEQUATE (ADEQUATE)
--- NOTE | 2021-09-26 19:39 | PHYS DOC ---
Past Medical History Past Medical History: Cancer, Constipation, Dementia, Diabetes-Type I, Diabetes-Type II, Hypertension, Other Additional Past Medical Histor: breast cancer Past Surgical History: Other Additional Past Surgical Histo: Right Mastectomy Smoking Status: Unknown if ever smoked Alcohol Use: None Drug Use: None General Adult EDM: Chief Complaint: ALTERED MENTAL STATUS HPI: HPI: 81-year-old female past medical history (from emr review) of dementia, diabetes, hypertension, GERD, insomnia, depression, anxiety, gastroesophageal reflux disea se, diabetes, constipation and history of seizures (daughter denies this, is in emr), presents the ED from [facility] with biological daughter, concern for increased lethargy, weakness and drooling stating this is not her normal level of activity. Did not witness any tonic-clonic movements or unconscious mental state. No history of trauma or falls. Patient is moving all 4 extremities and is looking left, grimaces when her head right-daughter states she has a history of degenerative disc disease. EMR was reviewed and patient was discharged from the hospital 5 days ago after admission for acute metabolic encephalopathy secondary to UTI. Was discharged on Augmentin for 7 days. Review of Systems: Review of Systems: Review of systems unobtainable due to dementia Heart Score: C/O Chest Pain: No Risk Factors: Risk Factors: DM, Current or recent (<one month) smoker, HTN, HLP, family his tory of CAD, obesity. Risk Scores: Score 0 - 3: 2.5% MACE over next 6 weeks - Discharge Home Score 4 - 6: 20.3% MACE over next 6 weeks - Admit for Clinical Observation Score 7 - 10: 72.7% MACE over next 6 weeks - Early Invasive Strategies Current Medications: Current Medications Medications (Trade) Dose Ordered Sig/Shakeel Start Time Stop Time Status Last Admin Dose Admin Sodium Chloride 1,000 ml @ 1,000 mls/hr Q1H 09/26/21 18:45 09/26/21 19:44 09/26/21 18:45 1,000 MLS/HR Allergies: Allergies: Allergies Coded Allergies Type Severity Reaction Last Updated Verified Penicillins Allergy Intermediate hives 09/26/21 Yes Sulfa (Sulfonamide Antibiotics) Allergy Intermediate UN 09/26/21 Yes chocolate flavor Allergy Intermediate UN 09/26/21 Yes rosuvastatin Allergy Intermediate UN 09/26/21 Yes I S O L A T I O N *CONTACT* Allergy Unknown 09/26/21 Yes celecoxib Adverse Reaction Intermediate "makes me crazy" 09/26/21 Yes Physical Exam: PE: Constitutional: no acute distress, non-toxic appearance. HENT: Normocephalic, atraumatic, moist mucous membranes, increased saliva production, no facial droop Eyes: Pupils equal and reactive, EOMI, conjunctiva normal, no discharge. Neck: Normal range of motion, supple, looking to the left arm, grimaces when turning head to the right Cardiovascular: S1/2 present, tachycardic, midline scar Lungs & Thorax: bilateral equal chest rise, no tachypnea or increased work of breathing Abdomen: soft, no tenderness, no distention Skin: Warm, dry, no erythema, no rash. [] Extremities: No tenderness, no cyanosis, no lower extremity edema Neurologic: Alert to self, location and daughter at bedside, moves all 4 extremities, no focal deficits noted. [] Psychologic: Affect normal, calm mood Current Patient Data: Labs: Laboratory Tests Test 09/26/21 18:40 White Blood Count 13.8 x10^3/uL (4.0-11.0) H Red Blood Count 4.88 x10^6/uL (3.50-5.40) Hemoglobin 14.6 g/dL (12.0-15.5) Hematocrit 44.4 % (36.0-47.0) Mean Corpuscular Volume 91 fL (79-100) Mean Corpuscular Hemoglobin 30 pg (25-35) Mean Corpuscular Hemoglobin Concent 33 g/dL (31-37) Red Cell Distribution Width 13.0 % (11.5-14.5) Platelet Count 203 x10^3/uL (140-400) Neutrophils (%) (Auto) 91 % (31-73) H Lymphocytes (%) (Auto) 5 % (24-48) L Monocytes (%) (Auto) 3 % (0-9) Eosinophils (%) (Auto) 0 % (0-3) Basophils (%) (Auto) 0 % (0-3) Neutrophils # (Auto) 12.6 x10^3/uL (1.8-7.7) H Lymphocytes # (Auto) 0.7 x10^3/uL (1.0-4.8) L Monocytes # (Auto) 0.4 x10^3/uL (0.0-1.1) Eosinophils # (Auto) 0.0 x10^3/uL (0.0-0.7) Basophils # (Auto) 0.1 x10^3/uL (0.0-0.2) Platelet Estimate Pending Sodium Level 140 mmol/L (136-145) Potassium Level 3.7 mmol/L (3.5-5.1) Chloride Level 102 mmol/L (98-107) Carbon Dioxide Level 25 mmol/L (21-32) Anion Gap 13 (6-14) Blood Urea Nitrogen 6 mg/dL (7-20) L Creatinine 1.0 mg/dL (0.6-1.0) Estimated GFR (Cockcroft-Gault) 64.7 BUN/Creatinine Ratio 6 (6-20) Glucose Level 305 mg/dL (70-99) H Lactic Acid Level 2.7 mmol/L (0.4-2.0) H Calcium Level 10.1 mg/dL (8.5-10.1) Magnesium Level 2.1 mg/dL (1.8-2.4) Total Bilirubin 0.4 mg/dL (0.2-1.0) Aspartate Amino Transferase (AST) 17 U/L (15-37) Alanine Aminotransferase (ALT) 27 U/L (14-59) Alkaline Phosphatase 94 U/L (46-116) Creatine Kinase 142 U/L (26-192) Troponin I High Sensitivity 47 ng/L (4-50) QX-Cnb-U-Type Natriuretic Peptide 227 pg/mL (0-449) Total Protein 7.6 g/dL (6.4-8.2) Albumin 3.3 g/dL (3.4-5.0) L Albumin/Globulin Ratio 0.8 (1.0-1.7) L Lipase 41 U/L (73-393) L Salicylates Level 1.0 mg/dL (2.8-20.0) L Salicylate Last Dose Date Unknown Salicylate Last Dose Time Unknown Acetaminophen Level < 2 mcg/ml (10-30) L Acetaminophen Last Dose Date Unknown Acetaminophen Last Dose Time Unknown Valproic Acid Level mcg/mL (50-100) Valproic Acid Last Dose Date 09/26/21 Valproic Acid Last Dose Time 0800 Acetone Level Neg (NEG) Laboratory Tests 09/26/21 18:40 Laboratory Tests 09/26/21 18:40 Vital Signs: Vital Signs Date Time Temp Pulse Resp B/P (MAP) Pulse Ox O2 Delivery O2 Flow Rate FiO2 09/26/21 18:03 98.9 105 16 148/67 (94) 97 Room Air 98.9 EKG: EK sinus rhythm 98 bpm, left axis deviation, normal intervals, no T wave inversion, no ST elevation or ST depression Radiology/Procedures: Radiology/Procedures: IMAGING REPORT Signed PATIENT: PAVAN SHARP EACCOUNT: [id number] : 1940 LOCATION: ER AGE: 81 SEX: F EXAM STATUS: REG ER ORD. PHYSICIAN: ALEJANDRO MYERS DO REASON: AMS, neck pain PROCEDURE: CT HEAD AND CERVICAL SPINE WO Exam: CT head and cervical spine INDICATION: Altered mental status TECHNIQUE: Sequential axial images through the head and cervical spine were obtained without the administration of IV contrast. Exposure: One or more of the following in the visualized dose reduction techniques were utilized for this examination: 1. Automated exposure control 2. Adjustment of the MA and/or KV according to patient size 3. Use of iterative of reconstructive technique Comparisons: None FINDINGS: Head: No focal parenchymal lesion or hemorrhage is identified. There is no midline shift or sulcal effacement. Moderate patchy hypodensity in the periventricular white matter. No acute vascular territory infarction is identified. Espinoza-white distinction is preserved. The ventricular system is within normal limits without compression hydrocephalus. The basal cisterns are well maintained. The visualized portions of the paranasal sinuses and mastoid air cells are well- pneumatized. No acute fractures. Cervical spine: Reversal the normal cervical lordosis which may positional. Vertebral body hei ghts are well-maintained. There is grade 1 anterolisthesis of C4 on C5. Fracture to the cervical spine is not identified. No significant spondylotic change in cervical spine. Visualized paraspinal soft tissues. IMPRESSION: 1. No acute intracranial abnormality. 2. Negative CT C-spine for acute traumatic injury. Electronically signed by: Elyssa Mccurdy MD (09/26/2021 8:31 PM) [facility] DICTATED and SIGNED BY: ELYSSA MCCURDY MD DATE: 09/26/[id number] 0 IMAGING REPORT Signed PATIENT: PAVAN SHARP EACCOUNT: [id number] : 1940 LOCATION: ER AGE: 81 SEX: F EXAM STATUS: REG ER ORD. PHYSICIAN: ALEJANDRO YMERS DO REASON: ams PROCEDURE: PORTABLE CHEST 1V EXAMINATION: XR CHEST 1V CLINICAL HISTORY: Altered mental status. EXAM DATE/TIME: 09/26/2021 6:55 PM COMPARISON: 09/18/2021 FINDINGS: Lines, Tubes, and Devices: None. Cardiomediastinal Silhouette: Normal heart size. Aortic atherosclerotic calcification. Lungs and Pleura: Pulmonary hypoexpansion without evidence of focal airspace consolidation or pleural effusion. Nonspecific interstitial prominence, similar to prior study and likely chronic. Bones and Soft Tissues: Degenerative changes in the thoracic spine. Median sternotomy wires. Cholecystectomy clips. IMPRESSION: No evidence of acute cardiopulmonary abnormality. Electronically signed by: Prem Caldwell DO (09/26/2021 8:07 PM) [facility] DICTATED and SIGNED BY: PREM CALDWELL DO DATE: 09/26/[id number] 0 Course & Med Decision Making: Course & Med Decision Making Pertinent Labs and Imaging studies reviewed. (See chart for details) Concern for decreased alertness in the setting of ketonuria. Pt tachycardic on arrival, now 82 bpm. Suspect dehydration. U/A with no infection, is currently on augmentin. With hyperglycemia, no anion gap. Patient afebrile and well- appearing with no agitation in the emergency department. Will discharge home with strict ED return precautions were given for fever, trauma or confusion. Encouraged urgent outpatient follow-up with PMD for repeat evaluation. Life- threatening processes were considered but are low suspicion at this time, given history, physical exam and ED workup. Life/limb-threatening differential includes but is not limited to, end organ damage/sepsis, trauma/abuse/neglect, neurologic deficit, alcohol/drug ingestion, toxidrome, suicidal/homicidal ideations plans or attempts, psychosis or mental illness resulting in self neglect and inability to care for self. Dragon Disclaimer: Dragon Disclaimer: This electronic medical record was generated, in whole or in part, using a voice recognition dictation system. Departure Departure Impression: Primary Impression: Decreased alertness Additional Impressions: Hyperglycemia Ketonuria Disposition: 01 HOME / SELF CARE / HOMELESS Condition: STABLE Referrals: MAN FAY APRN (PCP) Follow-up with your primary care physician in 24 to 48 hours OR FOLLOW UP WITH FAMILY MEDICINE: [address] [place] [address] Patient Instructions: Dehydration, Adult, Hyperglycemia Additional Instructions: EMERGENCY DEPARTMENT GENERAL DISCHARGE INSTRUCTIONS Thank you for coming to [facility] Emergency Department (ED) today and trusting us with you care. We trust that you had a positive experience in our Emergency Department. If you wish to speak to the department management, you may call the Director at [phone]. YOUR FOLLOW UP INSTRUCTIONS ARE FOLLOWS: 1. Do you have a private Doctor? If you do not have a private doctor, please ask for a resource list of physicians or clinics that may be able to assist you with follow up care. 2. The Emergency Physicain has interpreted your x-rays. The X-Ray specialist will also review them. If there is a change in the findings, you will be notified in 48 hours when at all possible. 3. A lab test or culture has been done, your results will be reviewed and you will be notified if you need a change in treatment. ADDITIONAL INSTRUCTIONS AND INFORMATION: 1. Your care today has been supervised by a physician who is specially trained in emergency care. Many problems require more than one evaluation for a complete diagnosis and treatment. We recommend that you schedule your follow up appointment as recommended to ensure complete treatment of you illness or injury. If you are unable to obtain follow up care and continue to have a problem, or if your condition worsens, we recommend that you return to the ED. 2. We are not able to safely determine your condition over the phone nor are we able to give sound medical advice over the phone. For these safety reasons, if you call for medical advice we will ask you to come to the ED for further evaluation. 3. If you have any questions regarding these discharge instructions please call the ED at [phone]. SAFETY INFORMATION: In the interest of safety, wellness, and injury prevention; we encourage you to wear your sealbelt, if you smoke; quite smoking, and we encourage family to use a protective helmet for bicycling and other sporting events that present an increased risk for head injury. IF YOUR SYMPTOMS WORSEN OR NEW SYMPTOMS DEVELOP, OR YOU HAVE CONCERNS ABOUT YOUR CONDITION; OR IF YOUR CONDITION WORSENS WHILE YOU ARE WAITING FOR YOUR FOLLOW UP APPOINTMENT; EITHER CONTACT YOUR PRIMARY CARE DOCTOR, THE PHYSICIAN WHOSE NAME AND NUMBER YOU WERE GIVEN, OR RETURN TO THE ED IMMEDIATELY. [facility] DO Sep 26, 2021 19:39
--- NOTE | 2021-09-26 20:09 | RAD ---
EXAMINATION: XR CHEST 1V CLINICAL HISTORY: Altered mental status. EXAM DATE/TIME: 09/26/2021 6:55 PM COMPARISON: 09/18/2021 FINDINGS: Lines, Tubes, and Devices: None. Cardiomediastinal Silhouette: Normal heart size. Aortic atherosclerotic calcification. Lungs and Pleura: Pulmonary hypoexpansion without evidence of focal airspace consolidation or pleural effusion. Nonspecific interstitial prominence, similar to prior study and likely chronic. Bones and Soft Tissues: Degenerative changes in the thoracic spine. Median sternotomy wires. Cholecys tectomy clips. IMPRESSION: No evidence of acute cardiopulmonary abnormality. Electronically signed by: Prem Restrepo DO (09/26/2021 8:07 PM) [facility]
--- NOTE | 2021-09-26 20:33 | RAD ---
Exam: CT head and cervical spine INDICATION: Altered mental status TECHNIQUE: Sequential axial images through the head and cervical spine were obtained without the admi nistration of IV contrast. Exposure: One or more of the following in the visualized dose reduction techniques were utilized for this examination: 1. Automated exposure control 2. Adjustment of the MA and/or KV according to patient size 3. Use of iterative of reconstructive technique Comparisons: None FINDINGS: Head: No focal parenchymal lesion or hemorrhage is identified. There is no midline shift or sulcal effaceme nt. Moderate patchy hypodensity in the periventricular white matter. No acute vascular territory infarcti on is identified. Espinoza-white distinction is preserved. The ventricular system is within normal limits without compression hydrocephalus. The basal cisterns are well maintained. The visualized portions of the paranasal sinuses and mastoid air cells are well-pneumatized. No acute fractures. Cervical spine: Reversal the normal cervical lordosis which may positional. Vertebral body heights are well-maintaine d. There is grade 1 anterolisthesis of C4 on C5. Fracture to the cervical spine is not identified. No significant spondylotic change in cervical spine. Visualized paraspinal soft tissues. IMPRESSION: 1. No acute intracranial abnormality. 2. Negative CT C-spine for acute traumatic injury. Electronically signed by: Elyssa Rincon MD (09/26/2021 8:31 PM) [facility]
--- NOTE | 2021-09-27 00:23 | EKG ---
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
--- NOTE | 2021-09-27 00:28 | EKG ---
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
[2021-09-27 01:17] LABS: BILIRUBIN,URINE NEGATIVE (NEG); CLARITY,URINE CLEAR; COLOR,URINE YELLOW; NITRITE,URINE NEGATIVE (NEG); PROTEIN,URINE NEGATIVE (NEG-TRACE); UROBILINOGEN,URINE 0.2 mg/dL (0.2 mg/dL)
[2021-09-27 01:20] LABS: BACTERIA,URINE 0 /HPF (0-FEW); RBC,URINE OCC /HPF (0-2)
[2021-09-27 01:24] LABS: BARBITURATES NEG (NEG); BENZODIAZEPINES NEG (NEG); CANNABINOIDS NEG (NEG); COCAINE NEG (NEG); METHADONE NEG (NEG); OPIATES NEG (NEG); PHENCYCLIDINE NEG (NEG)
[2021-09-27 01:25] LABS: AMPHETAMINE/METHAMPHETAMINE NEG (NEG)
[2021-09-27 02:16] VITALS: BP 130/60
== END 2021-09-27 03:05 | disposition home or self-care (01) ==
LOC: ER 18:03
DX: R40.4 Transient alteration of awareness (principal); E11.65 Type 2 diabetes mellitus with hyperglycemia; R82.4 Acetonuria; I10 Essential (primary) hypertension; F03.90 Unspecified dementia, unspecified severity, without behavioral disturbance, psychotic disturbance, mood disturbance, and anxiety; K21.9 Gastro-esophageal reflux disease without esophagitis; Z88.0 Allergy status to penicillin; Z88.2 Allergy status to sulfonamides; Z91.041 Radiographic dye allergy status; Z91.018 Allergy to other foods; Z88.8 Allergy status to other drugs, medicaments and biological substances
CPT/HCPCS: 36415; 51702; 70450; 71045; 72125; 80053; 80164; 80307; 80329; 81001; 82010; 82550; 82962; 83605; 83690; 83735; 83880; 83930; 84484; 85007; 85025; 87040; 93005; 96360; 96361; 99285; J7030; G0480

== ENCOUNTER 2021-11-10 20:00 | Inpatient (IN) | payer MEDICARE, OTHER ==
[~2021-11-10] VITALS: Ht 162.6 cm; Wt 59.9 kg
[2021-11-10] MEDS ORDERED: IV NORMAL SALINE 1000ML BAG 1,000 ML IV SCH (20:06)
[2021-11-10] MEDS ORDERED: cefTRIAXone IV Push 1 GM VIAL. IVP ONE (21:05)
[2021-11-10 22:15] VITALS: BP 181/81
[2021-11-10] MEDS: POTASSIUM CHLORIDE 10MEQ 100 ML IV SCH (23:15)
[2021-11-11] MEDS: POTASSIUM CHLORIDE 10MEQ 100 ML IV SCH ×3 (00:15→02:15)
[2021-11-11 03:00] VITALS: BP 170/92
--- NOTE | 2021-11-11 05:08 | PHYS DOC ---
Past Medical History Past Medical History: Cancer, Constipation, Dementia, Diabetes-Type I, Di abetes-Type II, Hypertension, Other Additional Past Medical Histor: breast cancer Past Surgical History: Other Additional Past Surgical Histo: Right Mastectomy Smoking Status: Unknown if ever smoked Alcohol Use: None Drug Use: None General Adult EDM: Chief Complaint: weakness HPI: HPI: Patient is a 81 year old female who was [facility] here by EMS [facility] due to confusion, decreased responsiveness, fever and chills, generalized weakness. Patient was not able to provide any information. Her daughter stated that for the last few days patient has been having nonproductive cough, decreased responsiveness, not eating or drinking well. Patient was suspected by her doctor that she might have a urinary tract infection so patient was prescribed Cipro 2 days ago. Today her condition appeared to get worse so EMS were called to take her here for evaluation Review of Systems: Review of Systems: not able to obtain due to her condition Heart Score: C/O Chest Pain: N/A Risk Factors: Risk Factors: DM, Current or recent (<one month) smoker, HTN, HLP, family history of CAD, obesity. Risk Scores: Score 0 - 3: 2.5% MACE over next 6 weeks - Discharge Home Score 4 - 6: 20.3% MACE over next 6 weeks - Admit for Clinical Observation Score 7 - 10: 72.7% MACE over next 6 weeks - Early Invasive Strategies Current Medications: Current Medications Medications (Trade) Dose Ordered Sig/Shakeel Start Time Stop Time Status Last Admin Dose Admin Ceftriaxone Sodium (Rocephin) 1 gm ONCE ONCE 11/10/21 21:05 11/11/21 01:16 DC Potassium Chloride/Water 100 ml @ 100 mls/hr Q1H 11/10/21 21:45 11/11/21 01:44 DC 11/11/21 02:15 100 MLS/HR Sodium Chloride 1,000 ml @ 1,000 mls/hr Q1H 11/10/21 20:06 11/11/21 01:16 DC Allergies: Allergies: Allergies Coded Allergies Type Severity Reaction Last Updated Verified Penicillins Allergy Intermediate hives 09/26/21 Yes Sulfa (Sulfonamide Antibiotics) Allergy Intermediate UN 09/26/21 Yes chocolate flavor Allergy Intermediate UN 09/26/21 Yes rosuvastatin Allergy Intermediate UN 09/26/21 Yes I S O L A T I O N *CONTACT* Allergy Unknown 09/26/21 Yes celecoxib Adverse Reaction Intermediate "makes me crazy" 09/26/21 Yes Physical Exam: PE: Constitutional: Well developed, well nourished, patient appears to be lethargic, toxic. HENT: Normocephalic, atraumatic, bilateral external ears normal, dry oral mucosa, no oral exudates, nose normal. [] Eyes: PERRLA, EOMI, conjunctiva normal, no discharge. [] Neck: Normal range of motion, no tenderness, supple, no stridor. [] Cardiovascular: Sinus tachycardia, regular rhythm, no murmur [] Lungs & Thorax: Bilateral breath sounds coarse to auscultate] Abdomen: Bowel sounds normal, soft, no tenderness, no masses, no pulsatile masses. [] Skin: Warm, dry, no erythema, no rash. [] Back: No tenderness, no CVA tenderness. [] Extremities: No tenderness, no cyanosis, no clubbing, ROM intact, no edema. [] Neurologic: Patient is awake alert but appears to be confused to place time Psychologic: Flat affect. Current Patient Data: Labs: Laboratory Tests Test 11/11/21 00:52 Glucose (Fingerstick) 227 mg/dL Current Medications Medications (Trade) Dose Ordered Sig/Shakeel Route PRN Reason Start Time Stop Time Status Last Admin Dose Admin Sodium Chloride 1,000 ml @ 1,000 mls/hr Q1H IV 11/10/21 20:06 11/11/21 01:16 DC Ceftriaxone Sodium (Rocephin) 1 gm ONCE ONCE IVP 11/10/21 21:05 11/11/21 01:16 DC Potassium Chloride/Water 100 ml @ 100 mls/hr Q1H IV 11/10/21 21:45 11/11/21 01:44 DC 11/11/21 02:15 100 MLS/HR Laboratory Tests Test 11/11/21 00:52 Glucose (Fingerstick) 227 mg/dL (70-99) H Vital Signs: Vital Signs Date Time Temp Pulse Resp B/P (MAP) Pulse Ox O2 Delivery O2 Flow Rate FiO2 11/11/21 03:00 98.9 125 18 170/92 (118) 99 Room Air 98.9 EKG: EKG: [] Radiology/Procedures: Radiology/Procedures: [] Course & Med Decision Making: Course & Med Decision Making Pertinent Labs and Imaging studies reviewed. (See chart for details) Patient is a 81-year-old female who was brought here by EMS from [facility] for evaluation of generalized weakness, fever and chills. Patient felt to be dehydrated, patient also had a urinary tract infection. Patient was given IV fluid in ER, her potassium level was low, patient was given IV potassium as well. Patient family physician was called Dr. Phillip who agreed to admit patient. Geoffrey Disclaimer: Geoffrey Disclaimer: This electronic medical record was generated, in whole or in part, using a voice recognition dictation system. Departure Departure Impression: Primary Impression: Dehydration Additional Impressions: UTI (urinary tract infection) Hypokalemia Sepsis Disposition: ADMITTED INPATIENT Admitting Physician: Shashi Phillip Condition: IMPROVED Referrals: MAN FAY APRN (PCP) BLANE GRAYSON DO Nov 11, 2021 05:08
[2021-11-11 07:00] VITALS: BP 122/44
[2021-11-11 08:56] LABS: INFLUENZA A PATIENT NEGATIVE (NEGATIVE); INFLUENZA B PATIENT NEGATIVE (NEGATIVE)
[2021-11-11 09:21] LABS: ALBUMIN 1.9 g/dL (3.4-5.0); ALBUMIN/GLOBULIN RATIO 0.6 (1.0-1.7); ALK PHOS 57 U/L (46-116); ALT (SGPT) < 6 U/L (14-59); ANION GAP 13 (6-14); AST (SGOT) 10 U/L (15-37); BLOOD UREA NITROGEN 11 mg/dL (7-20); BUN/CREATININE RATIO 18 (6-20); CALCIUM 6.8 mg/dL (8.5-10.1); CARBON DIOXIDE 19 mmol/L (21-32); CHLORIDE 114 mmol/L (98-107); CREATININE 0.6 mg/dL (0.6-1.0); GFR 116.7; GLUCOSE 172 mg/dL (70-99); MAGNESIUM 1.4 mg/dL (1.8-2.4); SODIUM 146 mmol/L (136-145); TOTAL BILIRUBIN 0.4 mg/dL (0.2-1.0); TOTAL PROTEIN 5.1 g/dL (6.4-8.2)
[2021-11-11 09:22] LABS: POTASSIUM 2.6 mmol/L (3.5-5.1)
[2021-11-11 10:57] LABS: BACTERIA,URINE FEW /HPF (0-FEW); RBC,URINE 0 /HPF (0-2); WBC,URINE TNTC /HPF (0-4)
[2021-11-11 10:58] VITALS: BP 149/51
[2021-11-11] MEDS ORDERED: POTASSIUM CL 40MEQ D5-0.45NACL 1,000 ML IV SCH (11:00)
[2021-11-11 11:09] LABS: HEMATOCRIT 32.2 % (36.0-47.0); HEMOGLOBIN 10.8 g/dL (12.0-15.5); MEAN CORPUSCULAR HEMOGLOBIN 31 pg (25-35); MEAN CORPUSCULAR HGB CONC 34 g/dL (31-37); MEAN CORPUSCULAR VOLUME 91 fL (79-100); RED BLOOD COUNT 3.54 x10^6/uL (3.50-5.40); RED CELL DISTRIBUTION WIDTH 13.9 % (11.5-14.5); WHITE BLOOD COUNT 10.7 x10^3/uL (4.0-11.0)
[2021-11-11 11:10] LABS: BASO % 1 % (0-3); EOS % 0 % (0-3); LYMPH % 10 % (24-48); MONO # 0.9 x10^3/uL (0.0-1.1); MONO % 9 % (0-9); NEUT # 8.6 x10^3/uL (1.8-7.7); NEUT % 81 % (31-73); PLATELET COUNT 163 x10^3/uL (140-400)
[2021-11-11] MEDS: hydroCHLOROthiazide 12.5 MG TABLET PO SCH (12:49)
[2021-11-11] MEDS: MEMANTINE 10 MG TABLET. PO SCH ×2 (12:49→22:06)
[2021-11-11] MEDS: ARIPiprazole 5 MG TABLET PO SCH (12:49)
[2021-11-11] MEDS: DIVALPROEX DELAYED RELEASE 500 MG TABLET.DR. PO SCH ×3 (12:50→22:06)
[2021-11-11] MEDS: LISINOPRIL 20 MG TABLET PO SCH (12:50)
--- NOTE | 2021-11-11 13:59 | RAD ---
XR CHEST 1V INDICATION: CHEST PAIN . COMPARISON STUDY: 09/26/2021. FINDINGS: Lungs: Normal lung volume. No pulmonary mass or consolidation. The tracheobronchial tree and hilar st ructures are normal. Pleura: No pleural effusion or pneumothorax. Heart and Mediastinum: The cardiomediastinal silhouette is normal. Tortuous atherosclerotic aorta. IMPRESSION: No consolidation. Electronically signed by: Shashi Benitez MD (11/11/2021 1:57 PM) [facility]
[2021-11-11 14:39] LABS: BASO # 0.1 x10^3/uL (0.0-0.2); BASO % 1 % (0-3); EOS % 0 % (0-3); HEMATOCRIT 42.6 % (36.0-47.0); LYMPH # 1.8 x10^3/uL (1.0-4.8); LYMPH % 14 % (24-48); MEAN CORPUSCULAR HEMOGLOBIN 30 pg (25-35); MEAN CORPUSCULAR HGB CONC 33 g/dL (31-37); MEAN CORPUSCULAR VOLUME 91 fL (79-100); MONO # 1.1 x10^3/uL (0.0-1.1); MONO % 8 % (0-9); NEUT # 10.1 x10^3/uL (1.8-7.7); NEUT % 77 % (31-73); PLATELET COUNT 216 x10^3/uL (140-400); RED BLOOD COUNT 4.67 x10^6/uL (3.50-5.40); RED CELL DISTRIBUTION WIDTH 13.8 % (11.5-14.5); WHITE BLOOD COUNT 13.2 x10^3/uL (4.0-11.0)
[2021-11-11 14:47] VITALS: BP 144/76
[2021-11-11 14:53] LABS: CALCIUM 9.6 mg/dL (8.5-10.1); CREATININE 0.8 mg/dL (0.6-1.0); GFR 83.7; POTASSIUM 4.3 mmol/L (3.5-5.1)
[2021-11-11] MEDS ORDERED: ACETAMINOPHEN 325 MG TABLET. PO PRN (18:00)
[2021-11-11] MEDS: INSULIN LISPRO 300 UNITS/3 ML VIAL. SQ SCH (18:29)
[2021-11-11 19:00] VITALS: BP 146/68
[2021-11-11] MEDS ORDERED: INSULIN GLARGINE SYRINGE. SQ SCH (21:00)
[2021-11-11] MEDS: INSULIN GLARGINE SYRINGE. SQ SCH (22:03)
[2021-11-11] MEDS: FAMOTIDINE 20 MG TABLET. PO SCH (22:06)
[2021-11-11 23:00] VITALS: BP 136/47
[2021-11-12 03:00] VITALS: BP 148/63
[2021-11-12 07:00] VITALS: BP 145/52
[2021-11-12] MEDS: INSULIN LISPRO 300 UNITS/3 ML VIAL. SQ SCH ×3 (08:00→17:00)
[2021-11-12 08:19] LABS: CALCIUM 9.6 mg/dL (8.5-10.1); CREATININE 0.8 mg/dL (0.6-1.0); GFR 83.7; POTASSIUM 4.1 mmol/L (3.5-5.1)
--- NOTE | 2021-11-12 08:23 | HP ---
DATE OF SERVICE: 11/11/2021 ADMIT DATE: 11/10/2021 CHIEF COMPLAINT: Weakness. HISTORY OF PRESENT ILLNESS: The patient with history of dementia, apparently she is at a half-way and came in with some generalized weakness. She was on some antibiotics in the half-way and came in, potassium was low and she was admitted. Elevated troponin is noted as well. The patient is currently nonverbal and did not chest pain to me or the ER doctor. She is sleeping at this time. PAST HISTORY: Only available to the chart, nothing unusual. All meds reviewed. ALLERGIES: Noted. SOCIAL HISTORY: Unknown. Lives in a half-way. Nonsmoker, nondrinker to my knowledge. FAMILY HISTORY: Unremarkable. REVIEW OF SYSTEMS: No other problems. OBJECTIVE: ENT: Looks dry, otherwise unremarkable. NECK: No bruits, masses, or nodes. LUNGS: Clear without tachypnea. CARDIOVASCULAR: Regular rate, no murmur. ABDOMEN: Soft, benign. BACK: Nontender. EXTREMITIES: Good pedal and radial pulses. NEUROLOGIC: Difficult to assess, nonfocal, but nonverbal as well. ASSESSMENT: Dementia with possible urinary tract infection, status post one dose Rocephin. She has hypokalemia and one elevated troponin. PLAN: As ordered. FRANCES/ISAI/HAL DR: FRANCES/letitia TID: [id number]
[2021-11-12] MEDS: hydroCHLOROthiazide 12.5 MG TABLET PO SCH ×2 (09:00→10:40)
[2021-11-12] MEDS: ARIPiprazole 5 MG TABLET PO SCH ×2 (09:00→10:41)
[2021-11-12] MEDS: DIVALPROEX DELAYED RELEASE 500 MG TABLET.DR. PO SCH ×4 (09:00→21:00)
[2021-11-12] MEDS: LISINOPRIL 20 MG TABLET PO SCH ×2 (09:00→10:40)
[2021-11-12] MEDS: MEMANTINE 10 MG TABLET. PO SCH ×3 (09:00→21:00)
--- NOTE | 2021-11-12 09:28 | PDOC ---
Provider Note Date of Service: DATE: 11/12/21 TIME: 09:27 Provider Note sleepy, nonverbal, afeb/ vss- labs ok- add cipro re uti , appears to have gotten rocep in er, rest same Justifications for Admission Other Justification Altered mental status and UTI ARTEMIO BARRETT MD November 12, 2021 09:28
[2021-11-12] MEDS: CIPROFLOXACIN 400MG PREMIX 200 ML IV SCH ×2 (10:00→23:06)
[2021-11-12] MEDS: IBUPROFEN 200 MG TABLET. PO PRN ×2 (10:39→14:20)
[2021-11-12 11:00] VITALS: BP 134/60
[2021-11-12] MEDS: PANTOPRAZOLE 40 MG TABLET.DR. PO SCH (11:30)
[2021-11-12 11:33] LABS: RBC,URINE 0 /HPF (0-2)
[2021-11-12 11:34] LABS: BACTERIA,URINE 0 /HPF (0-FEW); WBC,URINE >40 /HPF (0-4)
[2021-11-12] MEDS: POTASSIUM CL 20MEQ D5-0.45NACL 1,000 ML IV SCH ×2 (14:11→23:09)
[2021-11-12 15:00] VITALS: BP 137/64
[2021-11-12 19:00] VITALS: BP 156/77
[2021-11-12] MEDS: LACTOBACILLUS RHAMNOSUS GG 1 CAPSULE. PO SCH (21:00)
[2021-11-12] MEDS: FAMOTIDINE 20 MG TABLET. PO SCH (21:00)
--- NOTE | 2021-11-12 21:00 | NUR ---
NURSING NOTE Attempted to administer HS med to pt. Pt held tylenol in mouth, kept drinking water, but just held the water in her mouth, unable to swallow it. Pt spit it back out into a cup. Attempted to crush another medication and place in applesauce, but pt held it in her mouth and after about 3 minutes, spit it out. Pt made NPO and consult for bedside swallow placed. Will monitor.
[2021-11-12 23:00] VITALS: BP 133/59
[2021-11-12] MEDS: INSULIN GLARGINE SYRINGE. SQ SCH (23:05)
[2021-11-13 07:00] VITALS: BP 144/75
[2021-11-13] MEDS: PANTOPRAZOLE 40 MG TABLET.DR. PO SCH ×2 (07:30→14:42)
[2021-11-13] MEDS: POTASSIUM CL 20MEQ D5-0.45NACL 1,000 ML IV SCH ×2 (08:19→17:33)
[2021-11-13] MEDS: INSULIN LISPRO 300 UNITS/3 ML VIAL. SQ SCH ×3 (08:26→17:23)
--- NOTE | 2021-11-13 08:34 | PN ---
DATE: 11/13/2021 DAILY PROGRESS NOTE LOCATION: She is in room 524. SUBJECTIVE: This 81-year-old female admitted with 103 fevers at the snf with altered mental status on top of her dementia. She did grow Proteus pansensitive out of her urine culture, which I saw yesterday prior to transfer and had received some Cipro prior to transfer. This morning, she seems better than described admission. She does awake, is minimally conversant, but this is her usual. She is on IV Cipro and we will transition her today back to p.o., and if she remains afebrile and with this mental status, will be ready for discharge tomorrow. OBJECTIVE: VITAL SIGNS: Stable. She is afebrile. Again, awakens and is her baseline confusion. CHEST: Clear to auscultation. HEART: Regular rate and rhythm. ABDOMEN: Benign. ASSESSMENT: 1. Urinary tract infection with fever due to Proteus. 2. Dementia. PLAN: As described above. FERNANDO DR: Jose A TID: [id number]
[2021-11-13] MEDS: CIPROFLOXACIN HCL 250 MG TABLET. PO SCH ×3 (09:00→22:02)
[2021-11-13] MEDS: hydroCHLOROthiazide 12.5 MG TABLET PO SCH ×2 (09:00→14:41)
[2021-11-13] MEDS: LISINOPRIL 20 MG TABLET PO SCH ×2 (09:00→14:40)
[2021-11-13] MEDS: ARIPiprazole 5 MG TABLET PO SCH ×2 (09:00→14:42)
[2021-11-13] MEDS: LACTOBACILLUS RHAMNOSUS GG 1 CAPSULE. PO SCH ×4 (09:00→22:02)
[2021-11-13] MEDS: MEMANTINE 10 MG TABLET. PO SCH ×3 (09:00→22:02)
[2021-11-13] MEDS: DIVALPROEX DELAYED RELEASE 500 MG TABLET.DR. PO SCH ×3 (09:00→22:03)
[2021-11-13 11:00] VITALS: BP 144/77
--- NOTE | 2021-11-13 11:57 | NUR ---
SS following for discharge planning. SS reviewed pt chart and discussed with pt RN. Pt is LT resident from [facility], ; fax [phone], and is currently on room air. COVID19 negative. SS will continue to follow for discharge planning.
[2021-11-13 14:52] VITALS: BP 151/77
--- NOTE | 2021-11-13 16:17 | NUR ---
Pt placed NPO per protocol by overnight caregiver due to concerns of pocketing food/pills. Pt previously on a full liquid diet. This RN performed a bedside swallow- pt was able to swallow ice chips, drink water, and plain applesauce without any difficulty. Upon trying to give patient medication with applesauce, pt shook head at this medical underwriter and stuck her tongue out with the pill on it, but swallowed applesauce. This RN then attempted to give medication crushed in applesauce- pt shook head at RN after she took the applesauce- refused to swallow it. This RN attempted for approx. 45 minutes to get patient to swallow applesauce with medications. Pt finally swallowed everything after persistent coaching and reminding to swallow. Dr. Phillip paged. Awaiting call back. Will continue to monitor.
[2021-11-13 19:00] VITALS: BP 150/76
[2021-11-13] MEDS: FAMOTIDINE 20 MG TABLET. PO SCH ×2 (21:00→22:07)
[2021-11-13] MEDS: INSULIN GLARGINE SYRINGE. SQ SCH (21:00)
[2021-11-13 23:01] VITALS: BP 140/72
[2021-11-14] MEDS: POTASSIUM CL 20MEQ D5-0.45NACL 1,000 ML IV SCH ×2 (03:07→16:00)
[2021-11-14 03:10] VITALS: BP 112/52
[2021-11-14 07:00] VITALS: BP 138/59
--- NOTE | 2021-11-14 07:03 | NUR ---
Pt refused lab draw this morning. Re approached and pt agreed. Assisted lab personnel with the draw but patient dug her nails into the lab personnel fingers and this RN's finger and rt arm. Pt refused.
[2021-11-14] MEDS ORDERED: CIPR250T30 PO (07:44)
[2021-11-14] MEDS: PANTOPRAZOLE 40 MG TABLET.DR. PO SCH (07:44)
[2021-11-14] MEDS: ARIPiprazole 5 MG TABLET PO SCH (08:23)
[2021-11-14] MEDS: hydroCHLOROthiazide 12.5 MG TABLET PO SCH (08:23)
[2021-11-14] MEDS: CIPROFLOXACIN HCL 250 MG TABLET. PO SCH (08:23)
[2021-11-14] MEDS: DIVALPROEX DELAYED RELEASE 500 MG TABLET.DR. PO SCH ×2 (08:24→14:00)
[2021-11-14] MEDS: LISINOPRIL 20 MG TABLET PO SCH (08:24)
[2021-11-14] MEDS: MEMANTINE 10 MG TABLET. PO SCH (08:24)
[2021-11-14] MEDS: LACTOBACILLUS RHAMNOSUS GG 1 CAPSULE. PO SCH (08:24)
[2021-11-14] MEDS: INSULIN LISPRO 300 UNITS/3 ML VIAL. SQ SCH ×2 (08:31→12:00)
[2021-11-14 11:00] VITALS: BP 138/61
--- NOTE | 2021-11-14 11:04 | NUR ---
SS following up with discharge planning. SS reviewed pt chart and discussed with pt RN. Pt is LTC resident from [facility], ; fax [phone], and is currently on room air. COVID19 negative. Discharge orders received and sent to [facility] with clinical. Pt will discharge today and go to [facility] at 1600 via stretcher. [facility] to provide transportation. Pt and pt's RN notified.
[2021-11-14 13:54] LABS: BASO # 0.1 x10^3/uL (0.0-0.2); BASO % 1 % (0-3); EOS # 0.2 x10^3/uL (0.0-0.7); EOS % 2 % (0-3); HEMATOCRIT 40.9 % (36.0-47.0); HEMOGLOBIN 13.9 g/dL (12.0-15.5); LYMPH # 1.9 x10^3/uL (1.0-4.8); LYMPH % 21 % (24-48); MEAN CORPUSCULAR HEMOGLOBIN 31 pg (25-35); MEAN CORPUSCULAR HGB CONC 34 g/dL (31-37); MEAN CORPUSCULAR VOLUME 89 fL (79-100); MONO # 0.7 x10^3/uL (0.0-1.1); MONO % 8 % (0-9); NEUT # 6.2 x10^3/uL (1.8-7.7); NEUT % 68 % (31-73); PLATELET COUNT 238 x10^3/uL (140-400); RED BLOOD COUNT 4.57 x10^6/uL (3.50-5.40); RED CELL DISTRIBUTION WIDTH 13.4 % (11.5-14.5); WHITE BLOOD COUNT 9.1 x10^3/uL (4.0-11.0)
[2021-11-14 14:06] LABS: CALCIUM 10.3 mg/dL (8.5-10.1); CREATININE 0.9 mg/dL (0.6-1.0); GFR 73.1; POTASSIUM 4.2 mmol/L (3.5-5.1)
--- NOTE | 2021-11-14 14:14 | NUR ---
Patient refused depokote
[2021-11-14 14:59] VITALS: BP 153/67
--- NOTE | 2021-11-15 01:29 | DS ---
DATE OF DISCHARGE: 11/14/2021 PRIMARY DIAGNOSIS: Proteus urinary tract infection with sepsis. ADDITIONAL DIAGNOSES: Dementia, diabetes, hypertension. CHIEF COMPLAINT AND HISTORY OF PRESENT ILLNESS: This is a 81-year-old female, group home resident, had fevers to 103 as well as confusion and decreased responsiveness, generalized weakness, necessitating trip to the Emergency Room. She had been started on Cipro prior to admission with evidence of UTI on lab there. It did eventually grew out Proteus, pansensitive and likely the cause of this whole episode, even though cultures of the urine at the hospital were negative because of receiving antibiotics prior to admission. SUMMARY OF STAY: The patient was admitted, treated with fluids, antibiotics throughout the stay, she gradually improved, became afebrile, although had a low-grade fever in the last 24 hours of 100.1. She came back more awake, alert and essentially at her baseline mentally. It was felt she could be transitioned to p.o. antibiotics, which was done the day prior to discharge. She did no ____ with the same and it was felt she could be dismissed with close outpatient followup at the group home. DISPOSITION: The patient is discharged to home or back to group home. DIET: As tolerated. ACTIVITY: As tolerated with help. DISCHARGE MEDICATIONS: Listed on the med rec and have been addressed. THAD/BRIANNE/CHELSI DR: Jose A TID: [id number]
== END 2021-11-14 16:35 | DRG 871 ==
LOC: 5 NORTH 20:00
PROVIDERS: ADMIT Family Medicine; ATTEND Family Medicine
DX: A41.9 Sepsis, unspecified organism (principal); E43 Unspecified severe protein-calorie malnutrition; N39.0 Urinary tract infection, site not specified; F03.90 Unspecified dementia, unspecified severity, without behavioral disturbance, psychotic disturbance, mood disturbance, and anxiety; E86.0 Dehydration; E87.6 Hypokalemia; Z20.822 Contact with and (suspected) exposure to COVID-19; E10.9 Type 1 diabetes mellitus without complications; I10 Essential (primary) hypertension; Z79.4 Long term (current) use of insulin; Z85.3 Personal history of malignant neoplasm of breast; Z90.11 Acquired absence of right breast and nipple; K59.00 Constipation, unspecified; B96.4 Proteus (mirabilis) (morganii) as the cause of diseases classified elsewhere; Z88.2 Allergy status to sulfonamides; Z88.0 Allergy status to penicillin; Z88.8 Allergy status to other drugs, medicaments and biological substances
CPT/HCPCS: 36415; 71045; 80048; 80053; 81001; 82962; 83605; 83735; 83880; 84484; 85025; 87040; 87086; 87428; J0744; J1815; J3480; 92610-GN; 99285-25; G0378